=== PATIENT | female | born 1955 | race Caucasian/White ===

== ENCOUNTER 2023-02-12 07:54 | Outpatient (CLI) | payer MEDICARE, OTHER, SELFPAY ==
--- NOTE | ~2023-02-12 | NM_ITS ---
EXAMINATION: NM parathyroid imaging w spect DATE: 02/12/2023 13:39 INDICATION: Primary hyperparathyroidism TECHNIQUE: 21 mCi Tc99m tetrofosmin (Myoview) was administered by intravenous route. Anterior images of the neck were obtained at 10 minutes and 2 hours. COMPARISON: None. FINDINGS/IMPRESSION: There is no focus of persistent activity in the area of the thyroid or mediastinum to suggest parathy roid adenoma. Reviewed, dictated and finalized at location A.
[2023-02-12 08:43] LABS: Alanine Aminotransferase 31 U/L (6-35); Albumin Level 3.8 g/dL (3.5-5.1); Alkaline Phosphatase 115 U/L (38-126); Anion Gap 6 mmol/L (8-16); Aspartate Amino Transferase 40 U/L (14-36); Bilirubin,Total 0.6 mg/dL (0.2-1.3); Blood Urea Nitrogen 16 mg/dL (7-17); Calcium 8.3 mg/dL (8.4-10.2); Carbon Dioxide 30 mmol/L (22-30); Chloride 103 mmol/L (98-107); Estimated Glomerular Filt Rate > 60; Glucose 99 mg/dL (65-110); Sodium 139 mmol/L (137-145)
[2023-02-12 08:46] LABS: Parathyroid Intact 131.4 pg/mL (7.5-53.5)
[2023-02-12 08:53] LABS: MALB Creatinine Ratio 46.8 mg/g (0-30); Microalbumin Urine Random 62.3 mg/L (0-16.7)
== END 2023-02-12 07:55 | disposition home or self-care (01) ==
PROVIDERS: PCP Internal Medicine; Visit Provider Internal Medicine
DX: E21.0 Primary hyperparathyroidism (principal); E66.9 Obesity, unspecified; M81.0 Age-related osteoporosis without current pathological fracture
CPT/HCPCS: 36415; 78071; 80053; 82043; 83970; A9500

== ENCOUNTER 2023-03-13 07:37 | Inpatient (IN) | payer MEDICARE, OTHER, SELFPAY ==
[2023-03-13] VITALS (20 sets, daily range): BP systolic 108–158; BP diastolic 57–92; PULSE 64–85; RESP 16–24; TEMP 36.1–37.4; O2SAT 92–100
--- NOTE | ~2023-03-13 | XR_ITS ---
EXAMINATION: XR retrograde pyelo w/stent LT DATE: 03/13/2023 14:48 INDICATION: Left internal ureteral stent placement TECHNIQUE: Fluoroscopic images from a left internal ureteral stent placement are submitted for review . 22 seconds of fluoroscopy time. 7 fluoroscopic images FINDINGS: There is a left double-J internal ureteral stent projecting in expected position, with proximal Agate loop at the level of the renal pelvis and distal loop in the pelvis within the bladder lumen. IMPRESSION: 1. Left internal ureteral stent placement. Please refer to real-time procedural findings for detail s. Reviewed, dictated and finalized at location A. IMPRESSION: 1. Left internal ureteral stent placement. Please refer to real-time procedur al findings for details.
--- NOTE | ~2023-03-13 | CT_ITS ---
Non-contrast CT scan of the Abdomen and Pelvis Clinical indication: Left flank pain Technique: 2.5 mm axial scans were obtained through the abdomen and pelvis without intravenous or or al contrast. Dose reduction technique was used on this scan by utilizing automated exposure control a nd iterative reconstruction technique. The dose-length product (DLP) was 1141.60 mGy-cm. Findings: Images through the lung bases reveal no abnormalities. There is a 1.3 x 0.9 cm stone at the left renal pelvis, with Hounsfield units in the range of 1350. T here is left perinephric stranding with possible minimal fullness of the left renal collecting system . There is probable minimal fullness of the right renal collecting system is well, but no ureteral di latation or ureteral stone on the right side. Punctate nonobstructing right renal stone present. The liver, spleen, pancreas, gallbladder, and adrenals appear normal. There are atherosclerotic calci fications of the aorta. There is no evidence of bowel obstruction. Very small fat-containing umbilical hernia present. There is an additional lower ventral fat-containing hernia (axial image 157). Images through the pelvis were performed. There is no evidence of ascites or lymphadenopathy. Urinary bladder unremarkable. Patient is post hysterectomy. No pelvic mass seen. Impression: 1.3 x 0.9 cm left renal pelvis stone with minimal left hydronephrosis and left ureteral stranding. No ncontrast CT is insensitive for pyelonephritis. Correlate clinically for signs/symptoms of superimpos ed infection. Punctate nonobstructing right renal stone with probable minimal fullness of the right renal collectin g system. Small fat-containing ventral and umbilical hernias, as above. Reviewed, dictated and finalized at [facility]. Impression: 1.3 x 0.9 cm left renal pelvis stone with minimal left hydronephrosis and left ureteral stranding. Noncontrast CT is insensitive for pyelonephritis. Correlate clinically for signs/symptoms of superimposed infection. Punctate nonobstructing right renal stone with probable minimal fullness of the right renal collecting system. Small fat-containing ventral and umbilical hernias, as above.
--- NOTE | 2023-03-13 07:52 | ED.ABDPAIN ---
HPI - Abdominal Pain General Chief Complaint: Abdominal Pain Stated Complaint: LEFT flank pain Time Seen by Provider: 03/13/23 07:40 History of Present Illness HPI narrative: 67-year-old female with history of kidney stones presenting the emergency department for evaluation of worsening left flank pain. Patient states this morning when she woke up she was having left lower flank pain and that is now radiating down to her left lower quadrant. Patient states this does feel similar to previous kidney stones. Patient does have follow-up with Dr. Aranda and she does know that she has multiple stones in her kidney. Patient was requesting medication for pain control and for nausea control. Patient does have multiple medication allergies but patient has no known adverse reaction to fentanyl. Related Data Home Medications Medication Instructions Recorded Confirmed apixaban 5 mg tablet 5 mg PO BID 11/29/22 03/13/23 atorvastatin 40 mg tablet 40 mg PO DAILY 11/29/22 03/13/23 cetirizine 10 mg tablet (Zyrtec) 10 mg PO DAILY PRN Allergy Symptoms 11/29/22 03/13/23 diltiazem HCl 360 mg 360 mg PO DAILY 11/29/22 03/13/23 capsule,extended release 24 hr escitalopram oxalate 20 mg tablet 20 mg PO DAILY 11/29/22 03/13/23 flecainide 100 mg tablet 100 mg PO Q12H 11/29/22 03/13/23 losartan 50 mg-hydrochlorothiazide 1 tablet PO DAILY 11/29/22 03/13/23 12.5 mg tablet magnesium oxide 400 mg PO DAILY 11/29/22 03/13/23 multivitamin-ferrous 1 tablet PO DAILY 11/29/22 03/13/23 fumarate-folic acid 18 mg-400 mcg tablet (Centrum) calcium carb-vit D3-minerals 600 1 tablet PO DAILY 01/28/23 03/13/23 mg calcium-400 unit tablet denosumab 60 mg/mL subcutaneous 60 mg subcut [id number] 01/28/23 03/13/23 syringe (Prolia) Allergies Allergy/AdvReac Type Severity Reaction Status Date / Time Barbiturates Allergy Intermediate RASH Verified 01/30/23 09:08 hydrocodone Allergy Intermediate HEADACHE Verified 01/30/23 09:08 atropine Allergy Unknown Unknown Verified 01/30/23 09:08 codeine Allergy Unknown Unknown Verified 01/30/23 09:08 hyoscyamine Allergy Unknown Unknown Verified 01/30/23 09:08 meperidine Allergy Unknown Unknown Verified 01/30/23 09:08 morphine Allergy Unknown Unknown Verified 01/30/23 09:08 phenobarbital Allergy Unknown Unknown Verified 01/30/23 09:08 prednisone Allergy Unknown Unknown Verified 01/30/23 09:08 CODEINE (Generic Allergy) Allergy Intermediate HEADACHE Uncoded 11/29/22 08:35 ANTICHOLINERGICS,OTHER Allergy Mild UNKNOWN Uncoded 11/29/22 08:35 BELLADONNA ALK/PHENOBARBITAL Allergy Unknown RASH Uncoded 11/29/22 08:35 (Generic Allergy) NKFA Allergy Unknown Unknown Uncoded 11/29/22 08:35 Review of Systems Review of Systems: All systems reviewed & are unremarkable except as noted in HPI and below PMFSH Past Medical History Medical History Afib Anxiety Asthma BMI greater than 40 GERD (gastroesophageal reflux disease) History of cardiac pacemaker HTN (hypertension) Left knee DJD Osteoporosis Pacemaker Right knee DJD Surgical History Surgical History History of bilateral breast reduction surgery History of hernia repair History of hysterectomy for indication other than cancer Family History Family History Mother Family history of premature coronary heart disease, Onset Age: 54 Hypertension Family history of elevated blood lipids Family history of diabetes mellitus in first degree relative Patient's mother is Father Hypertension Family history of elevated blood lipids Family history of diabetes mellitus in first degree relative Family history of coronary artery disease, Onset Age: 51 Patient's father is Other Diabetes mellitus Family history of arthritis Family history of kidney stones Family history of me
[2023-03-13 08:10] LABS: Basophils Absolute Auto 0.1 K/mm3 (0.0-0.1); Basophils Percent Auto 0.3 % (0.2-1.2); Eosinophils Absolute Auto 0.1 K/mm3 (0-0.3); Eosinophils Percent Auto 0.3 % (0-4.4); Hematocrit 43.7 % (37.0-47.0); Hemoglobin 13.1 g/dL (12.0-15.0); Immature Granulocyte Absolute 0.06 K/mm3 (0.00-0.031); Immature Granulocyte Percent A 0.4 % (0-0.5); Lymphocytes Absolute Auto 1.28 K/mm3 (0.9-3.2); Lymphocytes Percent Auto 8.2 % (18.3-44.2); Mean Corpuscular Hemoglobin 26.4 pg (26-34); Mean Corpuscular Volume 88.1 fl (80-100); Mean Platelet Volume 8.6 fl (7.4-10.4); Monocytes Percent Auto 6.3 % (2.6-8.5); Neutrophils Absolute Auto 13.3 K/mm3 (1.3-6.7); Neutrophils Percent Auto 84.5 % (45.5-73.1); Platelet Count Result 311 k/mm3 (150-375); Red Blood Count 4.96 M/mm3 (4.2-5.4); Red Cell Distribution Width 15.8 % (11.5-14.5); White Blood Count 15.7 K/mm3 (4.5-10.0)
[2023-03-13 08:21] LABS: Prothrombin Time 13.3 Seconds (11.1-14.7)
[2023-03-13 08:22] LABS: Partial Thromboplastin Time 27.7 SECONDS (22.3-36.8)
[2023-03-13 08:24] LABS: Alanine Aminotransferase 35 U/L (6-35); Albumin Level 4.1 g/dL (3.5-5.1); Alkaline Phosphatase 141 U/L (38-126); Anion Gap 6 mmol/L (8-16); Aspartate Amino Transferase 50 U/L (14-36); Bilirubin,Total 0.5 mg/dL (0.2-1.3); Blood Urea Nitrogen 17 mg/dL (7-17); Calcium 9.2 mg/dL (8.4-10.2); Carbon Dioxide 28 mmol/L (22-30); Chloride 105 mmol/L (98-107); Estimated CRCL calculation 90 ml/min; Estimated Glomerular Filt Rate > 60; Glucose 124 mg/dL (65-110); Potassium 4.2 mmol/L (3.4-5.0); Sodium 139 mmol/L (137-145)
[2023-03-13 08:36] LABS: Appearance Urine Cloudy (Clear); Bacteria Urine Rare /hpf; Bilirubin Urine Negative (Negative); Blood Urine Negative (Negative); Color Urine Yellow (Yellow); Glucose Urine UA Negative (Negative); Ketones Urine Negative (Negative); Leukocyte Esterase Ur 2+ LEU/UL (Negative); Need Manual Microscopic Reviewed; Nitrate Urine Negative (Negative); Non Pathogenic Casts 0-2; Protein Urine 1+ mg/dL (Negative); Specific Grav Ur 1.022 (1.001-1.035); Squamous Epithelial Cell Urine Occasional /hpf (Few); WBC Urine >100 /hpf
[2023-03-13 08:46] LABS: Add Urine Microscopic? YES
[2023-03-13] MEDS: ONDANSETRON INJ 4 MG/2 ML VIAL IV PUSH ×2 (08:48→11:24)
[2023-03-13] MEDS: fentaNYL CITRATE INJ (*CRX) 100 MCG/2 ML VIAL 50 MCG IV PUSH ×3 (08:48→17:18)
--- NOTE | 2023-03-13 10:24 | WPDURCON ---
Assessment and Plan Assessment and plan (1) Acute UTI: Code(s): N39.0 - Urinary tract infection, site not specified Status: Acute (2) Calculus of left kidney: Code(s): N20.0 - Calculus of kidney Status: Acute Assessment and Plan: Large obstructing left renal calculus with obstructive pyelonephritis. Will plan cystoscopy with ureteral stent placement today. Once infection has been treated she will need more definitive treatment, like with a left percutaneous nephrolithotomy. Urology Consult Note HPI Date Seen: 03/13/23 Primary Care Provider: Gibran Epperson, Consult Narrative Narrative: Dorie Mahoney is a 67 year old female has a known large left renal stone is scheduled for percutaneous nephrolithotomy in the future. She has been putting off for caring for her . She call me this morning with acute left flank pain, nausea vomiting. She denies fevers or chills seen in the ED her large left renal pelvic stone is now partially obstructing and she appears to have infected urine. Review of Systems Cardiovascular: Cardiovascular: Denies chest pain, Denies lightheadedness, Denies palpitations and Denies dyspnea Respiratory: Respiratory: Denies dyspnea Gastrointestinal: Gastrointestinal: Denies diarrhea, Denies nausea and Denies vomiting Genitourinary: Genitourinary: Denies hematuria and Denies dysuria Endocrine: Endocrine: Denies palpitations PMFSH Past Medical History Medical History (Updated 03/13/23 @ 10:01 by Sotero Mazariegos MD) Afib Anxiety Asthma BMI greater than 40 GERD (gastroesophageal reflux disease) History of cardiac pacemaker HTN (hypertension) Left knee DJD Osteoporosis Pacemaker Right knee DJD Surgical History Surgical History History of bilateral breast reduction surgery History of hernia repair History of hysterectomy for indication other than cancer Family History Family History Mother Family history of premature coronary heart disease, Onset Age: 54 Hypertension Family history of elevated blood lipids Family history of diabetes mellitus in first degree relative Patient's mother is Father Hypertension Family history of elevated blood lipids Family history of diabetes mellitus in first degree relative Family history of coronary artery disease, Onset Age: 51 Patient's father is Other Diabetes mellitus Family history of arthritis Family history of kidney stones Family history of mental disorder Social History Social History Smoking status: Never smoker Alcohol intake: never Substance use: never Living arrangements: alone Occupation/Education: retired Gender identity (if verbalized by the patient): Female Meds Home Medications and Allergies Home Medications Medication Instructions Recorded Confirmed Type apixaban 5 mg tablet 5 mg PO BID 11/29/22 01/30/23 History atorvastatin 40 mg tablet 40 mg PO DAILY 11/29/22 01/30/23 History cetirizine 10 mg tablet (Zyrtec) 10 mg PO DAILY PRN 11/29/22 01/30/23 History diltiazem HCl 360 mg 360 mg PO DAILY 11/29/22 01/30/23 History capsule,extended release 24 hr escitalopram oxalate 20 mg tablet 20 mg PO DAILY 11/29/22 01/30/23 History flecainide 100 mg tablet 100 mg PO Q12H 11/29/22 01/30/23 History losartan 50 mg-hydrochlorothiazide 1 tablet PO DAILY 11/29/22 01/30/23 History 12.5 mg tablet magnesium oxide 400 mg PO DAILY 11/29/22 01/30/23 History multivitamin-ferrous 1 tablet PO DAILY 11/29/22 01/30/23 History fumarate-folic acid 18 mg-400 mcg tablet (Centrum) calcium carb-vit D3-minerals 600 1 tablet PO DAILY 01/28/23 01/30/23 History mg calcium-400 unit tablet denosumab 60 mg/mL subcutaneous 60 mg subcut [id number] 01/28/23 01/30/23 History syring
--- NOTE | 2023-03-13 10:27 | WPDHPUPDATE1 ---
History and Physical Update Update Date/Time: 03/13/23 10:27 History and Physical has been reviewed, including an updated exam of the patient. There are NO changes in the patient's condition. Risks, benefits, and alternatives have been discussed and questions answered. Patient agrees to proceed with procedure.
--- NOTE | 2023-03-13 12:48 | PC.NURSE ---
to OR per stretcher
[2023-03-13] MEDS: LACTATED RINGERS 1,000 ML 30 ML IV CONT (13:04)
--- NOTE | 2023-03-13 13:27 | WPDANESEPPF ---
Anes - Initial Pre Proc Eval Procedure: Operation Date: 03/13/23 15:15 Proposed Procedures p Cystoscopy, Left Stent Placement - Jason Almazan MD Date/Time: 03/13/23 13:27 Surgeon: Hazel Hernandez DO Pre Op Diagnosis: UTI, kidney stone Patient Data Age: 67 Gender: F Height: 1.73 m Weight: 122 kg Last Vital Signs Temp 36.8 C 03/13/23 10:35 Pulse 65 03/13/23 10:01 Resp 18 03/13/23 10:01 BP 148/86 H 03/13/23 10:01 Pulse Ox 98 03/13/23 10:01 O2 Del Method Room Air 03/13/23 07:38 Allergies Allergy/AdvReac Type Severity Reaction Status Date / Time Barbiturates Allergy Intermediate RASH Verified 01/30/23 09:08 hydrocodone Allergy Intermediate HEADACHE Verified 01/30/23 09:08 atropine Allergy Unknown Unknown Verified 01/30/23 09:08 codeine Allergy Unknown Unknown Verified 01/30/23 09:08 hyoscyamine Allergy Unknown Unknown Verified 01/30/23 09:08 meperidine Allergy Unknown Unknown Verified 01/30/23 09:08 morphine Allergy Unknown Unknown Verified 01/30/23 09:08 phenobarbital Allergy Unknown Unknown Verified 01/30/23 09:08 prednisone Allergy Unknown Unknown Verified 01/30/23 09:08 CODEINE (Generic Allergy) Allergy Intermediate HEADACHE Uncoded 11/29/22 08:35 ANTICHOLINERGICS,OTHER Allergy Mild UNKNOWN Uncoded 11/29/22 08:35 BELLADONNA ALK/PHENOBARBITAL Allergy Unknown RASH Uncoded 11/29/22 08:35 (Generic Allergy) NKFA Allergy Unknown Unknown Uncoded 11/29/22 08:35 Home Medications Medication Instructions Recorded Confirmed Type apixaban 5 mg tablet 5 mg PO BID 11/29/22 03/13/23 History atorvastatin 40 mg tablet 40 mg PO DAILY 11/29/22 03/13/23 History cetirizine 10 mg tablet (Zyrtec) 10 mg PO DAILY PRN Allergy Symptoms 11/29/22 03/13/23 History diltiazem HCl 360 mg 360 mg PO DAILY 11/29/22 03/13/23 History capsule,extended release 24 hr escitalopram oxalate 20 mg tablet 20 mg PO DAILY 11/29/22 03/13/23 History flecainide 100 mg tablet 100 mg PO Q12H 11/29/22 03/13/23 History losartan 50 mg-hydrochlorothiazide 1 tablet PO DAILY 11/29/22 03/13/23 History 12.5 mg tablet magnesium oxide 400 mg PO DAILY 11/29/22 03/13/23 History multivitamin-ferrous 1 tablet PO DAILY 11/29/22 03/13/23 History fumarate-folic acid 18 mg-400 mcg tablet (Centrum) calcium carb-vit D3-minerals 600 1 tablet PO DAILY 01/28/23 03/13/23 History mg calcium-400 unit tablet denosumab 60 mg/mL subcutaneous 60 mg subcut [id number] 01/28/23 03/13/23 History syringe (Prolia) exenatide microspheres 2 mg/0.85 2 mg (0.85 mL) subcut WEEKLY #12 mL 01/28/23 03/13/23 Rx mL subcutaneous auto-injector (Byoli Punch!se) mecobalamin (vitamin B12) 10,000 1,000 mcg IM .2 weeks #1 ea 01/28/23 03/13/23 Rx mcg solution for injection [id number] 8 cap PO DAILY 3 months #720 caps 01/30/23 03/13/23 Rx 36,000-114,000-180,000 unit capsule,delay rel (Creon) omeprazole 40 mg capsule,delayed 40 mg PO DAILY 3 months #90 caps 01/30/23 03/13/23 Rx release Laboratory Tests 03/13/23 07:59 WBC 15.7 H K/mm3 (4.5-10.0) RBC 4.96 M/mm3 (4.2-5.4) Hgb 13.1 g/dL (12.0-15.0) Hct 43.7 % (37.0-47.0) MCV 88.1 fl (80-100) MCH 26.4 pg (26-34) MCHC 30.0 L g/dl (32-36) RDW 15.8 H % (11.5-14.5) Plt Count 311 k/mm3 (150-375) MPV 8.6 fl (7.4-10.4) Immature Gran % (Auto) 0.4 % (0-0.5) Neut % (Auto) 84.5 H % (45.5-73.1) Lymph % (Auto) 8.2 L % (18.3-44.2) [place] % (Auto) 6.3 % (2.6-8.5) Eos % (Auto) 0.3 % (0-4.4) Baso % (Auto) 0.3 % (0.2-1.2) Lymph # (Auto) 1.28 K/mm3 (0.9-3.2) [place] # (Auto) 1.0 H K/mm3 (0.1-0.6) Eos # (Auto) 0.1 K/mm3 (0-0.3) Baso # (Auto) 0.1 K/mm3 (0.0-0.1) Abs Immat Gran (auto) 0.06 H K/mm3 (0.00-0.031) Absolute Neuts (auto) 13.3 H K/mm3 (1.3-6.7) Absolute Nucleated RBC 0.0 K/mm3 (0.0-0.012) Nucleated RBC % 0.0 % (0.0-0.2) PT 13.3 Seconds
[2023-03-13] MEDS: LIDOCAINE HCL 2% GEL UROJET 10 ML PKG MUCOUS MEM (14:37)
--- NOTE | 2023-03-13 14:51 | P.OP_ITS ---
Procedure Note - Detailed Date of Procedure 03/13/23 Pre-op Diagnosis UTI, Left kidney stone Post-op Diagnosis Same Procedure Performed Cystoscopy, left retrograde pyelography and left ureteral stent placement Surgeon Jason Almazan MD Anesthesia MAC Description of Procedure The patient was brought to the operative suite where she was prepped and draped in a routine sterile fashion while in the dorsal lithotomy position. A 19 F rigid cystoscope was placed in her bladder and the bladder was circumferentially inspected. The bladder neck and urethra were endoscopically normal. The bladder mucosa was without hyperemia. There was no intravesical foreign body or neoplasm. There was a single orthotopic ureteral orifice bilaterally. A bulb- tipped catheter was used to obtain left retrograde pyelogram to outline the renal pelvis and insure appropriate positioning of the stent. There was no obvious filling defects or obstruction in the ureter. I advanced .035 glidewire into the left renal pelvis under fluoroscopy. A 4.8F variable length ureteral stent was positioned with the proximal coil in the renal pelvis and the distal coil in the bladder. Scopes and wires were removed after emptying the patient's bladder. Drains Yes Packing No Pathology None sent Complications No immediate complications Condition Stable Disposition PACU
--- NOTE | 2023-03-13 18:27 | PM.IMHP ---
H&P: HPI History of Present Illness Date/Time: 03/13/23 18:27 Chief Complaint: Flank Pain Narrative: 67-year-old female presents here with left flank pain with past medical history of kidney stones, AFib, asthma, GERD, HTN, osteoporosis, pacemaker, DONNELL with CPAP. Patient presented here today with 24 hours of left flank pain accompanied by dysuria. No hematuria, decreased output, odor. Patient does report increased frequency and chills that developed today. No fever or body aches. 2 previous episodes of kidney stones, most recent was 15 years ago and episode prior was [address] findings in the emergency department were positive for a 1.3 x 0.9 cm left renal pelvis stone with minimal left hydronephrosis and left ureteral stent stranding and a punctate nonobstructing right renal stone. UA and physical exam suggestive for UTI with pyelonephritis. Urology was consulted and retrograde pyelogram was performed this afternoon. Patient reports decreased discomfort, however flank and left abdomen remains tender. Small amount of hematuria. But is overall feeling improved. Review of Systems Review of Systems: All systems reviewed & are unremarkable except as noted in HPI and below PMFSH Past Medical History Medical History Afib Anxiety Asthma BMI greater than 40 GERD (gastroesophageal reflux disease) History of cardiac pacemaker HTN (hypertension) Left knee DJD Osteoporosis Pacemaker Right knee DJD Surgical History Surgical History History of bilateral breast reduction surgery History of hernia repair History of hysterectomy for indication other than cancer Family History Family History Mother Family history of premature coronary heart disease, Onset Age: 54 Hypertension Family history of elevated blood lipids Family history of diabetes mellitus in first degree relative Patient's mother is Father Hypertension Family history of elevated blood lipids Family history of diabetes mellitus in first degree relative Family history of coronary artery disease, Onset Age: 51 Patient's father is Other Diabetes mellitus Family history of arthritis Family history of kidney stones Family history of mental disorder Social History Social History (Updated 03/13/23 @ 23:45 by Mabel Angelo APRN) Social History: Currently lives with her and daughter. 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 Surrogate decision maker: Arianna White, daughter. Full Code. Smoking status: Never smoker Alcohol intake: never Substance use: never Lack of Transportation: No Lack of Food: Never True Current Housing: I Have Housing Concerned About Future Housing: No Difficulty Paying Gas/Electric Bills: No Difficulty Paying for Meds: No Currently Unemployed: No Education: High School Diploma/GED Difficulty w/ Childcare or Family Care: No Living arrangements: alone Occupation/Education: retired Gender identity (if verbalized by the patient): Female Spiritual care concerns: No Meds Home Medications and Allergies Home Medications Medication Instructions Recorded Confirmed Type apixaban 5 mg tablet 5 mg PO BID 11/29/22 03/13/23 History atorvastatin 40 mg tablet 40 mg PO DAILY 11/29/22 03/13/23 History cetirizine 10 mg tablet (Zyrtec) 10 mg PO DAILY PRN Allergy Symptoms 11/29/22 03/13/23 History diltiazem HCl 360 mg 360 mg PO DAILY 11/29/22 03/13/23 History capsule,extended release 24 hr escitalopram oxalate 20 mg tablet 20 mg PO DAILY 11/29/22 03/13/23 History flecainide 100 mg tablet 100 mg PO Q12H 11/29/22 03/13/23 History losartan 50 mg-hydrochlorothiazide 1 tablet PO DAILY 11/29/22 03/13/23 History 12.5 mg tablet magnesium oxide 400 mg PO
[2023-03-13 20:15] LABS: Lactic Acid Reflex 1.2 mmol/L (0.7-2.0)
[2023-03-13] MEDS: KETOROLAC (*BKC) 60 MG/2 ML VIAL IM (21:15)
[2023-03-13] MEDS: LACTATED RINGERS 1,000 ML 100 ML IV CONT (21:16)
[2023-03-14] VITALS (9 sets, daily range): BP systolic 102–123; BP diastolic 44–73; PULSE 65–81; RESP 16–18; TEMP 35.9–37; O2SAT 91–98
[2023-03-14 06:33] LABS: Hematocrit 38.1 % (37.0-47.0); Hemoglobin 11.4 g/dL (12.0-15.0); Mean Corpuscular HGB Conc 29.9 g/dl (32-36); Mean Corpuscular Hemoglobin 26.5 pg (26-34); Mean Corpuscular Volume 88.4 fl (80-100); Mean Platelet Volume 8.7 fl (7.4-10.4); Platelet Count Result 256 k/mm3 (150-375); Red Blood Count 4.31 M/mm3 (4.2-5.4); Red Cell Distribution Width 15.6 % (11.5-14.5); White Blood Count 15.3 K/mm3 (4.5-10.0)
[2023-03-14 07:02] LABS: Anion Gap 7 mmol/L (8-16); Blood Urea Nitrogen 15 mg/dL (7-17); Calcium 8.2 mg/dL (8.4-10.2); Carbon Dioxide 28 mmol/L (22-30); Chloride 100 mmol/L (98-107); Estimated CRCL calculation 79 ml/min; Estimated Glomerular Filt Rate > 60; Glucose 131 mg/dL (65-110); Potassium 3.5 mmol/L (3.4-5.0); Sodium 135 mmol/L (137-145)
[2023-03-14] MEDS: LIPASE/AMYLASE/PROTEASE 12,000 UNITS CAP 6 CAP PO ×3 (09:02→16:55)
[2023-03-14] MEDS: ATORVASTATIN 40 MG TABLET PO (09:04)
[2023-03-14] MEDS: ESCITALOPRAM OXALATE 10 MG TABLET 20 MG PO (09:04)
[2023-03-14] MEDS: LOSARTAN POTASSIUM 50 MG TABLET PO (09:04)
[2023-03-14] MEDS: MULTIVITAMINS /C LUTEIN (CENTRUM SILVER) TABLET *BKC 1 TAB PO (09:04)
[2023-03-14] MEDS: PANTOPRAZOLE 40 MG TABLET PO ×2 (09:05→16:56)
[2023-03-14] MEDS: hydroCHLOROthiazide 12.5 MG CAPSULE PO (09:05)
[2023-03-14] MEDS: FLECAINIDE ACETATE 100 MG TABLET PO ×2 (09:05→20:28)
[2023-03-14] MEDS: ONDANSETRON INJ 4 MG/2 ML VIAL IV PUSH ×2 (09:13→20:19)
[2023-03-14] MEDS: fentaNYL CITRATE INJ (*CRX) 100 MCG/2 ML VIAL 50 MCG IV PUSH ×3 (09:27→20:26)
[2023-03-14] MEDS: cefTRIAXone 2 GM/NS 100 ML 2 GM/100 ML BAG IVPB (10:09)
--- NOTE | 2023-03-14 11:04 | WPDUROPN2 ---
Progress Note: A&P Assessment and Plan (1) Acute UTI: Code(s): N39.0 - Urinary tract infection, site not specified Status: Acute (2) Calculus of left kidney: Code(s): N20.0 - Calculus of kidney Status: Acute Assessment and Plan: Culture-directed abx. [id number] F/U 10-14 days to arrange for definitive intervention left renal stone Subjective Subjective Date/Time Seen: 03/14/23 11:04 Interval history: Feeling much better/pain resolved after stent placement Review of Systems Cardiovascular: Cardiovascular: Denies chest pain, Denies lightheadedness, Denies palpitations and Denies dyspnea Respiratory: Respiratory: Denies dyspnea Gastrointestinal: Gastrointestinal: Denies diarrhea, Denies nausea and Denies vomiting Genitourinary: Genitourinary: Denies hematuria and Denies dysuria Endocrine: Endocrine: Denies palpitations Exam Const: General: no acute distress Resp: Effort & Inspection: normal respiratory effort GI: Inspection: non-distended GI Palp: No abdominal tenderness and No Guarding due to palpation present (GI) Auscultation: normal bowel sounds Objective Data Vital Signs Vital Signs: Vital Signs - 24 hr 03/13/23 12:55 03/13/23 14:46 03/13/23 15:00 Temperature 98.2 F 97.6 F Pulse Rate 70 85 82 Respiratory Rate 18 16 24 H Blood Pressure 152/76 H 152/88 H 135/78 Pulse Oximetry 95 100 94 Oxygen Delivery Room Air Simple Face Mask Nasal Cannula Oxygen Flow Rate 8 2 03/13/23 15:15 03/13/23 15:30 03/13/23 15:39 Temperature Pulse Rate 76 73 76 Respiratory Rate 20 20 20 Blood Pressure 158/71 H 146/70 H 140/77 Pulse Oximetry 96 95 96 Oxygen Delivery Room Air Nasal Cannula Nasal Cannula Oxygen Flow Rate 2 2 03/13/23 15:55 03/13/23 16:10 03/13/23 16:40 Temperature 98.6 F 98.8 F 99.3 F Pulse Rate 78 70 71 Respiratory Rate 20 20 20 Blood Pressure 126/87 140/69 150/75 H Pulse Oximetry 94 95 98 Oxygen Delivery Oxygen Flow Rate 03/13/23 17:35 03/13/23 20:00 03/13/23 20:00 Temperature 99.2 F 98.4 F Pulse Rate 75 79 Respiratory Rate 20 16 Blood Pressure 116/57 L 131/61 Pulse Oximetry 96 98 98 Oxygen Delivery CPAP Oxygen Flow Rate 2 03/14/23 00:00 03/14/23 04:00 03/14/23 09:05 Temperature 96.7 F L 97.7 F Pulse Rate 79 79 76 Respiratory Rate 16 16 Blood Pressure 102/48 L 115/56 L Pulse Oximetry 96 98 Oxygen Delivery Oxygen Flow Rate 03/14/23 08:00 Temperature 98.6 F Pulse Rate 81 Respiratory Rate 16 Blood Pressure 123/60 Pulse Oximetry 94 Oxygen Delivery Oxygen Flow Rate Intake/Output Intake/Output: Intake & Output 03/11/23 03/12/23 03/13/23 03/14/23 23:59 23:59 23:59 23:59 Intake Total 1178.6 444 Balance 1178.6 444 Meds/Results Medications: Active Medications Generic Name Dose Route Start Last Admin Trade Name Freq PRN Reason Stop Dose Admin Acetaminophen 500 mg 03/13/23 18:46 Acetaminophen 500 Mg Tablet PO Q4H PRN Mild Pain (1-3) or Fever Lipase/Protease/Amylase 6 cap 03/14/23 08:00 03/14/23 09:02 Lipase/Amylase/Protease 12,000 Units Cap PO 2 cap TIDWM VIVIANA Administration Lipase/Protease/Amylase 3 cap 03/13/23 20:00 03/14/23 10:10 Lipase/Amylase/Protease 12,000 Units Cap PO Not Given 1000,2000 [facility] Atorvastatin Calcium 40 mg 03/14/23 09:00 03/14/23 09:04 Atorvastatin 40 Mg Tablet PO 40 mg DAILY VIVIANA Administration Calcium Carbonate 500 mg 03/14/23 09:00 03/14/23 09:05 Calcium/Vitamin D 500 Mg Tablet PO 500 mg QAM [facility] Administration Cyanocobalamin 1,000 mcg 03/24/23 09:00 Cyanocobalamin Inj 1,000 Mcg/Ml Vial IM Q14D [facility] Diltiazem HCl 360 mg 03/14/23 18:00 Diltiazem Hcl Cd 180 Mg Cap.24hr PO DAILY@1800 [facility] Escitalopram Oxalate 20 mg 03/14/23 09:00 03/14/23 09:04 Escitalopram Oxalate 10 Mg Tablet PO 20 mg DAILY VIVIANA Administration Fentanyl Citrate 50 mcg 03/13/23 10:01 03/14/23 09
--- NOTE | 2023-03-14 11:54 | PM.IMPN ---
Progress Note: A&P Assessment and Plan (1) Acute UTI: Code(s): N39.0 - Urinary tract infection, site not specified Status: Acute Assessment and Plan: Rocephin initiated 03/13, being treated for renal stone with pyelonephritis Appreciate urology consultation, Toradol and fentanyl for pain Follow-up urine culture (2) Calculus of left kidney: Code(s): N20.0 - Calculus of kidney Status: Acute Assessment and Plan: Appreciate urology consultation, cystoscopy with stent placement performed 03/13 Patient will need left percutaneous nephrolithotomy on an outpatient basis once this infection has resolved Plan Chronic Conditions - hold home apixaban due to recent procedure, continue once 24-48 hours post-procedure. -hold home Prolia injection - continue home atorvastatin, calcium supplement, vitamin-D supplement, Zyrtec, diltiazem, escitalopram, bydureon, flecainide, Creon Diet: regular GI Prophylaxis: not currently indicated DVT Prophylaxis: SCDs, hold pharmacological due to recent procedure Lines: pIV Code Status: Full Code Subjective Date/time seen: 03/14/23 11:54 Interval history: 67-year-old female with history of kidney stones, AFib, GERD among other comorbidities is presenting with flank pain and currently being treated for an obstructive kidney stone with associated pyelonephritis. No overnight events noted. No chest pain or shortness of breath. No nausea, vomiting or diarrhea. No fevers or chills. Patient states she feels much better than when she came in. Still with little flank pain, improved. Review of Systems Review of Systems: 12 point review of systems was assessed and was negative except as noted in the HPI Exam Narrative: General: No acute distress, alert and oriented per baseline HEENT: Atraumatic, normocephalic, mucous membranes moist CV: Regular rate and rhythm, S1, S2 Lungs: Clear to auscultation bilaterally, no rales or crackles noted, no wheezes, good air entry Abdomen: Soft, nontender, nondistended, positive CVA tenderness noted Extremities: Normal to inspection Skin: No rashes noted, no lesions or wounds seen Psych: Euthymic, normal affect Objective Data Vital Signs Vital Signs: Vital Signs - 24 hr 03/13/23 12:55 03/13/23 14:46 03/13/23 15:00 Temperature 98.2 F 97.6 F Pulse Rate 70 85 82 Respiratory Rate 18 16 24 H Blood Pressure 152/76 H 152/88 H 135/78 Pulse Oximetry 95 100 94 Oxygen Delivery Room Air Simple Face Mask Nasal Cannula Oxygen Flow Rate 8 2 03/13/23 15:15 03/13/23 15:30 03/13/23 15:39 Temperature Pulse Rate 76 73 76 Respiratory Rate 20 20 20 Blood Pressure 158/71 H 146/70 H 140/77 Pulse Oximetry 96 95 96 Oxygen Delivery Room Air Nasal Cannula Nasal Cannula Oxygen Flow Rate 2 2 03/13/23 15:55 03/13/23 16:10 03/13/23 16:40 Temperature 98.6 F 98.8 F 99.3 F Pulse Rate 78 70 71 Respiratory Rate 20 20 20 Blood Pressure 126/87 140/69 150/75 H Pulse Oximetry 94 95 98 Oxygen Delivery Oxygen Flow Rate 03/13/23 17:35 03/13/23 20:00 03/13/23 20:00 Temperature 99.2 F 98.4 F Pulse Rate 75 79 Respiratory Rate 20 16 Blood Pressure 116/57 L 131/61 Pulse Oximetry 96 98 98 Oxygen Delivery CPAP Oxygen Flow Rate 2 03/14/23 00:00 03/14/23 04:00 03/14/23 09:05 Temperature 96.7 F L 97.7 F Pulse Rate 79 79 76 Respiratory Rate 16 16 Blood Pressure 102/48 L 115/56 L Pulse Oximetry 96 98 Oxygen Delivery Oxygen Flow Rate 03/14/23 08:00 03/14/23 09:00 Temperature 98.6 F Pulse Rate 81 Respiratory Rate 16 Blood Pressure 123/60 Pulse Oximetry 94 Oxygen Delivery Room Air Oxygen Flow Rate Intake/Output Intake/Output: Intake & Output 03/11/23 03/12/23 03/13/23 03/14/23 23:59 23:59 23:59 23:59 Intake Total 1178.6 444 Balance 1178.6 444 Meds/Results Medications: Active Medications Generic Name Dose Route Start Last Admin Trade Name
[2023-03-14] MEDS: ACETAMINOPHEN 500 MG TABLET PO (15:06)
[2023-03-14] MEDS: dilTIAZem HCL CD 180 MG CAP.24HR 360 MG PO (16:56)
[2023-03-14] MEDS: MAGNESIUM OXIDE 400 MG TABLET PO (16:56)
[2023-03-14] MEDS: ALBUTEROL SULFATE NEB 2.5 MG/3 ML INH INHALATION (18:10)
[2023-03-14] MEDS: LIPASE/AMYLASE/PROTEASE 12,000 UNITS CAP 3 CAP PO (20:28)
[2023-03-15] MEDS: ONDANSETRON INJ 4 MG/2 ML VIAL IV PUSH (02:04)
[2023-03-15 04:38] VITALS: BP 95/56; PULSE 72; RESP 20; TEMP 37.1; O2SAT 96
[2023-03-15 08:00] VITALS: BP 111/57; PULSE 70; RESP 16; TEMP 36.6; O2SAT 90
[2023-03-15] MEDS: LIPASE/AMYLASE/PROTEASE 12,000 UNITS CAP 6 CAP PO ×3 (08:33→17:03)
[2023-03-15 09:46] VITALS: PULSE 73
[2023-03-15] MEDS: cefTRIAXone 2 GM/NS 100 ML 2 GM/100 ML BAG IVPB (09:46)
[2023-03-15] MEDS: FLECAINIDE ACETATE 100 MG TABLET PO ×2 (09:46→20:29)
[2023-03-15] MEDS: hydroCHLOROthiazide 12.5 MG CAPSULE PO (09:46)
--- NOTE | 2023-03-15 09:46 | PM.IMPN ---
Progress Note: A&P Assessment and Plan (1) Acute UTI: Code(s): N39.0 - Urinary tract infection, site not specified Status: Acute Assessment and Plan: Rocephin initiated 03/13, being treated for renal stone with pyelonephritis Appreciate urology consultation, Toradol and fentanyl for pain Follow-up urine culture, d/c when sens back (2) Calculus of left kidney: Code(s): N20.0 - Calculus of kidney Status: Acute Assessment and Plan: Appreciate urology consultation, cystoscopy with stent placement performed 03/13 Patient will need left percutaneous nephrolithotomy on an outpatient basis once this infection has resolved Plan Chronic Conditions - hold home apixaban due to recent procedure, continue once 24-48 hours post-procedure. -hold home Prolia injection - continue home atorvastatin, calcium supplement, vitamin-D supplement, Zyrtec, diltiazem, escitalopram, bydureon, flecainide, Creon Diet: regular GI Prophylaxis: not currently indicated DVT Prophylaxis: SCDs, hold pharmacological due to recent procedure Lines: pIV Code Status: Full Code Subjective Date/time seen: 03/15/23 09:46 Interval history: 67-year-old female with history of kidney stones, AFib, GERD among other comorbidities is presenting with flank pain and currently being treated for an obstructive kidney stone with associated pyelonephritis. No overnight events noted. No chest pain or shortness of breath. No nausea, vomiting or diarrhea. No fevers or chills. Patient states she feels much better than when she came in. Eager to go home. Review of Systems Review of Systems: 12 point review of systems was assessed and was negative except as noted in the HPI Exam Narrative: General: No acute distress, alert and oriented per baseline HEENT: Atraumatic, normocephalic, mucous membranes moist CV: Regular rate and rhythm, S1, S2 Lungs: Clear to auscultation bilaterally, no rales or crackles noted, no wheezes, good air entry Abdomen: Soft, nontender, nondistended, no CVA tenderness Extremities: Normal to inspection Skin: No rashes noted, no lesions or wounds seen Psych: Euthymic, normal affect Objective Data Vital Signs Vital Signs: Vital Signs - 24 hr 03/14/23 15:50 03/14/23 18:11 03/14/23 18:15 Temperature 97.8 F Pulse Rate 65 65 Respiratory Rate 18 18 Blood Pressure 115/73 Pulse Oximetry 91 95 Oxygen Delivery Room Air 03/14/23 21:54 03/14/23 20:55 03/14/23 21:52 Temperature 97.1 F L Pulse Rate 66 Respiratory Rate 16 Blood Pressure 115/44 L Pulse Oximetry 92 93 Oxygen Delivery Room Air Room Air 03/15/23 04:38 Temperature 98.7 F Pulse Rate 72 Respiratory Rate 20 Blood Pressure 95/56 L Pulse Oximetry 96 Oxygen Delivery Intake/Output Intake/Output: Intake & Output 03/12/23 03/13/23 03/14/23 03/15/23 23:59 23:59 23:59 23:59 Intake Total 1178.6 1766 50 Balance 1178.6 1766 50 Meds/Results Medications: Active Medications Generic Name Dose Route Start Last Admin Trade Name Freq PRN Reason Stop Dose Admin Acetaminophen 500 mg 03/13/23 18:46 03/14/23 15:06 Acetaminophen 500 Mg Tablet PO 500 mg Q4H PRN Administration Mild Pain (1-3) or Fever Albuterol 2.5 mg 03/14/23 18:01 03/14/23 18:10 Albuterol Sulfate Neb 2.5 Mg/3 Ml Inh INHALATION 2.5 mg Q6HRT PRN Administration Shortness Of Breath Lipase/Protease/Amylase 6 cap 03/14/23 08:00 03/15/23 08:33 Lipase/Amylase/Protease 12,000 Units Cap PO 2 cap TIDWM VIVIANA Administration Lipase/Protease/Amylase 3 cap 03/13/23 20:00 03/14/23 20:28 Lipase/Amylase/Protease 12,000 Units Cap PO 3 cap 1000,2000 VIVIANA Administration Atorvastatin Calcium 40 mg 03/14/23 09:00 03/14/23 09:04 Atorvastatin 40 Mg Tablet PO 40 mg DAILY VIVIANA Administration Calcium Carbonate 500 mg 03/14/23 09:00 03/14/23 09:05 Calcium/Vitamin D 500 Mg Tablet PO
[2023-03-15] MEDS: ACETAMINOPHEN 500 MG TABLET PO ×3 (09:47→20:29)
[2023-03-15] MEDS: ATORVASTATIN 40 MG TABLET PO (09:47)
[2023-03-15] MEDS: MULTIVITAMINS /C LUTEIN (CENTRUM SILVER) TABLET *BKC 1 TAB PO (09:47)
[2023-03-15] MEDS: LOSARTAN POTASSIUM 50 MG TABLET PO (09:47)
[2023-03-15] MEDS: PANTOPRAZOLE 40 MG TABLET PO ×2 (09:47→17:04)
[2023-03-15 10:29] LABS: Basophils Percent Auto 0.4 % (0.2-1.2); Eosinophils Absolute Auto 0.2 K/mm3 (0-0.3); Eosinophils Percent Auto 1.5 % (0-4.4); Hematocrit 39.3 % (37.0-47.0); Hemoglobin 11.7 g/dL (12.0-15.0); Immature Granulocyte Absolute 0.05 K/mm3 (0.00-0.031); Immature Granulocyte Percent A 0.5 % (0-0.5); Lymphocytes Absolute Auto 1.06 K/mm3 (0.9-3.2); Lymphocytes Percent Auto 10.7 % (18.3-44.2); Mean Corpuscular HGB Conc 29.8 g/dl (32-36); Mean Corpuscular Hemoglobin 26.2 pg (26-34); Mean Corpuscular Volume 88.1 fl (80-100); Mean Platelet Volume 8.8 fl (7.4-10.4); Monocytes Percent Auto 9.7 % (2.6-8.5); Neutrophils Absolute Auto 7.7 K/mm3 (1.3-6.7); Neutrophils Percent Auto 77.2 % (45.5-73.1); Platelet Count Result 282 k/mm3 (150-375); Red Blood Count 4.46 M/mm3 (4.2-5.4); Red Cell Distribution Width 15.7 % (11.5-14.5); White Blood Count 9.9 K/mm3 (4.5-10.0)
[2023-03-15 10:41] LABS: Alanine Aminotransferase 26 U/L (6-35); Albumin Level 3.6 g/dL (3.5-5.1); Alkaline Phosphatase 108 U/L (38-126); Anion Gap 4 mmol/L (8-16); Aspartate Amino Transferase 33 U/L (14-36); Bilirubin,Total 0.4 mg/dL (0.2-1.3); Blood Urea Nitrogen 14 mg/dL (7-17); Calcium 9.2 mg/dL (8.4-10.2); Carbon Dioxide 31 mmol/L (22-30); Chloride 100 mmol/L (98-107); Estimated CRCL calculation 65 ml/min; Estimated Glomerular Filt Rate 55; Glucose 138 mg/dL (65-110); Potassium 3.7 mmol/L (3.4-5.0); Sodium 135 mmol/L (137-145)
[2023-03-15] MEDS: oxyBUTYnin CHLORIDE 5 MG TABLET PO ×2 (15:01→20:30)
[2023-03-15 16:00] VITALS: BP 110/64; PULSE 68; RESP 18; TEMP 36.6; O2SAT 95
[2023-03-15] MEDS: MAGNESIUM OXIDE 400 MG TABLET PO (17:04)
[2023-03-15] MEDS: dilTIAZem HCL CD 180 MG CAP.24HR 360 MG PO (17:04)
[2023-03-15 20:29] VITALS: PULSE 68
[2023-03-15] MEDS: ESCITALOPRAM OXALATE 10 MG TABLET 20 MG PO (20:29)
[2023-03-15 22:00] VITALS: BP 115/57; PULSE 71; RESP 20; TEMP 36.2; O2SAT 96
[2023-03-16 05:25] VITALS: BP 124/68; PULSE 68; RESP 18; TEMP 35.5; O2SAT 97
[2023-03-16 06:32] LABS: Basophils Absolute Auto 0.1 K/mm3 (0.0-0.1); Basophils Percent Auto 0.6 % (0.2-1.2); Eosinophils Absolute Auto 0.4 K/mm3 (0-0.3); Eosinophils Percent Auto 4.3 % (0-4.4); Hematocrit 37.7 % (37.0-47.0); Hemoglobin 11.1 g/dL (12.0-15.0); Immature Granulocyte Absolute 0.03 K/mm3 (0.00-0.031); Immature Granulocyte Percent A 0.4 % (0-0.5); Lymphocytes Absolute Auto 1.36 K/mm3 (0.9-3.2); Lymphocytes Percent Auto 16.6 % (18.3-44.2); Mean Corpuscular HGB Conc 29.4 g/dl (32-36); Mean Corpuscular Hemoglobin 26.4 pg (26-34); Mean Corpuscular Volume 89.8 fl (80-100); Mean Platelet Volume 9.1 fl (7.4-10.4); Monocytes Absolute Auto 0.8 K/mm3 (0.1-0.6); Neutrophils Absolute Auto 5.6 K/mm3 (1.3-6.7); Neutrophils Percent Auto 68.1 % (45.5-73.1); Platelet Count Result 296 k/mm3 (150-375); Red Cell Distribution Width 15.8 % (11.5-14.5); White Blood Count 8.2 K/mm3 (4.5-10.0)
[2023-03-16 06:43] LABS: Alanine Aminotransferase 24 U/L (6-35); Albumin Level 3.3 g/dL (3.5-5.1); Alkaline Phosphatase 102 U/L (38-126); Anion Gap 2 mmol/L (8-16); Aspartate Amino Transferase 29 U/L (14-36); Bilirubin,Total 0.4 mg/dL (0.2-1.3); Blood Urea Nitrogen 17 mg/dL (7-17); Calcium 8.6 mg/dL (8.4-10.2); Carbon Dioxide 34 mmol/L (22-30); Chloride 99 mmol/L (98-107); Estimated CRCL calculation 71 ml/min; Estimated Glomerular Filt Rate > 60; Glucose 101 mg/dL (65-110); Potassium 3.8 mmol/L (3.4-5.0); Sodium 135 mmol/L (137-145)
[2023-03-16 07:01] LABS: Anisocytosis 1+ (NORMAL); Hypochromasia 1+ (NORMAL); Platelet Estimate Adequate (Adequate); Schistocytes None Seen (NORMAL)
[2023-03-16] MEDS: LIPASE/AMYLASE/PROTEASE 12,000 UNITS CAP 6 CAP PO (08:27)
[2023-03-16 08:28] VITALS: PULSE 78
[2023-03-16] MEDS: LOSARTAN POTASSIUM 50 MG TABLET PO (08:28)
[2023-03-16] MEDS: ATORVASTATIN 40 MG TABLET PO (08:28)
[2023-03-16] MEDS: ACETAMINOPHEN 500 MG TABLET PO (08:28)
[2023-03-16] MEDS: FLECAINIDE ACETATE 100 MG TABLET PO (08:28)
[2023-03-16] MEDS: PANTOPRAZOLE 40 MG TABLET PO (08:28)
[2023-03-16] MEDS: MULTIVITAMINS /C LUTEIN (CENTRUM SILVER) TABLET *BKC 1 TAB PO (08:29)
[2023-03-16] MEDS: hydroCHLOROthiazide 12.5 MG CAPSULE PO (08:29)
[2023-03-16] MEDS: oxyBUTYnin CHLORIDE 5 MG TABLET PO (08:32)
--- NOTE | 2023-03-18 14:47 | PM.DS ---
DS: Admitting Diagnosis Discharge Date 03/16/23 Admitting Diagnosis flank pain DS: Discharge Diagnosis Discharge Diagnosis (1) Acute UTI: Code(s): N39.0 - Urinary tract infection, site not specified Status: Acute Assessment and Plan: Rocephin initiated 03/13, being treated for renal stone with pyelonephritis Appreciate urology consultation, Toradol and fentanyl for pain Follow-up urine culture, d/c when sens back (2) Calculus of left kidney: Code(s): N20.0 - Calculus of kidney Status: Acute Assessment and Plan: Appreciate urology consultation, cystoscopy with stent placement performed 03/13 Patient will need left percutaneous nephrolithotomy on an outpatient basis once this infection has resolved Plan Chronic Conditions - hold home apixaban due to recent procedure, continue once 24-48 hours post-procedure. -hold home Prolia injection - continue home atorvastatin, calcium supplement, vitamin-D supplement, Zyrtec, diltiazem, escitalopram, bydureon, flecainide, Creon Diet: regular GI Prophylaxis: not currently indicated DVT Prophylaxis: SCDs, hold pharmacological due to recent procedure Lines: pIV Code Status: Full Code DS: Summary Hospital Course Hospital Course: 67-year-old female with history of kidney stones, AFib, GERD among other comorbidities is presenting with flank pain and currently being treated for an obstructive kidney stone with associated pyelonephritis. Rocephin initiated 03/13, being treated for renal stone with pyelonephritis Appreciate urology consultation, Toradol and fentanyl for pain Follow-up urine culture, d/c when sens back Appreciate urology consultation, cystoscopy with stent placement performed 03/13 Patient will need left percutaneous nephrolithotomy on an outpatient basis once this infection has resolved Urine culture came back sensitive to everything except Macrobid. Please see above and med rec for details. Patient was discharged in stable condition with close outpatient follow-up by PCP in Urology. Time Spent with Patient Time attestation: Total time spent providing and/or coordinating discharge services: Exam Narrative: General: No acute distress, alert and oriented per baseline HEENT: Atraumatic, normocephalic, mucous membranes moist CV: Regular rate and rhythm, S1, S2 Lungs: Clear to auscultation bilaterally, no rales or crackles noted, no wheezes, good air entry Abdomen: Soft, nontender, nondistended, no CVA tenderness Extremities: Normal to inspection Skin: No rashes noted, no lesions or wounds seen Psych: Euthymic, normal affect DS: Data Data Completed and Pending Labs on day of discharge: Labs from last 24 hours 03/16/23 03/13/23 05:54 07:59 WBC 8.2 RBC 4.20 Hgb 11.1 L Hct 37.7 MCV 89.8 MCH 26.4 MCHC 29.4 L RDW 15.8 H Plt Count 296 MPV 9.1 Immature Gran % (Auto) 0.4 Neut % (Auto) 68.1 Lymph % (Auto) 16.6 L Haakon % (Auto) 10.0 H Eos % (Auto) 4.3 Baso % (Auto) 0.6 Lymph # (Auto) 1.36 Haakon # (Auto) 0.8 H Eos # (Auto) 0.4 H Baso # (Auto) 0.1 Abs Immat Gran (auto) 0.03 Absolute Neuts (auto) 5.6 Absolute Nucleated RBC 0.0 Nucleated RBC % 0.0 Platelet Estimate Adequate Hypochromasia 1+ Anisocytosis 1+ Schistocytes None seen Urine Color Yellow Urine Appearance Cloudy H Urine pH 8.0 Ur Specific Jewell 1.022 Urine Protein 1+ H Urine Glucose (UA) Negative Urine Ketones Negative Ur Blood (Man) Negative Urine Nitrate Negative Urine Bilirubin Negative Urine Urobilinogen 1.0 Add Ur Microanalysis Reviewed Leukocyte Esterase Rfl 2+ H Urine RBC 6-10 H Urine WBC >100 H Ur Squamous Epith Cells Occasional Urine Bacteria Rare Urine Casts 0-2 Discharge Plan Discharge Consulting providers: Jason Almazan; Terry Esquivel; Mabel Angelo; Jesse Julio Discharging Clinician: Hazel Hernandez
== END 2023-03-16 16:25 | disposition home or self-care (01) | DRG 660 ==
LOC: ANHED 10:23 → ANH3MEDSUR 10:25
PROVIDERS: Student in an Organized Health Care Education/Training Program; Urology; Admitting Provider Student in an Organized Health Care Education/Training Program; Emergency Provider Emergency Medicine; PCP Internal Medicine; Visit Provider Student in an Organized Health Care Education/Training Program
PROC: 0T778DZ Dilation of Left Ureter with Intraluminal Device, Via Natural or Artificial Opening Endoscopic (ICD-10-PCS; CPT 52352; principal; 2023-03-13 15:15)
DX: N20.0 Calculus of kidney (principal); N10 Acute pyelonephritis; Z68.41 Body mass index [BMI] 40.0-44.9, adult; K21.9 Gastro-esophageal reflux disease without esophagitis; I48.91 Unspecified atrial fibrillation; I10 Essential (primary) hypertension; M81.0 Age-related osteoporosis without current pathological fracture; M17.0 Bilateral primary osteoarthritis of knee; F41.9 Anxiety disorder, unspecified; J45.909 Unspecified asthma, uncomplicated; E66.01 Morbid (severe) obesity due to excess calories; Z95.0 Presence of cardiac pacemaker; Z90.710 Acquired absence of both cervix and uterus
CPT/HCPCS: 36415; 74176; 74420; 80048; 80053; 81001; 83605; 85025; 85027; 85610; 85730; 87077; 87086; 87186; 94640; 96365; 96375; 99285; A9270; C1758; C1769; C2617; G0378; J0696; J1100; J1885; J2405; J2704; J3010; J7070; J7120; Q9966

== ENCOUNTER 2023-03-21 13:14 | Outpatient (CLI) | payer MEDICARE, OTHER, SELFPAY ==
--- NOTE | ~2023-03-21 | XR_ITS ---
XR abdomen/kub 1V 03/21/2023 13:31 Indication: Staghorn renal stone Procedure: KUB Comparison: No prior studies for comparison. Findings: There is a left internal ureteral stent present. There are stones in the left renal collect ing system. Bowel pattern is nonobstructive. Moderate colonic fecal loading. Impression: 1: Left nephrolithiasis, largest stone measuring approximately 1.5 cm. Left internal ureteral stent i n expected position. Reviewed, dictated and finalized at location [facility]. Impression: 1: Left nephrolithiasis, largest stone measuring approximately 1.5 cm. Left int ernal ureteral stent in expected position.
== END 2023-03-21 13:15 | disposition home or self-care (01) ==
PROVIDERS: PCP Internal Medicine; Visit Provider Urology
DX: N20.0 Calculus of kidney (principal)
CPT/HCPCS: 74018

== ENCOUNTER 2023-03-25 02:25 | Inpatient (IN) | payer MEDICARE, OTHER, SELFPAY ==
[2023-03-25] VITALS (12 sets, daily range): BP systolic 115–143; BP diastolic 59–90; PULSE 65–94; RESP 14–20; TEMP 35.7–36.7; O2SAT 91–100; BMI 41.0
--- NOTE | ~2023-03-25 | XR_ITS ---
EXAMINATION: XR stent kub - surgery DATE: 03/26/2023 17:05 CDT INDICATION: LEFT LASER, STENT PLACEMENT . TECHNIQUE: 7 fluoroscopic images of the left abdomen were obtained during left laser, stent placement performed by the surgeon. I was not present in the operating room. Fluoroscopy exposure time was 32. 9 seconds. Air Kerma 23.43 mGy. DAP [id number] mGym2. COMPARISON: CT abdomen pelvis 03/25/2023 FINDINGS: Wire access to the right collecting system followed by catheterization. Hyperdensity overlies the rig ht renal pelvis, likely stone which is then removed. Post stent deployment, the distal coil projects over the bladder. The proximal coil appears unwound. IMPRESSION: Fluoroscopic documentation of left laser, stent placement. Please refer to the operative note for com plete procedural details . Reviewed, dictated and finalized at location K. IMPRESSION: Fluoroscopic documentation of left laser, stent placement. Please refer to the operative note for complete procedural details .
--- NOTE | ~2023-03-25 | CT_ITS ---
EXAMINATION: CT abdomen pelvis wo con DATE: 03/25/2023 05:06 INDICATION: Flank pain. Kidney stone. TECHNIQUE: Computed tomography (CT) of the abdomen and pelvis was performed without intravenous contr ast. Automated exposure control and iterative reconstruction technique were employed. The dose-length product was 1816.57 mGy-cm. COMPARISON: CT abdomen and pelvis 03/13/2023 FINDINGS: The visualized portions of the lung bases demonstrate mild atelectasis. There is chronic ma rked elevation of right hemidiaphragm. No pleural effusion. The heart size is normal. There are coron cheri artery calcifications. No pericardial effusion. There are pacer wires in right ischium and right ventricle. The liver is normal. The gallbladder is distended. Calcifications in the spleen are consis tent with old granulomatous disease. There are changes of gastric bypass procedure. The pancreas and right adrenal gland are normal. There is a 2.1 cm mass in left adrenal gland. There is a 1 mm stone i n right kidney. There are peripelvic cysts in right kidney. There is a 10 mm stone in left kidney wit hout obstructing the lower pole collecting system with moderate lower pole hydronephrosis. There is a n 8 mm nonobstructing stone in left kidney lower pole. There is a left internal ureteral stent in lef t kidney upper pole. There is asymmetric edema around left kidney. There is diverticulosis of the col on without evidence of diverticulitis. The appendix is not visualized. There is calcified atheroscler osis of the aorta and many of the other arteries. There is a left-sided infraumbilical ventral hernia containing fat. There are no pathologically enlarged lymph nodes. There is no free intraperitoneal f luid. There is mild thoracic and lumbar spondylosis. IMPRESSION: 1. 10 mm stone in left kidney obstructing the lower pole collecting system with moderate lower pole h ydronephrosis. Note that the left-sided internal ureteral stent is in the upper pole. 2. Bilateral nonobstructing kidney stones. 3. 2.1 mm mass in the left adrenal gland. In the absence of known malignancy, this finding is likely an adenoma. Reviewed, dictated and finalized at location E. IMPRESSION: 1. 10 mm stone in left kidney obstructing the lower pole collecting system with moderate lower pole hydronephrosis. Note that the left-sided internal ureteral stent is in the upper pole. 2. Bilateral nonobstructing kidney stones. 3. 2.1 mm mass in the left adrenal gland. In the absence of known malignancy, t his finding is likely an adenoma.
[2023-03-25] MEDS: fentaNYL CITRATE INJ (*CRX) 100 MCG/2 ML VIAL IV PUSH (04:50)
[2023-03-25] MEDS: ONDANSETRON INJ 4 MG/2 ML VIAL IV PUSH ×3 (05:26→22:07)
[2023-03-25 05:33] LABS: Basophils Absolute Auto 0.1 K/mm3 (0.0-0.1); Basophils Percent Auto 0.3 % (0.2-1.2); Eosinophils Absolute Auto 0.1 K/mm3 (0-0.3); Eosinophils Percent Auto 0.3 % (0-4.4); Hematocrit 40.9 % (37.0-47.0); Hemoglobin 12.2 g/dL (12.0-15.0); Immature Granulocyte Absolute 0.08 K/mm3 (0.00-0.031); Immature Granulocyte Percent A 0.4 % (0-0.5); Lymphocytes Percent Auto 3.4 % (18.3-44.2); Mean Corpuscular HGB Conc 29.8 g/dl (32-36); Mean Corpuscular Hemoglobin 26.5 pg (26-34); Mean Corpuscular Volume 88.7 fl (80-100); Mean Platelet Volume 8.4 fl (7.4-10.4); Monocytes Absolute Auto 1.1 K/mm3 (0.1-0.6); Monocytes Percent Auto 5.1 % (2.6-8.5); Neutrophils Absolute Auto 18.7 K/mm3 (1.3-6.7); Neutrophils Percent Auto 90.5 % (45.5-73.1); Platelet Count Result 318 k/mm3 (150-375); Red Blood Count 4.61 M/mm3 (4.2-5.4); Red Cell Distribution Width 15.7 % (11.5-14.5); White Blood Count 20.6 K/mm3 (4.5-10.0)
[2023-03-25 05:43] LABS: Alanine Aminotransferase 30 U/L (6-35); Albumin Level 3.7 g/dL (3.5-5.1); Alkaline Phosphatase 119 U/L (38-126); Anion Gap 8 mmol/L (8-16); Aspartate Amino Transferase 33 U/L (14-36); Bilirubin,Total 0.6 mg/dL (0.2-1.3); Blood Urea Nitrogen 14 mg/dL (7-17); Calcium 8.5 mg/dL (8.4-10.2); Carbon Dioxide 30 mmol/L (22-30); Chloride 105 mmol/L (98-107); Estimated CRCL calculation 104 ml/min; Estimated Glomerular Filt Rate > 60; Glucose 135 mg/dL (65-110); Potassium 3.7 mmol/L (3.4-5.0); Sodium 143 mmol/L (137-145)
[2023-03-25 05:44] LABS: Appearance Urine Turbid (Clear); Bacteria Urine None Seen /hpf; Bilirubin Urine Negative (Negative); Blood Urine 3+ (Negative); Color Urine Dark Yellow (Yellow); Glucose Urine UA Negative (Negative); Ketones Urine Negative (Negative); Leukocyte Esterase Ur 3+ LEU/UL (Negative); Nitrate Urine Negative (Negative); Non Pathogenic Casts 0-2; Protein Urine 2+ mg/dL (Negative); RBC Urine >100 /hpf (0-2); Squamous Epithelial Cell Urine None seen /hpf (Few); WBC Urine >100 /hpf
[2023-03-25 05:53] LABS: Add Urine Microscopic? YES
--- NOTE | 2023-03-25 05:55 | ED.GENADULT ---
HPI - General Adult General Chief complaint: Back Pain/Injury Stated complaint: kidney stone, back pain, n/v Time Seen by Provider: 03/25/23 03:58 History of Present Illness HPI narrative: this is a 67-year-old female presenting ED with a chief complaint of flank pain, nausea and vomiting. Patient had a stent placed for a large kidney stone by Dr. Almazan on 03/13. she reports she was was have lithotripsy this Friday. However she states she was discharged without any pain medication. The pain has become unbearable and now she is having persistent nausea and vomiting. She denies fever and chills , chest pain, difficulty breathing abdominal pain. She notes that there is blood in her urine. Related Data Home Medications Medication Instructions Recorded Confirmed apixaban 5 mg tablet 5 mg PO BID 11/29/22 03/13/23 atorvastatin 40 mg tablet 40 mg PO DAILY 11/29/22 03/13/23 cetirizine 10 mg tablet (Zyrtec) 10 mg PO DAILY PRN Allergy Symptoms 11/29/22 03/13/23 diltiazem HCl 360 mg 360 mg PO DAILY 11/29/22 03/13/23 capsule,extended release 24 hr escitalopram oxalate 20 mg tablet 20 mg PO DAILY 11/29/22 03/13/23 flecainide 100 mg tablet 100 mg PO Q12H 11/29/22 03/13/23 losartan 50 mg-hydrochlorothiazide 1 tablet PO DAILY 11/29/22 03/13/23 12.5 mg tablet magnesium oxide 400 mg PO DAILY 11/29/22 03/13/23 multivitamin-ferrous 1 tablet PO DAILY 11/29/22 03/13/23 fumarate-folic acid 18 mg-400 mcg tablet (Centrum) calcium carb-vit D3-minerals 600 1 tablet PO DAILY 01/28/23 03/13/23 mg calcium-400 unit tablet denosumab 60 mg/mL subcutaneous 60 mg subcut [id number] 01/28/23 03/13/23 syringe (Prolia) Allergies Allergy/AdvReac Type Severity Reaction Status Date / Time Barbiturates Allergy Intermediate RASH Verified 03/25/23 03:11 hydrocodone Allergy Intermediate HEADACHE Verified 03/25/23 03:11 atropine Allergy Unknown Unknown Verified 03/25/23 03:11 codeine Allergy Unknown Unknown Verified 03/25/23 03:11 hyoscyamine Allergy Unknown Unknown Verified 03/25/23 03:11 meperidine Allergy Unknown Unknown Verified 03/25/23 03:11 morphine Allergy Unknown Unknown Verified 03/25/23 03:11 phenobarbital Allergy Unknown Unknown Verified 03/25/23 03:11 prednisone Allergy Unknown Unknown Verified 03/25/23 03:11 CODEINE (Generic Allergy) Allergy Intermediate HEADACHE Uncoded 03/25/23 03:11 ANTICHOLINERGICS,OTHER Allergy Mild UNKNOWN Uncoded 11/29/22 08:35 BELLADONNA ALK/PHENOBARBITAL Allergy Unknown RASH Uncoded 11/29/22 08:35 (Generic Allergy) NKFA Allergy Unknown Unknown Uncoded 11/29/22 08:35 PMFSH Past Medical History Medical History Afib Anxiety Asthma BMI greater than 40 GERD (gastroesophageal reflux disease) History of cardiac pacemaker HTN (hypertension) Left knee DJD Osteoporosis Pacemaker Right knee DJD Surgical History Surgical History History of bilateral breast reduction surgery History of hernia repair History of hysterectomy for indication other than cancer Family History Family History Mother Family history of premature coronary heart disease, Onset Age: 54 Hypertension Family history of elevated blood lipids Family history of diabetes mellitus in first degree relative Patient's mother is Father Hypertension Family history of elevated blood lipids Family history of diabetes mellitus in first degree relative Family history of coronary artery disease, Onset Age: 51 Patient's father is Other Diabetes mellitus Family history of arthritis Family history of kidney stones Family history of mental disorder Social History Social History Social History: Currently lives with her and daughter. 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
[2023-03-25] MEDS: HYDROmorphone HCL INJ (*CRX) 1 MG/ML SYR IV PUSH (06:11)
[2023-03-25] MEDS: SODIUM CHLORIDE 0.9% IV 1,000 ML 999 ML IV CONT (06:12)
[2023-03-25 06:25] LABS: Glucose Point of Care 147 mg/dl (65-105)
--- NOTE | 2023-03-25 07:56 | PC.NURSE ---
Assumed care of pt. Pt repositioned for comfort. IV intact with NS infusing
[2023-03-25] MEDS: fentaNYL CITRATE INJ (*CRX) 100 MCG/2 ML VIAL 50 MCG IV PUSH ×4 (09:39→18:52)
[2023-03-25] MEDS: LACTATED RINGERS 1,000 ML 125 ML IV CONT ×2 (09:40→21:59)
--- NOTE | 2023-03-25 11:31 | PC.NURSE ---
Pt voicing concerns that she still does not have a room. Pt informed waiting on discharges to be able to transfer pt to floor. 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
--- NOTE | 2023-03-25 15:45 | WPDURCON ---
Assessment and Plan Assessment and plan (1) Acute UTI: Code(s): N39.0 - Urinary tract infection, site not specified Status: Acute Assessment and Plan: Continue IV antibiotics, tailor to culture results. (2) Kidney stone: Code(s): N20.0 - Calculus of kidney Status: Acute Assessment and Plan: Plan to go to OR tomorrow with Dr. Almazan for Cystoscopy, left ureteroscopy with stone extraction, left stent exchange, laser lithotripsy, left retrograde pyelogram. Give Torodol for pain. Obtain consent, keep NPO after midnight. Ok to eat tonight, treat nausea. (3) Ureteral stent present: Code(s): Z96.0 - Presence of urogenital implants Status: Acute Urology Consult Note HPI Date Seen: 03/25/23 Time Seen: 15:45 Requesting Physician: Soha Patiño DO Primary Care Provider: Gibran Epperson, Consult Narrative Reason for consult: Left flank pain, left renal Stone Narrative: Dorie Mahoney is a 67 year old female who presented to the ER today after being discharged home on 03/18/23 s/p Cystoscopy, left ureteral stent placement, left retrograde pyelogram on 03/13/[address] Almazan. She c/o nausea, vomiting, persistent left flank pain and was discharged home without pain medication despite her pending lithotripsy this coming Friday, Mar.28. She also had a UTI while hospitalized last week with E-Coli growing on her culture from 03/13/23. Her CT upon admission today shows a 10mm stone in the left kidney lower pole that is obstructing with lower pole hydronephrosis, her left stent is in the upper pole of the kidney. WBC is up to 20.6 today and creatinine is 0.60, she is afebrile. She is having persistent pain and vomiting despite getting PRN Fentanyl and Morphine. She is visibly uncomfortable. Review of Systems Cardiovascular: Cardiovascular: Denies chest pain Respiratory: Respiratory: Reports no additional respiratory complaints Gastrointestinal: Gastrointestinal: Reports abdominal pain, Reports nausea and Reports vomiting Genitourinary: Genitourinary: Reports nocturia, Reports dysuria, Denies pelvic pain, Reports flank pain and Reports urinary urgency PMFSH Past Medical History Medical History Afib Anxiety Asthma BMI greater than 40 GERD (gastroesophageal reflux disease) History of cardiac pacemaker HTN (hypertension) Left knee DJD Osteoporosis Pacemaker Right knee DJD Surgical History Surgical History History of bilateral breast reduction surgery History of hernia repair History of hysterectomy for indication other than cancer Family History Family History Mother Family history of premature coronary heart disease, Onset Age: 54 Hypertension Family history of elevated blood lipids Family history of diabetes mellitus in first degree relative Patient's mother is Father Hypertension Family history of elevated blood lipids Family history of diabetes mellitus in first degree relative Family history of coronary artery disease, Onset Age: 51 Patient's father is Other Diabetes mellitus Family history of arthritis Family history of kidney stones Family history of mental disorder Social History Social History Social History: Currently lives with her and daughter. 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 Surrogate decision maker: Arianna White, daughter. Full Code. Smoking status: Never smoker Alcohol intake: never Substance use: never Lack of Transportation: No Lack of Food: Never True Current Housing: I Have Housing Concerned About Future Housing: No Difficulty Paying Gas/Electric Bills: No Difficulty Paying for Meds: No Currentl
--- NOTE | 2023-03-25 15:54 | ADMGEN ---
This patient, Dorie Mahoney, was admitted to [facility] Surg Room 307-01 at 1208. Patient/family oriented to hospital policies and general routines including ID bracelet, bed and alarms, visiting hours, pain management, procedures, bathroom and other care routines, personal items, smoking policy, room service/diet, and visiting hours. Information on how to activate the Rapid Response Team has been discussed. Patient/Family are encouraged to report perceived risks to care and to ask questions if they do not understand what they are told or what they should do.
[2023-03-25] MEDS: KETOROLAC 30 MG/ML VIAL (*BKC) IV PUSH ×2 (16:29→21:57)
[2023-03-25 16:58] LABS: Glucose Point of Care 103 mg/dl (65-105)
--- NOTE | 2023-03-25 20:56 | PM.IMHP ---
H&P: HPI History of Present Illness Date/Time: 03/25/23 20:56 Chief Complaint: abd pain Narrative: 67 y/o F presenting to ED with CC of flank pain, nausea and vomiting. Stent placed by Dr. Almazan on 03/13 for large kidney stone. Was supposed to have lithotripsy on Friday. Discharged without any pain meds. Pain was unbearable, and now having n/v. Denied fever/chills, cp, sob, abd pain. Reports hematuria. UTI last week. ecoli on cx from 03/13. CT on admission showed 10 mm stone in L kidney lower pole obstructing with lower pole hydronephrosis. L stent, and edema around kidney. WBC to 20.6, cr 0.60. Ongoing pain and vomiting. [facility] Past Medical History Medical History Afib Anxiety Asthma BMI greater than 40 GERD (gastroesophageal reflux disease) History of cardiac pacemaker HTN (hypertension) Left knee DJD Osteoporosis Pacemaker Right knee DJD Surgical History Surgical History History of bilateral breast reduction surgery History of hernia repair History of hysterectomy for indication other than cancer Family History Family History Mother Family history of premature coronary heart disease, Onset Age: 54 Hypertension Family history of elevated blood lipids Family history of diabetes mellitus in first degree relative Patient's mother is Father Hypertension Family history of elevated blood lipids Family history of diabetes mellitus in first degree relative Family history of coronary artery disease, Onset Age: 51 Patient's father is Other Diabetes mellitus Family history of arthritis Family history of kidney stones Family history of mental disorder Social History Social History Social History: Currently lives with her and daughter. 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 Surrogate decision maker: Arianna White, daughter. Full Code. Smoking status: Never smoker Alcohol intake: never Substance use: never Lack of Transportation: No Lack of Food: Never True Current Housing: I Have Housing Concerned About Future Housing: No Difficulty Paying Gas/Electric Bills: No Difficulty Paying for Meds: No Currently Unemployed: No Education: High School Diploma/GED Difficulty w/ Childcare or Family Care: No Living arrangements: alone Occupation/Education: retired Gender identity (if verbalized by the patient): Female Spiritual care concerns: No Meds Home Medications and Allergies Home Medications Medication Instructions Recorded Confirmed Type apixaban 5 mg tablet 5 mg PO BID 11/29/22 03/25/23 History atorvastatin 40 mg tablet 40 mg PO DAILY 11/29/22 03/25/23 History cetirizine 10 mg tablet (Zyrtec) 10 mg PO DAILY PRN Allergy Symptoms 11/29/22 03/25/23 History diltiazem HCl 360 mg 360 mg PO DAILY 11/29/22 03/25/23 History capsule,extended release 24 hr escitalopram oxalate 20 mg tablet 20 mg PO DAILY 11/29/22 03/25/23 History flecainide 100 mg tablet 100 mg PO Q12H 11/29/22 03/25/23 History losartan 50 mg-hydrochlorothiazide 1 tablet PO DAILY 11/29/22 03/25/23 History 12.5 mg tablet magnesium oxide 400 mg PO BID 11/29/22 03/25/23 History multivitamin-ferrous 1 tablet PO DAILY 11/29/22 03/25/23 History fumarate-folic acid 18 mg-400 mcg tablet (Centrum) calcium carb-vit D3-minerals 600 1 tablet PO DAILY 01/28/23 03/25/23 History mg calcium-400 unit tablet denosumab 60 mg/mL subcutaneous 60 mg subcut [id number] 01/28/23 03/25/23 History syringe (Prolia) mecobalamin (vitamin B12) 10,000 1,000 mcg IM .2 weeks #1 ea 01/28/23 03/25/23 Rx mcg solution for injection [id number] 8 cap PO DAILY 3 months #720 caps 01/30/23 03/25/23 Rx 36,000-114,000-180
[2023-03-25] MEDS: MEROPENEM 1 GM/NS 100 ML 1 GM/100 ML BAG IVPB (21:58)
[2023-03-26] VITALS (23 sets, daily range): BP systolic 84–153; BP diastolic 38–89; PULSE 70–96; RESP 14–26; TEMP 36.5–37.5; O2SAT 88–100
[2023-03-26] MEDS: KETOROLAC 30 MG/ML VIAL (*BKC) IV PUSH ×4 (03:49→22:21)
[2023-03-26] MEDS: MEROPENEM 1 GM/NS 100 ML 1 GM/100 ML BAG IVPB ×3 (06:20→22:20)
[2023-03-26 07:24] LABS: Estimated CRCL calculation 80 ml/min; Estimated Glomerular Filt Rate > 60
[2023-03-26 08:16] LABS: Basophils Absolute Auto 0.1 K/mm3 (0.0-0.1); Basophils Percent Auto 0.3 % (0.2-1.2); Eosinophils Absolute Auto 0.2 K/mm3 (0-0.3); Hematocrit 36.8 % (37.0-47.0); Hemoglobin 10.6 g/dL (12.0-15.0); Immature Granulocyte Absolute 0.08 K/mm3 (0.00-0.031); Immature Granulocyte Percent A 0.5 % (0-0.5); Lymphocytes Absolute Auto 1.23 K/mm3 (0.9-3.2); Lymphocytes Percent Auto 7.8 % (18.3-44.2); Mean Corpuscular HGB Conc 28.8 g/dl (32-36); Mean Corpuscular Hemoglobin 26.4 pg (26-34); Mean Corpuscular Volume 91.5 fl (80-100); Monocytes Absolute Auto 1.1 K/mm3 (0.1-0.6); Monocytes Percent Auto 7.3 % (2.6-8.5); Neutrophils Percent Auto 83.1 % (45.5-73.1); Platelet Count Result 271 k/mm3 (150-375); Red Blood Count 4.02 M/mm3 (4.2-5.4); Red Cell Distribution Width 15.8 % (11.5-14.5); White Blood Count 15.7 K/mm3 (4.5-10.0)
[2023-03-26 08:24] LABS: Hypochromasia 1+ (NORMAL); Platelet Estimate Adequate (Adequate)
[2023-03-26 08:25] LABS: Anisocytosis 1+ (NORMAL); Schistocytes None Seen (NORMAL)
[2023-03-26] MEDS: ONDANSETRON INJ 4 MG/2 ML VIAL IV PUSH ×2 (08:35→16:20)
[2023-03-26] MEDS: fentaNYL CITRATE INJ (*CRX) 100 MCG/2 ML VIAL 50 MCG IV PUSH ×2 (08:35→20:37)
--- NOTE | 2023-03-26 15:53 | WPDANESEPPF ---
Anes - Initial Pre Proc Eval Procedure: Operation Date: 03/26/23 16:00 Proposed Procedures p Cystoscopy,Left Ureteroscopy,Left Retrograde Pyelogram,Left Stone Extraction,Possible Holmium Laser,Possible Stent Placement - Jason Almazan MD Date/Time: 03/26/23 15:53 Surgeon: Soha Patiño DO Pre Op Diagnosis: Infected Stone/Stent Patient Data Age: 67 Gender: F Height: 1.73 m Weight: 122.47 kg Last Vital Signs Temp 36.9 C 03/26/23 15:30 Pulse 72 03/26/23 15:30 Resp 14 03/26/23 15:30 BP 138/67 03/26/23 15:30 Pulse Ox 96 03/26/23 15:30 O2 Del Method Room Air 03/26/23 15:30 O2 Flow Rate 2 03/25/23 08:07 Allergies Allergy/AdvReac Type Severity Reaction Status Date / Time Barbiturates Allergy Intermediate RASH Verified 03/25/23 03:11 hydrocodone Allergy Intermediate HEADACHE Verified 03/25/23 03:11 atropine Allergy Unknown Unknown Verified 03/25/23 03:11 codeine Allergy Unknown Unknown Verified 03/25/23 03:11 hyoscyamine Allergy Unknown Unknown Verified 03/25/23 03:11 meperidine Allergy Unknown Unknown Verified 03/25/23 03:11 morphine Allergy Unknown Unknown Verified 03/25/23 03:11 phenobarbital Allergy Unknown Unknown Verified 03/25/23 03:11 prednisone Allergy Unknown Unknown Verified 03/25/23 03:11 CODEINE (Generic Allergy) Allergy Intermediate HEADACHE Uncoded 03/25/23 03:11 ANTICHOLINERGICS,OTHER Allergy Mild UNKNOWN Uncoded 11/29/22 08:35 BELLADONNA ALK/PHENOBARBITAL Allergy Unknown RASH Uncoded 11/29/22 08:35 (Generic Allergy) NKFA Allergy Unknown Unknown Uncoded 11/29/22 08:35 Home Medications Medication Instructions Recorded Confirmed Type apixaban 5 mg tablet 5 mg PO BID 11/29/22 03/25/23 History atorvastatin 40 mg tablet 40 mg PO DAILY 11/29/22 03/25/23 History cetirizine 10 mg tablet (Zyrtec) 10 mg PO DAILY PRN Allergy Symptoms 11/29/22 03/25/23 History diltiazem HCl 360 mg 360 mg PO DAILY 11/29/22 03/25/23 History capsule,extended release 24 hr escitalopram oxalate 20 mg tablet 20 mg PO DAILY 11/29/22 03/25/23 History flecainide 100 mg tablet 100 mg PO Q12H 11/29/22 03/25/23 History losartan 50 mg-hydrochlorothiazide 1 tablet PO DAILY 11/29/22 03/25/23 History 12.5 mg tablet magnesium oxide 400 mg PO BID 11/29/22 03/25/23 History multivitamin-ferrous 1 tablet PO DAILY 11/29/22 03/25/23 History fumarate-folic acid 18 mg-400 mcg tablet (Centrum) calcium carb-vit D3-minerals 600 1 tablet PO DAILY 01/28/23 03/25/23 History mg calcium-400 unit tablet denosumab 60 mg/mL subcutaneous 60 mg subcut [id number] 01/28/23 03/25/23 History syringe (Prolia) mecobalamin (vitamin B12) 10,000 1,000 mcg IM .2 weeks #1 ea 01/28/23 03/25/23 Rx mcg solution for injection [id number]-srhjdynb-ifxipck 8 cap PO DAILY 3 months #720 caps 01/30/23 03/25/23 Rx 36,000-114,000-180,000 unit capsule,delay rel (Creon) omeprazole 40 mg capsule,delayed 40 mg PO DAILY 3 months #90 caps 01/30/23 03/25/23 Rx release oxybutynin chloride 5 mg tablet 5 mg PO TID Bladder Spasm 1 month 03/16/23 03/25/23 Rx #90 tabs exenatide microspheres 2 mg/0.85 2 mg (0.85 mL) subcut WEEKLY #11 mL 03/20/23 03/25/23 Rx mL subcutaneous auto-injector (Derek Aquino) Laboratory Tests 03/25/23 03/26/23 03/26/23 16:51 06:37 06:38 WBC 15.7 H K/mm3 (4.5-10.0) RBC 4.02 L M/mm3 (4.2-5.4) Hgb 10.6 L g/dL (12.0-15.0) Hct 36.8 L % (37.0-47.0) MCV 91.5 fl (80-100) MCH 26.4 pg (26-34) MCHC 28.8 L g/dl (32-36) RDW 15.8 H % (11.5-14.5) Plt Count 271 k/mm3 (150-375) MPV 9.0 fl (7.4-10.4) Immature Gran % (Auto) 0.5 % (0-0.5) Neut % (Auto) 83.1 H % (45.5-73.1) Lymph % (Auto) 7.8 L % (18.3-44.2) [place] % (Auto) 7.3 % (2.6-8.5) Eos % (Auto) 1.0 % (0-4.4) Baso % (Auto) 0.3 % (0.2-1.2) Lymph # (Auto) 1.
[2023-03-26] MEDS: LACTATED RINGERS 1,000 ML 30 ML IV CONT (16:00)
--- NOTE | 2023-03-26 16:38 | WPDHPUPDATE1 ---
History and Physical Update Update Date/Time: 03/26/23 16:38 History and Physical has been reviewed, including an updated exam of the patient. There are NO changes in the patient's condition. Risks, benefits, and alternatives have been discussed and questions answered. Patient agrees to proceed with procedure.
[2023-03-26] MEDS: LIDOCAINE HCL 2% GEL UROJET 10 ML PKG MUCOUS MEM (17:07)
--- NOTE | 2023-03-26 17:50 | W.PM.PROC2 ---
Procedure Note - Detailed Date of Procedure 03/26/23 Pre-op Diagnosis Left ureteral stones Post-op Diagnosis Same Procedure Performed Cystoscopy, left ureteroscopy with stone extraction, laser lithotripsy with stent removal and replacement Surgeon Jason Almazan MD Anesthesia General Description of Procedure Patient is brought to the operative suite where she is prepped and draped in routine sterile fashion while in dorsal lithotomy position after the uneventful induction of a general LMA anesthetic. Cystoscopy was undertaken with 19 F rigid cystoscope. The tip of the indwelling stent is grasped and brought to the external urethral meatus. 0.035 in glidewire was advanced in the left renal pelvis. The ureter was dilated with an 8 F 10 F dilator and a 11 13 F ureteral access sheath was placed. The safety wires placed (0.035 in glidewire) and ureteroscopy undertaken with a 7.5 F flexible ureteral scope. The large renal pelvic stone is identified and dusted using a 200 micron holmium laser fiber. All pieces appeared to be smaller than 2 mm. Several small pieces are extracted and sent for stone analysis. She has a smaller stone in the left lower pole calyx which is very very difficult to get to. I attempted to grasp it with a basket moved to a different calyx without success. As best I could I fractured that stone with the same holmium laser fiber. This point the procedure was terminated. A 4.8 F variable length stent was replaced with the proximal coil in the renal pelvis and distal coil in the bladder. Scopes and wires were removed and she was taken to PACU in good condition. She tolerated the procedure well. Urine Output 200 Drains Yes Packing No Pathology Yes Complications No immediate complications Condition Stable Disposition PACU
[2023-03-26] MEDS: fentaNYL CITRATE INJ (*CRX) 100 MCG/2 ML VIAL 25 MCG IV PUSH (18:45)
[2023-03-26] MEDS: ALBUTEROL SULFATE NEB 2.5 MG/3 ML INH INHALATION ×2 (18:53→20:23)
[2023-03-26] MEDS: ACETAMINOPHEN 500 MG TABLET 1000 MG PO (18:55)
--- NOTE | 2023-03-26 19:15 | SUR.PHASEI ---
Notified Dr. Almazan regarding patient's temp of 101.7. Patient already received Tylenol in PACU. No new orders received at this time.
--- NOTE | 2023-03-26 19:48 | PM.IMPN ---
Progress Note: A&P Assessment and Plan (1) Acute UTI: Code(s): N39.0 - Urinary tract infection, site not specified Status: Acute (2) Kidney stone: Code(s): N20.0 - Calculus of kidney Status: Acute (3) GERD (gastroesophageal reflux disease): Code(s): K21.9 - Gastro-esophageal reflux disease without esophagitis Status: Acute (4) History of cardiac pacemaker: Code(s): Z95.0 - Presence of cardiac pacemaker Status: Acute Plan 1. Acute complicated uti switch to meropenem 1g q8 and iv vanco until cx results and procedure is done not septic. 03/26: de-escalate tomorrow based on pt's symptoms and labs. f/u cbc, bmp, mg tomorrow. Discussed with pharmacist. Switched to NS at 100 ml/hr for hydration in the post op setting. f/u tomorrow. 2. Kidney stone OR tomorrow with Dr. Almazan for cystoscopy, L ureteroscopy with stone extraction, L stent exchange, L lithotripsy, L retrograde pyelogram pain control with fentanyl NPO after midnight PM not needed to be interrogated prior to this procedure 03/26: See operative note. Procedure performed was Cystoscopy, left ureteroscopy with stone extraction, laser lithotripsy with stent removal and replacement by Dr. Almazan 3. Acute asthma exacerbation Start nebullizers qid, albuterol May need steroids Chronic Conditions - hold home apixaban due to recent procedure, continue once 24-48 hours post-procedure. ?-hold home Prolia injection - continue home atorvastatin, calcium supplement, vitamin-D supplement, Zyrtec, diltiazem, escitalopram, bydureon,? flecainide, Creon 03/26: Discuss continuing home meds with SENIOR COMPENSATION ANALYST/urologist tomorrow. Diet: CLD- ADAT, now post op GI Prophylaxis: not currently indicated DVT Prophylaxis: SCDs, hold pharmacological due to recent procedure Lines: pIV Code Status: Full Code Time Spent With Patient Time: 30 min Subjective Date/time seen: 03/26/23 19:48 Interval history: pt feeling cold post op. had an asthma attack post op. wants to eat post op. Review of Systems Review of Systems: no other sx. Exam Narrative: APPEARANCE: No apparent distress. Head: atraumatic. EYES:? EOMI, NOSE: Atraumatic NECK: Trachea midline RESPIRATORY: No increased rate of breathing CARDIOVASCULAR: RRR, ABDOMINAL: Non-distended,? soft, nontender.? ? Left-sided CVA tenderness. MUSCULOSKELETAl: No obvious deformities NEURO: Alert. Moving 4/4 extremities SKIN:: Warm, dry. Normal color PSYCHIATRIC: Normal affect Objective Data Vital Signs Vital Signs: Vital Signs - 24 hr 03/25/23 20:00 03/25/23 22:00 03/25/23 20:00 Temperature 97.1 F L Pulse Rate 87 75 68 Respiratory Rate 18 18 Blood Pressure 127/62 Pulse Oximetry 91 97 Oxygen Delivery Room Air Oxygen Flow Rate 03/26/23 00:00 03/26/23 04:00 03/26/23 06:00 Temperature 97.9 F Pulse Rate 77 70 81 Respiratory Rate 20 Blood Pressure 104/54 L Pulse Oximetry 96 Oxygen Delivery Oxygen Flow Rate 03/26/23 08:00 03/26/23 14:00 03/26/23 15:30 Temperature 97.7 F 98.5 F Pulse Rate 74 72 Respiratory Rate 18 14 Blood Pressure 122/62 138/67 Pulse Oximetry 94 96 Oxygen Delivery Room Air Room Air Oxygen Flow Rate 03/26/23 08:00 03/26/23 12:00 03/26/23 17:53 Temperature 98.2 F Pulse Rate 78 78 83 Respiratory Rate 22 H Blood Pressure 134/61 Pulse Oximetry 100 Oxygen Delivery Simple Face Mask Oxygen Flow Rate 8 03/26/23 18:08 03/26/23 18:23 03/26/23 18:38 Temperature Pulse Rate 80 77 90 Respiratory Rate 24 H 16 26 H Blood Pressure 133/64 134/62 153/89 H Pulse Oximetry 100 94 88 L Oxygen Delivery Room Air Room Air Room Air Oxygen Flow Rate 03/26/23 18:39 03/26/23 18:53 03/26/23 19:08 Temperature Pulse Rate 84 90 Respiratory Rate 26 H 26 H Blood Pressure 148/86 H 138/69 Pulse Oximetry 92 96 93 Oxygen Delivery Nasal Cannula Nasal Cannula Nasal Cannula Oxygen Flow Rate 2 2 2 03/26/23
[2023-03-26] MEDS: SODIUM CHLORIDE 0.9% IV 1,000 ML 100 ML IV CONT (20:01)
[2023-03-27] VITALS (14 sets, daily range): BP systolic 101–146; BP diastolic 53–87; PULSE 73–103; RESP 14–20; TEMP 36.7–37.8; O2SAT 91–96
[2023-03-27] MEDS: ALBUTEROL SULFATE NEB 2.5 MG/3 ML INH INHALATION ×4 (01:59→21:22)
[2023-03-27] MEDS: fentaNYL CITRATE INJ (*CRX) 100 MCG/2 ML VIAL 50 MCG IV PUSH (03:37)
[2023-03-27] MEDS: KETOROLAC 30 MG/ML VIAL (*BKC) IV PUSH ×2 (04:55→15:30)
[2023-03-27] MEDS: MEROPENEM 1 GM/NS 100 ML 1 GM/100 ML BAG IVPB (06:50)
[2023-03-27] MEDS: ACETAMINOPHEN 500 MG TABLET 1000 MG PO ×2 (09:17→23:12)
[2023-03-27 10:17] LABS: Basophils Percent Auto 0.3 % (0.2-1.2); Eosinophils Percent Auto 0.1 % (0-4.4); Hematocrit 34.4 % (37.0-47.0); Hemoglobin 10.3 g/dL (12.0-15.0); Immature Granulocyte Absolute 0.11 K/mm3 (0.00-0.031); Immature Granulocyte Percent A 0.8 % (0-0.5); Lymphocytes Absolute Auto 0.33 K/mm3 (0.9-3.2); Lymphocytes Percent Auto 2.3 % (18.3-44.2); Mean Corpuscular HGB Conc 29.9 g/dl (32-36); Mean Corpuscular Hemoglobin 26.6 pg (26-34); Mean Corpuscular Volume 88.9 fl (80-100); Mean Platelet Volume 8.4 fl (7.4-10.4); Monocytes Absolute Auto 0.4 K/mm3 (0.1-0.6); Neutrophils Absolute Auto 13.5 K/mm3 (1.3-6.7); Neutrophils Percent Auto 93.5 % (45.5-73.1); Platelet Count Result 240 k/mm3 (150-375); Red Blood Count 3.87 M/mm3 (4.2-5.4); Red Cell Distribution Width 15.9 % (11.5-14.5); White Blood Count 14.4 K/mm3 (4.5-10.0)
[2023-03-27 10:39] LABS: Anion Gap 5 mmol/L (8-16); Blood Urea Nitrogen 14 mg/dL (7-17); Calcium 8.2 mg/dL (8.4-10.2); Carbon Dioxide 27 mmol/L (22-30); Chloride 103 mmol/L (98-107); Estimated CRCL calculation 80 ml/min; Estimated Glomerular Filt Rate > 60; Glucose 150 mg/dL (65-110); Magnesium 1.9 mg/dL (1.6-2.3); Potassium 3.3 mmol/L (3.4-5.0); Sodium 135 mmol/L (137-145)
[2023-03-27 10:49] LABS: Vancomycin Trough 15.2 ug/mL (10.0-20.0)
[2023-03-27 12:50] LABS: Anisocytosis 1+ (NORMAL); Hypochromasia 2+ (NORMAL); Ovalocytes 1+ (NORMAL); Platelet Estimate Adequate (Adequate); Schistocytes None Seen (NORMAL); Tear Drop Cells 1+ (NORMAL)
[2023-03-27] MEDS: cefTRIAXone 2 GM/NS 100 ML 2 GM/100 ML BAG IVPB (13:22)
[2023-03-27] MEDS: ONDANSETRON INJ 4 MG/2 ML VIAL IV PUSH ×2 (13:25→23:10)
--- NOTE | 2023-03-27 14:05 | WPDUROPN2 ---
Progress Note: A&P Assessment and Plan (1) Acute UTI: Code(s): N39.0 - Urinary tract infection, site not specified Status: Acute Assessment and Plan: Urine culture positive, sensitivity pending, tailor antibiotics to culture results. (2) Ureteral stent present: Code(s): Z96.0 - Presence of urogenital implants Status: Acute Assessment and Plan: Will plan to remove in 1-2 weeks in the office. (3) Kidney stone: Code(s): N20.0 - Calculus of kidney Status: Acute Assessment and Plan: Removed via ureteroscopy with laser. Subjective Subjective Date/Time Seen: 03/27/23 14:05 Post Op day: 1 Principal diagnosis: Left Renal Stone Interval history: S/P Cystoscopy, left ureteroscopy with stone extraction, laser lithotripsy with stent removal and replacement. Pt. doing much better, tolerating pain, diet and sitting up in her chair today. She is c/o constipation, but otherwise well. Review of Systems Cardiovascular: Cardiovascular: Denies chest pain Respiratory: Respiratory: Reports no additional respiratory complaints Gastrointestinal: Gastrointestinal: Denies abdominal pain, Denies nausea and Denies vomiting Genitourinary: Genitourinary: Denies hematuria, Denies nocturia, Denies dysuria, Denies pelvic pain, Denies flank pain, Denies urinary incontinence, Denies urinary hesitancy and Denies urinary urgency Exam Const: General: cooperative and comfortable Resp: Effort & Inspection: normal respiratory effort Cardio: Rate: regular rate GI: GI Palp: Yes Soft to palpation and No Tenderness to palpation present (GI) : General: Yes no CVA tenderness Extrem: Right lower extremity: no edema Left lower extremity: no edema Objective Data Vital Signs Vital Signs: Vital Signs - 24 hr 03/26/23 15:30 03/26/23 17:53 03/26/23 18:08 Temperature 98.5 F 98.2 F Pulse Rate 72 83 80 Respiratory Rate 14 22 H 24 H Blood Pressure 138/67 134/61 133/64 Pulse Oximetry 96 100 100 Oxygen Delivery Room Air Simple Face Mask Room Air Oxygen Flow Rate 8 03/26/23 18:23 03/26/23 18:38 03/26/23 18:39 Temperature Pulse Rate 77 90 Respiratory Rate 16 26 H Blood Pressure 134/62 153/89 H Pulse Oximetry 94 88 L 92 Oxygen Delivery Room Air Room Air Nasal Cannula Oxygen Flow Rate 2 03/26/23 18:53 03/26/23 19:08 03/26/23 18:54 Temperature Pulse Rate 84 90 95 Respiratory Rate 26 H 26 H 22 H Blood Pressure 148/86 H 138/69 Pulse Oximetry 96 93 Oxygen Delivery Nasal Cannula Nasal Cannula Oxygen Flow Rate 2 2 03/26/23 20:27 03/26/23 20:32 03/26/23 19:50 Temperature 98.6 F Pulse Rate 96 95 90 Respiratory Rate 20 20 20 Blood Pressure 127/56 L Pulse Oximetry 96 Oxygen Delivery Oxygen Flow Rate 03/26/23 20:05 03/26/23 20:35 03/26/23 21:35 Temperature 98.4 F 98.4 F 99.5 F Pulse Rate 94 96 93 Respiratory Rate 22 H 18 16 Blood Pressure 127/54 L 105/76 84/38 L Pulse Oximetry 92 95 90 Oxygen Delivery Oxygen Flow Rate 03/26/23 21:53 03/27/23 00:00 03/26/23 20:00 Temperature Pulse Rate 89 Respiratory Rate Blood Pressure 100/60 Pulse Oximetry 98 Oxygen Delivery Room Air Oxygen Flow Rate 03/27/23 00:00 03/27/23 01:59 03/27/23 04:00 Temperature 98.6 F Pulse Rate 85 91 103 H Respiratory Rate 14 20 Blood Pressure 101/56 L Pulse Oximetry 94 Oxygen Delivery Oxygen Flow Rate 03/27/23 04:00 03/27/23 08:00 03/27/23 08:04 Temperature 100.0 F H Pulse Rate 97 87 Respiratory Rate 20 20 Blood Pressure 123/53 L Pulse Oximetry 91 91 Oxygen Delivery Room Air Oxygen Flow Rate 03/27/23 08:10 03/27/23 08:00 03/27/23 08:00 Temperature 98.5 F Pulse Rate 82 80 84 Respiratory Rate 20 16 Blood Pressure 118/63 Pulse Oximetry 93 Oxygen Delivery Oxygen Flow Rate 03/27/23 08:00 03/27/23 12:00 03/27/23 13:40 Temperature Pulse Rate 73 76 Respiratory Rate 18
[2023-03-27] MEDS: SODIUM CHLORIDE 0.9% IV 1,000 ML 100 ML IV CONT (15:30)
[2023-03-27] MEDS: CALCIUM GLUC 1,000 MG/NS 50 ML 1,000 MG/50 ML BAG 100 MG IVPB (16:23)
[2023-03-27] MEDS: POTASSIUM CHLORIDE 20 MEQ ER TABLET 40 MEQ PO (16:24)
--- NOTE | 2023-03-27 16:37 | PM.IMPN ---
Progress Note: A&P Assessment and Plan (1) Acute UTI: Code(s): N39.0 - Urinary tract infection, site not specified Status: Acute (2) Kidney stone: Code(s): N20.0 - Calculus of kidney Status: Acute (3) Ureteral stent present: Code(s): Z96.0 - Presence of urogenital implants Status: Acute (4) Acute UTI: Code(s): N39.0 - Urinary tract infection, site not specified Status: Acute (5) Calculus of left kidney: Code(s): N20.0 - Calculus of kidney Status: Acute (6) GERD (gastroesophageal reflux disease): Code(s): K21.9 - Gastro-esophageal reflux disease without esophagitis Status: Acute (7) Hyperlipidemia: Code(s): E78.5 - Hyperlipidemia, unspecified Status: Acute (8) Obesity: Code(s): E66.9 - Obesity, unspecified Status: Acute (9) Post-menopausal osteoporosis: Code(s): M81.0 - Age-related osteoporosis without current pathological fracture Status: Acute (10) Primary hyperparathyroidism: Code(s): E21.0 - Primary hyperparathyroidism Status: Acute (11) Pacemaker: Code(s): Z95.0 - Presence of cardiac pacemaker Status: Acute (12) History of cardiac pacemaker: Code(s): Z95.0 - Presence of cardiac pacemaker Status: Acute (13) Osteoporosis: Code(s): M81.0 - Age-related osteoporosis without current pathological fracture Status: Acute (14) Asthma: Code(s): J45.909 - Unspecified asthma, uncomplicated Status: Acute (15) Anxiety: Code(s): F41.9 - Anxiety disorder, unspecified Status: Acute Plan 1. Acute complicated uti switch to meropenem 1g q8 and iv vanco until cx results and procedure is done not septic. 03/26: de-escalate tomorrow based on pt's symptoms and labs. f/u cbc, bmp, mg tomorrow. Discussed with pharmacist. Switched to NS at 100 ml/hr for hydration in the post op setting. f/u tomorrow. 03/27: Urine cx growing e coli. sensitivities still pending. switched to ceftriaxone 2g with pharmacy. wbc still elevated to 14.4 (down from 15.7). follow wbc and keep here until it drops. 2. Kidney stone OR tomorrow with Dr. Almazan for cystoscopy, L ureteroscopy with stone extraction, L stent exchange, L lithotripsy, L retrograde pyelogram pain control with fentanyl NPO after midnight PM not needed to be interrogated prior to this procedure 03/26: See operative note. Procedure performed was Cystoscopy, left ureteroscopy with stone extraction, laser lithotripsy with stent removal and replacement by Dr. Almazan 03/27: having significant hematuria post op. transfusing 1 u of blood. Still on abx. stop toradol. will eventually restart eliquis. 3. Acute asthma exacerbation Start nebullizers qid, albuterol May need steroids 03/27: doing well on albuterol q6h. May need albuterol on dc. 4. Acute blood loss- symptomatic anemia 03/27: pt feeling cold and having significant hematuria. Transfuse 1 u of blood for symptomatic anemia. 5. Afib ct flecaindie. hold eliquis until bleeding in urine stops. 6. HTN ct diltiazem, losartan, hctz, lipitor 7. Osteoporosis ?-hold home Prolia injection - continue home calcium supplement, vitamin-D supplement 8. Anxiety ct escitalopram 9. Pancreatic insuficiency ct creon. complaining of gas without creon use before meals. 10. GERD on qd omeprazole 11. urinary incontinence ct oxybutynin Chronic Conditions Zyrtec, b12 injections, 03/26: Discuss continuing home meds with [employer] ENGINEER/urologist tomorrow. Diet: CLD- ADAT, now post op GI Prophylaxis: not currently indicated DVT Prophylaxis: SCDs, hold pharmacological due to recent procedure Lines: pIV, stopping ivf Code Status: Full Code Time Spent With Patient Time: 45min Subjective Date/time seen: 03/27/23 16:37 Interval history: pt reports significant hematuria and charlette blood in urine. she also reports feeling cold. also reports feeling gassy from not having cr
[2023-03-27] MEDS: LIPASE/AMYLASE/PROTEASE 12,000 UNITS CAP 2 CAP PO (16:46)
[2023-03-27] MEDS: FLECAINIDE ACETATE 100 MG TABLET PO (20:02)
[2023-03-27] MEDS: DOCUSATE SODIUM 100 MG CAPSULE PO (20:04)
[2023-03-28] MEDS: ALBUTEROL SULFATE NEB 2.5 MG/3 ML INH INHALATION ×2 (01:54→07:09)
[2023-03-28 05:00] VITALS: BP 138/85; PULSE 73; RESP 20; TEMP 36.6; O2SAT 94
[2023-03-28 07:00] LABS: Basophils Percent Auto 0.5 % (0.2-1.2); Eosinophils Absolute Auto 0.2 K/mm3 (0-0.3); Eosinophils Percent Auto 2.3 % (0-4.4); Hematocrit 32.1 % (37.0-47.0); Hemoglobin 9.6 g/dL (12.0-15.0); Immature Granulocyte Absolute 0.04 K/mm3 (0.00-0.031); Immature Granulocyte Percent A 0.5 % (0-0.5); Lymphocytes Percent Auto 9.8 % (18.3-44.2); Mean Corpuscular HGB Conc 29.9 g/dl (32-36); Mean Corpuscular Hemoglobin 26.5 pg (26-34); Mean Corpuscular Volume 88.7 fl (80-100); Mean Platelet Volume 8.9 fl (7.4-10.4); Monocytes Absolute Auto 0.7 K/mm3 (0.1-0.6); Monocytes Percent Auto 8.5 % (2.6-8.5); Neutrophils Absolute Auto 6.4 K/mm3 (1.3-6.7); Neutrophils Percent Auto 78.4 % (45.5-73.1); Platelet Count Result 240 k/mm3 (150-375); Red Blood Count 3.62 M/mm3 (4.2-5.4); Red Cell Distribution Width 15.6 % (11.5-14.5); White Blood Count 8.2 K/mm3 (4.5-10.0)
[2023-03-28 07:10] VITALS: PULSE 72; RESP 18; O2SAT 91
[2023-03-28 07:15] LABS: Anion Gap 3 mmol/L (8-16); Blood Urea Nitrogen 14 mg/dL (7-17); Calcium 8.4 mg/dL (8.4-10.2); Carbon Dioxide 28 mmol/L (22-30); Chloride 106 mmol/L (98-107); Estimated CRCL calculation 90 ml/min; Estimated Glomerular Filt Rate > 60; Glucose 95 mg/dL (65-110); Magnesium 2.2 mg/dL (1.6-2.3); Potassium 3.8 mmol/L (3.4-5.0); Sodium 137 mmol/L (137-145)
--- NOTE | 2023-03-28 07:17 | WPDUROPN2 ---
Progress Note: A&P Assessment and Plan (1) Acute UTI: Code(s): N39.0 - Urinary tract infection, site not specified Status: Acute Assessment and Plan: (2) Ureteral stent present: Code(s): Z96.0 - Presence of urogenital implants Status: Acute (3) Kidney stone: Code(s): N20.0 - Calculus of kidney Status: Acute Assessment and Plan: patient is tolerating her indwelling stent very well home on appropriate oral antibiotics for 2 weeks with follow-up around that time for stent removal Subjective Subjective Date/Time Seen: 03/28/23 07:17 Interval history: Comfortable, anxious for discharge Review of Systems Cardiovascular: Cardiovascular: Denies chest pain, Denies lightheadedness, Denies palpitations and Denies dyspnea Respiratory: Respiratory: Denies dyspnea Gastrointestinal: Gastrointestinal: Denies diarrhea, Denies nausea and Denies vomiting Genitourinary: Genitourinary: Denies hematuria and Denies dysuria Endocrine: Endocrine: Denies palpitations Exam Const: General: no acute distress Resp: Effort & Inspection: normal respiratory effort GI: Inspection: non-distended GI Palp: No abdominal tenderness and No Guarding due to palpation present (GI) Auscultation: normal bowel sounds Objective Data Vital Signs Vital Signs: Vital Signs - 24 hr 03/27/23 08:00 03/27/23 08:04 03/27/23 08:10 Temperature Pulse Rate 87 82 Respiratory Rate 20 20 Blood Pressure Pulse Oximetry 91 Oxygen Delivery Room Air 03/27/23 08:00 03/27/23 08:00 03/27/23 08:00 Temperature 98.5 F Pulse Rate 80 84 Respiratory Rate 16 Blood Pressure 118/63 Pulse Oximetry 93 94 Oxygen Delivery Room Air 03/27/23 12:00 03/27/23 13:40 03/27/23 13:51 Temperature Pulse Rate 73 76 Respiratory Rate 18 18 Blood Pressure Pulse Oximetry Oxygen Delivery 03/27/23 12:00 03/27/23 16:00 03/27/23 20:02 Temperature 98.4 F Pulse Rate 80 80 78 Respiratory Rate 16 Blood Pressure 113/68 Pulse Oximetry 95 Oxygen Delivery 03/27/23 20:00 03/27/23 21:23 03/27/23 21:25 Temperature Pulse Rate 74 Respiratory Rate 18 Blood Pressure Pulse Oximetry 96 Oxygen Delivery Room Air Autopap 03/27/23 21:32 03/27/23 21:23 03/28/23 01:54 Temperature 98.0 F Pulse Rate 77 78 Respiratory Rate 18 18 Blood Pressure 146/87 H Pulse Oximetry 93 Oxygen Delivery Autopap 03/28/23 05:00 Temperature 97.9 F Pulse Rate 73 Respiratory Rate 20 Blood Pressure 138/85 Pulse Oximetry 94 Oxygen Delivery Intake/Output Intake/Output: Intake & Output 03/25/23 03/26/23 03/27/23 03/28/23 23:59 23:59 23:59 23:59 Intake Total 2594 1375 2722 300 Output Total 150 400 Balance 2444 975 2722 300 Meds/Results Medications: Active Medications Generic Name Dose Route Start Last Admin Trade Name Freq PRN Reason Stop Dose Admin Acetaminophen 1,000 mg 03/27/23 09:14 03/27/23 23:12 Acetaminophen 500 Mg Tablet PO 1,000 mg Q6H PRN Administration Mild Pain (1-3) or Fever Albuterol 2.5 mg 03/26/23 20:00 03/28/23 07:09 Albuterol Sulfate Neb 2.5 Mg/3 Ml Inh INHALATION 2.5 mg Q6HRT VIVIANA Administration Lipase/Protease/Amylase 2 cap 03/27/23 17:00 03/27/23 16:46 Lipase/Amylase/Protease 12,000 Units Cap PO 2 cap TIDWM VIVIANA Administration Atorvastatin Calcium 40 mg 03/28/23 09:00 Atorvastatin 40 Mg Tablet PO DAILY [facility] Calcium Carbonate 500 mg 03/28/23 08:00 Calcium/Vitamin D 500 Mg Tablet PO DAILY@0800 [facility] Diltiazem HCl 360 mg 03/28/23 09:00 Diltiazem Hcl Cd 180 Mg Cap.24hr PO QAM VIVIANA Docusate Sodium 100 mg 03/27/23 21:00 03/27/23 20:04 Docusate Sodium 100 Mg Capsule PO 100 mg Q12HR VIVIANA Administration Escitalopram Oxalate 20 mg 03/28/23 09:00 Escitalopram Oxalate 10 Mg Tablet PO DAILY [facility] Fentanyl Citrate 50 mcg 03/25/23 06:28 11
[2023-03-28 07:20] VITALS: PULSE 74; RESP 18
[2023-03-28 07:32] LABS: Anisocytosis 1+ (NORMAL); Hypochromasia 1+ (NORMAL); Platelet Estimate Adequate (Adequate); Schistocytes None Seen (NORMAL)
[2023-03-28] MEDS: LIPASE/AMYLASE/PROTEASE 12,000 UNITS CAP 2 CAP PO ×2 (09:13→11:39)
[2023-03-28 09:14] VITALS: PULSE 100
[2023-03-28] MEDS: FOLIC ACID 0.4 MG TABLET PO (09:14)
[2023-03-28] MEDS: FLECAINIDE ACETATE 100 MG TABLET PO (09:14)
[2023-03-28] MEDS: ATORVASTATIN 40 MG TABLET PO (09:14)
[2023-03-28] MEDS: LOSARTAN POTASSIUM 50 MG TABLET PO (09:14)
[2023-03-28] MEDS: MAGNESIUM OXIDE 400 MG TABLET PO (09:14)
[2023-03-28] MEDS: hydroCHLOROthiazide 12.5 MG CAPSULE PO (09:15)
[2023-03-28] MEDS: PANTOPRAZOLE 40 MG TABLET PO (09:15)
[2023-03-28] MEDS: ESCITALOPRAM OXALATE 10 MG TABLET 20 MG PO (09:15)
[2023-03-28] MEDS: dilTIAZem HCL CD 180 MG CAP.24HR 360 MG PO (09:15)
[2023-03-28] MEDS: cefTRIAXone 2 GM/NS 100 ML 2 GM/100 ML BAG IVPB (09:16)
[2023-03-28] MEDS: DOCUSATE SODIUM 100 MG CAPSULE PO (09:16)
[2023-03-28] MEDS: ACETAMINOPHEN 500 MG TABLET 1000 MG PO (09:23)
--- NOTE | 2023-03-28 10:32 | PM.DS ---
DS: Admitting Diagnosis Discharge Date 03/28/2023 Admitting Diagnosis Flank pain DS: Discharge Diagnosis Discharge Diagnosis (1) Acute UTI: Code(s): N39.0 - Urinary tract infection, site not specified Status: Acute (2) Kidney stone: Code(s): N20.0 - Calculus of kidney Status: Acute (3) Ureteral stent present: Code(s): Z96.0 - Presence of urogenital implants Status: Acute (4) Calculus of left kidney: Code(s): N20.0 - Calculus of kidney Status: Acute (5) GERD (gastroesophageal reflux disease): Code(s): K21.9 - Gastro-esophageal reflux disease without esophagitis Status: Acute (6) Hyperlipidemia: Code(s): E78.5 - Hyperlipidemia, unspecified Status: Acute (7) Obesity: Code(s): E66.9 - Obesity, unspecified Status: Acute (8) Post-menopausal osteoporosis: Code(s): M81.0 - Age-related osteoporosis without current pathological fracture Status: Acute (9) Primary hyperparathyroidism: Code(s): E21.0 - Primary hyperparathyroidism Status: Acute (10) Pacemaker: Code(s): Z95.0 - Presence of cardiac pacemaker Status: Acute (11) History of cardiac pacemaker: Code(s): Z95.0 - Presence of cardiac pacemaker Status: Acute (12) Osteoporosis: Code(s): M81.0 - Age-related osteoporosis without current pathological fracture Status: Acute (13) Asthma: Code(s): J45.909 - Unspecified asthma, uncomplicated Status: Acute (14) Anxiety: Code(s): F41.9 - Anxiety disorder, unspecified Status: Acute DS: Summary Hospital Course Hospital Course: # acute complicated uti initially treated with meropenem and vancomycin. Urine culture grew E coli pansensitive. WBC count improved to resolution. Switched to Bactrim at discharge for 10 more days Underwent left ureteroscopy with ext stone extraction left stent exchange and left stone lithotripsy on 03/26/2023. # Kidney stone Underwent cystoscopy, L ureteroscopy with stone extraction, L stent exchange, L lithotripsy, L retrograde pyelogram # asthma Albuterol inhaler p.r.n. # acute blood loss- symptomatic anemia Transfused 1 unit for symptomatic anemia during the hospital stay # afib ct flecaindie. hold eliquis until bleeding in urine stops. Resume at discharge # hTN ct diltiazem, losartan, hctz, lipitor # osteoporosis ?-hold home Prolia injection - continue home calcium supplement, vitamin-D supplement #. Anxiety ct escitalopram # pancreatic insuficiency ct creon. complaining of gas without creon use before meals. # gERD on qd omeprazole #. urinary incontinence ct oxybutynin Time Spent with Patient Time attestation: Total time spent providing and/or coordinating discharge services: 35 minutes Exam Narrative: APPEARANCE: No apparent distress. Head: atraumatic. EYES:? EOMI, NOSE: Atraumatic NECK: Trachea midline RESPIRATORY: No increased rate of breathing CARDIOVASCULAR: RRR, ABDOMINAL: Non-distended,? soft, nontender.? MUSCULOSKELETAl: No obvious deformities NEURO: Alert. Moving 4/4 extremities SKIN:: Warm, dry. Normal color PSYCHIATRIC: Normal affect DS: Data Data Completed and Pending Pending studies at discharge: Pending at discharge 03/26/23 17:43 Surgical [PTH] Routine Labs on day of discharge: Labs from last 24 hours 03/28/23 03/27/23 03/27/23 06:29 18:40 10:10 WBC 8.2 14.4 H RBC 3.62 L 3.87 L Hgb 9.6 L 10.3 L Hct 32.1 L 34.4 L MCV 88.7 88.9 MCH 26.5 26.6 MCHC 29.9 L 29.9 L RDW 15.6 H 15.9 H Plt Count 240 240 MPV 8.9 8.4 Immature Gran % (Auto) 0.5 0.8 H Neut % (Auto) 78.4 H 93.5 H Lymph % (Auto) 9.8 L 2.3 L [place] % (Auto) 8.5 3.0 Eos % (Auto) 2.3 0.1 Baso % (Auto) 0.5 0.3 Lymph # (Auto) 0.80 L 0.33 L [place] # (Auto) 0.7 H 0.4 Eos # (Auto) 0.2 0.0 Baso # (Auto) 0.0 0.0 Abs Immat Gran (
== END 2023-03-28 12:25 | disposition home or self-care (01) | DRG 660 ==
LOC: ANHED 06:07 → ANH3MEDSUR 07:06
PROVIDERS: Internal Medicine; Urology; Admitting Provider Internal Medicine; Emergency Provider Emergency Medicine; PCP Internal Medicine; Visit Provider Internal Medicine
PROC: 0T778DZ Dilation of Left Ureter with Intraluminal Device, Via Natural or Artificial Opening Endoscopic (ICD-10-PCS; CPT 52352; principal; 2023-03-26 16:00)
DX: N13.6 Pyonephrosis (principal); D62 Acute posthemorrhagic anemia; I48.20 Chronic atrial fibrillation, unspecified; J45.901 Unspecified asthma with (acute) exacerbation; B96.20 Unspecified Escherichia coli [E. coli] as the cause of diseases classified elsewhere; I10 Essential (primary) hypertension; E21.0 Primary hyperparathyroidism; E66.9 Obesity, unspecified; E78.5 Hyperlipidemia, unspecified; K86.89 Other specified diseases of pancreas; K21.9 Gastro-esophageal reflux disease without esophagitis; M81.0 Age-related osteoporosis without current pathological fracture; M17.0 Bilateral primary osteoarthritis of knee; F41.9 Anxiety disorder, unspecified; Z79.01 Long term (current) use of anticoagulants; Z95.0 Presence of cardiac pacemaker
CPT/HCPCS: 36415; 74176; 80048; 80053; 80202; 81001; 82365; 82565; 82948; 83735; 85025; 86850; 86900; 86901; 86923; 87077; 87086; 87088; 87186; 88300; 94640; 96365; 96375; 99285; A9270; C1769; C1894; C2617; J0612; J0696; J1100; J1170; J1885; J2185; J2405; J2704; J3010; J3370; J7030; J7120

== ENCOUNTER 2023-04-19 07:46 | Outpatient (CLI) | payer MEDICARE, OTHER, SELFPAY ==
[2023-04-19 08:37] LABS: Albumin Level 3.6 g/dL (3.5-5.1); Magnesium 2.2 mg/dL (1.6-2.3); Phosphorus 3.3 mg/dL (2.5-4.5)
[2023-04-19 08:51] LABS: Parathyroid Intact 83.3 pg/mL (7.5-53.5)
[2023-04-19 09:28] LABS: Creatinine Urine 133.8 mg/dL
[2023-04-19 09:34] LABS: MALB Creatinine Ratio 16.3 mg/g (0-30); Microalbumin Urine Random 21.8 mg/L (0-16.7)
[2023-04-19 10:49] LABS: Total Volume 24 Hour Urine 1300 ml
[2023-04-19 10:57] LABS: Creatinine 24 Hour Urine 1.1 gm/24 (0.8-1.8); Creatinine Urine 88.8 mg/dL
[2023-04-22 11:24] LABS: Total Volume 1300 mL; Urine Calcium 11.4 mg/dL
== END 2023-04-19 07:47 | disposition home or self-care (01) ==
PROVIDERS: PCP Internal Medicine; Referring Provider Urology; Visit Provider Internal Medicine
DX: N20.0 Calculus of kidney (principal); E21.0 Primary hyperparathyroidism; I10 Essential (primary) hypertension
CPT/HCPCS: 36415; 81050; 82040; 82043; 82310; 82340; 82570; 83735; 83970; 84100

== ENCOUNTER 2023-05-22 13:02 | Outpatient (CLI) | payer MEDICARE, OTHER, SELFPAY ==
[2023-05-22 14:17] LABS: Alanine Aminotransferase 26 U/L (6-35); Albumin Level 3.7 g/dL (3.5-5.1); Alkaline Phosphatase 128 U/L (38-126); Anion Gap 6 mmol/L (8-16); Aspartate Amino Transferase 36 U/L (14-36); Bilirubin,Total 0.4 mg/dL (0.2-1.3); Blood Urea Nitrogen 14 mg/dL (7-17); Calcium 9.2 mg/dL (8.4-10.2); Carbon Dioxide 30 mmol/L (22-30); Chloride 103 mmol/L (98-107); Estimated Glomerular Filt Rate > 60; Glucose 104 mg/dL (65-110); Potassium 4.3 mmol/L (3.4-5.0); Sodium 139 mmol/L (137-145)
== END 2023-05-22 13:03 | disposition home or self-care (01) ==
LOC: ANHLAB 13:05
PROVIDERS: Visit Provider Internal Medicine
DX: M81.0 Age-related osteoporosis without current pathological fracture (principal)
CPT/HCPCS: 36415; 80053

== ENCOUNTER 2023-06-11 06:55 | Outpatient (CLI) | payer MEDICARE, OTHER, SELFPAY ==
--- NOTE | ~2023-06-11 | XR_ITS ---
Supine and upright views of the abdomen Clinical history: Status post lithotripsy COMPARISON: 03/21/2023 Findings: Bowel gas pattern is nonspecific. No evidence for obstruction or free air. Probable small r esidual left lower pole renal stones present. No definite right renal stone. Osseous structures are i ntact. Impression: Suspected small residual left lower pole renal stones. Reviewed, dictated and finalized at location . [employer] Impression: Suspected small residual left lower pole renal stones.
== END 2023-06-11 06:56 | disposition home or self-care (01) ==
PROVIDERS: PCP Internal Medicine; Visit Provider Urology
DX: N20.0 Calculus of kidney (principal)
CPT/HCPCS: 74018

== ENCOUNTER 2023-07-14 07:53 | Outpatient (CLI) | payer MEDICARE, OTHER, SELFPAY ==
[2023-07-14 08:27] LABS: Alanine Aminotransferase 30 U/L (6-35); Albumin Level 3.7 g/dL (3.5-5.1); Alkaline Phosphatase 125 U/L (38-126); Anion Gap 2 mmol/L (8-16); Aspartate Amino Transferase 39 U/L (14-36); Bilirubin,Total 0.4 mg/dL (0.2-1.3); Blood Urea Nitrogen 13 mg/dL (7-17); Calcium 8.3 mg/dL (8.4-10.2); Carbon Dioxide 32 mmol/L (22-30); Chloride 104 mmol/L (98-107); Estimated Glomerular Filt Rate > 60; Glucose 100 mg/dL (65-110); Potassium 3.6 mmol/L (3.4-5.0); Sodium 138 mmol/L (137-145)
[2023-07-14 08:32] LABS: Parathyroid Intact 255.8 pg/mL (7.5-53.5)
[2023-07-14 09:38] LABS: Vitamin D 25 Hydroxy 32.6 ng/mL
== END 2023-07-14 07:54 | disposition home or self-care (01) ==
LOC: ANHLAB 07:57
PROVIDERS: PCP Internal Medicine; Visit Provider Internal Medicine
DX: N20.0 Calculus of kidney (principal); E21.0 Primary hyperparathyroidism
CPT/HCPCS: 36415; 80053; 82306; 83970

== ENCOUNTER 2023-09-11 08:29 | Outpatient (CLI) | payer MEDICARE, OTHER, SELFPAY ==
[2023-09-11 09:20] LABS: Potassium 3.9 mmol/L (3.4-5.0)
[2023-09-11 09:56] LABS: Cortisol Random 1.41 ug/dL
[2023-09-12 09:28] LABS: Ionized Calcium 4.9 mg/dL (4.7-5.5)
[2023-09-17 20:48] LABS: Metanephrine, Free <25 pg/mL (<=57); Normetanephrine, Free 72 pg/mL (<=148); Total, Free (MN + NMN) 72 pg/mL (<=205)
[2023-09-20 17:04] LABS: PRA 1.49 ng/mL/h (0.25-5.82)
== END 2023-09-11 08:30 | disposition home or self-care (01) ==
PROVIDERS: PCP Internal Medicine; Visit Provider Internal Medicine
DX: E27.8 Other specified disorders of adrenal gland (principal); M81.0 Age-related osteoporosis without current pathological fracture; N20.0 Calculus of kidney
CPT/HCPCS: 36415; 82088; 82306; 82330; 82384; 82533; 83835; 84132; 84244

== ENCOUNTER 2023-10-03 09:11 | Outpatient (CLI) | payer MEDICARE, OTHER, SELFPAY ==
--- NOTE | ~2023-10-03 | XR_ITS ---
EXAMINATION: XR abdomen/kub 1V DATE: 10/03/2023 09:27 INDICATION: Staghorn kidney stones TECHNIQUE: A supine view of the abdomen on 2 radiographs was obtained. COMPARISON: CT abdomen and pelvis 03/25/2023, abdomen radiographs 06/11/2023 FINDINGS: There are no dilated loops of bowel. There are surgical clips in left abdomen. Left kidney is obscured by bowel. There is a 6 mm stone in left kidney lower pole. There is a phlebolith in right pelvis. IMPRESSION: 1. 6 mm left kidney stone. Reviewed, dictated and finalized at location A. IMPRESSION: 1. 6 mm left kidney stone.
== END 2023-10-03 09:12 | disposition home or self-care (01) ==
LOC: ANHIMG 09:13
PROVIDERS: PCP Internal Medicine; Visit Provider Urology
DX: N20.0 Calculus of kidney (principal)
CPT/HCPCS: 36415; 74018; 82040; 82310; 82330

== ENCOUNTER 2023-10-03 10:15 | Outpatient (CLI) | payer MEDICARE, OTHER, SELFPAY ==
[2023-10-03 10:45] LABS: Albumin Level 4.1 g/dL (3.5-5.1); Calcium 9.4 mg/dL (8.4-10.2)
== END 2023-10-03 10:16 | disposition home or self-care (01) ==
LOC: ANHLAB 10:19
PROVIDERS: PCP Internal Medicine; Visit Provider Internal Medicine
DX: E16.2 Hypoglycemia, unspecified (principal); E21.0 Primary hyperparathyroidism
CPT/HCPCS: 36415; 82040; 82310; 82330

== ENCOUNTER 2023-10-16 11:02 | Outpatient (CLI) | payer MEDICARE, OTHER, SELFPAY ==
[2023-10-17 11:53] LABS: Ionized Calcium 4.9 mg/dL (4.7-5.5)
== END 2023-10-16 11:03 | disposition home or self-care (01) ==
LOC: ANHLAB 11:04
PROVIDERS: PCP Internal Medicine; Visit Provider Internal Medicine
DX: E16.2 Hypoglycemia, unspecified (principal); E21.0 Primary hyperparathyroidism
CPT/HCPCS: 36415; 82330

== ENCOUNTER 2023-11-20 14:10 | Outpatient (CLI) | payer MEDICARE, OTHER, SELFPAY ==
--- NOTE | ~2023-11-20 | CT_ITS ---
EXAMINATION:CT diagnostic chest wo con DATE: 11/20/2023 14:34 INDICATION: Acute bronchospasm. TECHNIQUE: Computed tomography (CT) of the chest was performed without intravenous contrast. Automate d exposure control and iterative reconstruction technique were employed. The dose-length product (DLP ) was 656.37 mGy-cm. COMPARISON: CT abdomen and pelvis 12/23/2022 FINDINGS: There is marked elevation of right hemidiaphragm. There is mild atelectasis bilaterally. No pleural effusion. The heart size is normal. There are coronary artery calcifications. No pericardial effusion. There is a left chest wall pacer with leads in the right atrium and right ventricle. There is ectasia of ascending aorta measuring 4.1 cm. There are changes of gastric bypass procedure. There is a 19 mm cyst in right kidney. There is mild chronic anterior wedging of multiple thoracic vertebr al bodies. There is mild thoracic spondylosis. IMPRESSION: 1. Chronic marked elevation of right hemidiaphragm. Reviewed, dictated and finalized at location A.
--- NOTE | 2023-11-21 16:06 | WPDSIXMINUTE ---
Six Minute Walk Procedure Procedure Performed Pulmonary Stress Test (6 min walk) Six Minute Walk Six Minute Walk: This is a 6 minute walk test. The test was performed and interpreted in accordance with the 2014 ERS/ATS task force guidelines. Findings: The patient's resting room air oxygen saturation measured by pulse oximetry was 94% and heart rate was 78 bpm. Patient ambulated for 305 meters and oxygen saturation remained 91 to 95%. Heart rate at the end of the study was 111 bpm. The patient did not qualify for supplemental oxygen at rest or with ambulation. There are no prior studies for comparison.
--- NOTE | 2023-11-21 16:07 | P.PCNPFT_ITS ---
PFT Procedure Performed PFT Procedure Performed Spirometry with Pre/Post Bronchodilator Plethysmography (Lung Vol) Diffusing Cap (DLCO) Flow Vol Loop PFT Interpretation This is a pulmonary function test with pre and post-bronchodilator spirometry, plethysmography and diffusing capacity. The test was performed and results interpreted in accordance with the 2019 and 2005 ATS/ERS Task Force guidelines respectively using the Global Lung Function Initiative-2012 reference equations. Patient demonstrated good effort and cooperation. Reproducibility criteria were met. The quality of the pre bronchodilator spirometry maneuver was Grade A and post bronchodilator spirometry maneuver was Grade A. Findings: Spirometry: The contour the expiratory flow tracing resembles a witch's hat . The contour the inspiratory flow tracing is normal. The pre bronchodilator FVC is 1.63 L, 53% predicted. The pre bronchodilator FEV1 is 1.33 L, 56% predicted. The pre bronchodilator FEV1: FVC ratio is 81%. The post bronchodilator FVC is 1.74 L, representing a 7% increase. The post bronchodilator FEV1 is 1.49 L, r epresenting 160 mL increase which corresponds to a 12% increase. The post bronchodilator FEV1: FVC ratio is 86%. Plethysmography : The total lung capacity is 3.21 L, 60% predicted. The functional residual capacity is 1.72 L, 56% predicted. The residual volume is 1.23 L, 53% predicted. Diffusing capacity: The diffusing capacity unadjusted for hemoglobin and carboxyhemoglobin is 20.8, 98% predicted. The diffusing capacity adjusted for alveolar volume is 6.25, 149% predicted. Impression: There is a moderately severe restrictive ventilatory abnormality. The spirometry is normal without evidence of an obstructive abnormality. There is no significant improvement after inhaling a single dose of albuterol as the post bronchodilator FEV1 absolute increase is less than 200 mL. The diffusing capacity unadjusted for hemoglobin and carboxyhemoglobin is normal and when adjusted for alveolar volume is increased. There are no prior studies for comparison
== END 2023-11-20 14:11 | disposition home or self-care (01) ==
PROVIDERS: PCP Internal Medicine; Visit Provider Physician Assistant
DX: J98.4 Other disorders of lung (principal); J98.6 Disorders of diaphragm; J45.909 Unspecified asthma, uncomplicated; R06.09 Other forms of dyspnea
CPT/HCPCS: 71250; 94060; 94618; 94726; 94729

== ENCOUNTER 2023-11-28 11:34 | Outpatient (CLI) | payer MEDICARE, OTHER, SELFPAY ==
[2023-11-28 12:25] LABS: Albumin Level 3.9 g/dL (3.5-5.1); Calcium 8.8 mg/dL (8.4-10.2)
[2023-11-28 12:35] LABS: Parathyroid Intact 109.6 pg/mL (7.5-53.5)
[2023-12-01 13:18] LABS: Ionized Calcium 4.9 mg/dL (4.7-5.5)
== END 2023-11-28 11:35 | disposition home or self-care (01) ==
LOC: ANHLAB 11:39
PROVIDERS: PCP Internal Medicine; Visit Provider Internal Medicine
DX: E21.0 Primary hyperparathyroidism (principal); M81.0 Age-related osteoporosis without current pathological fracture
CPT/HCPCS: 36415; 82040; 82310; 82330; 83970

== ENCOUNTER 2023-12-29 09:13 | Observation (INO) | payer MEDICARE, OTHER, SELFPAY ==
--- NOTE | ~2023-12-29 | CT_ITS ---
CT abdomen pelvis wo con Ordering provider: Sotero Mazariegos MD History: 68 years Female with . left flank pain . Comparison: March 25, 2023 Technique: CT abdomen and pelvis without IV and without oral contrast. Automated exposure control and iterative reconstruction technique were employed. The dose-length product was 1087.51 mGy-cm. Findings: VISUALIZED LOWER CHEST: Dependent atelectatic changes. UPPER ABDOMINAL ORGANS: Liver: Hepatomegaly. Gallbladder: Normal. Spleen: Normal. Stomach/duodenum: Postoperative changes in the stomach. Pancreas: Normal. Adrenals: 1 cm adenoma seen in the left adrenal unchanged. Kidneys: Stone in the left mid ureter measuring 6 mm by the left hydroureter and hydronephrotic rajput es. Hypodensity is seen in the right renal pelvis area most likely parapelvic cysts. No definite ston es seen in the right kidney with no ureteric stones. Tiny Stone seen in the left kidney lower pole. PELVIC ORGANS: The bladder is underfilled. BOWEL AND MESENTERY: Colon: No evidence of diverticulitis. The appendix is not demonstrated.. Small Bowel: Normal. No obstruction. Peritoneum/mesentery: No free air or free fluid. No mesenteric lymphadenopathy. RETROPERITONEUM: Mild atheromatous disease of the abdominal aorta. No retroperitoneal lymphadenopat hy. MUSCULOSKELETAL: Superficial soft tissues: Left anterior wall fat-containing hernia is noted with the defect measuring 3.1 cm.. Small umbilical fat containing hernia is also seen. Otherwise, The superficial soft tissues are normal. Bones: Age appropriate degenerative changes of the spine. IMPRESSION: 1. Left mid ureteric stone with left hydronephrotic changes. Tiny left kidney stone. 2. Hepatomegaly. 3. No evidence of appendicitis, diverticulitis or intestinal obstruction 4. Unchanged left adrenal adenoma. 5. Highly suggestive right parapelvic renal cysts. 6. Umbilical and left anterior abdominal wall fat-containing hernias. Reviewed, dictated and finalized at location A.
--- NOTE | ~2023-12-29 | XR_ITS ---
EXAMINATION: XR stent kub - surgery DATE: 12/30/2023 13:30 CDT INDICATION: LEFT STENT . TECHNIQUE: 4 fluoroscopic images of the abdomen and pelvis were obtained during left ureteral stent p lacement, performed by Jason Almazan MD. I was not present during the procedure. Fluoroscopy exposu re time was 24.4 seconds. DAP [id number] mGym2. COMPARISON: 03/26/2023 FINDINGS/IMPRESSION: Fluoroscopic documentation of left ureteral stent placement. Please refer to the operative note for c omplete procedural details . Reviewed, dictated and finalized at location K.
[2023-12-29 09:16] VITALS: BP 156/78; PULSE 72; RESP 15; TEMP 36.4; O2SAT 94
[2023-12-29 09:58] LABS: Basophils Percent Auto 0.3 % (0.2-1.2); Eosinophils Absolute Auto 0.1 K/mm3 (0-0.3); Eosinophils Percent Auto 0.9 % (0-4.4); Hematocrit 45.7 % (37.0-47.0); Hemoglobin 14.5 g/dL (12.0-15.0); Immature Granulocyte Absolute 0.06 K/mm3 (0.00-0.031); Immature Granulocyte Percent A 0.5 % (0-0.5); Lymphocytes Absolute Auto 1.31 K/mm3 (0.9-3.2); Lymphocytes Percent Auto 10.9 % (18.3-44.2); Mean Corpuscular HGB Conc 31.7 g/dl (32-36); Mean Corpuscular Hemoglobin 29.7 pg (26-34); Mean Corpuscular Volume 93.6 fl (80-100); Mean Platelet Volume 8.9 fl (7.4-10.4); Monocytes Absolute Auto 1.1 K/mm3 (0.1-0.6); Monocytes Percent Auto 8.9 % (2.6-8.5); Neutrophils Absolute Auto 9.4 K/mm3 (1.3-6.7); Neutrophils Percent Auto 78.5 % (45.5-73.1); Platelet Count Result 253 k/mm3 (150-375); Red Blood Count 4.88 M/mm3 (4.2-5.4); Red Cell Distribution Width 14.5 % (11.5-14.5)
[2023-12-29 10:04] LABS: Add Urine Microscopic? YES; Appearance Urine Cloudy (Clear); Bacteria Urine 4+ /hpf; Bilirubin Urine Negative (Negative); Blood Urine 2+ (Negative); Color Urine Yellow (Yellow); Glucose Urine UA Negative (Negative); Ketones Urine Negative (Negative); Leukocyte Esterase Ur 3+ LEU/UL (Negative); Nitrate Urine Positive (Negative); Non Pathogenic Casts 0-2; Protein Urine 1+ mg/dL (Negative); RBC Urine 21-50 /hpf (0-2); Specific Grav Ur 1.016 (1.001-1.035); Squamous Epithelial Cell Urine Occasional /hpf (Few); Urobilinogen Urine 0.2 mg/dL (<2.0); WBC Urine >100 /hpf (0-3); pH Urine 7.5 (5.0-9.0)
[2023-12-29] MEDS: ONDANSETRON INJ 4 MG/2 ML VIAL IV PUSH ×3 (10:08→20:13)
[2023-12-29] MEDS: HYDROmorphone HCL INJ (*CRX) 1 MG/ML SYR 0.5 MG IV PUSH (10:08)
--- NOTE | 2023-12-29 10:08 | ED.FEMALEGU ---
HPI - Female Genitourinary General Chief complaint: Urogenital-Female Stated complaint: KIDNEY STONE Time Seen by Provider: 12/29/23 09:27 History of Present Illness HPI Narrative: 68-year-old female presenting to the emergency department for evaluation left flank pain. Patient does have a significant history of kidney stones and does follow-up with Urology, Dr Almazan. Patient states her last stone was a March. Patient had acute onset of left flank pain. Patient denies any symptoms of a urinary tract infection, denies dysuria, urinary frequency. Related Data Home Medications Medication Instructions Recorded Confirmed apixaban 5 mg tablet 5 mg PO BID 11/29/22 12/29/23 atorvastatin 40 mg tablet 40 mg PO DAILY 11/29/22 12/29/23 cetirizine 10 mg tablet (Zyrtec) 10 mg PO DAILY PRN Allergy Symptoms 11/29/22 12/29/23 diltiazem HCl 360 mg 360 mg PO DAILY 11/29/22 12/29/23 capsule,extended release 24 hr escitalopram oxalate 20 mg tablet 20 mg PO DAILY 11/29/22 12/29/23 flecainide 100 mg tablet 100 mg PO Q12H 11/29/22 12/29/23 losartan 50 mg-hydrochlorothiazide 1 tablet PO DAILY 11/29/22 12/29/23 12.5 mg tablet magnesium oxide 400 mg PO BID 11/29/22 12/29/23 multivitamin-ferrous 1 tablet PO DAILY 11/29/22 12/29/23 fumarate-folic acid 18 mg-400 mcg tablet (Centrum) calcium carb-vit D3-minerals 600 3 tablet PO DAILY 01/28/23 12/29/23 mg calcium-400 unit tablet Allergies Allergy/AdvReac Type Severity Reaction Status Date / Time Barbiturates Allergy Intermediate RASH Verified 12/26/23 10:59 hydrocodone Allergy Intermediate HEADACHE Verified 12/26/23 10:59 atropine Allergy Unknown Unknown Verified 12/26/23 10:59 codeine Allergy Unknown Headache Verified 12/26/23 10:59 hyoscyamine Allergy Unknown Unknown Verified 12/26/23 10:59 meperidine Allergy Unknown Unknown Verified 12/26/23 10:59 morphine Allergy Unknown Unknown Verified 12/26/23 10:59 phenobarbital Allergy Unknown Unknown Verified 12/26/23 10:59 prednisone Allergy Unknown Unknown Verified 12/26/23 10:59 ANTICHOLINERGICS,OTHER Allergy Mild UNKNOWN Uncoded 12/26/23 10:59 BELLADONNA ALK/PHENOBARBITAL Allergy Unknown RASH Uncoded 12/26/23 10:59 (Generic Allergy) NKFA Allergy Unknown Unknown Uncoded 12/26/23 10:59 Review of Systems Review of Systems: All systems reviewed & are unremarkable except as noted in HPI and below PMFSH Past Medical History Medical History Afib Anxiety Asthma BMI greater than 40 GERD (gastroesophageal reflux disease) History of cardiac pacemaker HTN (hypertension) Left knee DJD Osteoporosis Pacemaker Right knee DJD Surgical History Surgical History H/O lithotripsy History of bilateral breast reduction surgery History of gastric bypass History of hernia repair History of hysterectomy for indication other than cancer Family History Family History Mother Family history of premature coronary heart disease, Onset Age: 54 Hypertension Family history of elevated blood lipids Family history of diabetes mellitus in first degree relative Patient's mother is Father Hypertension Family history of elevated blood lipids Family history of diabetes mellitus in first degree relative Family history of coronary artery disease, Onset Age: 51 Patient's father is Other Diabetes mellitus Family history of arthritis Family history of kidney stones Family history of mental disorder Social History Social History Social History: Currently lives with her and daughter. 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 Surrogate decision maker: Arianna White, daughter. Full Code. Caffeine- soda Smoking status: Never smoker Tasha
[2023-12-29 10:17] LABS: Alanine Aminotransferase 44 U/L (6-35); Alkaline Phosphatase 122 U/L (38-126); Anion Gap 6 mmol/L (4-12); Aspartate Amino Transferase 48 U/L (14-36); Bilirubin,Total 0.4 mg/dL (0.2-1.3); Blood Urea Nitrogen 20 mg/dL (7-17); Calcium 8.3 mg/dL (8.4-10.2); Carbon Dioxide 31 mmol/L (22-30); Chloride 101 mmol/L (98-107); Estimated CRCL calculation 104 ml/min; Estimated Glomerular Filt Rate > 60; Glucose 103 mg/dL (65-110); Sodium 138 mmol/L (137-145)
[2023-12-29 10:55] VITALS: BP 112/63; PULSE 64; RESP 23; TEMP 36.4; O2SAT 94
--- NOTE | 2023-12-29 12:24 | ADMGEN ---
This patient, Dorie Mahoney, was admitted to Medical Room 348-01. Patient/family oriented to hospital policies and general routines including ID bracelet, bed and alarms, visiting hours, pain management, procedures, bathroom and other care routines, personal items, smoking policy, room service/diet, and visiting hours. Information on how to activate the Rapid Response Team has been discussed. Patient/Family are encouraged to report perceived risks to care and to ask questions if they do not understand what they are told or what they should do.
--- NOTE | 2023-12-29 12:33 | WPDURCON ---
Assessment and Plan Assessment and plan (1) Left ureteral stone: Code(s): N20.1 - Calculus of ureter Status: Acute Assessment and Plan: Patient's apparent lack of toxicity, yet possible urinary tract infection, try to forego intervention today and plan, instead, IV antibiotics followed by left ureteroscopy with stone extractionpossible laser lithotripsy and stent placement tomorrow. Patient becomes febrile are otherwise stable prior to that we will simply place a left ureteral stent. Urology Consult Note HPI Date Seen: 12/29/23 Requesting Physician: Alicja Mojica APRN Primary Care Provider: Gibran Epperson, Consult Narrative Narrative: Dorie Mahoney is a 68 year old female Well known to me with a history of urolithiasis and hyperparathyroidism. Attempted parathyroidectomy in the past was unsuccessful. She presents with left flank pain and nausea vomiting. She has had no fever chills her gross hematuria. ER evaluation reveals a 6 mm obstructing left mid ureteral stone and smaller left renal stone. Her urine appears infected but she is afebrile and has only a minimal leukocytosis. Review of Systems Review of Systems: All systems reviewed & are unremarkable except as noted in HPI and below PMFSH Past Medical History Medical History Afib Anxiety Asthma BMI greater than 40 GERD (gastroesophageal reflux disease) History of cardiac pacemaker HTN (hypertension) Left knee DJD Osteoporosis Pacemaker Right knee DJD Surgical History Surgical History H/O lithotripsy History of bilateral breast reduction surgery History of gastric bypass History of hernia repair History of hysterectomy for indication other than cancer Family History Family History Mother Family history of premature coronary heart disease, Onset Age: 54 Hypertension Family history of elevated blood lipids Family history of diabetes mellitus in first degree relative Patient's mother is Father Hypertension Family history of elevated blood lipids Family history of diabetes mellitus in first degree relative Family history of coronary artery disease, Onset Age: 51 Patient's father is Other Diabetes mellitus Family history of arthritis Family history of kidney stones Family history of mental disorder Social History Social History Social History: Currently lives with her and daughter. 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 Surrogate decision maker: Arianna White, daughter. Full Code. Caffeine- soda Smoking status: Never smoker Alcohol intake: never Substance use: never Substance use type: does not use Lack of Transportation: No Lack of Food: Never True Current Housing: I Have Housing Concerned About Future Housing: No Difficulty Paying Gas/Electric Bills: No Difficulty Paying for Meds: No Currently Unemployed: No Education: High School Diploma/GED Difficulty w/ Childcare or Family Care: No Living arrangements: alone Occupation/Education: retired Gender identity (if verbalized by the patient): Female Spiritual care concerns: No Meds Home Medications and Allergies Home Medications Medication Instructions Recorded Confirmed Type apixaban 5 mg tablet 5 mg PO BID 11/29/22 12/29/23 History atorvastatin 40 mg tablet 40 mg PO DAILY 11/29/22 12/29/23 History cetirizine 10 mg tablet (Zyrtec) 10 mg PO DAILY PRN Allergy Symptoms 11/29/22 12/29/23 History diltiazem HCl 360 mg 360 mg PO DAILY 11/29/22 12/29/23 History capsule,extended release 24 hr escitalopram oxalate 20 mg tablet 20 mg PO DAILY 11/29/22 12/29/23 History flecainide 100 mg tablet 100 mg PO Q12H 11/29/22 12/29/23 History losa
[2023-12-29 12:34] VITALS: BMI 42.3
[2023-12-29] MEDS: HYDROmorphone HCL INJ (*CRX) 1 MG/ML SYR IV PUSH ×3 (12:41→20:13)
--- NOTE | 2023-12-29 12:44 | PM.IMHP ---
H&P: HPI History of Present Illness Date/Time: 12/29/23 12:44 Chief Complaint: Flank pain Narrative: 68-year-old female presenting to the emergency department for evaluation left flank pain. Patient does have a significant history of kidney stones and does follow-up with Urology, Dr Almazan. Patient states her last stone was a March. Patient had acute onset of left flank pain. Review of Systems Review of Systems: - CONSTITUTIONAL: Denies weight loss, fever and chills. - HEENT: Denies changes in vision and hearing - RESPIRATORY: Denies SOB and cough. - CV: Denies palpitations and CP. - GI: Denies abdominal pain, nausea, vomiting and diarrhea. - : Denies dysuria and urinary frequency. - MSK: Denies myalgia and joint pain. - SKIN: Denies rash and pruritus. - NEUROLOGICAL: Denies headache and syncope. - PSYCHIATRIC: Denies recent changes in mood. Denies anxiety and depression. [facility] Past Medical History Medical History Afib Anxiety Asthma BMI greater than 40 GERD (gastroesophageal reflux disease) History of cardiac pacemaker HTN (hypertension) Left knee DJD Osteoporosis Pacemaker Right knee DJD Surgical History Surgical History H/O lithotripsy History of bilateral breast reduction surgery History of gastric bypass History of hernia repair History of hysterectomy for indication other than cancer Family History Family History Mother Family history of premature coronary heart disease, Onset Age: 54 Hypertension Family history of elevated blood lipids Family history of diabetes mellitus in first degree relative Patient's mother is Father Hypertension Family history of elevated blood lipids Family history of diabetes mellitus in first degree relative Family history of coronary artery disease, Onset Age: 51 Patient's father is Other Diabetes mellitus Family history of arthritis Family history of kidney stones Family history of mental disorder Social History Social History Social History: Currently lives with her and daughter. 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 Surrogate decision maker: Arianna Christopher, daughter. Full Code. Caffeine- soda Smoking status: Never smoker Alcohol intake: never Substance use: never Substance use type: does not use Do You Feel Safe in your Home?: Yes Lack of Transportation: No Lack of Food: Never True Current Housing: I Have Housing Concerned About Future Housing: No Difficulty Paying Gas/Electric Bills: No Difficulty Paying for Meds: No Currently Unemployed: No Education: High School Diploma/GED Difficulty w/ Childcare or Family Care: No Living arrangements: alone Occupation/Education: retired Gender identity (if verbalized by the patient): Female Spiritual care concerns: No Meds Home Medications and Allergies Home Medications Medication Instructions Recorded Confirmed Type apixaban 5 mg tablet 5 mg PO BID 11/29/22 12/29/23 History atorvastatin 40 mg tablet 40 mg PO DAILY 11/29/22 12/29/23 History cetirizine 10 mg tablet (Zyrtec) 10 mg PO DAILY PRN Allergy Symptoms 11/29/22 12/29/23 History diltiazem HCl 360 mg 360 mg PO DAILY 11/29/22 12/29/23 History capsule,extended release 24 hr escitalopram oxalate 20 mg tablet 20 mg PO DAILY 11/29/22 12/29/23 History flecainide 100 mg tablet 100 mg PO Q12H 11/29/22 12/29/23 History losartan 50 mg-hydrochlorothiazide 1 tablet PO DAILY 11/29/22 12/29/23 History 12.5 mg tablet magnesium oxide 400 mg PO BID 11/29/22 12/29/23 History multivitamin-ferrous 1 tablet PO DAILY 11/29/22 12/29/23 History fumarate-folic acid 18 mg-400 mcg tablet (Centrum) calcium carb-vit D
[2023-12-29] MEDS: SODIUM CHLORIDE 0.9% IV 1,000 ML 50 ML IV CONT (13:11)
--- NOTE | 2023-12-29 13:57 | PM.IMHP ---
H&P: HPI History of Present Illness Date/Time: 12/29/23 13:57 Chief Complaint: Left back pain Narrative: Patient is a 68-year-old female who presented to the emergency department with complaints left-sided flank pain associated with nausea vomiting. Patient states symptoms began earlier this morning however she denies any fevers, chills or hematuria denies any chest pain or shortness of breath. Patient did report a past medical history of AFib, anxiety, asthma, GERD, HTN, hypoglycemia secondary to gastric bypass procedure, and kidney stones. Patient states she has had a previous history of kidney stones with lithotripsy feels as though the symptoms are the same. Findings in the emergency department showed WBC of 12 and UA with positive nitrates, leukocytes and bacteria. Ct ABD showed a a left mid ureteric stone with hydronephrotic changes. Patient was admitted to the medical unit with consult to Urology plan is IV antibiotic therapy with left ureters copy and stone extraction and stent placement tomorrow 12/29/2023. Review of Systems Review of Systems: All systems reviewed & are unremarkable except as noted in HPI and below PMFSH Past Medical History Medical History Afib Anxiety Asthma BMI greater than 40 GERD (gastroesophageal reflux disease) History of cardiac pacemaker HTN (hypertension) Left knee DJD Osteoporosis Pacemaker Right knee DJD Surgical History Surgical History H/O lithotripsy History of bilateral breast reduction surgery History of gastric bypass History of hernia repair History of hysterectomy for indication other than cancer Family History Family History Mother Family history of premature coronary heart disease, Onset Age: 54 Hypertension Family history of elevated blood lipids Family history of diabetes mellitus in first degree relative Patient's mother is Father Hypertension Family history of elevated blood lipids Family history of diabetes mellitus in first degree relative Family history of coronary artery disease, Onset Age: 51 Patient's father is Other Diabetes mellitus Family history of arthritis Family history of kidney stones Family history of mental disorder Social History Social History Social History: Currently lives with her and daughter. 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 Surrogate decision maker: Arianna White, daughter. Full Code. Caffeine- soda Smoking status: Never smoker Alcohol intake: never Substance use: never Substance use type: does not use Do You Feel Safe in your Home?: Yes Lack of Transportation: No Lack of Food: Never True Current Housing: I Have Housing Concerned About Future Housing: No Difficulty Paying Gas/Electric Bills: No Difficulty Paying for Meds: No Currently Unemployed: No Education: High School Diploma/GED Difficulty w/ Childcare or Family Care: No Living arrangements: alone Occupation/Education: retired Gender identity (if verbalized by the patient): Female Spiritual care concerns: No Meds Home Medications and Allergies Home Medications Medication Instructions Recorded Confirmed Type apixaban 5 mg tablet 5 mg PO BID 11/29/22 12/29/23 History atorvastatin 40 mg tablet 40 mg PO DAILY 11/29/22 12/29/23 History cetirizine 10 mg tablet (Zyrtec) 10 mg PO DAILY PRN Allergy Symptoms 11/29/22 12/29/23 History diltiazem HCl 360 mg 360 mg PO DAILY 11/29/22 12/29/23 History capsule,extended release 24 hr escitalopram oxalate 20 mg tablet 20 mg PO DAILY 11/29/22 12/29/23 History flecainide 100 mg tablet 100 mg PO Q12H 11/29/22 12/29/23 History losartan 50 mg-hydrochlorothiazide
[2023-12-29 14:00] VITALS: BP 120/65; PULSE 68; RESP 16; TEMP 36.8; O2SAT 92
[2023-12-29] MEDS: MAGNESIUM OXIDE 400 MG TABLET PO (17:20)
[2023-12-29 19:49] VITALS: BP 125/65; PULSE 71; RESP 18; TEMP 37; O2SAT 91
[2023-12-29 20:09] VITALS: PULSE 75
[2023-12-29] MEDS: FLECAINIDE ACETATE 100 MG TABLET PO (20:09)
[2023-12-29] MEDS: ACETAMINOPHEN 325 MG TABLET 650 MG PO (22:08)
[2023-12-30] VITALS (9 sets, daily range): BP systolic 117–149; BP diastolic 53–92; PULSE 62–77; RESP 16–22; TEMP 36.1–36.8; O2SAT 90–100
[2023-12-30 05:52] LABS: Basophils Percent Auto 0.3 % (0.2-1.2); Eosinophils Absolute Auto 0.1 K/mm3 (0-0.3); Eosinophils Percent Auto 0.5 % (0-4.4); Hematocrit 42.9 % (37.0-47.0); Hemoglobin 13.3 g/dL (12.0-15.0); Immature Granulocyte Absolute 0.05 K/mm3 (0.00-0.031); Immature Granulocyte Percent A 0.5 % (0-0.5); Lymphocytes Absolute Auto 1.25 K/mm3 (0.9-3.2); Lymphocytes Percent Auto 12.6 % (18.3-44.2); Mean Corpuscular Hemoglobin 29.6 pg (26-34); Mean Corpuscular Volume 95.5 fl (80-100); Mean Platelet Volume 8.8 fl (7.4-10.4); Monocytes Percent Auto 10.3 % (2.6-8.5); Neutrophils Absolute Auto 7.5 K/mm3 (1.3-6.7); Neutrophils Percent Auto 75.8 % (45.5-73.1); Platelet Count Result 201 k/mm3 (150-375); Red Blood Count 4.49 M/mm3 (4.2-5.4); Red Cell Distribution Width 14.5 % (11.5-14.5); White Blood Count 9.9 K/mm3 (4.5-10.0)
[2023-12-30 08:04] LABS: Alanine Aminotransferase 35 U/L (6-35); Albumin Level 3.1 g/dL (3.5-5.1); Alkaline Phosphatase 104 U/L (38-126); Anion Gap 7 mmol/L (4-12); Aspartate Amino Transferase 32 U/L (14-36); Bilirubin,Total 0.5 mg/dL (0.2-1.3); Blood Urea Nitrogen 21 mg/dL (7-17); Calcium 8.3 mg/dL (8.4-10.2); Carbon Dioxide 28 mmol/L (22-30); Chloride 103 mmol/L (98-107); Estimated CRCL calculation 104 ml/min; Estimated Glomerular Filt Rate > 60; Glucose 104 mg/dL (65-110); Potassium 4.2 mmol/L (3.4-5.0); Sodium 138 mmol/L (137-145)
[2023-12-30] MEDS: FLECAINIDE ACETATE 100 MG TABLET PO (09:52)
[2023-12-30] MEDS: dilTIAZem HCL CD 180 MG CAP.24HR 360 MG PO (09:53)
[2023-12-30] MEDS: ESCITALOPRAM OXALATE 10 MG TABLET 20 MG PO (09:53)
[2023-12-30] MEDS: ONDANSETRON INJ 4 MG/2 ML VIAL IV PUSH (10:50)
--- NOTE | 2023-12-30 13:12 | WPDANESEPPF ---
Anes - Initial Pre Proc Eval Procedure: Operation Date: 12/30/23 13:30 Proposed Procedures p Cystoscopy, Left Ureteroscopy, Possible Left Retrograde Pyelogram, Possible Left Stone Extraction, Possible Left Stent Placement, Possible Holmium Laser Procedure - Jason Almazan MD Date/Time: 12/30/23 13:12 Surgeon: Alicja Mojica APRN Pre Op Diagnosis: Abnormal UA/Kidney Stone Patient Data Age: 68 Gender: F Height: 1.73 m Weight: 126.4 kg Last Vital Signs Temp 36.6 C 12/30/23 12:46 Pulse 67 12/30/23 12:46 Resp 16 12/30/23 12:46 BP 144/72 H 12/30/23 12:46 Pulse Ox 93 12/30/23 12:46 O2 Del Method Room Air 12/30/23 12:46 Allergies Allergy/AdvReac Type Severity Reaction Status Date / Time Barbiturates Allergy Intermediate RASH Verified 12/26/23 10:59 hydrocodone Allergy Intermediate HEADACHE Verified 12/26/23 10:59 atropine Allergy Unknown Unknown Verified 12/26/23 10:59 codeine Allergy Unknown Headache Verified 12/26/23 10:59 hyoscyamine Allergy Unknown Unknown Verified 12/26/23 10:59 meperidine Allergy Unknown Unknown Verified 12/26/23 10:59 morphine Allergy Unknown Unknown Verified 12/26/23 10:59 phenobarbital Allergy Unknown Unknown Verified 12/26/23 10:59 prednisone Allergy Unknown Unknown Verified 12/26/23 10:59 ANTICHOLINERGICS,OTHER Allergy Mild UNKNOWN Uncoded 12/26/23 10:59 BELLADONNA ALK/PHENOBARBITAL Allergy Unknown RASH Uncoded 12/26/23 10:59 (Generic Allergy) NKFA Allergy Unknown Unknown Uncoded 12/26/23 10:59 Home Medications Medication Instructions Recorded Confirmed Type apixaban 5 mg tablet 5 mg PO BID 11/29/22 12/29/23 History atorvastatin 40 mg tablet 40 mg PO DAILY 11/29/22 12/29/23 History cetirizine 10 mg tablet (Zyrtec) 10 mg PO DAILY PRN Allergy Symptoms 11/29/22 12/29/23 History diltiazem HCl 360 mg 360 mg PO DAILY 11/29/22 12/29/23 History capsule,extended release 24 hr escitalopram oxalate 20 mg tablet 20 mg PO DAILY 11/29/22 12/29/23 History flecainide 100 mg tablet 100 mg PO Q12H 11/29/22 12/29/23 History losartan 50 mg-hydrochlorothiazide 1 tablet PO DAILY 11/29/22 12/29/23 History 12.5 mg tablet magnesium oxide 400 mg PO BID 11/29/22 12/29/23 History multivitamin-ferrous 1 tablet PO DAILY 11/29/22 12/29/23 History fumarate-folic acid 18 mg-400 mcg tablet (Centrum) calcium carb-vit D3-minerals 600 3 tablet PO DAILY 01/28/23 12/29/23 History mg calcium-400 unit tablet mecobalamin (vitamin B12) 10,000 1,000 mcg IM .2 weeks #1 ea 01/28/23 12/29/23 Rx mcg solution for injection [id number] 8 cap PO DAILY 3 months #720 caps 01/30/23 12/29/23 Rx 36,000-114,000-180,000 unit capsule,delay rel (Creon) denosumab 60 mg/mL subcutaneous 60 mg subcut [id number] #1 mL 11/03/23 12/29/23 Rx syringe (Prolia) budesonide-formoterol HFA 160 2 puff inhalation Q12H #10.2 grams 11/12/23 12/29/23 Rx mcg-4.5 mcg/actuation aerosol inhaler (Symbicort) blood-glucose sensor (FreeStyle #6 ea 12/17/23 12/29/23 Rx Jennifer 3 Sensor device) glucagon 1 mg/0.2 mL subcutaneous 1 mg (0.2 mL) subcut ONCE #0.4 mL 12/17/23 12/29/23 Rx auto-injector (Gvoke HypoPen 2-Pack) Laboratory Tests 12/30/23 05:36 WBC 9.9 K/mm3 (4.5-10.0) RBC 4.49 M/mm3 (4.2-5.4) Hgb 13.3 g/dL (12.0-15.0) Hct 42.9 % (37.0-47.0) MCV 95.5 fl (80-100) MCH 29.6 pg (26-34) MCHC 31.0 L g/dl (32-36) RDW 14.5 % (11.5-14.5) Plt Count 201 k/mm3 (150-375) MPV 8.8 fl (7.4-10.4) Immature Gran % (Auto) 0.5 % (0-0.5) Neut % (Auto) 75.8 H % (45.5-73.1) Lymph % (Auto) 12.6 L % (18.3-44.2) [place] % (Auto) 10.3 H % (2.6-8.5) Eos % (Auto) 0.5 % (0-4.4) Baso % (Auto) 0.3 % (0.2-1.2) Lymph # (Auto) 1.25 K/mm3 (0.9-3.2) [place] # (Auto) 1.0 H K/mm3 (0.1-0.6) Eos # (Auto) 0.1 K/mm3 (0-0.3) Baso # (Auto) 0.0 K/mm3 (0.0-0.1) Abs Immat Gran (auto) 0.05 H K/
--- NOTE | 2023-12-30 13:20 | WPDHPUPDATE1 ---
History and Physical Update Update Date/Time: 12/30/23 13:20 History and Physical has been reviewed, including an updated exam of the patient. There are NO changes in the patient's condition. Risks, benefits, and alternatives have been discussed and questions answered. Patient agrees to proceed with procedure.
[2023-12-30] MEDS: LACTATED RINGERS 1,000 ML 30 ML IV CONT (13:30)
[2023-12-30] MEDS: LIDOCAINE HCL 2% GEL UROJET 10 ML PKG MUCOUS MEM (14:08)
--- NOTE | 2023-12-30 14:29 | W.PM.PROC2 ---
Procedure Note - Detailed Date of Procedure 12/30/23 Pre-op Diagnosis Left mid ureteral stone Post-op Diagnosis Same Procedure Performed Cystoscopy, left ureteroscopy with stone extraction, left ureteral stent placement Surgeon Jason Almazan MD Anesthesia General Description of Procedure The patient was brought to the operative suite where she is prepped and draped in a routine sterile fashion while in the dorsal lithotomy position after the uneventful induction of a general LMA anesthetic. A 19F rigid cystoscope was placed in the bladder. The patient had no evidence of urethral stricture or bladder neck contracture. The bladder mucosa was endoscopically normal without hyperemia or neoplasm. There was a single, orthotopic ureteral orifice bilaterally. A 0.035 glidewire was advanced into the left renal pelvis under fluoroscopy. The distal ureter was dilated with an 8F/10F ureteral dilator. a could not reach the stone short tapered semi-rigid ureteral scope so I had placed a safety wire and 11 F/13 F access sheath. With flexible ureteroscopy I fractured the stone into smaller pieces using a 200micron Gurinder laser fiber. I was able to then extract the stone pieces using a 1.9F Escape, disposable stone basket. Due to the extent of this manipulation I did place a 4.8F double-J ureteral stent. The proximal coil of the stent was confirmed to be in the renal pelvis and the distal coil in the bladder. The patient's bladder was emptied and he was taken to the recovery room having tolerated this procedure well. Urine Output 250 Drains Yes Packing No Pathology Yes
--- NOTE | 2023-12-30 15:09 | PM.DS ---
DS: Admitting Diagnosis Discharge Date 12/30/2023 Admitting Diagnosis Ureter lithiasis DS: Discharge Diagnosis Discharge Diagnosis (1) Left ureteral stone: Code(s): N20.1 - Calculus of ureter Status: Acute (2) UTI (urinary tract infection): Code(s): N39.0 - Urinary tract infection, site not specified Status: Acute (3) Afib: Code(s): I48.91 - Unspecified atrial fibrillation Status: Acute Plan Left calculus of the ureter Urology consulted Surgery 12/30/2023 (stone extraction, stent and possible lithotripsy) Pain control Antiemetics Gentle IV hydration Antipyretic Eliquis on hold for procedure UTI Nitrate leukocyte and bacteria positive Rocephin Cultures pending CT with no pyelonephritis Leukocytosis monitor downtrend Hypoglycemia secondary to previous gastric bypass surgery Hypoglycemia protocol HX DONNELL: CPAP at night HX AFIB: hold Eliquis for procedure HX GERD: Pantoprazole HX HTN: Resumed losartan hydrochlorothiazide Disposition: Patient discharged home DS: Summary Hospital Course Reason for hospitalization: Ureterolithiasis Hospital Course: Patient is a 68-year-old female who presented to the emergency department with complaints left-sided flank pain associated with nausea vomiting. Patient states symptoms began earlier this morning however she denies any fevers, chills or hematuria denies any chest pain or shortness of breath. Patient did report a past medical history of AFib, anxiety, asthma, GERD, HTN, hypoglycemia secondary to gastric bypass procedure, and kidney stones. Patient states she has had a previous history of kidney stones with lithotripsy feels as though the symptoms are the same. Findings in the emergency department showed WBC of 12 and UA with positive nitrates, leukocytes and bacteria. Ct ABD showed a a left mid ureteric stone with hydronephrotic changes. Patient was admitted to the medical unit with consult to Urology plan is IV antibiotic therapy with left ureters copy and stone extraction and stent placement tomorrow 12/29/2023. Patient had successful left ureteroscopy with stone extraction tolerated procedure well a left ureteral stent was placed. Patient was discharged home with follow-up in Dr. baca office for stent removal. Patient educated on mild discomfort and when to seek medical treatment provided empiric antibiotics of cefdinir for UTI. Ecoli resulted for UA cultures. Status at Discharge Functional status at discharge: independent ambulation Overall status at discharge: patient is back to baseline Time Spent with Patient Time attestation: Total time spent providing and/or coordinating discharge services: Time spent: Greater than 30 minutes Exam Narrative: Physical Exam: GENERAL: Alert and oriented x 3. No acute distress. EYES: EOMI. No scleral icterus. PERRLA. HEENT: Moist mucous membranes. LUNGS: Clear to auscultation bilaterally. No accessory muscle use. CARDIOVASCULAR: Regular rate and rhythm. No murmur. No JVD. S1-S2 ABDOMEN: Soft, non tenderness and non-distended. No palpable masses. : CVA Tenderness EXTREMITIES: No edema. Non-tender SKIN: No rashes or lesions. Skin warm, dry. NEUROLOGIC: No focal neurological deficits. CN II-XII grossly intact PSYCHIATRIC: Appropriate mood and affect. Good judgement and insight. No visual or auditory hallucinations. No suicidal or homicidal ideation. DS: Data Data Completed and Pending Pending studies at discharge: Pending at discharge 12/30/23 14:06 Surgical [PTH] Routine Labs on day of discharge: Labs from last 24 hours 12/30/23 05:36 WBC 9.9 RBC 4.49 Hgb 13.3 Hct 42.9 MCV 95.5 MCH 29.6 MCHC 31.0 L RDW 14.5 Plt Count 201 MPV 8.8 Immature Gran % (Auto) 0.5 Neut % (Auto) 75.8 H Lymph % (Auto) 12.6 L [place] % (Auto) 10.3 H Eos % (Auto) 0.5 Baso % (Auto) 0.3 Lymph # (Auto) 1.25
[2023-12-30] MEDS: ACETAMINOPHEN 325 MG TABLET 650 MG PO (16:54)
== END 2023-12-30 17:30 | disposition home or self-care (01) ==
LOC: ANHED 09:52 → ANH3MED 11:59
PROVIDERS: Urology; Admitting Provider General Practice; Emergency Provider Emergency Medicine; PCP Internal Medicine; Visit Provider Nurse Practitioner Family
PROC: (CPT 52352; principal; 2023-12-30 13:30)
DX: N13.2 Hydronephrosis with renal and ureteral calculous obstruction (principal); N39.0 Urinary tract infection, site not specified; E16.2 Hypoglycemia, unspecified; I48.91 Unspecified atrial fibrillation; I10 Essential (primary) hypertension; M81.0 Age-related osteoporosis without current pathological fracture; J45.909 Unspecified asthma, uncomplicated; Z95.0 Presence of cardiac pacemaker; F41.9 Anxiety disorder, unspecified; Z98.84 Bariatric surgery status; Z79.01 Long term (current) use of anticoagulants; Z79.51 Long term (current) use of inhaled steroids; E66.01 Morbid (severe) obesity due to excess calories; Z68.41 Body mass index [BMI] 40.0-44.9, adult
CPT/HCPCS: 52332; 52352; 36415; 74176; 80053; 81001; 82365; 85025; 87077; 87086; 87088; 87186; 88300; 96365; 96375; 96376; 99285; A9270; C1769; C1894; C2617; G0378; J0696; J1100; J1170; J1200; J2405; J2704; J3010; J7030; J7120

== ENCOUNTER 2024-02-07 08:49 | Outpatient (CLI) | payer MEDICARE, OTHER, SELFPAY ==
[2024-02-07 09:33] LABS: Anion Gap 6 mmol/L (4-12); Blood Urea Nitrogen 17 mg/dL (7-17); Calcium 8.4 mg/dL (8.4-10.2); Carbon Dioxide 32 mmol/L (22-30); Chloride 103 mmol/L (98-107); Estimated Glomerular Filt Rate > 60; Glucose 111 mg/dL (65-110); Potassium 3.8 mmol/L (3.4-5.0); Sodium 141 mmol/L (137-145)
[2024-02-07 09:46] LABS: Parathyroid Intact 93.3 pg/mL (14.5-75.2)
== END 2024-02-07 08:50 | disposition home or self-care (01) ==
LOC: ANHLAB 08:53
PROVIDERS: PCP Internal Medicine; Visit Provider Urology
DX: N20.0 Calculus of kidney (principal)
CPT/HCPCS: 36415; 80048; 83970

== ENCOUNTER 2024-04-12 12:32 | Outpatient (CLI) | payer MEDICARE, OTHER, SELFPAY ==
--- NOTE | ~2024-04-12 | XR_ITS ---
XR abdomen/kub 1V Ordering provider: Jason Almazan History: . 2 [facility] KIDNEY STONES removed past 6mo, f/u exam . Comparison: None. FINDINGS: BOWEL: Nonobstructive bowel gas pattern. ORGANOMEGALY: None. SIGNIFICANT PATHOLOGIC CALCIFICATIONS: Faint calcification seen projected over the left last rib. OTHER: No free air is seen under the diaphragm. Degenerative changes of the spine. IMPRESSION: NO ACUTE ABDOMINAL FINDINGS. Possible stone in the left kidney. Reviewed, dictated and finalized at location A. MANAGER
== END 2024-04-12 12:33 | disposition home or self-care (01) ==
LOC: ANHIMG 12:34
PROVIDERS: PCP Internal Medicine; Visit Provider Urology
DX: N20.0 Calculus of kidney (principal)
CPT/HCPCS: 74018

== ENCOUNTER 2024-06-29 13:25 | Outpatient (CLI) | payer MEDICARE, OTHER, SELFPAY ==
--- NOTE | ~2024-06-29 | CT_ITS ---
CT head without contrast Indication: Dizziness Technique: Serial scans were obtained through the brain without the administration of contrast. Dose reduction technique was used on this scan by utilizing automated exposure control and iterative recon struction technique. The dose-length product (DLP) was 1286.33 mGy-cm. Findings: There is no evidence of intracranial hemorrhage, mass lesion, or acute infarct. The ventri cles and subarachnoid spaces are unremarkable. Low attenuation regions are seen within the periventr icular white matter bilaterally, likely representing changes from chronic microvascular ischemic dise ase. There is no evidence of edema, mass effect or midline shift. The visualized paranasal sinuses and mastoid air cells are clear. Impression: No intracranial hemorrhage, mass, or acute infarct. Mild chronic white matter changes, as above. Reviewed, dictated and finalized at location M. N BUYER Impression: No intracranial hemorrhage, mass, or acute infarct. Mild chronic white matter changes, as above.
--- OUTSIDE RECORDS SUMMARY | 2024-06-29 13:37 | XMS_ITS | Patient Health Summary ---
Author Organization [facility] Address [address] [place] [address] Care Team Providers Care Mule Operator Name Role Phone Gibran Epperson MD Primary Care Provider [phone] Note from [facility],non-owned Affiliates and Associated Physician Practices is amultiple site organization consisting of ambulatory clinics and hospital sitesin [place], [place], [place] and [place]. This disclosure is being madepursuant to the Care Everywhere program and may not contain all information available regarding this patient. Last updated 18.[facility] [address] Allergies * Alendronic Acid(Vomiting) * Meperidine(Dizziness) * (Rash) -Medium Criticality * Belladonna Alk-Phenobarbital(Rash) -Medium Criticality * Morphine(Headache,Unknown) -High Criticality * Codeine(Dizziness) * Zn-Azozco-Eusuzfso-Scopolamine(Unknown) * Prednisone(Rash) -Medium Criticality * Spironolactone(Urticaria,Vomiting) -High Criticality Medications * Be aware that medications may not be up to date on this document. Alwaysverify current medications with the patient. * albuterol HFA (Proventil; Ventolin; Proair) 108 (90 Base) MCG/ACT inhaler (Started 10/30/2022) Inhale 2 puffs every 4 hours by inhalation route as needed. * alendronate (Fosamax) 70 MG tablet alendronate 70 mg tablet * atorvastatin (Lipitor) 40 MG tablet Take 1 (one) tablet by mouth once daily * B Complex Vitamins (Vitamin B-Complex 100) INJ B Complex 100 580-5-554-2-2 mg/mL solution * Cyanocobalamin (B-12 Compliance Injection) 1000 MCG/ML(Started 12/24/2022) vitamin [id number] B1 1,000 mcg-100 mg/mL injection solution Take by injection route. * denosumab (Prolia) 60 MG/ML SC injection(Started 03/29/2022) inject 60 mg every 6 months * dilTIAZem coated beads 24hr (Cardizem CD) 360 MG capsule * escitalopram (Lexapro) 20 MG tablet(Started 10/30/2022) Take 1 tablet every day by oral route. * flecainide (Tambocor) 100 MG tablet Take 1 (one) tablet by mouth 2 times daily * losartan - hydroCHLOROthiazide (Hyzaar) 50-12.5 MG tablet TAKE 1 TABLET BY MOUTH ONCE EVERY MORNING * magnesium oxide (Mag-Ox) 400 MG tablet magnesium oxide 400 mg (241.3 mg magnesium) tablet TAKE ONE T PO BID * meclizine (Antivert) 25 MG tablet(Started 02/20/2023) Take 1 (one) tablet by mouth every 8 hours as needed * omeprazole (PriLOSEC) 40 MG capsule TAKE 1 CAPSULE BY MOUTH EVERY DAY prn * pancrelipase (Creon) 21131-442157 units capsule take up to 8 capsules daily with meals * acetaminophen (Tylenol) 325 MG tablet(Started 09/17/2023) Take 2 (two) tablets by mouth every 6 hours as needed Maximum allowable Acetaminophen amount = 4 Grams (4000 mg) / 24 hours. * Eliquis 5 MG tablet(Started 09/19/2023) Take 1 (one) tablet by mouth 2 times daily * oxyCODONE, immediate release, (Roxicodone) 5 MG tablet(Started 09/17/2023) TAKE ONE TABLET BY MOUTH EVERY 6 HOURS NEEDED * docusate sodium (Colace) 100 MG capsule(Started 09/17/2023) TAKE ONE CAPSULE BY MOUTH ONCE DAILY NEEDED FOR CONSTIPATION (WHEN TAKING OXYCODONE) Active Problems Problem Noted Date Diagnosed Date Hyperparathyroidism 09/16/2023 Immunizations * INFLUENZA VACCINE, TRIV. (AFLURIA, FLUZONE TRIVALENT; 6MO+) (IIV3)(Given 02/03/2020) * Biomonitor primary monovalent 12+ yr 0.3mL Purple cap(Given 08/14/2020, 07/06/2020) * INFLUENZA D5J3-59, HISTORIC VACCINE(Given 01/30/2020) * INFLUENZA VACCINE(Given 02/17/2018, 03/25/2017) * INFLUENZA VACCINE, HIGH-DOSE, QUADR. (FLUZONE HIGH-DOSE QUADRIVALENT; 65Y+), 0.7 ML (HD-IIV4)(Given 02/26/2019) * Pneumococcal Pcv13 Conj(Given 03/25/2015) * ZOSTER HISTORIC VACCINE(Given 08/02/2018, 02/17/2018) * ZOSTER VACCINE, LIVE(Given 02/07/2015) * Zoster Hzv Vacc Recombinant Inj Im(Given 08/02/2018) Social History Tobacco Use Types Packs/Day Years Used Date Smoking Tobacco: Never Smokeless Tobacco: Never Tobacco Cessation:Counseling Given: Not Answered Alcohol Use Standard Drinks/Week Comments Never 0 (1 standard drink = 0.6 oz pur e alcohol) AUDIT-C Answer Date Recorded Q1: How often do you have a drink containing alcohol? Never 09/16/2023 Q2: How many drinks containi ng alcohol do you have on a typical day when you are drinking? Patient does not drink Q3: How often do you have si x or more drinks on one occasion? Never 09/16/2023 Sex and Gender Information Value Date Recorded Sex Assigned at Not on file Gender Identity Not on file Sexual Orientation Not on file Last Filed Vital Signs Vital Sign Reading Time Taken Comments Blood Pressure 112/75 09/24/2023 11:00 AM CDT Pulse 81 09/24/2023 11:00 AM CDT Temperature 36.9 ??C (98.4 ??F) 09/17/2023 7:34 AM CD T Respiratory Rate 18 09/17/2023 7:34 AM CDT Oxygen Saturation 96% 09/17/2023 7:34 AM CDT Inhaled Oxygen Concentration - - Weight 123.8 kg (273 lb) 09/24/2023 11:00 AM CDT Height 172.7 cm (5' 8 ) 09/24/2023 11:00 AM CDT Body Mass Index 41.51 09/24/2023 11:00 AM CDT Procedures * CALCIUM IONIZED WHOLE BLOOD(Performed 09/24/2023) Performed for Hyperparathyroidism (HCC) * PTH INTACT W/O CALCIUM(Performed 09/24/2023) Performed for Hyperparathyroidism (HCC) * TSH REFLEX FREE T4(Performed 09/24/2023) Performed for Hyperparathyroidism (HCC) * BASIC METABOLIC PANEL (CALCIUM TOTAL)(Performed 09/17/2023) Performed for Hyperparathyroidism (HCC) * PTH INTACT W/O CALCIUM(Performed 09/17/2023) Performed for Hyperparathyroidism (HCC) * BASIC METABOLIC PANEL (CALCIUM TOTAL)(Performed 09/16/2023) Performed for Hyperparathyroidism (HCC) * PTH POST-OP OR ONLY(Performed 09/16/2023) Performed for Hyperparathyroidism (HCC) * GLUCOSE - POINT OF CARE(Performed 09/16/2023) * PTH INTRA-OP OR ONLY(Performed 09/16/2023) Performed for Hyperparathyroidism (HCC) * PTH INTRA-OP OR ONLY(Performed 09/16/2023) Performed for Hyperparathyroidism (HCC) * PATHOLOGY TISSUE(Performed 09/16/2023) Performed for Hyperparathyroidism (HCC) * RI EXPLORE PARATHYROID GLANDS(Performed 09/16/2023) Performed for Hyperparathyroidism (HCC) * ENDOTRACHEAL TUBE NOTE(Performed 09/16/2023) * PTH PRE-OP (BASELINE) OR ONLY(Performed 09/16/2023) Performed for Pre-op evaluation * GLUCOSE - POINT OF CARE(Performed 09/16/2023) * TYPE + SCREEN PANEL(Performed 09/16/2023) Performed for Pre-op evaluation * TYPE + SCREEN PANEL(Performed 09/03/2023) Performed for Pre-op evaluation * COMPREHENSIVE METABOLIC PANEL(Performed 09/03/2023) Performed for Pre-op evaluation * CBC W/O DIFFERENTIAL(Performed 09/03/2023) Performed for Pre-op evaluation * CT NECK SOFT TISSUE WWO CONT(Performed 09/03/2023) Performed for Hyperparathyroidism (HCC) * CREATININE - POCT INTERFACED(Performed 09/03/2023) Results * (ABNORMAL) CALCIUM IONIZED WHOLE BLOOD (09/24/2023 10:29 AM CDT) Calcium Ionized 1.15 mmol/L 09/24/2023 11:05 AM [facility] pH 7.37 7.35 - 7.45 pH 09/24/2023 11:05 AM [facility] Ionized Calcium pH Adjusted 1.14(L) 1.19 - 1.34 mmol/L 09/24/2023 11:05 AM CDT [facility] Blood WHOLE BLOOD SPECIMEN / Unknown Lab Venipuncture / Unknown 09/24/2023 10:29 AM CDT 09/24/2023 11:00 AM CDT Bhavesh Gastelum MD LAB - CHEMISTRY PREMA LI Performing Organization Address City/[facility]/ZIP Co de Phone Number [address] [address], [place] [phone] * (ABNORMAL) PTH INTACT W/O CALCIUM (09/24/2023 10:29 AM CDT) Only the most recent of2 resultswithin the time period is included. PTH Intact 92.4(H) 8.0 - 77.0 pg/mL 09/24/2023 11:39 AM CDT [facility] Blood BLOOD SPECIMEN / Unknown Lab Venipuncture / Unknown 09/24/2023 10:29 AM CDT 09/24/2023 11:04 AM CDT Bhavesh Gastelum MD LAB - CHEMISTRY PERMA LI Performing Organization Address [facility]/ZIP Co de Phone Number [address] [address], [place] [phone] * TSH REFLEX FREE T4 (09/24/2023 10:29 AM CDT) TSH 0.743 0.350 - 4.940 uIU/mL 09/24/2023 11:53 AM CDT [facility] Blood BLOOD SPECIMEN / Unknown Lab Venipuncture / Unknown 09/24/2023 10:29 AM CDT 09/24/2023 11:03 AM CDT Bhavesh Gastelum MD LAB - CHEMISTRY PREMA LI Performing Organization Address City/[facility]/ZIP Co de Phone Number [address] [address], [place] [phone] * (ABNORMAL) BASIC METABOLIC PANEL (CALCIUM TOTAL) (09/17/2023 1:16 AM CDT) Only the most recent of2 resultswithin the time period is included. BUN 17 7 - 26 mg/dL 09/17/2023 2:44 AM [facility] Creatinine 0.72 0.56 - 0.96 mg/dL 09/17/2023 2:44 AM [facility] Sodium 142 136 - 145 mmol/L 09/17/2023 2:44 AM [facility] Potassium 3.9 3.5 - 4.5 mmol/L 09/17/2023 2:44 AM [facility] Chloride 109(H) 98 - 107 mmol/L 09/17/2023 2:44 AM [facility] CO2 26 22 - 29 mmol/L 09/17/2023 2:44 AM [facility] Glucose 82 70 - 115 mg/dL 09/17/2023 2:44 AM [facility] Calcium 8.1(L) 8.4 - 10.2 mg/dL 09/17/2023 2:44 AM [facility] Anion Gap 7 6 - 16 09/17/2023 2:44 AM [facility] BUN/Creatinine Ratio 24(H) 7 - 23 09/17/2023 2:44 AM [facility] Osmolality Calculated 295 275 - 295 mOsm/kg 09/17/2023 2:44 AM [facility] eGFR by CKD-EPI 90 >=90 mL/min/1.7 3 m2 09/17/2023 2:44 AM [facility] Blood BLOOD SPECIMEN / Unknown Lab Venipuncture / Unknown 09/17/2023 1:16 AM CDT 09/17/2023 1:46 AM CDT Bhavesh Gastelum MD LAB - CHEMISTRY PREMA LI [facility] Organization Address City/State/ZIP Co de Phone Number [facility] [address] [place] [address], [facility] [phone] * (ABNORMAL) PTH POST-OP OR ONLY (09/16/2023 3:54 PM CDT) PTH Post-Operative 104.4(H) See Comment pg/mL 09/16/2023 4:53 PM CDT [facility] Comment:A decrease in cirula ting PTH of 50% or more, ten minutes post-resection, signals successful removal of the abnormally secreting parathyroid tissue. Blood BLOOD SPECIMEN / Unknown Venipuncture / Unknown 09/16/2023 3:54 PM CDT 09/16/2023 4:13 PM CDT Bhavesh Gastelum MD LAB - CHEMISTRY ORDE [place]ERMO [address] [address], [facility] [phone] * GLUCOSE - POINT OF CARE (09/16/2023 3:32 PM CDT) Only the most recent of2 resultswithin the time period is included. Glucose WB/POC 105 70 - 115 mg/dL 09/17/2023 3:40 PM CDT [facility] Specimen Type Cap Fingerstick 2023 3:40 PM CDT [facility] Blood BLOOD SPECIMEN / Unknown 09/16/2023 3:32 PM CDT 09/17/2023 3:40 PM CDT Bhavesh Gastelum MD LAB - POINT OF CARE ORDERABLES Performing Organization Address City/[facility]/ZIP Co de Phone Number [address] [address], [place] [phone] * (ABNORMAL) PTH INTRA-OP OR ONLY (09/16/2023 1:44 PM CDT) Only the most recent of2 resultswithin the time period is included. PTH Intra-Operative 222.4(H) See Comment pg/mL 09/16/2023 2:22 PM CDT [facility] Comment:A decrease in cirula ting PTH of 50% or more, ten minutes post-resection, signals successful removal of the abnormally secreting parathyroid tissue. Blood BLOOD SPECIMEN / Unknown Venipuncture / Unknown 09/16/2023 1:44 PM CDT 09/16/2023 1:56 PM CDT Bhavesh Gastelum MD LAB - CHEMISTRY PREMA LI Performing Organization Address [facility]/State/ZIP Co de Phone Number [facility] [address] [place] [address], [facility] [phone] * PATHOLOGY TISSUE (09/16/2023 1:12 PM CDT) Case Report Surgical Pathology Report ? Case: [id number] ? Authorizing Provider: ??Bhavesh Gastelum MD ?Collected: ? 09/16/2023 01:12 PM ? Ordering Location: ? [facility] ?Received: ?09/16/2023 03:03 PM ? Pathologist: ? Darlene Singer MD ? Specimens: ?? A) - Parathyroid, Left superior parathyroid ? B) - Parathyroid, Right Superior Parathyroid ? 1:51 PM [facility] Final Diagnosis Parathyroid, left superior, excision (A): - Unremarkable parathyroid gland Parathyroid, right superior, excision (B): - Unremarkable parathyroid gland 1:51 PM [facility] Microscopic Description and Comment Microscopic examination substantiates the final diagnosis. The frozen section diagnoses are confirmed. 1:51 PM [facility] Clinical History 67-year-old woman with history of primary hyperparathyroidism. Operative procedure/findings: Bilateral superior parathyroidectomy 1:51 PM [facility] Intraoperative Consultation A: Left superior parathyroid 10 x 4 x 3 mm yellow-fermin solid. Does not register on frozen room scale. All frozen as FSA1. Intraoperative diagnosis: FSA1 Left superior parathyroid , biopsy: - Parathyroid present by Blanca Oakes MD B: Right superior parathyroid 1.4 x 0.6 x 0.3 cm fermin tissue in half, fat in half. Freeze fermin portion as FSB1. Weight 0.2 g on frozen room scale. Intraoperative diagnosis: FSB1 Right superior parathyroid , excision: - Parathyroid present by Blanca Oakes MD 1:51 PM [facility] Gross Description The requisition and specimen(s) are identified with the patient's name Dorie Dorman and received in formalin from intraoperative consultation, specimen A , is previously sampled consistent with intraoperative note. The frozen section remnant of FSA1 is respectively submitted in cassette A1. Received in formalin from intraoperative consultation, specimen B , is previously sectioned and sampled consistent with the intraoperative note. The frozen section remnant of FSB1 is respectively submitted in cassette B1 and the remaining is submitted in cassette B2./STACEY 1:51 PM [facility] Pathologist Location at [facility] 1:51 PM [facility] Disclaimer The performance characteristics of all immunohistochemical and indirect immunofluorescence stains (if any) cited in this report were determined by the Histopathology Laboratory of [facility]. Some of these tests were developed by our own laboratory and have not been cleared or approved by the US Food and Drug Administration. The FDA does not require this test to go through premarket FDA review. These tests are used for clinical purposes. They should not be regarded as investigational or for research. This laboratory is certified under the Clinical Laboratory Improvement Amendments (CLIA) as qualified to perform high complexity clinical laboratory testing. This case has been personally reviewed and interpreted by the attending (teaching) pathologist. 1:51 PM CDT [facility] Embedded Images 1:51 PM CDT [facility] Biopsy, Excision (Parathyroid) 09/16/2023 1:12 PM CDT 09/16/2023 3:03 PM CDT Comment:Pre-op diagnosis: Hyperparathyroidism Biopsy, Excision (Parathyroid) 09/16/2023 2:24 PM CDT 09/16/2023 3:25 PM CDT Comment:Pre-op diagnosis: Hyperparathyroidism Bhavesh Gastelum MD LAB - PATHOLOGY/CYTO LOGY ORDERABLES Performing Organization Address City/State/[facility] Phone Number [facility] [address] [phone] * ETT LINE PERFORMABLE (09/16/2023 12:27 PM CDT) Narrative Bernardo Brewster Anes Asst - 09/16/2023 12:27 PM CDT Bernardo Brewster Anes Asst ? 09/16/2023 12:28 PM Endotracheal Tube Placement: ? Patient Location: OR. Intubation Event Date/Time: ??09/16/2023 12:07 PM Procedure: intubation (02822). Procedure Section: ?? Sedation: under general anesthesia. Indications for Airway Management: ??anesthesia Induction: standard IV Patient Position: ??supine Mask Ventilation: easy with oral airway. Blade Type: Video Blade Size: 3 Laryngoscopy View: grade 1 (full cords) Intubation Adjuncts: stylet Tube: nerve integrity monitoring tube Placement: oral Tube type: cuff - inflated Tube Size (MM): 7 Depth of Insertion (CM): 22 Measured From: teeth Cuff Inflated With: air Number of Attempts: 1. Placement Verified By: bilateral breath sounds, chest auscultation, CO2 monitor and CO2 detector Tube secured with: ??adhesive tape. Dentition unchanged? ??Yes Difficult Airway? ??No. Procedure Start Time: 09/16/2023 12:07 PM. Staff Section ? Anesthesia Provider: Bernardo Brewster Anes Asst, Performed the procedure ? Provider #1: Kevin Graves MD. Additional Comments: Atraumatic intubation, dentition as in pre-op. . Kevin Rachel MD GENERAL ANESTHESI A ORDERABLES * (ABNORMAL) PTH PRE-OP (BASELINE) OR ONLY (09/16/2023 11:11 AM CDT) PTH Pre-Op (Baseline) 114.5(H) 15.0 - 65.0 pg/mL 09/16/2023 12:01 PM CDT [facility] Comment:A decrease in circul ating PTH of 50% or more, ten minutes post- resection, signals successful removal of the abnormally secreting parathyroid tissue. Blood BLOOD SPECIMEN / Unknown Venipuncture / Unknown 09/16/2023 11:11 AM CDT 09/16/2023 11:19 AM CDT Bhavesh Gastelum MD LAB - CHEMISTRY PREMA LI [facility] [address] [address], [facility] [phone] * TYPE + SCREEN PANEL (09/16/2023 10:06 AM CDT) Only the most recent of2 resultswithin the time period is included. Antibody Screen NEG 11:06 AM CDT [facility] ABO Rh A POS 09/16/2023 11:06 AM CDT [facility] Blood Bank BLOOD SPECIMEN / Unknown Venipuncture / Unknown 09/16/2023 10:06 AM CDT 09/16/2023 10:17 AM CDT Timothy Gonzalez RESPIRATORY CLINICIAN-[employer] LAB - BLOOD B ANK ORDERABLES [facility] [address] [place] [address], [facility] [phone] * (ABNORMAL) CBC W/O DIFFERENTIAL (09/03/2023 2:28 PM CDT) [facility] WBC 7.9 4.0 - 10.7 x10E9/L 09/03/2023 2:39 PM CDT [facility] RBC Count 4.62 3.90 - 5.20 x10E12/L 09/03/2023 2:39 PM CDT [facility] Hemoglobin 12.9 11.9 - 15.8 g/dL 09/03/2023 2:39 PM T [facility] Hematocrit 40.9 34.8 - 46.1 % 09/03/2023 2:39 PM T [facility] MCV 88.5 80.0 - 98.0 fL 09/03/2023 2:39 PM CDT [facility] MCH 27.9 26.7 - 33.6 pg 09/03/2023 2:39 PM T [facility] MCHC 31.5(L) 31.7 - 36.3 g/dL 09/03/2023 2:39 PM T [facility] RDW-CV 15.1(H) 11.3 - 14.8 % 09/03/2023 2:39 PM T [facility] Platelet Count 263 150 - 420 x10E9/L 09/03/2023 2:39 PM T [facility] MPV 8.8 7.8 - 11.4 fL 09/03/2023 2:39 PM T [facility] Blood BLOOD SPECIMEN / Unknown Lab Venipuncture / Unknown 09/03/2023 2:28 PM CDT 09/03/2023 2:34 PM CDT Timothy Gonzalez APRN-[employer] LAB - HEMATOL OGY ORDERABLES [facility] [address] [place] [address], [facility] [phone] * (ABNORMAL) COMPREHENSIVE METABOLIC PANEL (09/03/2023 2:28 PM CDT) [facility] BUN 15 7 - 26 mg/dL 09/03/2023 3:10 PM [facility] Creatinine 0.74 0.56 - 0.96 mg/dL 09/03/2023 3:10 PM [facility] Sodium 141 136 - 145 mmol/L 09/03/2023 3:10 PM [facility] Potassium 4.2 3.5 - 4.5 mmol/L 09/03/2023 3:10 PM [facility] Chloride 102 98 - 107 mmol/L 09/03/2023 3:10 PM [facility] CO2 30(H) 22 - 29 mmol/L 09/03/2023 3:10 PM [facility] Glucose 85 70 - 115 mg/dL 09/03/2023 3:10 PM [facility] Calcium 9.2 8.4 - 10.2 mg/dL 09/03/2023 3:10 PM [facility] Protein Total 6.5 6.0 - 8.3 g/dL 09/03/2023 3:10 PM [facility] Albumin 3.1(L) 3.4 - 5.0 g/dL 09/03/2023 3:10 PM [facility] Bilirubin Total 0.2 0.2 - 1.2 mg/dL 09/03/2023 3:10 PM [facility] Alkaline Phosphatase 104 40 - 150 U/L 09/03/2023 3:10 PM [facility] ALT 33 5 - 55 U/L 09/03/2023 3:10 PM [facility] AST 29 5 - 34 U/L 09/03/2023 3:10 PM [facility] Anion Gap 9 6 - 16 09/03/2023 3:10 PM [facility] BUN/Creatinine Ratio 20 7 - 23 09/03/2023 3:10 PM [facility] Osmolality Calculated 292 275 - 295 mOsm/kg 09/03/2023 3:10 PM [facility] Albumin/Globulin Ratio 0.9(L) 1.1 - 2.3 09/03/2023 3:10 PM [facility] eGFR by CKD-EPI 88(L) >=90 mL/min/1.7 3 m2 09/03/2023 3:10 PM CDT [facility] Blood BLOOD SPECIMEN / Unknown Lab Venipuncture / Unknown 09/03/2023 2:28 PM CDT 09/03/2023 2:34 PM CDT Timothy Gonzalez RESPIRATORY CLINICIAN-[employer] LAB - SALES REPRESENTATIVE PUBLICATIONS RY ORDERABLES [facility] [address] [place] [address], [facility] [phone] * CT NECK SOFT TISSUE WWO CONT (09/03/2023 2:15 PM CDT) Anatomical Region Laterality Modality Head Computed Tomogra phy 09/03/2023 2:29 PM CDT Impressions 09/04/2023 1:32 PM CDT IMPRESSION: No CT evidence of large parathyroid adenoma or other soft tissue abnormality within the neck. The report is dictated by Sarah Avendano Dr, MD (educational institution president) I, Yrn Sewell MD have personally reviewed and interpreted this examination/study. > Interpreting Provider: Yrn Sewell MD on 09/04/2023 1:32 PM Narrative 09/04/2023 1:32 PM CDT PROCEDURE: ??CT NECK SOFT TISSUE WWO CONT, DATE/TIME OF EXAM: ??09/03/2023 2:16 PM, LOCATION ??[facility] INDICATION: E21.3: Hyperparathyroidism (HCC) ADDITIONAL CLINICAL INFORMATION: Ordering Provider Reason For Exam: ??parathyroidectomy preop; 4D cia agent Note: Additional: EXAMINATION: ??Computed tomography (CT) of the neck without and with contrast. TECHNIQUE: CT of the neck was performed with and without intravenous contrast according to a parathyroid protocol. COMPARISON: Nuclear medicine parathyroid imaging dated 02/12/2023. FINDINGS: Multiple small subcentimeter lymph nodes are noted in both sides of the neck with no evidence of cervical lymphadenopathy. The muscles of the neck appear normal. The cervical internal carotid arteries and internal jugular veins appear normal. Fascial planes are preserved and the deep spaces of the neck appear normal. The nasopharynx, oropharynx, hypopharynx and larynx appear normal. The visualized airway is patent. The visualized portions of the posterior fossa and brain appear normal. Calcification of the proximal right common carotid artery without significant stenosis. Calcification of the bilateral intracranial carotid siphons. The cervical spine appears normal. Bilateral cataract replacements in otherwise unremarkable orbits. The paranasal sinuses appear unremarkable. The thyroid gland is normal. Dependent atelectasis in the bilateral lungs. Veronica fissural nodule is partially visualized in the right lung. Procedure Note Yrn Sewell MD - 09/04/2023 PROCEDURE: CT NECK SOFT TISSUE WWO CONT, DATE/TIME OF EXAM: 09/03/2023 2:16 PM, LOCATION [facility] INDICATION: E21.3: Hyperparathyroidism (HCC) ADDITIONAL CLINICAL INFORMATION: Ordering Provider Reason For Exam: parathyroidectomy preop; 4D cia agent Note: Additional: EXAMINATION: Computed tomography (CT) of the neck without and with contrast. TECHNIQUE: CT of the neck was performed with and without intravenous contrast according to a parathyroid protocol. COMPARISON: Nuclear medicine parathyroid imaging dated 02/12/2023. FINDINGS: Multiple small subcentimeter lymph nodes are noted in both sides of the neck with no evidence of cervical lymphadenopathy. The muscles of theneck appear normal. The cervical internal carotid arteries and internaljugular veins appear normal. Fascial planes are preserved and the deep spaces of the neck appear normal. The nasopharynx, oropharynx, hypopharynx andlarynx appear normal. The visualized airway is patent. The visualized portions of the posterior fossa and brain appear normal. Calcification of the proximal right common carotid artery without significant stenosis. Calcification of the bilateral intracranialcarotid siphons. The cervical spine appears normal. Bilateral cataractreplacements in otherwise unremarkable orbits. The paranasal sinuses appear unremarkable. The thyroid gland is normal. Dependent atelectasis in the bilateral lungs. Veronica fissural nodule is partially visualized in the right lung. IMPRESSION: No CT evidence of large parathyroid adenoma or other soft tissue abnormality within the neck. The report is dictated by Sarah Avendano Dr, MD (educational institution president) I, Yrn Sewell MD have personally reviewed and interpreted this examination/study. > Interpreting Provider: Yrn Sewell MD on 09/04/2023 1:32 PM Bhavesh Gastelum MD CT ORDERABLES * (ABNORMAL) CREATININE - POCT INTERFACED (09/03/2023 1:54 PM CDT) Creatinine POCT 0.85 0.30 - 1.30 mg/dL 09/03/2023 2:00 PM CDT [facility] eGFR 74(L) >=90 mL/min/1.7 3 m2 09/03/2023 2:00 PM CDT [facility] Blood BLOOD SPECIMEN / Unknown 09/03/2023 1:54 PM CDT 09/03/2023 2:00 PM CDT Bhavesh Gastelum MD LAB - POINT OF CARE ORDERABLES Performing Organization Address City/State/[facility] Co de Phone Number [facility] [address] [place] [address], [facility] [phone] Care Teams Mule Operator Relationship Specialty Start Date End Date Gibran Epperson MD [id number] [address] PCP - General Internal Medicine 08/20/23
--- OUTSIDE RECORDS SUMMARY | 2024-06-29 13:37 | XMS_ITS | Clinical Summary ---
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 Name Role Phone Gibran Epperson MD Primary Care Provider Calvin Whitney MD Unavailable [phone] Allergies Active Allergy Reactions Criticality Noted Date Comments Codeine Dizziness Low 02/26/2019 Meperidine Dizziness Low 02/26/2019 Morphine Unknown 03/09/2019 Ioogjeygf-Lqhype-Ravvfzvq-Scop Unknown 03/09 Prednisone Rash Medium 02/26/2019 Medications calcium carbonate/vitam in D3 (CALTRATE 600 PLUS D ORAL) Caltrate 600 plus D 2 a day Active diltiazem (TIAZAC) 360 mg 24 hr capsule daily Active cyanocobalamin, vitamin B-12, 1,000 mcg/mL kit vitamin [id number] B1 1,000 mcg-100 mg/mL injection solution Take by injection route. Active magnesium oxide (MAG-OX) 400 mg (241.3 mg elemental magnesium) tablet magnesium oxide 400 mg (241.3 mg magnesium) tablet TAKE ONE T PO BID Active losartan-hydroC HLOROthiazide (HYZAAR) 50-12.5 mg per tablet Take 1 tablet by mouth daily Active 25/iron fum/folic/dha (-1 ORAL) Take by mouth Active apixaban (ELIQUIS) 5 mg tablet Take 5 mg by mouth 2 (two) times a day Active flecainide (TAMBOCOR) 50 mg tablet Take 100 mg by mouth 2 (two) times a day Active escitalopram (LEXAPRO) 20 mg tablet Take 20 mg by mouth daily Active albuterol HFA (VENTOLIN HFA) 90 mcg/actuation inhaler Inhale 2 puffs every 6 (six) hours as needed for wheezing 1 Inhaler 3 9 Active fluticasone propionate (Flonase Allergy Relief) 50 mcg/actuation nasal spray Administer 1 spray into each nostril 2 (two) times a day 3 Inhaler 3 0 Active Active Problems Problem Noted Date Diagnosed Date Chronic cough 07/26/2019 Periodic limb movement 05/03/2019 Chronic depression 04/27/2019 Shortness of breath 03/09/2019 Restrictive lung disease 03/09/2019 Obstructive sleep apnea 03/09/2019 Non-smoker 03/09/2019 Permanent atrial fibrillation (CMS/HCC) 03/09/20 19 Dizziness 03/09/2019 Morbid obesity with BMI of 40.0-44.9, adult 02/23 Immunizations Name Administration Dates Next Due Influenza, Trivalent, High D ose, Split, Preservative Free, Intramuscular 02/26/2019 Influenza, Unspecified 02/17/2018,03/25/2017 Pneumococcal Conjugate PCV 13 03/25/2015 ZOSTER LIVE 02/07/2015 ZOSTER Recombinant 08/02/2018 Zoster, unspecified 08/02/2018,02/17/2018 Surgical History Surgery Date Site/Laterality Comments CARDIAC PACEMAKER PLACEMENT Medical History Medical History Date Comments Sleep apnea PONV (postoperative nausea and vomiting) Family History Relation Name Status Comments Father Mother Social History Tobacco Use Types Packs/Day Years Used Date Smoking Tobacco: Never Smokeless Tobacco: Never Personal Safety Answer Date Recorded Getting School Help Needed Not on file 08/08 Comments No Sex and Gender Information Value Date Recorded Sex Assigned at Not on file Legal Sex 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 Gender Identity Not on file Sexual Orientation Not on file Obstetrics History Last Filed Vital Signs Vital Sign Reading Time Taken Comments Blood Pressure 128/74 02/07/2020 9:55 AM CDT Pulse 72 02/07/2020 9:55 AM CDT Temperature 36.6 ??C (97.9 ??F) 05/03/2019 10:[address] Respiratory Rate 20 07/26/2019 9:18 AM SENIOR CONTROLLER Oxygen Saturation 92% 02/07/2020 9:55 AM CDT Inhaled Oxygen Concentration - - Weight 129.3 kg (285 lb) 07/26/2019 9:18 AM SENIOR CONTROLLER Height 172.7 cm (5' 8 ) 07/26/2019 9:18 AM SENIOR CONTROLLER Body Mass Index 43.33 07/26/2019 9:18 AM SENIOR CONTROLLER Plan of Treatment Health Maintenance Due Date Last Done Comments Breast Cancer Screening-Mammogram 1955 Colon Cancer Screening-Colonoscopy 1955 Depression Screening 1955 Fall Risk Assessment 1955 Hepatitis C Screening 1955 Osteoporosis Screening-Bone Density Scan 1955 DTaP/Tdap/Td Vaccine (1 - Tdap) 1964 Hepatitis B Screening 10/02/1971 Pneumococcal vaccine 65+ (2 of 2 - PPSV23 or PCV20) 05/20/2015 03/25/2015 Zoster Vaccine (3 of 3) 09/27/2018 08/03/19 19, 08/02/2018, 02/17/2018, Additional history exists Well Visit 65+ 2018 Influenza Vaccine (#1) 2024 0, 01/30/2020, 02/26/2019, Additional history [place] [address] [facility]IC[facility] [employer] Care Teams Piped Buttonhole 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
--- OUTSIDE RECORDS SUMMARY | 2024-06-29 13:37 | XMS_ITS | Data Portability ---
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 Plan of Treatment Reminders Order Date Submit Date Provider Last Modified By Organization Details Last Modified Time Details Appointments Any 2024 01:45P Yaritza Epperson MD Not available Not available Not available Medicare Wellness 2024 11:30A Yaritza Epperson MD Not available Not available Not available Lab CBC w/ auto diff 2022 023 [email or web address] [facility] (Lab), [address] [place], [address], 04/09/2023 17:44:58 lipid panel, serum [address] (Lab), [address] [place], [address], 01/27/2024 09:17:57 amylase, serum or plasma [address] (Lab), [address] [place], [address], 01/27/2024 09:17:57 lipase, serum or plasma [address] (Lab), [address] [place], [address], 01/27/2024 09:17:57 CMP, serum or plasma 2023 024 [email or web address] [facility] (Lab), [address] [place], [address], 01/27/2024 09:17:57 vitamin B12, serum [email or web address] (Lab), [address] [place], [address], 01/27/2024 09:17:[address] referral - Please call patient to schedule. 2024 025 [facility] [address] Tarik Joseph, [place], [address], 06/14/2024 17:25:23 Procedures None recorded. Surgeries None recorded. Imaging MAMMO, screening , digital, bilateral 2023 [email or web address] [place] [address] ([facility]), [address] [place], [address], 09/17/2023 08:42:46 bone density 2023 024 [email or web address] [facility] ([facility]), [address] [place], [address], 09/19/2023 09:20:18 MAMMO, screening , digital, bilateral 2023 024 [email or web address] [facility] ([facility]), [address] [place], [address], 01/19/2024 10:35:00 XR, ribs, unilatera l 2023 024 [facility] ([facility]), [address] [place], [address], 02/03/2024 16:02:44 XR, thoracic spine 2023 024 [email or web address] [facility] ([facility]), [address], [place], [address], 02/17/2024 07:57:10 CT, head + brain, w/o contrast - Please call patient to schedule. 2024 025 [facility] (Imaging), [address] [address], [place], [address], 06/16/2024 10:00:50 Medication Orders albuterol sulfate HFA 90 mcg/actua tion aerosol inhaler 2023 024 [facility] [address], [place], [address], 12/18/2023 18:08:04 escitalop shala 20 mg tablet 2023 024 [facility] [address], [place], [address], 12/18/2023 18:08:03 meclizine 25 mg tablet 2024 025 [facility] [address], [place], [address], 06/09/2024 20:20:33 albuterol sulfate HFA 90 mcg/actua tion aerosol inhaler 2024 025 [facility] [address], [place], [address], 06/09/2024 20:20:33 Patient TargetsNo targets recorded. Patient Instructions Encounter Date Encounter Id Patient Instructions Last Modified By Organization Details Last Modified Time 12/18/2023 [id number] dementia rating scale-2* Not available 12/18/2023 17:34:02 depression screening* Not available 12/18/2023 17:34:02 alcohol misuse* Not available 12/18/2023 17:34:02 multi-dimensiona l health assessment questionnaire* Not available 12/18/2023 17:34:02 advance directiv es: care instructions Not available 12/18/2023 17:34:02 advance care planning: care instructions Not available 12/18/2023 17:34:02 [place] Advance Directives Not available 12/18/2023 17:34:02 Personalized Hea lt Plan and Screening Recommendations Advance Directives - Do you have one? No You have indicated that you are capable of preparing your advance care directive Advance Directives - Do we have your advance directive on file in your health record? No, please bring in a copy at your earliest convenience Primary Prevention/Interven tion (prevents or decreases the chance of common diseases from occurring) Smoking Risk: Non Smoker Alcohol Misuse Screening: Negative Weight: Appropriate Overwei ght continue your current weight loss efforts try to lose 5% of your body weight try to lose 10% of your body weight try to lose 15% of your body weight Physical activity: Need more exercise/physical activity minimum of 10-20 minutes of activity that causes mild breathlessness/day Nutrition: Good Average Refer to attached handout Heart-Healthy Diet: After Your Visit Fall Risk (screened today): Low Refer to attached handout Preventing Falls: After your Visit Vaccines Pneumococcal: Ordered Recommended today Recommended today, but you have declined No further needed Influenza: Your next one in the fall of this year Chronic Disease Risks Stroke: Low Risk Intermediate Risk I have no recommendations Act anjelica diagnosis, Continue current treatment plan Heart Attack: Low risk Intermediate Risk I have no recommendations Act anjelica diagnosis, Continue current treatment plan Clogging of the Arteries: Low risk Intermediate Risk I have no recommendations Act anjelica diagnosis, Continue current treatment plan Diabetes: Low Risk Active diagnosis, Continue current treatment plan Secondary Prevention/Interven tion (detects treatable diseases before they may cause symptoms, disability, or ) Breast Cancer Screening with mammogram: No screening necessary Cervical/Uterine/Ov susanna Cancer Screening: No screening necessary Osteoporosis Screening: No screening necessary Date Screening Last Performed: Colon Cancer Screening: Colonoscopy Date Screening Last Performed:2015 Eye Disease Screening: No Eye exam necessary Dementia Risk: Low Depression Screening: Negative [email or web address] Not available 12/18/2023 15:41:48 06/09/2024 [id number] Personalized [facility] Plan and Screening Recommendations Advance Directives - Do you have one? No You have indicated that you are capable of preparing your advance care directive Advance Directives - Do we have your advance directive on file in your health record? No, please bring in a copy at your earliest convenience Primary Prevention/Interven tion (prevents or decreases the chance of common diseases from occurring) Smoking Risk: Non Smoker Alcohol Misuse Screening: Negative Weight: Appropriate Overwei ght continue your current weight loss efforts try to lose 5% of your body weight try to lose 10% of your body weight try to lose 15% of your body weight Physical activity: Need more exercise/physical activity minimum of 10-20 minutes of activity that causes mild breathlessness/day Nutrition: Good Average Refer to attached handout Heart-Healthy Diet: After Your Visit Fall Risk (screened today): Low Refer to attached handout Preventing Falls: After your Visit Vaccines Pneumococcal: Ordered Recommended today Recommended today, but you have declined No further needed Influenza: Your next one in the fall of this year Chronic Disease Risks Stroke: Low Risk Intermediate Risk I have no recommendations Act anjelica diagnosis, Continue current treatment plan Heart Attack: Low risk Intermediate Risk I have no recommendations Act anjelica diagnosis, Continue current treatment plan Clogging of the Arteries: Low risk Intermediate Risk I have no recommendations Act anjelica diagnosis, Continue current treatment plan Diabetes: Low Risk Active diagnosis, Continue current treatment plan Secondary Prevention/Interven tion (detects treatable diseases before they may cause symptoms, disability, or ) Breast Cancer Screening with mammogram: No screening necessary Cervical/Uterine/Ov susanna Cancer Screening: No screening necessary Osteoporosis Screening: No screening necessary Date Screening Last Performed: Colon Cancer Screening: Colonoscopy Date Screening Last Performed:2015 Eye Disease Screening: No Eye exam necessary Dementia Risk: Low Depression Screening: Negative [email or web address] Not available 06/09/2024 14:14:15 Reason for Referral Neurologist Referral for Jamel tigo Please call patient to schedule. Referring Physician: Gibran Epperson, Internal Medicine, Encounter Date: 06/09/2024 Results Created Date Observation Date Name Description Value Unit Range Abnormal Flag Note LastModifiedBy Organization Detail LastModifiedTime 04/09/20 23 04/09/2023 CBC/C OMPLE TE BLD COUNT W/DIF F white blood cells 13.3 x10'3 /uL 4.2-10 .8 high Not Available [facility] (Lab) [address] [place], [address], 04/09/2023 19:42:07 04/09/20 23 04/09/2023 CBC/C OMPLE TE BLD COUNT W/DIF F red blood cells 4.34 x10'6 /uL 3.80-5 .20 Not Available [facility] (Lab) [address] [place], [address], 04/09/2023 19:42:07 04/09/20 23 04/09/2023 CBC/C OMPLE TE BLD COUNT W/DIF F hemoglobin 11.7 g/dL 12.0-1 5.6 low Not Available [facility] (Lab) [address] [place], [address], 04/09/2023 19:42:07 04/09/20 23 04/09/2023 CBC/C OMPLE TE BLD COUNT W/DIF F hematocrit 38.0 % 35.7-4 5.7 Not Available [facility] (Lab) [address] [place], [address], 04/09/2023 19:42:07 04/09/20 23 04/09/2023 CBC/C OMPLE TE BLD COUNT W/DIF F mean red cell volume 87.6 fL 82.0-9 9.0 Not Available [facility] (Lab) [address] [place], [address], 04/09/2023 19:42:07 04/09/20 23 04/09/2023 CBC/C OMPLE TE BLD COUNT W/DIF F mean red cell hemoglobin 27.0 pg 27.0-3 3.0 Not Available [facility] (Lab) [address] [place], [address], 04/09/2023 19:42:07 04/09/20 23 04/09/2023 CBC/C OMPLE TE BLD COUNT W/DIF F mean RBC HGB concentratio n 30.8 g/dL 31.0-3 6.0 low Not Available [facility] (Lab) [address] [place], [address], 04/09/2023 19:42:07 04/09/20 23 04/09/2023 CBC/C OMPLE TE BLD COUNT W/DIF F red cell distribution width 15.8 % 11.8-1 5.5 high Not Available [facility] (Lab) [address] [place], [address], 04/09/2023 19:42:07 04/09/20 23 04/09/2023 CBC/C OMPLE TE BLD COUNT W/DIF F platelets 460 x10'3 /uL 150-40 0 high Not Available [facility] (Lab) [address] [place], [address], 04/09/2023 19:42:07 04/09/20 23 04/09/2023 CBC/C OMPLE TE BLD COUNT W/DIF F mean platelet volume 9.0 fL 9.0-12 .4 Not Available [facility] (Lab) [address] [place], [address], 04/09/2023 19:42:07 04/09/20 23 04/09/2023 CBC/C OMPLE TE BLD COUNT W/DIF F neutrophils 73.7 % 39.0-7 2.0 high Not Available [facility] (Lab) [address] [place], [address], 04/09/2023 19:42:07 04/09/20 23 04/09/2023 CBC/C OMPLE TE BLD COUNT W/DIF F lymphocytes 12.3 % 16.0-4 7.0 low Not Available [facility] (Lab) [address] [place], [address], 04/09/2023 19:42:07 04/09/20 23 04/09/2023 CBC/C OMPLE TE BLD COUNT W/DIF F monocytes 8.6 % 5.0-12 .0 Not Available [facility] (Lab) [address] [place], [address], 04/09/2023 19:42:07 04/09/20 23 04/09/2023 CBC/C OMPLE TE BLD COUNT W/DIF F eosinophils 4.2 % 1.0-7. 0 Not Available [facility] (Lab) [address] [place], [address], 04/09/2023 19:42:07 04/09/20 23 04/09/2023 CBC/C OMPLE TE BLD COUNT W/DIF F basophils 0.7 % 0.0-2. 0 Not Available [facility] (Lab) [address] [place], [address], 04/09/2023 19:42:07 04/09/20 23 04/09/2023 CBC/C OMPLE TE BLD COUNT W/DIF F immature granulocytes 0.5 % 0.00-0 .50 Not Available [facility] (Lab) [address] [place], [address], 04/09/2023 19:42:07 04/09/20 23 04/09/2023 CBC/C OMPLE TE BLD COUNT W/DIF F neutrophils, absolute count 9.81 x10'3 /uL 1.5-8. 0 high Not Available [facility] (Lab) [address] [place], [address], 04/09/2023 19:42:07 04/09/20 23 04/09/2023 CBC/C OMPLE TE BLD COUNT W/DIF F lymphocytes, absolute count 1.64 x10'3 /uL 1.07-3 .43 Not Available [facility] (Lab) [address] [place], [address], 04/09/2023 19:42:07 04/09/20 23 04/09/2023 CBC/C OMPLE TE BLD COUNT W/DIF F monocytes, absolute count 1.14 x10'3 /uL 0.29-0 .99 high Not Available [facility] (Lab) [address] [place], [address], 04/09/2023 19:42:07 04/09/20 23 04/09/2023 CBC/C OMPLE TE BLD COUNT W/DIF F eosinophils, absolute count 0.56 x10'3 /uL 0.02-0 .53 high Not Available [facility] (Lab) [address] [place], [address], 04/09/2023 19:42:07 04/09/20 23 04/09/2023 CBC/C OMPLE TE BLD COUNT W/DIF F basophils, absolute count 0.09 x10'3 /uL 0.01-0 .08 high Not Available [facility] (Lab) [address] [place], [address], 04/09/2023 19:42:07 04/09/20 23 04/09/2023 CBC/C OMPLE TE BLD COUNT W/DIF F immature granulocytes ,absolute 0.07 x10'3 /uL 0.00-0 .05 high Not Available [facility] (Lab) [address] [place], [address], 04/09/2023 19:42:07 04/09/20 23 04/09/2023 CBC/C OMPLE TE BLD COUNT W/DIF F nucleated red blood cells 0.0 % -0 Not Available [facility] (Lab) [address] [place], [address], 04/09/2023 19:42:07 04/09/20 23 04/09/2023 CBC/C OMPLE TE BLD COUNT W/DIF F NRBC# 0.00 x10'3 /uL Not Available [facility] (Lab) [address] [place], [address], 04/09/2023 19:42:07 02/03/20 24 02/03/2024 COMPR EHENS ANJELICA METAB OLIC PANEL sodium 140 mmol/ L 137-14 5 Not Available [facility] (Lab) [address] [place], [address], 02/03/2024 21:04:51 02/03/20 24 02/03/2024 COMPR EHENS ANJELICA METAB OLIC PANEL potassium 4.1 mmol/ L 3.5-5. 1 Not Available [facility] (Lab) [address] [place], [address], 02/03/2024 21:04:51 02/03/20 24 02/03/2024 COMPR EHENS ANJELICA METAB OLIC PANEL chloride 104 mmol/ L 98-107 Not Available [facility] (Lab) [address] [place], [address], 02/03/2024 21:04:51 02/03/20 24 02/03/2024 COMPR EHENS ANJELICA METAB OLIC PANEL carbon dioxide 31 mmol/ L 22-30 high Not Available [facility] (Lab) [address] [place], [address], 02/03/2024 21:04:51 02/03/20 24 02/03/2024 COMPR EHENS ANJELICA METAB OLIC PANEL anion gap 9.1 mmol/ L 14-22 low Not Available [facility] (Lab) [address] [place], [address], 02/03/2024 21:04:51 02/03/20 24 02/03/2024 COMPR EHENS ANJELICA METAB OLIC PANEL glucose 103 mg/dL 70-99 high Not Available [facility] (Lab) [address] [place], [address], 02/03/2024 21:04:51 02/03/20 24 02/03/2024 COMPR EHENS ANJELICA METAB OLIC PANEL BUN 17 mg/dL 8-19 Not Available [facility] (Lab) [address] [place], [address], 02/03/2024 21:04:51 02/03/20 24 02/03/2024 COMPR EHENS ANJELICA METAB OLIC PANEL creatinine 0.70 mg/dL 0.66-1 .25 Not Available [facility] (Lab) [address] [place], [address], 02/03/2024 21:04:51 02/03/20 24 02/03/2024 COMPR EHENS ANJELICA METAB OLIC PANEL GFR >60 Refer ence Range : Vincent ge GFR Healt hy Adult : >60 mL/mi n/1.7 3 m2 Chron ic Kidne y Disea se: 15-60 mL/mi n/1.7 3 m2 Kidne y Failu re: <15/m L/min /1.73 m2 www.n iddk. nih.g ov The MDRD study equat ion has not been valid ated in child shyla <18 years of age; pregn ant women ; the elder ly >85 years of age; or in some racia l or ethni c subgr oups, such as ar nics. Outsi de the valid ated magalys eters , estim ated GFR is less accur ate, requi ring clini jalne judgm ent on a case- by-ca se basis . Clini jalen inter preta tion for other races and ages must be made by the clini kody. The MDRD study equat ion has not been valid ated for the evalu ation of serum creat inine relat ed to nutri jesusita l statu s or medic ation usage . For perso ns <18 years of age, a pedia tric GFR calcu lator is avail able on the [facility] websi te: https ://eva w.basilia cariasy.o rg/pr ofess ional s/kdo qi/gf r_cal culat or Not Available [facility] (Lab) [address] [place], [address], 02/03/2024 21:04:51 02/03/20 24 02/03/2024 COMPR EHENS ANJELICA METAB OLIC PANEL alkaline phosphatase 133 U/L 38-126 high Not Available [facility] (Lab) [address] [place], [address], 02/03/2024 21:04:51 02/03/20 24 02/03/2024 COMPR EHENS ANJELICA METAB OLIC PANEL alanine aminotransfe rase 37 U/L 0-35 high Not Available [facility] (Lab) [address] [place], [address], 02/03/2024 21:04:51 02/03/20 24 02/03/2024 COMPR EHENS ANJELICA METAB OLIC PANEL aspartate aminotransfe rase 43 U/L 15-37 high Not Available [facility] (Lab) [address] [place], [address], 02/03/2024 21:04:51 02/03/20 24 02/03/2024 COMPR EHENS ANJELICA METAB OLIC PANEL bilirubin, total 0.40 mg/dL 0.20-1 .30 Not Available [facility] (Lab) [address] [place], [address], 02/03/2024 21:04:51 02/03/20 24 02/03/2024 COMPR EHENS ANJELICA METAB OLIC PANEL calcium 8.6 mg/dL 8.4-10 .2 Not Available [facility] (Lab) [address] [place], [address], 02/03/2024 21:04:51 02/03/20 24 02/03/2024 COMPR EHENS ANJELICA METAB OLIC PANEL total protein 6.0 g/dL 6.3-8. 2 low Not Available [facility] (Lab) [address] [place], [address], 02/03/2024 21:04:51 02/03/20 24 02/03/2024 COMPR EHENS ANJELICA METAB OLIC PANEL albumin 3.5 g/dL 3.0-4. 4 Not Available [facility] (Lab) [address] [place], [address], 02/03/2024 21:04:51 02/03/20 24 02/03/2024 COMPR EHENS ANJELICA METAB OLIC PANEL globulin 2.5 g/dL 2.6-4. 2 low Not Available [facility] (Lab) [address] [place], [address], 02/03/2024 21:04:51 02/03/20 24 02/03/2024 COMPR EHENS ANJELICA METAB OLIC PANEL A/G ratio 1.4 ratio 1.0-2. 0 Not Available [facility] (Lab) [address] [place], [address], 02/03/2024 21:04:51 02/03/20 24 02/03/2024 LIPID PANEL cholesterol 146 mg/dL 140-19 9 NIH NEO NSUS RECOM MENDA TION FOR JOSE M STERO L: ADULT CHILD LOW RISK: <200 <170 BORDE RLINE : <200- 239 ----- HIGH RISK: >240 >200 Not Available [facility] (Lab) [address] [place], [address], 02/03/2024 21:04:56 02/03/2002/03/2024 LIPID PANEL triglyceride s 114 mg/dL 0-150 NIH NEO NSUS REPOR T RECOM MENDA TION FOR TRIGL YCERI JUAN M: ADULT CHILD LOW RISK: <150 ----- BODER LINE: 150-1 99 ----- HIGH RISK: >200 ----- Not Available [facility] (Lab) [address] [place], [address], 02/03/2024 21:04:56 02/03/2002/03/2024 LIPID PANEL HDL cholesterol 68 mg/dL 40- Not Available [facility] (Lab) [address] [place], [address], 02/03/2024 21:04:56 02/03/20 24 02/03/2024 LIPID PANEL LDL cholesterol, calculated 55 mg/dL 0-130 NIH NEO NSUS REPOR T RECOM MENDA TIONS FOR LDL: ADULT CHILD LOW RISK <130 <110 (OPTI MAL LDL) <100 ----- BORDE RLINE : 130-1 59 ----- HIGH RISK: >160 >130 A TRIGL YCERI DE RESUL T >400 INVAL IDATE S THE CALCU LATIO N FOR LDL FRACT IONAT ION - THE LDL RESUL T WILL NOT BE REPOR KASIA. Not Available [facility] (Lab) [address] [place], [address], 02/03/2024 21:04:56 02/03/20 24 02/03/2024 AMYLA SE SERUM amylase 46 U/L 30-110 Not Available [facility] (Lab) [address] [place], [address], 02/03/2024 21:05:56 02/03/20 24 02/03/2024 LIPAS E SERUM lipase 81 U/L 23-300 Not Available [facility] (Lab) [address] [place], [address], 02/03/2024 21:06:47 02/03/2002/03/2024 VITAM IN B12 (DENN[place] MARIAH ) vb12 >1000 pg/mL 239-93 1 high Not Available [facility] (Lab) [address] [place], [address], 02/03/2024 22:52:45 03/26/20 23 03/25/2023 CT, abdom en + pelvi s, w/o contr ast No observ ation record ed. [facility] ([facility]) [address] [place], [address], 08/20/2023 14:58:55 03/27/20 23 03/26/2023 XR, ray um No observ ation record ed. [email or web address] [facility] [address], [place], [address], 03/27/2023 09:41:21 09/08/19 24 09/08/2023 DEXA, axial skele ton [facility] [address], [place] [address] Patien t Name: MICHELLE DORMAN Access ion #: [id number] Sex: F : 1955 6 Dictat ed By: Adryan Keys Attend ing Physic héctor: TAD EPPERSON Orderi Physic héctor: TAD EPPERSON ER Exam Date: 2023 12:53 PM Exam Name: XR DEXA-H IPS PELVIS SPINE Admitt ing Diagno sis(es ): INDICA TION: Postme nopaus al DEXA SCAN: BONE DENSIT Y REPORT : AP SPINE (L1-L4 ) : T Score: -1.8 LEFT HIP TOTAL : T Score: -1.1 RT HIP TOTAL : T Score: -0.3 TOTAL BILAT HIP AVG: T Score: -0.7 10 YEAR FRACTU RE RISK* Not report ed IMPRES VIJI: 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 Fractu re probab ility calcul ated for an untrea kasia patien t. Fractu re probab ility may be lower if the patien t has receiv ed treatm ent. T-scor e: compar jerod by franco beyerat ion (SD) to a young adult popula nicole lozoya for sex and ethnic ity (used for postme nopaus al women and men >50 years) and classi fied by WHO criter ia. -1.0: normal <-1.0 to >-2.5: osteop enia -2.5: osteop orosis -2.5 plus fragil ity fractu re: severe osteop orosis Page 1 [facility] [address] [place] [address] Patien t Name: MICHELLE DORMAN Access ion #: [id number] Sex: F : 1955 6 Dictat ed By: Adryan Keys Attend ing Physic héctor: ALINA CALLAWAY Physic héctor: TAD EPPERSON ER Exam Date: 2023 12:53 PM Exam Name: XR DEXA-H IPS PELVIS SPINE Admitt ing Diagno sis(es ): Z-scor e: compar ed by SD to an age, sex, and ethnic ity popula tion (used for premen opausa l women, men <50 years, and childr en instea d of T-scor e WHO criter ia 4) <-2.0: below expect ed range/ low bone densit y for age, and a cause should be sought Electr onical ly Signed by: Adryan Keys at 2023 16:38: 00 PM Page 2 [email or web address] [facility] ([facility]) [address] [place], [address], 09/18/2023 10:12:52 12/19/19 24 11/20/2023 PFT, compl ete No observ ation record ed. [facility] Not Available 2023 17:56:44 12/31/19 24 12/30/2023 intro ducti on of urete ral mele ter or stent throu gh renal pelvi s (proc ) No observ ation record ed. [facility] Not Available 2023 18:41:47 02/03/20 24 02/03/2024 XR, thora cic spine [facility] [address] [place] [phone] Patien t Name: MICHELLE DORMAN Access ion #: [id number] Sex: F : 1955 4 Dictat ed By: Yina Tarango Attend ing Physic héctor: TAD EPPERSON ER Orderi ng Physic héctor: TAD EPPERSON ER Exam Date: 2023 13:26 PM Exam Name: XR T SPINE 3V Admitt ing Diagno sis(es ): ACCESS ION #: [id number] INDICA TION: back pain/f all COMPAR JEROD: None TECHNI QUE: 4 views of the thorac ic spine were obtain ed. FINDIN GS/IMP RESSIO N: The thorac ic verteb ral alignm ent is normal . 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 Mild age indete rminat e, favore d to be chroni c, verteb ral compre ssion fractu res of the T11 and T12 verteb ral bodies with less than 10% loss of verteb ral body height . The imaged thorax and abdome n are grossl y unrema rkable . Electr onical ly Signed by: Yina Tarango at 2023 15:00: 31 PM Page 1 [email or web address] [facility] (Imaging) [address] [facility], [place], [address], 02/17/2024 07:57:10 02/03/20 24 02/03/2024 XR, ribs, unila teral [facility] [address], [place] [address] Patien t Name: MICHELLE DORMAN Access ion #: [id number] Sex: F : 1955 4 Dictat ed By: Yina Tarango Attend ing Physic héctor: TAD EPPERSON ER Orderi ng Physic héctor: TAD EPPERSON ER Exam Date: 2023 13:03 PM Exam Name: XR RIBS RT WO CHEST Admitt ing Diagno sis(es ): ACCESS ION #: [id number] EXAMIN ATION: XR RIBS RT WO CHEST INDICA TION: chest wall pain/f all COMPAR JEROD: None TECHNI QUE: 4 views of the right ribs histor y FINDIN GS/IMP RESSIO N: No displa domenic right rib fractu re. Electr onical ly Signed by: Yina Tarango at 2023 15:01: 28 PM Page 1 [email or web address] [facility] (Imaging) [address] [place], [address], 02/06/2024 12:37:53 03/10/20 24 03/10/2024 scree eulogio bedollaas t miryam, bilat [facility] [address] [place] [address] [phone] Shannan t Name: MICHELLE DORMAN Access ion #: [id number] Sex: F : 1955 2 Locati on: RAD Attend ing Physic héctor: TAD EPPERSON ER Orderi Physic héctor: TAD EPPERSON ER Exam Date: 2023 10:29 AM Exam Name: SCRN BREAST MIRYAM BILAT Admitt ing Diagno sis(es ): MAMMOG VIVIANE REPORT - FINAL EXAM: MG SCRN BREAST MIRYAM BILAT HISTOR Y: screen ing mammog shala 68-yea r-old female with no curren t breast compla ints. The patien t has a histor y of bilate ral breast reduct ion surger y Octobe r 2017; left breast benign excisi onal biopsy in 1978. COMPAR JEROD: 2022, 2021 TECHNI QUE: Bilate ral CC and MLO views of the breast s were perfor med. Digita l Mammog viviane images were obtain ed. CAD (compu ter assist ed detect ion) was utiliz ed. 3D Digita l breast tomosy nthesi s was perfor med and used in the interp retati on of images . FINDIN GS: The breast s are almost entire ly fatty. Page 1 of 2 [facility] Shannan herndon Name: MICHELLE DORMAN Access ion #: [id number] Sex: F : 1955 2 Exam Date: 2023 10:29 AM Exam Name: MG SCRN BREAST MIRYAM BILAT Admitt ing Diagno sis(es ): No new masses , develo ping asymme tries, suspic ious calcif icatio ns, or anselmo ectura l distor tion are seen. IMPRES VIJI: BIRADS 1: Assess ment comple te. Negati ve. Recomm end annual screen ing mammog viviane. Accord ing to the [employer], yearly mammog hamida are recomm ended starti ng at age 40 and contin uing as long as the woman is in good health . Clinic al Breast Exam should be part of the period ic health exam-a bout every 3 years for women in their 20s and 30s and every year for women 40 and over. Breast self-e xam is an option for women in their 20s. Any breast change noted on the breast self-e xam she would be report ed prompt ly to the [facility]. A negati ve mammog viviane report should not discou rage follow -up or biopsy of a clinic ally signif icant findin g and/or abnorm ality. Dense breast tissue may obscur e small neopla sms. This shannan herndon has been entere d into a mammog viviane remind er system with a target date for her next mammog shala. Create d and electr onical ly signed by: Ayo chiang MD Signed Date: 2023 10:57 AM (CT) Dictat ed by: Ayo chiang MD DD: 2023 10:57 AM (CT) DT: 2023 10:57 AM (CT) Page 2 of 2 [email or web address] [facility] (Imaging) [address] [place], [address], 03/10/2024 15:22:00 Result Notes None recorded. Problems Name Problem SNOMED Code Status Onset Date Resolution Date Notes Provider Name and Address Organization Details Recorded Time Obstructi ve sleep apnea syndrome 81921231 Active 2022 Not Available [facility] 3 10:52:24 Osteoporo sis 08329444 Active 2022 Not Available [facility] 3 10:52:24 Pancreati c insuffici ency 36965884 Active 2022 Not Available [facility] 3 10:52:24 Recurrent urinary tract infection 132304332 Active 2022 Not Available [facility] 3 10:52:24 Acute urinary tract infection 002034509 Active 2022 Not Available [facility] 3 10:52:24 Kidney stone 68752397 Active 2022 Jacquelyn Cadena MA null, [place] [facility] 3 11:14:31 Dizziness 492713118 Active 2022 Claudia Hall LPN null, [facility] [employer] [facility] 3 12:03:02 Blood in urine 38414390 Active 2022 Gibran Epperson MD [address], [address] [place] [address], [address] , [facility] 3 15:09:48 Anemia 301123956 Active 2022 Gibran Epperson MD [address], [address], [place], [address] , [facility] 3 15:09:54 Acute pharyngit is 039256007 Active 2022 Gibran Epperson MD [address], [address], [place], [address] , [facility] 3 15:11:25 Blood glucose outside reference range 420064523 Active 2022 Claudia Hall LPN null, [place] [facility] 3 15:02:28 Candidias is of mouth 41674319 Active 2022 Claudia Hall LPN null, [place] [facility] 3 14:15:17 Acute sinusitis 35708075 Active 2023 Claudia Hall LPN null, [place] [facility] 4 12:42:08 Hyperpara thyroidis m 58044040 Active 2023 Gibran Epperson MD [address], [address], [place], [address] , [place] [facility] 4 15:07:45 Corneal dystrophy 8711277 Active 2023 Claudia Hall LPN null, [place] [facility] 4 10:46:36 Adrenal adenoma 415721887 Active 2023 Gibran Epperson MD [address], [address], [place], [address] , [place] [facility] 4 14:44:04 Backache 966783281 Active 2023 Gibran Epperson MD [address], [address], [place], [address] , [place] [facility] 4 08:55:17 Chest wall pain 817651984 Active 2023 Gibran Epperson MD [address], [address], [place], [address] , [place] [facility] 4 08:55:41 Postmenop ausal osteoporo sis 969340171 Active 2021 Not Available [facility] 3 10:52:24 Cobalamin deficienc y 632215109 Active 2021 Not Available [facility] 3 10:52:24 Asthma 948265812 Active 2021 Not Available [employer] 3 10:52:24 Steatosis of liver 896978353 Active 2022 Not Available [facility] 3 10:52:24 Gastroeso phageal reflux disease 213520825 Active 2021 Not Available [facility] 3 10:52:24 Screening mammograp hy Completed 202111/30/2021 Not Available [facility] 3 04:34:53 Adult health examinati on Active 2021 Not Available [facility] 3 10:52:24 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 17983913183 9100 Active 2022 Not Available [facility] 3 10:52:24 Subconjun ctival hemorrhag e of left eye 85476976695 9107 Active 2022 Not Available [facility] 3 10:52:24 Vitamin D deficienc y 03353075 Active 2016 Not Available [facility] 3 10:52:24 Depressiv e disorder 79044194 Active 2021 Not Available [facility] 3 10:52:24 Pancreati c insuffici ency 64985090 Completed 202104/24/2022 ARCHANA Brandon, [employer] [facility] 3 10:16:04 Osteoarth ritis 978152685 Active Not Available [facility] 3 10:52:24 Loose stool 278908340 Completed 202104/24/2022 Not Available [facility] 3 04:34:54 Vertigo 189867214 Active 2022 Not Available [facility] 3 10:52:24 Vertigo 352968254 Completed 202111/30/2021 Not Available [facility] 3 04:34:54 Obesity 740458967 Active Not Available [facility] 3 10:52:24 Acute urinary tract infection 064759773 Completed 202105/22/2022 ARCHANA Brandon, [employer] [facility] 3 13:35:35 Exocrine pancreati c insuffici ency 88849571 Active 2021 Not Available [facility] 3 10:52:24 Anxiety 86075317 Active Not Available [facility] 3 10:52:24 Atrial fibrillat ion 29110294 Active Not Available [facility] 3 10:52:24 Hyperlipi demia 93055558 Active Not Available [facility] 3 10:52:24 Essential hypertens ion 30380483 Active Not Available [facility] 3 10:52:24 Vitamin B12 deficienc y (non anemic) 37840827 Active 2021 Not Available [facility] 3 10:52:24 Prediabet es 199390520 Active 2021 Not Available [facility] 3 10:52:24 Sleep apnea 27547446 Active Not Available [facility] 3 10:52:24 Overactiv e urinary bladder 025461339 Active 2022 Not Available [facility] 3 10:52:24 Notes:Medical History: Anxie ty/Depression Rhinitis with postnasal drip Obesity with DONNELL on CPAP c/o Provider Plus Hypertension EF 61% Hyperlipidemia Prediabetes with microalbuminuria CAD s/p AWMI Mild LAE Mild RVE Atrial fibrillation on Eliquis Right hemidiaphragm elevation ALLISON Hepatic steatosis Pancreatic insufficiency Diverticulosis Left nephrolithiasis Bilateral renal cysts PLMD Vit B12 deficiency Vit D deficiency Lumbar osteopenia OA Procedure History: Appendectomy 1967 T&A 1977 RONY for endometriosis 1979 Gastric bypass 2002 Right inguinal herniorrhaphy 2004 Left corneal dystrophy surgery 2012 Colonoscopy 2016 Bilateral breast reduction 2019 Pacemaker placement 2019 Bilateral cataract extraction with IOL 2020 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 Procedures Surgical History Date Name Laterality Status Provider Name and Address Organization Details Recorded Time 12/18/19 24 Medicare Wellness CPT Code, subsequent completed JUSTINE Crenshaw [facility] [employer] 12/18/2023 14:48:28 12/18/19 24 Advanced Care Planning completed Fouzia Roach RN [facility] [employer] [facility] 12/18/2023 15:35:14 10/31/19 23 Medicare Wellness CPT Code, subsequent completed Alicja Stoner RN [facility] [employer] [facility] 10/30/2022 10:28:37 10/31/19 23 Advanced Care Planning completed Alicja Stoner RN [facility] [employer] [facility] 10/30/2022 10:29:08 08/25/19 22 Date of Last Mammogram completed Alicja Stoner RN [facility] 10/30/2022 10:36:48 08/25/19 22 Most Recent Bone Density completed Alicja Stoner RN [facility] 10/30/2022 10:37:04 07/31/19 22 Cataract Surgery completed Not Available [facility] 05/2022 04:31:04 05/06/20 16 Date of Last Colonoscopy completed Not Available [facility] 07/24/2022 04:31:02 section completed Not Available [facility] 07/24/2022 04:31:04 Hernia repair w/mesh completed Not Available [facility] 07/24/2022 04:31:04 Pacemaker completed Not Available [facility] 0 07/24/2022 04:31:04 reduction mammoplasty completed Not Available [facility] 07/24/2022 04:31:04 Gastric Bypass completed Not Available [facility] 07/24/2022 04:31:04 Hysterectomy completed [facility] 07/24/2022 04:31:04 cardiac pacemaker procedure completed Not Available [facility] 07/24/2022 04:31:04 Imaging Results Imaging Date Name Status LastModified by Organization Details LastModified Time 03/25/2023 CT, abdomen + pelvis, w/o contrast [email or web address] ([facility]) [address] [place], [address], 08/20/2023 14:58:55 03/26/2023 XR, sternum completed [address], [address], 03/27/2023 09:41:21 09/08/2023 DEXA, axial skeleton completed [address] (Imaging) [address] [place], [address], 09/18/2023 10:12:52 11/20/2023 PFT, complete completed [facility] Information not available 12/19/2023 17:56:44 12/30/2023 introduction of ureteral catheter or stent through renal pelvis (proc) completed [facility] Information not available 12/31/2023 18:41:47 02/03/2024 XR, thoracic spine completed [email or web address] [facility] (Imaging) [address] [place], [address], 02/17/2024 07:57:10 02/03/2024 XR, ribs, unilateral completed [email or web address] [facility] (Imaging) [address] [place], [address], 02/06/2024 12:37:53 03/10/2024 screening breast miryam, bilat completed [email or web address] [facility] (Imaging) [address] [place], [address], 03/10/2024 15:22:00 Procedure Notes None recorded. Medical Equipment None Reported. Allergies Allergen ID Allergen Name Allergen Category Reaction Reaction Severity Criticality Documentation Date Start Date Code Code System Note Provider Name and Address Organization Details Recorded Time 6584 spironola ctone medicatio n vomiting Not available Not available 07/24/2022 9997 RxNorm Not Available [facility] 3 04:39:57 6585 prednison e medicatio n rash Not available Not available 07/24/2022 8640 RxNorm Not Available [facility] 3 04:39:57 6586 morphine medicatio n headache severe Not available 07/24/2022 7052 RxNorm Not Available [facility] 3 04:39:57 6587 medicatio n rash Not available Not available 07/24/2022 27095 1 RxNorm Not Available [facility] 3 04:39:57 6588 Demerol medicatio n vomiting Not available Not available 07/24/2022 88306 1 RxNorm Not Available [facility] 3 04:39:57 6589 codeine medicatio n headache severe Not available 07/24/2022 2670 RxNorm Not Available [facility] 3 04:39:57 6590 alendrona te sodium medicatio n vomiting Not available Not available 07/24/202256875 2 RxNorm Not Available [facility] 3 04:39:57 Medications Name Sig Start Date Stop Date Status Note LastModified by Organization Details LastModified Time amoxicill in 500 mg capsule Take 1 capsule every 8 hours by oral route as directed for 7 days. active Not Available Not Available No t Available atorvasta tin 40 mg tablet TAKE 1 TABLET BY MOUTH EVERY DAY active Not Available Not Available No t Available clotrimaz ole 10 mg marsha TAKE 1 TABLET 5 TIMES A DAY BY ORAL ROUTE FOR 10 DAYS. 06/09 completed Not Available Not Available Not Available prednison e 10 mg tablet active Not Available Not Available Not Available doxycycli ne hyclate 100 mg capsule TAKE 1 CAPSULE BY MOUTH TWICE A DAY FOR 7 DAYS 08/19 completed Not Available Not Available Not Available clindamyc in HCl 300 mg capsule TAKE 1 CAPSULE BY MOUTH THREE TIMES DAILY FOR 10 DAYS active Not Available Not Available No t Available azithromy reji 250 mg tablet TAKE 2 TABLETS BY MOUTH TODAY, THEN TAKE 1 TABLET DAILY FOR 4 DAYS DIRECTED active Not Available Not Available No t Available diltiazem CD 180 mg capsule,e xtended release 24 hr Take 1 capsule every day by oral route. 09/20 completed Not Available Not Available Not Available ofloxacin 0.3 % eye drops INSTILL 1 DROP INTO AFFECTED EYE FOUR TIMES A DAY AFTER SURGERY 04/17 completed Not Available Not Available Not Available amiodaron e 200 mg tablet TK 1 T PO D 09/20 completed Not Available Not Available Not Available cephalexi n 250 mg capsule Take 1 capsule by mouth daily 02/18 completed Not Available Not Available Not Available hydrocodo ne 5 mg-acetam inophen 325 mg tablet 1 (ONE) OR 2 (TWO) TABLET BY MOUTH EVERY SIX HOURS, NEEDED 06/09 completed Not Available Not Available Not Available vitamin P50-pceeq in B1 1,000 mcg-100 mg/mL injection solution Take by injectio n route. 11/02 completed Not Available Not Available Not Available alendrona te 70 mg tablet Take 1 tablet every week by oral route. 12/05 completed Not Available Not Available Not Available diltiazem ER 360 mg capsule,2 4 hr,extend ed release Take 1 capsule every day by oral route. 12/19 completed Cardiolo gist Not Available Not Available Not Available diltiazem CD 360 mg capsule,e xtended release 24 hr TAKE 1 CAPSULE BY MOUTH EVERY DAY active Not Available Not Available No t Available ciproflox acin 250 mg tablet TAKE 1 TABLET BY MOUTH EVERY 12 HOURS FOR 5 DAYS 01/02 completed Not Available Not Available Not Available sulfameth oxazole 800 mg-trimet hoprim 160 mg tablet TAKE 1 TABLET BY MOUTH EVERY 12 HOURS 06/09 completed Not Available Not Available Not Available omeprazol e 40 mg capsule,d elayed release Take 1 capsule every day by oral route. 2023 active BRENDAN 02/03/24 NOV 04/07/24 ok to rf Not Available Not Available Not Available tramadol 50 mg tablet TAKE 1 TABLET BY MOUTH EVERY 8 HOURS NEEDED FOR PAIN active Not Available Not Available No t Available ergocalci ferol (vitamin D2) 50,000 unit tablet Take 1 tablet every week by oral route. 05/30 completed Not Available Not Available Not Available ketorolac 0.5 % eye drops 04/17 completed Not Available Not Available Not Available prednisol one acetate 1 % eye drops,joel pension INSTILL 1 DROP INTO AFFECTED EYE THREE TIMES A DAY AFTER SURGERY 04/17 completed Not Available Not Available Not Available magnesium oxide 400 mg (241.3 mg magnesium ) tablet TAKE ONE T PO BID active Not Available Not Available No t Available dexametha sone 1 mg tablet TAKE 1 TABLET BY MOUTH AROUND 11PM NIGHT BEFORE MORNING TEST 06/09 completed Not Available Not Available Not Available meclizine 25 mg tablet TAKE 1 TABLET BY MOUTH EVERY 8 HOURS NEEDED 2024 active Not Available Not Available Not Avai lable potassium citrate ER 10 mEq (1,080 mg) tablet,ex tended release TAKE 1 TABLET BY MOUTH TWICE A DAY active Not Available Not Available No t Available cyanocoba mariah (vit B-12) 1,000 mcg/mL injection solution INJECT 1000 MCG (1ML) SUBCUTAN EOUSLY EVERY TWO WEEKS IN THE MORNING active Not Available Not Available No t Available flecainid e 100 mg tablet TAKE 1 TABLET BY MOUTH TWICE A DAY active Not Available Not Available No t Available Levaquin 500 mg tablet Take 1 tablet every 24 hours by oral route. 08/19 completed Not Available Not Available Not Available ergocalci ferol (vitamin D2) 1,250 mcg (50,000 unit) capsule TK ONE C PO ONCE A WEEK ON active Not Available Not Available No t Available albuterol sulfate HFA 90 mcg/actua tion aerosol inhaler Inhale 2 puffs every 4 hours by inhalati on route as needed. 2024 active Not Available Not Available Not Avai lable losartan 50 mg-hydroc hlorothia zide 12.5 mg tablet TAKE 1 TABLET BY MOUTH ONCE EVERY MORNING active Dr. Edith uribe Not Available Not Available Not Available oxybutyni n chloride 5 mg tablet TAKE 1 TABLET BY MOUTH 3 TIMES A DAY FOR BLADDER SPASM active Uses it PRN Not Available Not Available Not Available hydroxyzi ne HCl 10 mg tablet TAKE 1 TABLET BY MOUTH THREE TIMES A DAY NEEDED FOR ITCH FOR 15 DAYS active Not Available Not Available No t Available cefdinir 300 mg capsule TAKE 1 CAPSULE BY MOUTH EVERY 12 HOURS 06/09 completed Not Available Not Available Not Available doxycycli ne hyclate 100 mg tablet TAKE 1 TABLET BY MOUTH TWICE A DAY FOR 10 DAYS. 06/09 completed Not Available Not Available Not Available spironola ctone 50 mg tablet TAKE 1 TABLET BY MOUTH EVERY DAY active Not Available Not Available No t Available amoxicill in 875 mg-potass ium clavulana te 125 mg tablet TAKE 1 TABLET BY MOUTH EVERY 12 HOURS FOR 5 DAYS 04/09 completed Not Available Not Available Not Available Benadryl 25 mg capsule Take 1 capsule every 4 hours by oral route. 07/04 completed Not Available Not Available Not Available neomycin 3.5 mg/g-poly myxin B 10,000 unit/g-de xameth 0.1 % eye oint APPLY TO LEFT EYE LID TWICE DAILY. 12/17 completed Not Available Not Available Not Available Pneumovax -23 25 mcg/0.5 mL injection syringe TO BE ADMINIST ERED BY PHARMACI ST FOR IMMUNIZA TION. PT PREV REC'D PREVNAR 13 ON 03/25/15 AT [facility] active Not Available Not Available No t Available escitalop shala 20 mg tablet Take 1 tablet every day by oral route. 2023 active BRENDAN 02/03/24 NOV 06/09/24 ok to rf Not Available Not Available Not Available Lexapro 10 mg tablet Take 1 tablet every day by oral route for 90 days. 03/12 completed Not Available Not Available Not Available nitrofura ntoin monohydra te/macroc rystals 100 mg capsule TAKE 1 CAPSULE BY MOUTH TWICE A DAY 06/09 completed Not Available Not Available Not Available losartan 100 mg-hydroc hlorothia zide 12.5 mg tablet Take 1 tablet every day by oral route for 90 days. 09/19 completed Not Available Not Available Not Available flecainid e 100 mg BID 04/[address]Kalva malagon Not Available Not Available Not Available diflupred elsa 0.05 % eye drops PLACE 1 DROP INTO AFFECTED EYE(S) 3 TIMES A DAY AFTER SURGERY 04/17 completed Not Available Not Available Not Available Prolia 60 mg/mL subcutane ous syringe Inject 1 mL (60 mg) subcutan eously every 6 months active Not Available Not Available No t Available Suprep Bowel Prep Kit 17.5 gram-3.13 gram-1.6 gram oral solution USE DIRECTED 09/20 completed Not Available Not Available Not Available Caltrate 600 plus D 2 a day 2016 active Not Available Not Available Not Avai lable Eliquis 5 mg tablet TAKE 1 TABLET BY MOUTH TWICE A DAY active Not Available Not Available No t Available Creon 36,000 unit-114, 000 unit-180, 000 unit capsule,d elayed release take up to 8 capsules daily with meals active every once in a while Not Available Not Available Not Available Expecta 28 mg iron-800 mcg-200 mg oral pack Take by oral route. 09/19 completed Not Available Not Available Not Available cyanocoba mariah (vit B-12) 1,000 mcg/mL injection kit Inject 1 mL every 2 weeks by subcutan eous route. 12/19 completed Not Available Not Available Not Available Fluarix Quad [id number] (PF) 60 mcg (15 mcg x 4)/0.5 mL IM syringe TO BE ADMINIST ERED BY [employer] FOR IMMUNIZA TION active Not Available Not Available No t Available Flucelvax Quad (PF) 60 mcg (15 mcg x 4)/0.5 mL IM syringe TO BE ADMINIST ERED BY PHARMACI ST FOR IMMUNIZA TION 05/16 completed Not Available Not Available Not Available Shingrix (PF) 50 mcg/0.5 mL intramusc ular suspensio n, kit TO BE ADMINIST ERED BY [employer] FOR IMMUNIZA TION 12/02 completed Not Available Not Available Not Available Bydureon BCise 2 mg/0.85 mL subcutane ous auto-inje ctor Inject 2 mg every week by subcutan eous route at dinner for 84 days. 2022 active Not Available Not Available Not Avai lable Fluzone Quad (P F) 60 mcg(15 mcgx4)/0. 5 mL intramusc ular syringe TO BE ADMINIST ERED BY [employer] FOR IMMUNIZA TION 03/12 completed Not Available Not Available Not Available Fluzone High-Dose Quad (PF) 240 mcg/0.7 mL IM syringe PHARMACY ADMINIST ERED 05/30 completed Not Available Not Available Not Available [employer] Jennifer 3 Sensor device CHANGE EVERY 14 DAYS active Not Available Not Available No t Available Vitals Date Recorded Body height Body mass index (BMI) Body weight Body temperature Heart rate Respiratory rate Oxygen saturation Oxygen saturation in Arterial blood by Pulse oximetry Systolic blood pressure Diastolic blood pressure Provider Name and Address Organization Details Last Updated DateTime 4 172.72 cm 41.1 kg/m2 988773. 94 g 97.4 [degF] 72 /min 16 /min 96 % 96 % 112 mm[Hg] 74 mm[Hg] Guerita Sinha [place] [facility] 4 14:43:32 Date Recorded Body height Body mass index (BMI) Body weight Body temperature Heart rate Oxygen saturation Oxygen saturation in Arterial blood by Pulse oximetry Systolic blood pressure Diastolic blood pressure Provider Name and Address Organization Details Last Updated DateTime 4 172.72 cm 43.2 kg/m2 561791. 23 g 97.8 [degF] 78 /min 98 % 98 % 118 mm[Hg] 74 mm[Hg] Acacia Blum [facility] [employer] [facility] 4 14:14:08 Date Recorded Pain severity - 0-10 verbal numeric rating [Score] - Reported Provider Name and Address Organization Details Last Updated DateTime 12/18/2023 1 Fouzia Roach RN [facility] I [employer] [facility] 12/18/2023 15:32:36 Date Recorded Body height Body mass index (BMI) Body weight Body temperature Heart rate Oxygen saturation Oxygen saturation in Arterial blood by Pulse oximetry Systolic blood pressure Diastolic blood pressure Provider Name and Address Organization Details Last Updated DateTime 4 172.72 cm 42.3 kg/m2 910556. 68 g 97 [degF] 64 /min 96 % 96 % 130 mm[Hg] 76 mm[Hg] Arianna lombardo IVANIAAruna [facility] [employer] [facility] 4 08:35:32 Date Recorded Body height Body mass index (BMI) Body weight Body temperature Heart rate Oxygen saturation Oxygen saturation in Arterial blood by Pulse oximetry Systolic blood pressure Diastolic blood pressure Provider Name and Address Organization Details Last Updated DateTime 5 172.72 cm 44.4 kg/m2 792353. 97 g 97.6 [degF] 67 /min 95 % 95 % 130 mm[Hg] 66 mm[Hg] Arianna lombardo KIMBERLY [facility] [employer] [facility] 5 14:18:14 Social History Question Answer Notes LastModified by Organization Details LastModified Time Tobacco Smoking Status Never Smoker KIMBERLY Woods [facility] [employer] [facility] 03/12/2023 11:05:44 Do You Have An Advance Directive? No Papers Given 12/18/2023 [email or web address] Information not available 12/18/2023 What Is Your Level Of Alcohol Consumption? None [id number] Information not available 07/24/2022 Are You Blind Or Do You Have Difficulty Seeing? No Cataracts Removed Information not available 03/12/2023 Is Blood Transfusion Acceptable In An Emergency? Yes [email or web address] Information not available 12/18/2023 What Is Your Level Of Caffeine Consumption? Occasional [id number] Information not available 07/24/2022 How Much Tobacco Do You Chew? None [id number] [id number] Information not available 07/24/2022 In The 14 Days Before Symptom Onset, Have You Had Close Contact With A Laboratory-conf irmed COVID-19 While That Case Was Ill? No Information not available 03/12/2023 In The 14 Days Before Symptom Onset, Have You Had Close Contact With A Person Who Is Under Investigation For COVID-19 While That Person Was Ill? No Information not available 03/12/2023 Are You Currently Employed? No [email or web address] Information not available 12/18/2023 Are You Deaf Or Do You Have Serious Difficulty Hearing? No Information not available 03/12/2023 What Type Of Diet Are You Following? REGULAR [id number] [id number] Information not available 07/24/2022 Which Illicit Or Recreational Drugs Have You Used? None Information not available 03/12/2023 Do You Or Have You Ever Used E-cigarettes Or Vape? Never Used Electronic Cigarettes Information not available 03/12/2023 What Is The Highest Grade Or Level Of School You Have Completed Or The Highest Degree You Have Received? [id number] [email or web address] Information not available 12/18/2023 Do You Have An Electrostatic Air Filter? Yes Information not available 03/12/2023 What Is Your Occupation? Retired Information not available 03/12/2023 How Many Days Of Moderate To Strenuous Exercise, Like A Brisk Walk, Did You Do In The Last 7 Days? 0 [email or web address] Information not available 12/18/2023 Have There Been Any Changes To Your Family Or Social Situation? No [email or web address] Information not available 12/18/2023 What Is The Fluoride Status Of Your Home? Fluoridated Information not available 03/12/2023 Are There Any Guns Present In Your Home? No [email or web address] Information not available 12/18/2023 Do You Have A Humidifier? Yes Information not available 03/12/2023 Do You Use Insect Repellent Routinely? No [email or web address] Information not available 12/18/2023 Where [facility] You Live? [facility] Information not available 03/12/2023 Presence Of Domestic Violence No [email or web address] Information not available 10/30/2022 Guns Present In The Home? Yes [email or web address] Information not available 12/18/2023 Are You Able To Care For Yourself? Yes [email or web address] Information not available 10/30/2022 Are You Blind Or Do Yo Have Difficulty Seeing? No [email or web address] Information not available 10/30/2022 Are You Deaf Or Do You Have Serious Difficulty Hearing? No Information not available 10/30/2022 General Stress Level? Moderate Caregiver To Disabled [email or web address] Information not available 10/30/2022 Live Alone Of With Others? With Others Information not available 10/30/2022 Do You Have A Medical Power Of Innovation Manager? No [email or web address] Information not available 12/18/2023 Do You Have Moisture Problems In Your Home? No Information not available 03/12/2023 What Was The Date Of Your Most Recent Tobacco Screening? 12/18/2023 [email or web address] Information not available 12/18/2023 How Many Children Do You Have? 1 [email or web address] Information not available 12/18/2023 Do You Have Any Pets? Yes Information not available 03/12/2023 What Is Your Relationship Status? MIGRATION.030 [id number] Information not available 07/24/2022 Do You Use Your Seat Belt Or Car Seat Routinely? Yes Information not available 03/12/2023 Are You Sexually Active? No [email or web address] Information not available 12/18/2023 Do You Have Smoke And Carbon Monoxide Detectors In Your Home? Yes Information not available 03/12/2023 Are You Passively Exposed To Smoke? No Information not available 03/12/2023 Do You Or Have You Ever Used Smokeless Tobacco? Never Used Smokeless Tobacco MIGRATION.0301 [id number] Information not available 07/24/2022 Are There Any Smokers In Your House? No [email or web address] Information not available 12/18/2023 What Types Of Sporting Activities Do You Participate In? None [email or web address] Information not available 12/18/2023 Do You Feel Stressed (tense, Restless, Nervous, Or Anxious, Or Unable To Sleep At Night)? [id number] Information not available 03/12/2023 Do You Use Any Illicit Or Recreational Drugs? No [email or web address] Information not available 12/18/2023 Do You Use Sunscreen Routinely? No [email or web address] Information not available 12/18/2023 Has Tobacco Cessation Counseling Been Provided? No [email or web address] Information not available 12/18/2023 Have You Recently Traveled Abroad? No Information not available 03/12/2023 Do You Have Any Dietary Restrictions? No [email or web address] Information not available 12/18/2023 Do You Or Have You Ever Used Any Other Forms Of Tobacco Or Nicotine? No [email or web address] Information not available 12/18/2023 Sex: Female Functional Status Question Answer Note LastModified by Organizat ion Details LastModified Time Do you have difficulty walking or climbing stairs? No Information not available 03/12/2023 Do you have transportation difficulties? No Information not available 03/12/2023 Are you able to walk? [email or web address] Information not available 03/12/2023 Do you have difficulty doing errands alone? No Information not available 03/12/2023 Are you able to care for yourself? Yes Information n ot available 03/12/2023 Do you have difficulty dressing or bathing? No Information not available 03/12/2023 What is your exercise level? None [id number] Information not available 07/24/2022 Mental Status Question Answer Note LastModified by Organization D etails LastModified Time Do you have difficulty concentrating, remembering or making decisions? No Information no t available 03/12/2023 Family History Relationship Description Onset Age of this Age Resolved Age Notes LastModified by Organization Details LastModified Time Father Diabetes mellitus [id number] [id number] Not available 07/24/2022 04:31:08 Father Hypertensive disorder MIGRATION.013 [id number] Not available 07/24/2022 04:31:08 Father Myocardial infarction MIGRATION.861 [id number] Not available 07/24/2022 04:31:08 Mother Diabetes mellitus MIGRATION.736 [id number] Not available 07/24/2022 04:31:08 Mother Hypertensive disorder MIGRATION.747 [id number] Not available 07/24/2022 04:31:08 Mother Myocardial infarction MIGRATION.355 [id number] Not available 07/24/2022 04:31:08 Brother Diabetes mellitus MIGRATION.694 [id number] Not available 07/24/2022 04:31:08 Brother Hypertensive disorder MIGRATION.459 [id number] Not available 07/24/2022 04:31:08 Brother Kidney disease MIGRATION.727 [id number] Not available 07/24/2022 04:31:08 Sister Diabetes mellitus MIGRATION.617 [id number] Not available 07/24/2022 04:31:08 Sister Hypertensive disorder MIGRATION.491 [id number] Not available 07/24/2022 04:31:08 Medical History Condition Response EYE PROBLEMS Y OBESITY Y GI PROBLEMS Y KIDNEY STONES Y HEART MURMUR Y DIZZINESS Y ASTHMA Y HEART DISEASE/HEART PROBLEMS Y SKIN PROBLEMS Y CATARACTS Y LUNG DISEASE/DISORDER Y HYPERTENSION Y Gynecological History Statement/Question Response Date of Last Mammogram 08/24/2021 Date of Last Colonoscopy 05/06/2016 Date of Last Mammogram 08/24/2021 Most Recent Bone Density 08/24/2021 Obstetrics History GPAL:G 0 P 0 0 0 0 Immunizations Vaccine Type Date Status Note Provider Nam e and Address Organization Details Recorded Time SARS-COV-2 (COVID-19) vaccine, UNSPECIFIED 1 completed Not Available [facility] 12/18/2022 10:52:25 SARS-COV-2 (COVID-19) vaccine, UNSPECIFIED 1 completed Not Available [facility] 12/18/2022 10:52:25 Influenza, split virus, trivalent, preservative 0 completed Not Available [facility] 12/18/2022 10:52:25 zoster, unspecified formulation 9 completed Not Available [facility] 12/18/2022 10:52:25 zoster, unspecified formulation 8 completed Not Available [facility] 12/18/2022 10:52:25 influenza, unspecified formulation 7 completed Not Available [facility] 12/18/2022 10:52:25 Influenza, high-dose, quadrivalent, PF 0 completed Not Available [facility] 12/18/2022 10:52:25 influenza, unspecified formulation 8 completed Not Available [facility] 12/18/2022 10:52:25 Past Encounters Encounter ID Performer Location Encounter Start Date Encounter Closed Date Diagnosis/Indication Diagnosis SNOMED-CT Code Diagnosis ICD10 Code Diagnosis Note [id number] [facility] [place] [address] [place] [address] 09/29/2020 00:00:00 09/29/2020 16:10:07 [id number] [facility] Internal Med [facility] [address] [facility] [place] [address] 11/08/2020 00:00:00 11/09/2020 09:24:34 [id number] _ATHENA_M IGRATION_ DEFAULT_1 _1 , 03/29/2021 00:00:00 03/29/2021 12:07:02 [id number] [facility] Internal Med [place] [address] [place] [address] 07/04/2021 00:00:00 07/04/2021 17:02:16 [id number] _ATHENA_M IGRATION_ DEFAULT_1 _1 , 10/18/2021 00:00:00 10/18/2021 10:04:28 [id number] [facility] Internal Med [address] [address] 12/05/2021 00:00:00 12/05/2021 16:24:56 [id number] [facility] [place] [address] [place] [address] 03/28/2022 00:00:00 03/28/2022 13:34:13 [id number] [facility] [place] [address] [place] [address] 04/22/2022 00:00:00 04/22/2022 13:49:14 [id number] [facility] Pulmonolo [facility] [place] [address] [place] [address] 05/07/2022 00:00:00 05/07/2022 11:28:08 [id number] [facility] Internal Med [facility] [address] [facility] [place] [address] 06/05/2022 00:00:00 06/05/2022 16:04:01 [id number] Gibran Epperson MD [facility] Internal [address] [facility] [place] [address] 08/12/2022 14:42:00 08/12/2022 15:04:05 Acute bronchitis 61341039 J20.9 alb inhaler qid, otc discussed [id number] Fredo Garcia MD [facility] Pulmonolo gy [place] [address] [facility] [address] [place] [address] 10/02/2022 10:56:59 10/03/2022 08:32:31 Obstructive sleep apnea syndrome 23126711 G47.33 [id number] Kaur Quinones MD [facility] Endo [place] [address] [place] [address] 10/22/2022 09:15:53 10/22/2022 09:38:25 Postmenopausal osteoporosis 828756818 M81.0 Patient tolerated injection without site reaction or pain. She will come back in 6 months for repeat injection. Has a follow up in [id number] Gibran Epperson MD [facility] Internal [facility] [address] [facility] [place] [address] 10/30/2022 10:03:11 10/30/2022 10:53:14 Essential hypertension 41956259 I10 under control Hyperlipidemia 87891409 E78.5 under control Osteoarthritis 620536256 M19.90 otc Depressive disorder 3548 9007 F32.9 under control with meds Atrial fibrillation 4943 6004 I48.91 in sinus Obesity 244191373 E66.9 advised to lose Sleep apnea 29054851 G47 .30 cpap compliant Vitamin D deficiency 347 84254 E55.9 otc Cobalamin deficiency 190 055302 E53.8 shots help Prediabetes 184948397 R7 3.03 seeing endo, watching diet Adult heal th examination 185706470 Z00.00 Colonoscop y- 04/2016Mam mo-08/2021 Dexa- 8280W84 -9838M21-5 021FLU-202 2COVID-04/15,03/07/16, and booster x3 Gastroesop hageal reflux disease 947122609 K21.9 better Steatosis of liver 1007 K76.0 lose weight and watch fat intake Vertigo 649428142 R42 meds help Osteoporosis 66011071 M8 1.0 on prolia Pancreatic insufficiency 38431313 K86.89 on meds Screening mammography 24 726178 Z12.31 Screening for disorder 058174510 Z13.9 Asthma 570807503 J45.90 9 [id number] Luigi Wong NP [facility] Urology [address], [place] [address] 12/09/2022 09:03:56 12/09/2022 10:11:17 Recurrent urinary tract infection 241757302 N39.0 She is on her last day of Macrobid. Will repeat urine culture. Plan to send in low-dose daily cephalexin to start after completing her antibiotic s. Will obtain CT abdomen pelvis without contrast and KUB to assess stone size and burden as these may be contributi ng to her recurrent urinary tract infections as a source. We discussed treatment options of ESWL and ureterosco py. I will call patient with results and schedule appropriat e follow-up. History of calculus of kidney 786495535 Z87.[address]/KUB. [id number] Anup Oliva MD [facility] Urology [address], [address] [address] 01/02/2023 11:07:58 01/02/2023 11:58:49 Kidney stone 84802896 N20.0 Discussed perc vs eswl with stent. She is aware she will probably need procedure to remove fragments after a eswl and will probably will need at least 2 shocks. Procedure risks and alternativ es discussed. [id number] Gibran Epperson MD [facility] Internal [address] [facility] [place] [address] 03/12/2023 11:05:36 03/12/2023 11:53:01 Essential hypertension 29037156 I10 under control Hyperlipidemia 80268956 E78.5 under control Osteoarthritis 613091545 M19.90 otc Depressive disorder 3548 9007 F32.9 under control with meds Atrial fibrillation 4943 6004 I48.91 in sinus Obesity 232866673 E66.9 advised to lose and watch diet Sleep apnea 07380903 G47 .30 cpap compliant Vitamin D deficiency 347 37046 E55.9 otc Cobalamin deficiency 190 396211 E53.8 shots help , gets every 2 weeks Prediabetes 298968337 R7 3.03 seeing endo, watching diet Adult heal th examination 494463014 Z00.00 Colonoscop y- 04/2016Mam mo-10/2022 Dexa- 4793T48 -8985P55-5 021FLU-RSV- 03/07/23CO VID-, 1, and booster x3, 03/07/23 Gastroesop hageal reflux disease 733761595 K21.9 better Steatosis of liver 83241 1007 K76.0 better Vertigo 551411700 R42 meds help , meclizine Osteoporosis 38507652 M8 1.0 on prolia shots Pancreatic insufficiency 92469401 K86.89 on meds Asthma 152577045 J45.90 9 under control [id number] Gibran Epperson MD [facility] Internal Med [place] [address] [facility] [place] [address] 04/09/2023 14:47:28 04/09/2023 15:19:12 Kidney stone 71434614 N20.0 s/p stent Blood in urine 91129867 R31.9 due to kidney stones Anemia 294048961 D64.9 due to hematuria Acute pharyngitis 054513 003 J02.9 viral, otc [id number] Gibran Epperson MD [facility] Internal Med [facility] [address] [place] [address] 08/20/2023 14:15:07 08/20/2023 15:08:48 Essential hypertension 61384277 I10 under control Hyperlipidemia 91459524 E78.5 under control Osteoarthritis 653463280 M19.90 otc Depressive disorder 3548 9007 F32.9 under control with meds Atrial fibrillation 4943 6004 I48.91 in sinus Obesity 678827683 E66.9 advised to lose and watch diet Sleep apnea 53447711 G47 .30 cpap compliant Vitamin D deficiency 347 40675 E55.9 otc Cobalamin deficiency 190 622337 E53.8 shots help , gets every 2 weeks Prediabetes 070725017 R7 3.03 seeing endo, watching diet Gastroesop hageal reflux disease 692223110 K21.9 better Steatosis of liver 1007 K76.0 better Vertigo 370038392 R42 meds help , meclizine Osteoporosis 15616558 M8 1.0 on prolia shots Pancreatic insufficiency 58548377 K86.89 on meds Asthma 655495008 J45.90 9 under control Adult heal th examination 182383695 Z00.00 Colonoscop y- 04/2016Mam mo-10/2022 Dexa- 6552Q94 -6322K80-8 021FLU-RSV- 03/07/23CO VID-, 1, and booster x3, 03/07/23 Hyperparathyroidism 6699 9008 E21.3 Screening mammography 24 157550 Z12.31 Postmenopausal state 764 42657 Z78.0 [id number] Gibran Epperson MD [facility] Internal [facility] [address] [place] [address] 12/18/2023 14:02:42 12/18/2023 15:11:44 Essential hypertension 63793209 I10 under control Hyperlipidemia 05742203 E78.5 under control Osteoarthritis 203266644 M19.90 otc Depressive disorder 3548 9007 F32.9 under control with meds Atrial fibrillation 4943 6004 I48.91 in sinus Obesity 454438093 E66.9 advised to lose and watch diet Sleep apnea 28136789 G47 .30 cpap compliant Vitamin D deficiency 347 72221 E55.9 otc Cobalamin deficiency 190 679775 E53.8 shots help , gets every 2 weeks Prediabetes 716725176 R7 3.03 seeing endo, watching diet Gastroesop hageal reflux disease 273607789 K21.9 better Steatosis of liver 1007 K76.0 better Vertigo 435872566 R42 meds help , meclizine Osteoporosis 21157121 M8 1.0 on prolia shots Pancreatic insufficiency 14304190 K86.89 on meds Asthma 673087481 J45.90 9 under control Adult heal th examination 390383336 Z00.00 Colonoscop y- 04/2016, not dueMammo-0 3Dexa - 2864H61 -8551W30-7 021FLU-RSV- 03/07/23CO VID-, 1, and booster x3, 03/07/23 Hyperparathyroidism 6699 9008 E21.3 seeing endo Screening mammography 24 962986 Z12.31 Adrenal adenoma 11274846 8 D35.00 benign Screening for disorder 417210536 Z13.9 [id number] Gibran Epperson MD [facility] Internal [address] [facility] [place] [address] 02/03/2024 08:25:23 02/03/2024 09:17:01 Backache 775563760 M54.9 otc Chest wall pain 23195800 6 R07.89 otc [id number] Gibran Epperson MD [facility] Internal Med [address] [facility] [place] [address] 06/09/2024 14:02:08 06/09/2024 15:06:12 Essential hypertension 20549856 I10 under control Hyperlipidemia 49636131 E78.5 under control Osteoarthritis 793952022 M19.90 otc Depressive disorder 3548 9007 F32.9 under control with meds Atrial fibrillation 4943 6004 I48.91 in sinus Obesity 903750803 E66.9 advised to lose and watch diet Sleep apnea 96846378 G47 .30 cpap compliant Vitamin D deficiency 347 01495 E55.9 otc Cobalamin deficiency 190 885498 E53.8 shots help , gets every 2 weeks Prediabetes 269343309 R7 3.03 seeing endo, watching diet Gastroesop hageal reflux disease 867102576 K21.9 better Steatosis of liver 39474 1007 K76.0 better Vertigo 344972059 R42 getting worse, falling Osteoporosis 88438888 M8 1.0 on prolia shots Pancreatic insufficiency 43219662 K86.89 on meds Asthma 066285191 J45.90 9 under control Adult heal th examination 114292606 Z00.00 Colonoscop y- 04/2016, not dueMammo-1 exa- 4992A94 -1836W34-9 021FLU-202 4RSV- 03/07/23CO VID-, 1, and booster x3, 03/07/23, 2023 Hyperparathyroidism 6699 9008 E21.3 seeing endo Adrenal adenoma 69639064 8 D35.00 benign Health Concerns Section Related Observation LastModified by Organization Detai ls LastModified Time None Recorded Concern Status LastModified by Organization Details LastModified Time None Recorded Advance Directives Directive N: papers given 12/18/2023 Payers Encounter Date Sequence Insurance Name Policy Number Policy Boggs Covered Member ID Boggs Member ID Guarantor Name 04/09/2023 1 [place] Michelle L Lakia [id number] Michelle L Lakia 04/09/2023 2 () Michelle L Lakia [id number] Michelle L Lakia 08/20/2023 1 [place] L Lakia [id number] Michelle L Lakia 08/20/2023 2 () Michelle L Lakia [id number] Michelle L Lakia 12/18/2023 1 [place] L Lakia [id number] Michelle L Lakia 12/18/2023 2 () Michelle L Lakia [id number] Michelle L Lakia 02/03/2024 1 [place] Michelle L Lakia [id number] Michelle L Lakia 02/03/2024 2 () Michelle L Lakia [id number] Michelle L Lakia 06/09/2024 1 [place] Michelle L Lakia [id number] Michelle L Lakia 06/09/2024 2 () Michelle L Lakia [id number] Michelle Francois Lakia Notes Date Note Type Note Provider Name and Address Organization Details Recorded Time 04/09/2023 text/html Pt is here for E R F/U, due to kidney stones. Pt complains of fatigue since surgery.she had kidney stone with obstruction, had stent, was removed and now has another stent, she is still bleeding in the urine, had very low Hb, was 9.6she was supposed to get blood transfusion but did not get.she is feeling tired she has sore throat, no fever, no cough Gibran Epperson MD [address] [facility], [place], [address], [facility] [employer] 04/09/2023 15:11:53 08/20/2023 text/html Here today for h er routine follow up. Pt feels as if she has oral Thrush from recent abxA FIB- s/o cardioversion, DR Kelly, no palpitationsMeds- Apixaban 5 mg BIDS/p ablation 04/06/19.Sick sinus syndrome-s/p pace maker 12/12, Dizziness has improved ,Last echo- 01/02/2023Meds- Flecainide 100 mg BID, Diltiazem 360 mg dailyHTN- under controlMEDS- Losartan /HCTZ .5Prediabetes - was getting hypoglycemia and did improve while taking Bydureon, but stopped due to not covered by insuranceHyperlipi demia- on meds, watching diet, labs good in 10/15Meds- Atorvastatin 40 mg dailyAnxiety and depression- under control, on meds, mood is stable, sleeping betterMeds- Escitalopram 20 mg dailyAsthma- occ takes inhaler when season changes,Meds- Albuterol inhaler as neededObesity- had bariatric surgery in the past, 2012 ,Vit D def-on otcB12 def- seen endo, on shots, feeling better, labs were done by dr renee.Osteoarthrit is- exercises regularly, not on medsSleep apnea - on cpap, compliantDizziness / vertigo- symptoms better when takes meclizineHad breast reduction surgery 03/21/2018Pancreat ic insufficiency- on creon h/o fatty liver-Osteoporosis - could not tolerate alendronate due to vomiting, was seeing dr Quinones for prolia shots , now Dr Heidi Campbell m- seeing dr at [facility], [employer] [facility] Gibran Epperson MD [address] [facility], [address], [place], [address], [facility] [employer] 08/20/2023 15:09:03 12/18/2023 text/html Here today for 4 mo F/U, compliant Jamarcus FIB- s/o cardioversion, DR Kelly, no palpitationsMeds- Apixaban 5 mg BIDS/p ablation 04/06/19.Sick sinus syndrome-s/p pace maker 12/12, Dizziness has improved ,Last echo- 01/02/2023Meds- Flecainide 100 mg BID, Diltiazem 360 mg dailyHTN- under controlMEDS- Losartan /HCTZ /12.5Prediabetes - has taken bydureon and not any more 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, has Jennifer, being managed by endo, on AcarboseHyperlipid emia- on meds, watching diet,Meds- Atorvastatin 40 mg dailyAnxiety and depression- under control, on meds, mood is stable, sleeping betterMeds- Escitalopram 20 mg dailyAsthma- recent PFT, started on Breztri bid, also Albuterol inhaler as neededObesity- had bariatric surgery in the past, 2012 ,Vit D def-on otcB12 def- seen endo, on shots, feeling better,Osteoarthri tis- exercises regularly, not on medsSleep apnea - on cpap, compliantDizziness / vertigo- symptoms better when takes meclizineHad breast reduction surgery 03/21/2018Pancreat ic insufficiency- on creon h/o fatty liver- improvedOsteoporos is- could not tolerate alendronate due to vomiting, was seeing dr Quinones for prolia shots , now Dr Heidi Campbell m- seeing at [facility], s/p surgery Gibran Epperson MD [address], [address], [place], [address], [facility] [employer] 12/18/2023 17:34:07 02/03/2024 text/html Pt is here today for a fall.She slipped on a rug and fell 5 days ago. Did not go to the ER even though the EMS had to come and get her up. She fell more on her right side bruising her arm and breast. She also hurt her back, states the middle of her upper back hurts. Shoulders are OK. Just concerned about her back.No LOC Gibran Epperson MD [address] [facility], [address], [place], [address], [facility] [employer] 02/03/2024 09:20:38 06/09/2024 text/html Here today for 4 mo F/U, compliant on C/o dizziness ALL THE TIME, Has been going on for about 1 month, dizzy when bends and look upwards. Has nose bleeds, small, freqiently, she does wear a CPAP States she has gained 12 lbs in the last 2 weeks. She has gained 14 lbs since her last OV. Husbands health is declining and she needs to stay as healthy as she can A FIB- s/o cardioversion, DR Kelly, no palpitationsMeds- Apixaban 5 mg BIDS/p ablation 04/06/19.Sick sinus syndrome-s/p pace maker 12/12, Dizziness has improved ,Last echo- 01/02/2023Meds- Flecainide 100 mg BID, Diltiazem 360 mg dailyHTN- under controlMEDS- Losartan /HCTZ 50/12.5Prediabetes - has taken bydureon and not any more 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, has Jennifer, being managed by endo, on AcarboseHyperlipid emia- on meds, watching diet,Meds- Atorvastatin 40 mg dailyAnxiety and depression- under control, on meds, mood is stable, sleeping betterMeds- Escitalopram 20 mg dailyAsthma- recent PFT,on Breztri bid, also Albuterol inhaler as neededObesity- had bariatric surgery in the past, 2012 ,Vit D def-on otcB12 def- seen endo, on shots, feeling better,Osteoarthri tis- exercises regularly, not on medsSleep apnea - on cpap, compliantDizziness / vertigo- symptoms better when takes meclizineHad breast reduction surgery 03/21/2018Pancreat ic insufficiency- on creon h/o fatty liver- improvedOsteoporos is- could not tolerate alendronate due to vomiting, was seeing dr Quinones for prolia shots , now Dr Heidi Servin- seeing lola, using Jennifer, [facility] [place] [facility] at [facility], s/p surgery Gibran Epperson MD [address] [facility] [facility] [address], [place], [address], [place] [facility] 06/09/2024 15:02:44 OBGyn Episode No OBEpisode recorded.
--- OUTSIDE RECORDS SUMMARY | 2024-06-29 13:37 | XMS_ITS | Referral Summary ---
Author Organization [facility] Address [address] [place] [address] Care Team Providers Care Advanced Practice Nurse Psychotherapist Name Role Phone Gibran Epperson MD Primary Care Provider [phone] Calvin Whitney MD Unavailable [phone] Allergies Active Allergy Reactions Criticality Noted Date Comments Codeine Dizziness Low 02/26/2019 Meperidine Dizziness Low 02/26/2019 Morphine Unknown 03/09/2019 Kluybhsjv-Zqzrcb-Nlprmpft-Scop Unknown 03/09 Prednisone Rash Medium 02/26/2019 Medications calcium carbonate/vitam in D3 (CALTRATE 600 PLUS D ORAL) Caltrate 600 plus D 2 a day Active diltiazem (TIAZAC) 360 mg 24 hr capsule daily Active cyanocobalamin, vitamin B-12, 1,000 mcg/mL kit vitamin A28-ddkswdk B1 1,000 mcg-100 mg/mL injection solution Take [...] 02/07/2015 ZOSTER Recombinant 08/02/2018 Zoster, unspecified 08/02/2018,02/17/2018 Social History Tobacco Use Types Packs/Day Years Used Date Smoking Tobacco: Never Smokeless Tobacco: Never Personal Safety Answer Date Recorded Getting School Help Needed Not on file 08/08 Comments No Sex and Gender Information Value Date Recorded Sex Assigned at Not on file Legal 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 Gender Identity Not on file Sexual Orientation Not on file Last Filed Vital Signs Vital Sign Reading Time Taken Comments Blood Pressure 128/74 02/07/2020 9:55 AM CDT Pulse 72 02/07/2020 9:55 AM CDT Temperature 36.6 ??C (97.9 ??F) 05/03/2019 10:[address] Respiratory Rate 20 07/26/2019 9:18 AM 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 [address] MEDICARE [facility] [address] Care Teams Advanced Practice Nurse Psychotherapist Relationship Specialty Start Date End Date Gibran Epperson MD PCP - General Internal Medicine 02/02/19 [place] [id number] [address] Consulting Physician Cardiology 04/07/19
--- OUTSIDE RECORDS SUMMARY | 2024-06-29 13:37 | XMS_ITS | Clinical Summary ---
Author Organization [facility] Address [address] [address] Phone Care Team Providers Care Rapid Extractor Operator Name Role Phone Unavailable Primary Care Provider Unavailabl e Medications denosumab (Prolia) 60 mg/mL Syringe Inject 1 syringe (60 mg) under the skin every 6 months 1 mL 1 04/04/2022 3:59 PM [place] MILL OPERATOR 2 Active denosumab (Prolia) 60 mg/mL Syringe Inject 1 mL (60 mg) subcutaneously every 6 months 1 mL 1 09/26/2022 3:56 PM CDT 3 Active Encounters Date Type Department Care Team Description 06/17/2024 External Device Data [facility] ABSTRACTION Provider, Abstract 06/16/2024 External Device Data [facility]STRACTION Provider, Abstract 06/15/2024 External Device Data [facility] Provider, Abstract 06/08/2024 External Device Data [facility]STRACTION Provider, Abstract from Last 3 Months Social History Tobacco Use Types Packs/Day Years Used Date Smoking Tobacco: Never Assessed Comments Unknown Sex and Gender Information Value Date Recorded Sex Assigned at Not on file Legal Sex Female 11:28 AM CDT Gender Identity Not on file Sexual Orientation Not on file Plan of Treatment Health Maintenance Due Date Last Done Comments DTAP/TDAP/TD VACCINES (1 - Tdap) 1972 BREAST CANCER SCREENING 1993 COLORECTAL SCREENING 1998 Colorectal Cancer Screening 1998 FIT-DNA Q 3 years 1998 FIT/FOBT Q 1 year 1998 Flex Sig/CT Colonography Q 5 years 1998 PNEUMOCOCCAL VACCINE 65+ YEARS (1 of 1 - PCV) 10/02/19 04 ZOSTER VACCINE (1 of 2) 10/02/2003 OSTEOPOROSIS SCREENING 2018 INFLUENZA VACCINE (#1) 2023 RSV VACCINE (60+ or ) (1 - 1-dose 75+ series) 2028 Insurance RX [employer] Member Subscriber Plan / Payer (Ef fective for All Dates) Name:Dorie Dorman Relation to Subscriber:Self Name:Dorie Dorman Payer ID:Not on file Group ID:Not on file Type:RX Commercial Address: [address]
--- OUTSIDE RECORDS SUMMARY | 2024-06-29 13:37 | XMS_ITS | Continuity of Care Document ---
Author Organization [facility] Address [address] [place] [address] Phone Care Team Providers Care Cook House Supervisor Name Role Phone Eliseo Barnes Unavailable Unavailable Procedures Procedure Date Office/outpatient Visit, Est Office/outpatient Visit, Est Office/outpatient Visit, Est Office/outpatient Visit, Est Eye Exam Established Pt Advance Directives Directive Yes / No Effective Date File Name No Information Encounters Encounter Description Practice Location Reason(s) For Visit Diagnoses Date Provider Providers Copied on Encounter Office/outpat ient Visit, [facility], [id number] [place] [address] [address], [place], [place], [id number], [place] tel:[phone] [facility] No Information 0-200 9 Krishnasamy Eliseo. [facility] [address], [facility], [place]. tel:[phone] Office/outpat ient Visit, [facility], [address] [place] [address] [address], [place], [place], [id number], [place] tel:[phone] [facility] No Information 9-200 9 Krishnasamy Eliseo. [address] [facility] [address], [place], [place], [facility], [place]. tel:[phone] Office/outpat ient Visit, [facility], [address] [place] [address] [address], [place], [place], [id number], [place] tel:[phone] [facility] No Information Sep-2 2-200 9 Krishnasamy Elsieo. [address], [facility], . tel:[phone] Office/outpat ient Visit, Est [facility], [address], [place], [place], [id number], [place] tel:[phone] [facility] No Information Sep-1 5-200 9 Krishnasamy Eliseo. [address], [facility], [place]. tel:[phone] [facility], [address], [place], [place], [id number], [place] tel:[phone] [facility] No Information Sep-0 8-200 9 Krishnasamy Eliseo. [facility] [address], [facility], [place]. tel:[phone] Family History Family Member Type Diagnosis Age At Onset No Information Payers Payer name Insurance type Covered alliance party ID Authoriza tion(s) No Information Social [...]
--- OUTSIDE RECORDS SUMMARY | 2024-06-29 13:37 | XMS_ITS | Continuity of Care Document ---
Author Name [facility] Organization [facility] Care Team Providers Care Dust Mill Operator Name Role Phone [facility] Unavailable Unavailable Problems Combined list of problems from Department of Defense and Veterans [facility] facilities. It does not include entries that were removed or entered in error. Problem Status Onset Date Problem Type Date of Resolution Comments Source Diagnosis: ICD-10-CM Z74.1 Need for assistance with personal care Active Diagnosis [facility] Diagnosis: ICD-10-CM Z63.6 Dependent relative needing care at home Active Diagnosis [facility] Immunizations Combined list of available immunizations from the Department of [facility] and [facility] facilities. Immunization Series Date Given Administered By Site Reaction Lot Number CVX Code Drug Applications Programmer Status Comments Source COVID-19 (Tapit), MRNA, LNP-S, PF, 30 MCG/0.3 ML DOSE, CECILIA-SUCROSE (AGES 12+ YEARS) 4 2021 217 complet ed PFR; [id number]; 2 [facility] N Encounters Combined list of: 1) Encounters from Department of Veterans [facility] facilities going back up to thelast 18 months. 2) Encounters from the Department of [facility] facilities going back up to 280 months. Location Location Details Encounter Type Encounter Number Reason For Visit Attending Provider ADM Date DC Date Status Disposition Source [facility] Outpatient Encounter [id number] 03/12 [facility] CASE MANAGEMENT [id number] Diagnos is: ICD-10- CM Z63.6 Depende nt relativ e needing care at home
SABA XAVIER 03/24 [facility] Outpatient Encounter [id number] 07/21 [facility] CASE MANAGEMENT [id number] Diagnos is: ICD-10- CM Z74.1 Need for assista nce with persona l care
PINA RUELAS 07/28 [facility] Outpatient Encounter [id number] 12/02 [facility] PROGRAM INTAKE ASSESSMENT [id number] Diagnos is: ICD-10- CM Z74.1 Need for assista nce with persona l care
PINA RUELAS 12/03 [facility] Outpatient Encounter [id number] 02/23 [facility] PROGRAM INTAKE ASSESSMENT [id number] Diagnos is: ICD-10- CM Z74.1 Need for assista nce with persona l care
PINA RUELAS 03/03 [facility]
--- OUTSIDE RECORDS SUMMARY | 2024-06-29 13:37 | XMS_ITS | Referral Summary ---
Author Organization [facility] Address [address] [facility] [place] [address] Care Team Providers Care Surfacer Name Role Phone Gibran Epperson MD Primary Care Provider [phone] Source Comments [facility],non-owned Affiliates and Associated Physician Practices is amultiple site organization consisting of ambulatory clinics and hospital sitesin [place], [place], [place] and [place]. This disclosure is being madepursuant to the Care Everywhere program and may not contain all information available regarding this patient. Last updated 18.[facility] Allergies Active Allergy Reactions Criticality Noted Date Comments Alendronic Acid Vomiting 09/24/2023 Meperidine Dizziness 02/26/2019 Rash Medium 09/24/2023 Belladonna Alk-Phenobarbital Rash Medium 019 Morphine Headache,Unknown High 03/24/2015 Codeine Dizziness 02/26/2019 Dd-Rhmiai-Xgducwbs-Scopolamine Unknown 03/09 Prednisone Rash Medium 02/26/2019 Spironolactone Urticaria,Vomiting High 09/08/2020 Medications * Be aware that medications may not be up to date on this document. Alwaysverify current medications with the patient. Medication Sig Dispensed Refills Start Date End Date Status albuterol HFA (Proventil; Ventolin; Proair) 108 (90 Base) MCG/ACT inhaler Inhale 2 puffs every 4 hours by inhalation route as needed. 3 Active alendronate (Fosamax) 70 MG tablet alendronate 70 mg tablet Active atorvastatin (Lipitor) 40 MG tablet Take 1 (one) tablet by mouth once daily Active B Complex Vitamins (Vitamin B-Complex 100) INJ B Complex 100 259-7-064-2-2 mg/mL solution Active Cyanocobalamin (B-12 Compliance Injection) 1000 MCG/ML vitamin F69-rqdxffj B1 1,000 mcg-100 mg/mL injection solution Take by injection route. 3 Active denosumab (Prolia) 60 MG/ML SC injection inject 60 mg every 6 months 2 Active dilTIAZem coated beads 24hr (Cardizem CD) 360 MG capsule Active escitalopram (Lexapro) 20 MG tablet Take 1 tablet every day by oral route. 3 Active flecainide (Tambocor) 100 MG tablet Take 1 (one) tablet by mouth 2 times daily Active losartan - hydroCHLOROthiazide (Hyzaar) 50-12.5 MG tablet TAKE 1 TABLET BY MOUTH ONCE EVERY MORNING Active magnesium oxide (Mag-Ox) 400 MG tablet magnesium oxide 400 mg (241.3 mg magnesium) tablet TAKE ONE T PO BID Active meclizine (Antivert) 25 MG tablet Take 1 (one) tablet by mouth every 8 hours as needed 3 Active omeprazole (PriLOSEC) 40 MG capsule TAKE 1 CAPSULE BY MOUTH EVERY DAY prn Active pancrelipase (Creon) 49339-519980 units capsule take up to 8 capsules daily with meals Active acetaminophen (Tylenol) 325 MG tablet Take 2 (two) tablets by mouth every 6 hours as needed Maximum allowable Acetaminophen amount = 4 Grams (4000 mg) / 24 hours. 4 Active Eliquis 5 MG tablet Take 1 (one) tablet by mouth 2 times daily 4 Active oxyCODONE, immediate release, (Roxicodone) 5 MG tabletIndications:Hyper parathyroidism, unspecified (HCC) TAKE ONE TABLET BY MOUTH EVERY 6 HOURS NEEDED 12 tablet 4 Active Additional Information Patient not taking.Reported on 09/24/2023 docusate sodium (Colace) 100 MG capsule TAKE ONE CAPSULE BY MOUTH ONCE DAILY NEEDED FOR CONSTIPATION (WHEN TAKING OXYCODONE) 30 capsule 4 09/17/19 25 Active Active Problems Problem Noted Date Diagnosed Date Hyperparathyroidism 09/16/2023 Immunizations Name Administration Dates Next Due INFLUENZA VACCINE, TRIV. (AF LURIA FLUZONE TRIVALENT; 6MO+) (IIV3) 02/03/2020 Covid Contestomatik primary monoval ent 12+ yr 0.3mL Purple cap 08/14/2020,07/06/2020 INFLUENZA S0G5-14, HISTORIC VACCINE 01/30/2020 INFLUENZA VACCINE 02/17/2018,03/25/2017 INFLUENZA VACCINE, HIGH-DOSE , QUADR. (FLUZONE HIGH-DOSE QUADRIVALENT; 65Y+), 0.7 ML (HD-IIV4) 02/26/2019 Pneumococcal Pcv13 Conj 03/25/2015 ZOSTER HISTORIC VACCINE 08/02/2018,02/17/2018 ZOSTER VACCINE, LIVE 02/07/2015 Zoster Hzv Vacc Recombinant Inj Im 08/02/2018 Social History Tobacco Use Types Packs/Day Years [...] Mass Index 41.51 09/24/2023 11:00 AM CDT Plan of Treatment Not on file Procedures Procedure Name Priority Date/Time Associated Diagnosis Comments BASIC METABOLIC PANEL (CALCIUM TOTAL) AM Draw 09/17/2023 1:16 AM CDT Hyperparathyroidism (HCC) from Last 3 Months or Most Recently Relevant to Health Maintenance Results * (ABNORMAL) BASIC METABOLIC PANEL (CALCIUM TOTAL) (09/17/2023 1:16 AM CDT) BUN 17 7 - 26 mg/dL 09/17/2023 2:44 AM [facility] Creatinine 0.72 0.56 - 0.96 mg/dL 09/17/2023 2:44 AM [facility] Sodium 142 136 - 145 mmol/L 09/17/2023 2:44 AM [facility] Potassium 3.9 3.5 - 4.5 mmol/L 09/17/2023 2:44 AM [facility] Chloride 109(H) 98 - 107 mmol/L 09/17/2023 2:44 AM [facility] CO2 26 22 - 29 mmol/L 09/17/2023 2:44 AM [facility] Glucose 82 70 - 115 mg/dL 09/17/2023 2:44 AM [facility] Calcium 8.1(L) 8.4 - 10.2 mg/dL 09/17/2023 2:44 AM [facility] Anion Gap 7 6 - 16 09/17/2023 2:44 AM [facility] BUN/Creatinine Ratio 24(H) 7 - 23 09/17/2023 2:44 AM [facility] Osmolality Calculated 295 275 - 295 mOsm/kg 09/17/2023 2:44 AM [facility] eGFR by CKD-EPI 90 >=90 mL/min/1.7 3 m2 09/17/2023 2:44 AM [facility] Blood BLOOD SPECIMEN / Unknown Lab Venipuncture / Unknown 09/17/2023 1:16 AM CDT 09/17/2023 1:46 AM CDT Bhavesh Gastelum MD LAB - CHEMISTRY PREMA LI [facility] Organization Address City/State/ZIP Co de Phone Number [facility] [address] [address], [facility] [phone] from Last 3 Months or Most Recently Relevant to Health Maintenance Advance Directives * Full Code (Latest Code Status on File) Date Activated Date Inactivated Comments 09/16/2023 4:52 PM 09/17/2023 1:58 PM Care Teams Surfacer Relationship Specialty Start Date End Date Gibran Epperson MD [address] [facility] [address] [place] [address] PCP - General Internal Medicine 08/20/23
--- OUTSIDE RECORDS SUMMARY | 2024-06-29 13:37 | XMS_ITS | CONTINUITY OF CARE DOCUMENT ---
Author Name michael rodriguez Address Unknown Organization [facility] Address [address] [place] [address] Phone [phone] Care Team Providers Care Transport Medic Name Role Phone Chelo BIRD, Calvin Unavailable Gibran Epperson MD Unavailable [phone] Gibran Epperson MD Unavailable PROBLEMS Condition Status Date Provider Notes Mitral regurgitation, mild active Calvin francois MD Kidney stone active Calvin Whitney MD Polyuria active Arnie Scanlon RN S/P Dual chamb PCM - Biotron ik ( MRI safe) active Susanna Stoner Bradycardia sinus active Calvin Whitney MD Dyslipidemia active Calvin Whitney MD Chest pain active Emiliano Smith PVC's active Grady Whelan Carotid bruit, bilateral active Mehran gomez SARS-associated coronavirus positive 01/2020 active Leonardo Del Valle Cellulitis at pacemaker incision site active Leonardo Del Valle Cardiology examination active Leonardo Del Valle Sick sinus syndrome active Grady Whelan Shortness of breath active Emiliano Smith Epistaxis active Ashok Cervantes Dizziness active Ashok Cervantes Abnormal pulmonary function tests active Calvin Whitney MD Obesity active Calvin Whitney MD Current use of NOAC active Calvin uribe MD Sleep apnea, obstructive - o n CPAP active Calvin Whitney MD Anxiety disorder generalized active Calvin Whitney MD Abnormal electrocardiogram completed 03/29 - Calvin Whitney MD Previous long-term use of amiodarone active Calvin Whitney MD Hypertension active Calvin Whitney MD Atrial fibrillation active Calvin uribe MD ENCOUNTERS Date Type Provider Location Encounter Diag nosis 9 - 9 In-person encounter Office Visit Calvin Whitney MD [facility] 1 - 1 In-person encounter Office Visit Calvin Whitney MD [facility] 7 - 7 In-person encounter Office Visit Calvin Whitney MD [facility] 1 - 1 In-person encounter Office Visit Calvin Whitney MD [facility] Carotid bruit, bilateral 1 - 5 In-person encounter Office Visit Calvin Whitney MD [facility] 2 - 2 In-person encounter Office Visit Calvin Whitney MD [facility] 6 - 6 In-person encounter Office Visit Calvin Whitney MD [facility] 2 - 2 In-person encounter Office Visit Calvin Whitney MD [facility] Cardiology examination 2 - 2 In-person encounter Office Visit Calvin Whitney MD [facility] SARS-associated coronavirus positive 01/2020 8 - 8 In-person encounter Office Visit Calvin Whitney MD [facility] Cellulitis at pacemaker incision site 4 - 8 In-person encounter Office Visit Calvin Whitney MD [facility] 7 - 0 In-person encounter Office Visit Calvin Whitney MD [facility] 4 - 5 In-person encounter Office Visit Calvin Whitney MD [facility] Sick sinus syndrome 4 - 4 In-person encounter Office Visit Calvin Whitney MD [facility] 2 - 2 In-person encounter Office Visit Calvin Whitney MD [facility] 4 - 7 In-person encounter Office Visit Calvin Whitney MD [facility] PVC's 6 - 6 In-person encounter Office Visit Calvin Whitney MD [facility] Shortness of breathChest pain 8 - 8 In-person encounter Office Visit Calvin Whitney MD [facility] 5 - 5 In-person encounter Office Visit Calvin Whitney MD [facility] DizzinessEpistaxis 8 - 9 In-person encounter Office Visit Calvin Whitney MD [facility] 3 - 8 In-person encounter Office Visit Calvin Whitney MD [facility] 5 - 5 In-person encounter Office Visit Calvin Whitney MD [facility] 0 - 6 In-person encounter Office Visit Calvin Whitney MD [facility] Previous long-term use of amiodaroneSleep apnea, obstructive - on CPAPCurrent use of NOACObesityAbnormal pulmonary function tests 9 - 9 In-person encounter Office Visit Calvin Whitney MD [facility] Current use of NOAC 8 - 1 In-person encounter Office Visit Calvin Whitney MD [facility] Atrial fibrillationPrevious long-term use of amiodaroneAbnormal electrocardiogramDyslipidemiaSleep apnea, obstructive - on CPAP 0 - 5 In-person encounter Office Visit Calvin Whitney MD [facility] Previous long-term use of amiodaroneBradycardia sinus 0 - 3 In-person encounter Office Visit Calvin Whitney MD [facility] Anxiety disorder generalized 0 - 0 In-person encounter Office Visit Calvin Whitney MD [facility] Atrial fibrillationHypertension VITAL SIGNS Date Observation Value Provider Body Mass Index (Ratio) 43.03 kg/m2 Guillermo as John blood pressure, diastolic 66 mm[Hg] [facility] blood pressure, systolic 118 mm[Hg] [facility] pulse rate 72 /min [facility] y blood pressure, cuff size large [facility] weight E&M 283 [lb_av] [facility] y oxygen saturation, oximetry 96 % [facility] respiratory rate E&M 16 /min [facility] height E&M 68 [in_i] [facility] y Body Mass Index (Ratio) 40.14 kg/m2 Guillermo as [place] blood pressure, diastolic 73 mm[Hg] Li nkLogic blood pressure, systolic 106 mm[Hg] Peggy kLog pulse rate 73 /min [facility] blood pressure, cuff size regular [facility] blood pressure, diastolic 73 mm[Hg] [facility] blood pressure, systolic 106 mm[Hg] [facility], oximetry 94 % Verónica Renteria respiratory rate E&M 16 /min Verónica Davila iller weight E&M 264 [lb_av] Verónica Renteria height E&M 68 [in_i] Verónica Renteria Body Mass Index (Ratio) 40.59 kg/m2 Gustavo Ahmedzai blood pressure, cuff size large Ke rri Gruenenfelder blood pressure, diastolic 76 mm[Hg] Ke rri Gruenenfelder blood pressure, systolic 124 mm[Hg] Ker ri Gruenenfelder oxygen saturation, oximetry 95 % Leslye Gruenenfelder respiratory rate E&M 12 /min Leslye G ruenenfelder pulse rate 95 /min Leslye Gruenenfe lder weight E&M 267 [lb_av] Leslye Gruenenfe lder height E&M 68 [in_i] Leslye Gruenenfe er Body Mass Index (Ratio) 41.66 kg/m2 Ramesh e Gruenenfelder blood pressure, diastolic 80 mm[Hg] Li nkLogic blood pressure, systolic 46 mm[Hg] Peggy kLogic blood pressure, cuff size regular Ke rri Gruenenfelder blood pressure, diastolic 80 mm[Hg] Ke rri Gruenenfelder blood pressure, systolic 46 mm[Hg] Ker ri Gruenenfelder oxygen saturation, oximetry 96 % Leslye Gruenenfelder respiratory rate E&M 12 /min Leslye G ruenenfelder pulse rate 72 /min Leslye Gruenenfe lder weight E&M 274 [lb_av] Leslye Gruenenfe lder height E&M 68 [in_i] Leslye Gruenenfe lder Body Mass Index (Ratio) 43.03 kg/m2 Gustavo Ahmedzai blood pressure, cuff size large Ke rri Gruenenfelder blood pressure, diastolic 80 mm[Hg] Christofer Wilsonuenenfelder blood pressure, systolic 110 mm[Hg] Alyson Barberelder oxygen saturation, oximetry 94 % Leslye Barberelder respiratory rate E&M 16 /min Leslye Paul ruenenfelder pulse rate 80 /min Leslye Barbere lder weight E&M 283 [lb_av] Leslye Grjmnenfe lder height E&M 68 [in_i] Leslye Mazariegosnenfe lder blood pressure, diastolic 80 mm[Hg] Rosalie nkLogic blood pressure, systolic 124 mm[Hg] Peggy kLogic Body Mass Index (Ratio) 45.06 kg/m2 Taew on blood pressure, diastolic 80 mm[Hg] Issa Mcdonald Joya blood pressure, systolic 124 mm[Hg] Katina Joya oxygen saturation, oximetry 94 % EsdrasRosalva Banuelosenson respiratory rate E&M 16 /min Arthur maryjo Joya pulse rate 86 /min Esdras Long anthony weight E&M 296.4 [lb_av] Esdras Vin on height E&M 68 [in_i] Esdras Long anneon pulse rate 70 /min Taewon Eligio blood pressure, diastolic 65 mm[Hg] Ta ewon Eligio blood pressure, systolic 130 mm[Hg] Tae won Eligio Body Mass Index (Ratio) 42.27 kg/m2 Taew on Eligio blood pressure, diastolic 76 mm[Hg] Cy jaiden Masters blood pressure, systolic 149 mm[Hg] Delmy martha Masters blood pressure, cuff size regular Cy jaiden Masters pulse rate 74 /min Nerissa rodriguez respiratory rate E&M 18 /min Nerissa Masters oxygen saturation, oximetry 96 % Nerissa Masters weight E&M 278 [lb_av] Nerissa rodriguez height E&M 68 [in_i] Nerissa rodriguez Body Mass Index (Ratio) 43.79 kg/m2 Taew on Eligio blood pressure, diastolic 80 mm[Hg] Cy jaiden Masters blood pressure, systolic 124 mm[Hg] Delmy martha Masters blood pressure, cuff size regular Cy jaiden Masters respiratory rate E&M 16 /min Nerissa Masters pulse rate 66 /min Nerissa rodriguez oxygen saturation, oximetry 95 % Nerissa Masters weight E&M 288 [lb_av] Nerissa rodriguez height E&M 68 [in_i] Nerissa rodriguez Body Mass Index (Ratio) 44.24 kg/m2 Taew on Eligio respiratory rate E&M 18 /min Bekaha Cardoso pulse rate 110 /min Tonsha Cardoso oxygen saturation, oximetry 96 % Tonsha Cardoso blood pressure, diastolic 42 mm[Hg] To nsha Cardoso blood pressure, systolic 103 mm[Hg] Ton [facility] weight E&M 291 [lb_av] Tonsha Cardoso height E&M 68 [in_i] Tonsha Cardoso Body Mass Index (Ratio) 43.79 kg/m2 Jord en Tip blood pressure, cuff size regular Kr isty Clarkston blood pressure, diastolic 80 mm[Hg] Kr isty [place] blood pressure, systolic 130 mm[Hg] Kri sty Maurilio respiratory rate E&M 18 /min Jessica [place] pulse rate 56 /min Jessica [place] oxygen saturation, oximetry 96 % Jessica Maurilio weight E&M 288 [lb_av] Jessica Thorpe height E&M 68 [in_i] Jessica Thorpe Body Mass Index (Ratio) 43.27 kg/m2 Jord maryjo [place]helan blood pressure, diastolic 80 mm[Hg] Issa Joya blood pressure, systolic 131 mm[Hg] Katina Joya oxygen saturation, oximetry 97 % Esdras Joya respiratory rate E&M 20 /min Arthur Joya pulse rate 67 /min Esdras cruz weight E&M 284.6 [lb_av] Esdras mathuron height E&M 68 [in_i] Esdras rodríguezon Body Mass Index (Ratio) 43.33 kg/m2 Jord maryjo Tip blood pressure, cuff size regular Cy lucicarol Masters blood pressure, diastolic 70 mm[Hg] Cy lucicarol Masters blood pressure, systolic 120 mm[Hg] Delmy martha Masters oxygen saturation, oximetry 95 % Nerissa Masters respiratory rate E&M 18 /min Nerissa Masters pulse rate 63 /min Nerissa Medina l weight E&M 285 [lb_av] Nerissa Campbel l height E&M 68 [in_i] Nerissa Campbel l Body Mass Index (Ratio) 42.72 kg/m2 Enoch Smith blood pressure, cuff size large Cr nakita Abreu blood pressure, diastolic 80 mm[Hg] Cr nakita Abreu blood pressure, systolic 110 mm[Hg] Cry jan Abreu oxygen saturation, oximetry 96 % Marie Abreu respiratory rate E&M 17 /min Marie Abreu pulse rate 65 /min Marie uribe weight E&M 281 [lb_av] Marie uribe height E&M 68 [in_i] Marie Aleman s Body Mass Index (Ratio) 41.05 kg/m2 Rogerio payton Helen blood pressure, cuff size regular Ke rri Gruenenfelder blood pressure, diastolic 70 mm[Hg] Ke rri Gruenenfelder blood pressure, systolic 110 mm[Hg] Ker ri Gruenenfelder oxygen saturation, oximetry 96 % Leslye Gruenenfelder respiratory rate E&M 18 /min Leslye G ruenenfelder pulse rate 66 /min Leslye Gruenenfe lder weight E&M 270 [lb_av] Leslye Gruenenfe lder height E&M 68 [in_i] Leslye Gruenenfe lder Body Mass Index (Ratio) 41.05 kg/m2 Rogerio payton Helen blood pressure, cuff size large Ke rri Gruenenfelder blood pressure, diastolic 80 mm[Hg] Ke rri Gruenenfelder blood pressure, systolic 110 mm[Hg] Ker ri Gruenenfelder oxygen saturation, oximetry 98 % Leslye Gruenenfelder respiratory rate E&M 20 /min Leslye G ruenenfelder pulse rate 66 /min Leslye Gruenenfe lder weight E&M 270 [lb_av] Leslye Gruenenfe lder height E&M 68 [in_i] Leslye Gruenenfe lder Body Mass Index (Ratio) 40.29 kg/m2 David Whitney MD blood pressure, diastolic 67 mm[Hg] Ke rri Gruenenfelder blood pressure, systolic 131 mm[Hg] Ker ri Gruenenfelder blood pressure, cuff size regular Ke rri Gruenenfelder oxygen saturation, oximetry 97 % Leslye Howlel respiratory rate E&M 20 /min Leslye cumminsfrannyrosibel pulse rate 67 /min Leslye Ferrell [facility] weight E&M 265 [lb_av] Leslye Ferrell [facility] height E&M 68 [in_i] Leslye Ferrell [facility] Body Mass Index (Ratio) 40.14 kg/m2 Victorino meандрей Alfredo blood pressure, diastolic 70 mm[Hg] [facility], systolic 130 mm[Hg] Rosa andujar Gonzales oxygen saturation, oximetry 94 % [facility] respiratory rate E&M 16 /min [facility] pulse rate 59 /min [facility] E&M 264 [lb_av] [facility] height E&M 68 [in_i] [facility] Body Mass Index (Ratio) 40.90 kg/m2 David Whitney MD blood pressure, cuff size regular Henna Bardales blood pressure, diastolic 80 mm[Hg] Henna Bardales blood pressure, systolic 110 mm[Hg] Leonor Bardales oxygen saturation, oximetry 98 % Ramya Bardales respiratory rate E&M 16 /min Ramya Bardales pulse rate 59 /min Ramya Bardales weight E&M 269 [lb_av] Ramya Bardales height E&M 68 [in_i] Ramya Bardales Body Mass Index (Ratio) 42.27 kg/m2 Tip Church weight E&M 278 [lb_av] Trevon patel blood pressure, resting Yes Tip Church blood pressure, diastolic 85 mm[Hg] Christofer Howell blood pressure, systolic 126 mm[Hg] Alyson ri Delilahnewinterer blood pressure, cuff size large Ke capricei Delilahnewinterer oxygen saturation, oximetry 95 % Leslye Delilahnechelsielder respiratory rate E&M 16 /min Leslye G ruenenfelder pulse rate 58 /min Leslye Ferrell er height E&M 68 [in_i] Leslye Elisabethe er Body Mass Index (Ratio) 41.50 kg/m2 Tip [facility] blood pressure, resting No David Whitney MD blood pressure, cuff size regular Ke rri Lynda blood pressure, diastolic 89 mm[Hg] Ke rri Lynda blood pressure, systolic 141 mm[Hg] Alyson Howell oxygen saturation, oximetry 96 % Leslye Carrascoer respiratory rate E&M 16 /min Leslye Humberto cumminseldrosibel pulse rate 64 /min Leslye Ferrell er weight E&M 273 [lb_av] Leslye Ferrell er height E&M 68 [in_i] Leslye Ferrell er Body Mass Index (Ratio) 41.14 kg/m2 Tip Church blood pressure, diastolic 70 mm[Hg] Issa Joya blood pressure, systolic 106 mm[Hg] Katina Joya oxygen saturation, oximetry 92 % Esdras Joya respiratory rate E&M 18 /min Arthur Joya pulse rate 102 /min Esdras cruz weight E&M 270.6 [lb_av] Esdras mora height E&M 68 [in_i] Esdras cruz blood pressure, diastolic 81 mm[Hg] Me carr Sin blood pressure, systolic 139 mm[Hg] Amber Sin pulse rate 58 /min Maria Antonia Sin oxygen saturation, oximetry 97 % Maria Antonia Sin respiratory rate E&M 16 /min Maria Antonia Sin Body Mass Index (Ratio) 41.05 kg/m2 Lakisha venegas Sin weight E&M 270 [lb_av] Maria Antonia Sin blood pressure, diastolic 83 mm[Hg] Ke rri Delilahjvmarkel blood pressure, systolic 137 mm[Hg] Alyson ri Lynda pulse rate 62 /min Leslye Ghassan er oxygen saturation, oximetry 96 % Leslye Lynda respiratory rate E&M 16 /min Leslye G beverly Body Mass Index (Ratio) 40.59 kg/m2 Snowden i Lynda weight E&M 267 [lb_av] Leslye Ghassan lder blood pressure, diastolic 94 mm[Hg] Issa Joya blood pressure, systolic 149 mm[Hg] Katina Joya pulse rate 61 /min Esdras cruz oxygen saturation, oximetry 97 % Esdras Joya respiratory rate E&M 18 /min Arthur Joya Body Mass Index (Ratio) 40.87 kg/m2 Amanda Joya weight E&M 268.8 [lb_av] Esdras mora height E&M 68 [in_i] Esdras cruz ALLERGIES Allergy Name Onset Date Reaction Criticality Status SPIRONOLACTONE hives hives High Criticality act sae PREDNISONE rash rash Low Criticality active DEMEROL Low Criticality active MORPHINE Low Criticality active CODEINE Low Criticality active DONITAL Low Criticality active RESULTS Date Observation Value Provider Reference Range Interpretation Location bacteria, urine microscopy Few LinkLogic None seen/Few hyaline casts, urine None seen LinkLogic None seen epithelial cells, urine 0-10 LinkLogic 0 - 10 RBC, Urine 0-2 /hpf LinkLogic 0 - 2 WBC urine on microscopy 11-30 /hpf LinkLogic 0 - 5 Abnormal urinalysis, microscopic examination See below: LinkLogic nitrate, urine Positive LinkLogic Negative Abnormal urobilinogen, urine, semiquantitative (dipstick) 0.2 LinkLogic 0.2-1.0 bilirubin, urine Negative LinkLogic Negative hemoglobin, urine, by dipstick Negative LinkLogic Negative ketones, urine, by test strip Negative LinkLogic Negative glucose, urine Negative LinkLogic Negative protein, urine, semiquantitative (dipstick) Trace LinkLogic Negative/Tr chinyere leukocyte esterase, urine, by dipstick 2+ LinkLogic Negative Abnormal appearance, urine Clear LinkLogic Clear urine color Yellow LinkLogic Yellow pH, urine, semiquantitative 7.5 LinkLogic 5.0-7.5 specific gravity, body fluid 1.023 LinkLogic 1.005-1.030 activated partial thromboplastin time (aPTT) 28 s LinkLogic 24-33 prothrombin time (patient) 10.5 s LinkLogic 9.1-12.0 international normalized ratio (INR) 1.0 LinkLogic 0.9-1.2 lipoprotein, beta, serum, point, quantitative, calculated 67 mg/dL LinkLogic 0-99 HDL cholesterol, serum 65 mg/dL LinkLogic >39 triglyceride, serum, random 102 mg/dL LinkLogic 0-149 cholesterol, serum 150 mg/dL LinkLogic 770-731 9665/05 /08 basophil count, absolute 0.0 x10E3/uL LinkLogic 0.0-0.2 Eosinophil Absolute Count 0.2 X10E3/UL LinkLogic 0.0-0.4 monocyte count, blood, automated 0.6 X10E3/UL LinkLogic 0.1-0.9 lymphocyte count, blood, automated 1.5 X10E3/UL LinkLogic 0.7-3.1 Absolute Neutrophils 5.8 X10E3/UL LinkLogic 1.4-7.0 basophils as percent of blood leukocytes 1 % LinkLogic Not Estab. eosinophils as percent of blood leukocytes 2 % LinkLogic Not Estab. monocytes as percent of blood leukocytes 7 % LinkLogic Not Estab. lymphocytes as percent of blood leukocytes 18 % LinkLogic Not Estab. neutrophils as percent of blood leukocytes 71 % LinkLogic Not Estab. platelet count 315 X10E3/UL LinkLogic 783-855 0504/05 /08 red blood cell distribution width 14.3 % LinkLogic 11.7-15.4 mean corpuscular hemoglobin concentration, RBC 31.7 G/DL LinkLogic 31.5-35.7 mean corpuscular hemoglobin, RBC 27.7 pg LinkLogic 26.6-33.0 mean corpuscular volume, RBC 87 fL LinkLogic 79-97 hematocrit, blood 41.9 % LinkLogic 34.0-46.6 hemoglobin, blood 13.3 g/dL LinkLogic 11.1-15.9 erythrocyte (RBC) count 4.80 X10E6/UL LinkLogic 3.77-5.28 leukocyte count, blood 8.2 X10E3/UL LinkLogic 3.4-10.8 alanine aminotransferase (SGPT), serum 17 1/L LinkLogic 0-32 aspartate aminotransferase (SGOT), serum 18 1/L LinkLogic 0-40 alkaline phosphatase, serum 167 1/L LinkLogic 39-117 High bilirubin, serum, total 0.3 mg/dL LinkLogic 0.0-1.2 albumin/globulin ratio, serum 1.4 LinkLogic 1.2-2.2 globulin, serum 2.8 LinkLogic 1.5-4.5 albumin, serum 3.8 g/dL LinkLogic 3.8-4.8 protein, total, serum 6.6 g/dL LinkLogic 6.0-8.5 calcium, serum 9.0 mg/dL LinkLogic 8.7-10.3 carbon dioxide, venous blood 28 mmol/L LinkLogic 20-29 chloride, serum 103 mmol/L LinkLogic 96-106 potassium, serum 4.3 mmol/L LinkLogic 3.5-5.2 sodium, serum 143 mmol/L LinkLogic 941-625 2837/05 /08 urea nitrogen/creatinine ratio, serum 22 LinkLogic 12-28 eGFR if 110 mL/min/{1.73_ m2} LinkLogic >59 eGFR if not 95 mL/min/{1.73_ m2} LinkLogic >59 creatinine, serum 0.60 mg/dL LinkLogic 0.57-1.00 urea nitrogen, blood 13 mg/dL LinkLogic 8-27 blood glucose, random 95 mg/dL LinkLogic 65-99 urine culture (with units of CFunits/mL) SEE NOTE LinkLogic Abnormal prothrombin time (patient) 10.3 s LinkLogic 9.0-11.5 Normal international normalized ratio (INR) 1.0 LinkLogic Normal basophils as percent of blood leukocytes 0.5 % LinkLogic Normal eosinophils as percent of blood leukocytes 1.6 % LinkLogic Normal monocyte count, blood 7.4 % LinkLogic Normal lymphocyte count, blood 16.5 % LinkLogic Normal neutrophils as percent of blood leukocytes 74 % LinkLogic Normal basophils, absolute, manual 38 cells/mcL LinkLogic 0-200 Normal eosinophils, absolute, manual 122 cells/mcL LinkLogic 15-500 Normal monocytes, absolute, manual 562 cells/mcL LinkLogic 200-950 Normal lymphocytes, absolute 1254 CELLS/UL LinkLogic 850-3900 Normal Absolute Neutrophil count 5624 cells/mcL LinkLogic 7453-5300 Normal mean platelet volume 9.0 fL LinkLogic 7.5-12.5 Normal platelet count 323 THOUSAND/UL LinkLogic 140-400 Normal red blood cell distribution width 13.5 % LinkLogic 11.0-15.0 Normal mean corpuscular hemoglobin concentration, RBC 32.2 G/DL LinkLogic 32.0-36.0 Normal mean corpuscular hemoglobin, RBC 28.4 pg LinkLogic 27.0-33.0 Normal mean corpuscular volume, RBC 88.2 fL LinkLogic 80.0-100.0 Normal hematocrit, blood 41.9 % LinkLogic 35.0-45.0 Normal hemoglobin electrophoresis, blood 13.5 LinkLogic 11.7-15.5 Normal erythrocyte (RBC) count 4.75 MILLION/UL LinkLogic 3.80-5.10 Normal leukocyte (white blood cells) count, blood 7.6 THOUSAND/UL LinkLogic 3.8-10.8 Normal hyaline casts, urine NONE SEEN LinkLogic NONE SEEN Normal bacteria, urine microscopy MODERATE LinkLogic NONE SEEN Abnormal epithelial cells, urine 0-5 LinkLogic < OR = 5 RBC urine by microscopy 10-20 LinkLogic < OR = 2 Abnormal WBC urine on microscopy > OR = 60 /HPF LinkLogic < OR = 5 Abnormal protein, urine, semiquantitative (dipstick) NEGATIVE LinkLogic NEGATIVE Normal blood in urine (hemoglobin) by dipstick NEGATIVE LinkLogic NEGATIVE Normal ketones, urine, by test strip NEGATIVE LinkLogic NEGATIVE Normal bilirubin, urine NEGATIVE LinkLogic NEGATIVE Normal glucose, urine, semiquantitative NEGATIVE LinkLogic NEGATIVE Normal pH, urine, semiquantitative 6.0 LinkLogic 5.0-8.0 Normal specific gravity, urine 1.021 Link[facility]ic 1.001-1.035 Normal appearance, urine CLOUDY LinkLogic CLEAR Abnormal urine color YELLOW LinkLogic YELLOW Normal PTT patient 30 s LinkLogic 22-34 Normal alanine aminotransferase (SGPT), serum 17 1/L Link[facility] 6-29 Normal aspartate aminotransferase (SGOT), serum 19 1/L LinkLogic 10-35 Normal alkaline phosphatase, serum 130 1/L LinkLogic 37-153 Normal bilirubin, serum, total 0.4 mg/dL LinkLogic 0.2-1.2 Normal albumin/globulin ratio, serum 1.4 (calc) LinkLogic 1.0-2.5 Normal globulins, serum, total 2.7 G/DL (CALC) LinkLogic 1.9-3.7 Normal albumin, serum 3.7 g/dL LinkLogic 3.6-5.1 Normal protein, total, serum 6.4 g/dL LinkLogic 6.1-8.1 Normal calcium, serum 9.3 mg/dL LinkLogic 8.6-10.4 Normal carbon dioxide, venous blood 31 mmol/L LinkLogic 20-32 Normal chloride, serum 102 mmol/L LinkLogic 98-110 Normal potassium, serum 4.0 mmol/L LinkLogic 3.5-5.3 Normal sodium, serum 141 mmol/L LinkLogic 135-146 Normal urea nitrogen/creatinine ratio, serum NOT APPLICABLE (calc) LinkLogic 6-22 Estimated Glomerular Filtration Rate (calc) 101 mL/min/{1.73_ m2} LinkLogic > OR = 60 Normal creatinine, serum 0.72 mg/dL LinkLogic 0.50-0.99 Normal urea nitrogen, blood 23 mg/dL LinkLogic 7-25 Normal blood glucose, random 95 mg/dL LinkLogic 65-139 Normal cholesterol, non-HDL, total 74 MG/DL (CALC) LinkLogic <130 Normal cholesterol/HDL ratio, serum, percent 2.2 (calc) LinkLogic <5.0 Normal LDL cholesterol, serum 58 MG/DL (CALC) LinkLogic Normal triglyceride, serum, fasting 80 mg/dL LinkLogic <150 Normal HDL cholesterol, serum 60 mg/dL LinkLogic > OR = 50 Normal cholesterol, serum 134 mg/dL LinkLogic <200 Normal urine culture (with units of CFunits/mL) SEE NOTE LinkLogic Abnormal [facility] [address] [facility] [place] [id number] Ash De Oliveira D.O., MPH prothrombin time (patient) 10.3 s LinkLogic 9.0-11.5 Normal [facility] [address] [facility] [id number] Ash De Oliveira D.O., MPH international normalized ratio (INR) 1.0 LinkLogic Normal [facility] [address] [facility] [place] [phone] Ash De Oliveiar D.O., MPH basophils as percent of blood leukocytes 0.5 % Link[facility] Normal [facility] [address] [place] [address] Ash De Oliveira D.O., MPH eosinophils as percent of blood leukocytes 1.6 % [facility] Normal [place] [facility] [address] [place] [phone] Ash De Oliveira D.O., MPH monocyte count, blood 7.4 % [facility] Normal [facility] [address] [facility] [place] [id number] Ash De Oliveira D.O., MPH lymphocyte count, blood 16.5 % LinkLogic Normal [place] [facility] [address] [facility] [address] Ash De Oliveira D.O., MPH neutrophils as percent of blood leukocytes 74 % LinkLogic Normal [place] [facility] [address] [facility] [address] Ash De Oliveira D.O., MPH basophils, absolute, manual 38 cells/mcL [facility]Logic 0-200 Normal [place] [facility] [address] [facility] [address] Ash De Oliveira D.O., MPH eosinophils, absolute, manual 122 cells/mcL [facility]Logic 15-500 Normal [place] [facility] [address] [facility] [address] Ash De Oliveira D.O., MPH monocytes, absolute, manual 562 cells/mcL LinkLogic 200-950 Normal [place] [facility] [address] [facility] [place] [id number] Ash De Oliveira D.O., MPH lymphocytes, absolute 1254 CELLS/UL LinkLogic 850-3900 Normal [place] [facility] [address] [facility] [place] [phone] Ash De Oliveira D.O., MPH Absolute Neutrophil count 5624 cells/mcL LinkLogic 2956-0614 Normal [place] [facility] [address] [facility] [place] [phone] Ash De Oliveira D.O., MPH mean platelet volume 9.0 fL LinkLogic 7.5-12.5 Normal [place] [facility] [address] [place] [address] Ash De Oliveira D.O., MPH platelet count 323 THOUSAND/UL LinkLogic 140-400 Normal [place] [facility] [address] [place] [address] Ash De Olievira D.O., MPH red blood cell distribution width 13.5 % LinkLogic 11.0-15.0 Normal [place] [facility] [address] [place] [address] Ash De Oliveira D.O., MPH mean corpuscular hemoglobin concentration, RBC 32.2 G/DL LinkLogic 32.0-36.0 Normal [place] [facility] [address] [place] [address] Ash De Oliveira D.O., MPH mean corpuscular hemoglobin, RBC 28.4 pg LinkLogic 27.0-33.0 Normal [place] [facility] [address] [place] [address] Ash De Oliveira D.O., MPH mean corpuscular volume, RBC 88.2 fL LinkLogic 80.0-100.0 Normal [place] [facility] [address] [place] [address] Ash De Oliveira D.O., MPH hematocrit, blood 41.9 % LinkLogic 35.0-45.[address] [facility] [address] [place] [address] Ash De Oliveira D.O., MPH hemoglobin electrophoresis, blood 13.5 LinkLogic 11.7-15.5 Normal [place] [facility] [address] [place] [address] Ash De Oliveira D.O., MPH erythrocyte (RBC) count 4.75 MILLION/UL LinkLogic 3.80-5.10 Normal [place] [facility] [address] [place] [address] Ash De Oliveira D.O., MPH leukocyte (white blood cells) count, blood 7.6 THOUSAND/UL LinkLogic 3.8-10.8 Normal [facility] [address] [place] [address] Ash De Oliveira D.O., MPH hyaline casts, urine NONE SEEN LinkLogic NONE SEEN Normal [facility] [address] Ash De Oliveira D.O., MPH bacteria, urine microscopy MODERATE LinkLogic NONE SEEN Abnormal [facility] [address] Ash De Oliveira D.O., MPH epithelial cells, urine 0-5 LinkLogic < OR = 5 [place] [facility] [place] [address] Ash De Oliveira D.O., MPH RBC urine by microscopy 10-20 LinkLogic < OR = 2 Abnormal [facility] [address] Ash De Oliveira D.O., MPH WBC urine on microscopy > OR = 60 /HPF LinkLogic < OR = 5 Abnormal [facility] [address] Ash De Oliveira D.O., MPH protein, urine, semiquantitative (dipstick) NEGATIVE LinkLogic NEGATIVE Normal [facility] [address] Ash De Oliveira D.O., MPH blood in urine (hemoglobin) by dipstick NEGATIVE LinkLogic NEGATIVE Normal [facility] [address] Ash De Oliveira D.O., MPH ketones, urine, by test strip NEGATIVE LinkLogic NEGATIVE Normal [place] [facility] [place] [address] Ash De Oliveira D.O., MPH bilirubin, urine NEGATIVE LinkLogic NEGATIVE Normal [place] [facility] [address] [place] [address] Ash De Oliveira D.O., MPH glucose, urine, semiquantitative NEGATIVE LinkLogic NEGATIVE Normal [place] [facility] [address] [place] [address] Ash De Oliveira D.O., MPH pH, urine, semiquantitative 6.0 LinkLogic 5.0-8.0 Normal [place] [facility] [address] [place] [address] Ash De Oliveira D.O., MPH specific gravity, urine 1.021 LinkLogic 1.001-1.035 Normal [place] [facility] [address] [place] [facility] Ash De Oliveira D.O., MPH appearance, urine CLOUDY LinkLogic CLEAR Abnormal [place] [facility] [address] [place] [address] Ash De Oliveira D.O., MPH urine color YELLOW LinkLogic YELLOW Normal [place] [facility] [address] [place] [address] Ash De Oliveira D.O., MPH PTT patient 30 s LinkLogic 22-34 Normal [place] [facility] [address] [place] [facility] Ash De Oliveira D.O., MPH alanine aminotransferase (SGPT), serum 17 1/L LinkLogic 6-29 Normal [place] [facility] [address] [place] [address] Ash De Oliveira D.O., MPH aspartate aminotransferase (SGOT), serum 19 1/L LinkLogic 10-35 Normal [place] [facility] [address] [place] [address] Ash De Oliveira D.O., MPH alkaline phosphatase, serum 130 1/L LinkLogic 37-153 Normal [place] [facility] [address] [place] [phone] Ash De Oliveira D.O., MPH bilirubin, serum, total 0.4 mg/dL LinkLogic 0.2-1.2 Normal [facility] [address] [place] [address] Ash De Oliveira D.O., MPH albumin/globulin ratio, serum 1.4 (calc) LinkLogic 1.0-2.5 Normal [facility] [address] [place] [address] Ash De Oliveira D.O., MPH globulins, serum, total 2.7 G/DL (CALC) LinkLogic 1.9-3.7 Normal [facility] [address] Ash De Oliveira D.O., MPH albumin, serum 3.7 g/dL LinkLogic 3.6-5.1 Normal [facility] [place] [phone] Ash De Oliveira D.O., MPH protein, total, serum 6.4 g/dL LinkLogic 6.1-8.1 Normal [facility] [place] [address] Ash De Oliveira D.O., MPH calcium, serum 9.3 mg/dL LinkLogic 8.6-10.4 Normal [facility] [place] [address] Ash De Oliveira D.O., MPH carbon dioxide, venous blood 31 mmol/L LinkLogic 20-32 Normal [facility] [address] Ash De Oliveira D.O., MPH chloride, serum 102 mmol/L LinkLogic 98-110 Normal [facility] [address] Ash De Oliveira D.O., MPH potassium, serum 4.0 mmol/L LinkLogic 3.5-5.3 Normal [place] [facility] [address] [place] [facility] Ash De Oliveira D.O., MPH sodium, serum 141 mmol/L LinkLogic 135-146 Normal [place] [facility] [address] [place] [phone] Ash De Oliveira D.O., MPH urea nitrogen/creatinine ratio, serum NOT APPLICABLE (calc) LinkLogic 6-22 [place] [facility] [address] [place] [address] Ash De Oliveira D.O., MPH Estimated Glomerular Filtration Rate (calc) 101 mL/min/{1.73_ m2} LinkLogic > OR = 60 Normal [place] [facility] [address] [place] [address] Ash De Oliveira D.O., MPH creatinine, serum 0.72 mg/dL LinkLogic 0.50-0.99 Normal [place] [facility] [address] [address] [facility] [address] Ash De Oliveira D.O., MPH urea nitrogen, blood 23 mg/dL LinkLogic 7-25 Normal [place] [facility] [address] [place] [phone] Ash De Oliveira D.O., MPH blood glucose, random 95 mg/dL LinkLogic 65-139 Normal [place] [facility] [address] [place] [phone] Ash De Oliveira D.O., MPH cholesterol, non-HDL, total 74 MG/DL (CALC) LinkLogic <130 Normal [place] [facility] [address] [place] [phone] Ash De Oliveira D.O., MPH cholesterol/HDL ratio, serum, percent 2.2 (calc) LinkLogic <5.0 Normal [place] [facility] [address] [place] [address] Ash De Oliveira D.O., MPH LDL cholesterol, serum 58 MG/DL (CALC) LinkLogic Normal [facility] [address] [place] [address] Ash De Oliveira D.O., MPH triglyceride, serum, fasting 80 mg/dL LinkLogic <150 Normal [facility] [address] [place] [address] Ash De Oliveira D.O., MPH HDL cholesterol, serum 60 mg/dL LinkLogic > OR = 50 Normal [facility] [address] [place] [address] Ash De Oliveira D.O., MPH cholesterol, serum 134 mg/dL LinkLogic <200 Normal [facility] [address] [place] [address] Ash De Oliveira D.O., MPH basophil count, absolute 0.0 x10E3/uL LinkLogic 0.0-0.2 Eosinophil Absolute Count 0.1 X10E3/UL LinkLogic 0.0-0.4 monocyte count, blood, automated 0.6 X10E3/UL LinkLogic 0.1-0.9 lymphocyte count, blood, automated 1.3 X10E3/UL LinkLogic 0.7-3.1 Absolute Neutrophils 5.9 X10E3/UL LinkLogic 1.4-7.0 basophils as percent of blood leukocytes 0 % LinkLogic Not Estab. eosinophils as percent of blood leukocytes 2 % LinkLogic Not Estab. monocytes as percent of blood leukocytes 7 % LinkLogic Not Estab. lymphocytes as percent of blood leukocytes 16 % LinkLogic Not Estab. neutrophils as percent of blood leukocytes 75 % LinkLogic Not Estab. platelet count 285 X10E3/UL LinkLogic 880-598 5814/10 /24 red blood cell distribution width 14.8 % LinkLogic 12.3-15.4 mean corpuscular hemoglobin concentration, RBC 31.5 G/DL LinkLogic 31.5-35.7 mean corpuscular hemoglobin, RBC 28.2 pg LinkLogic 26.6-33.0 mean corpuscular volume, RBC 90 fL LinkLogic 79-97 hematocrit, blood 40.0 % LinkLogic 34.0-46.6 hemoglobin, blood 12.6 g/dL LinkLogic 11.1-15.9 erythrocyte (RBC) count 4.47 X10E6/UL LinkLogic 3.77-5.28 leukocyte count, blood 8.0 X10E3/UL LinkLogic 3.4-10.8 activated partial thromboplastin time (aPTT) 29 s LinkLogic 24-33 prothrombin time (patient) 10.8 s LinkLog 9.1-12.0 international normalized ratio (INR) 1.0 LinkLogic 0.8-1.2 calcium, serum 9.2 mg/dL LinkLogic 8.7-10.3 carbon dioxide, venous blood 25 mmol/L [facility]29 chloride, serum 103 mmol/L LinkLogic 96-106 potassium, serum 4.2 mmol/L LinkLogic 3.5-5.2 sodium, serum 144 mmol/L LinkLogic 795-532 8128/10 /24 urea nitrogen/creatinine ratio, serum 28 LinkLogic 12-28 eGFR if 106 mL/min/{1.73_ m2} LinkLogic >59 eGFR if not 92 mL/min/{1.73_ m2} LinkLogic >59 creatinine, serum 0.69 mg/dL LinkLogic 0.57-1.00 urea nitrogen, blood 19 mg/dL LinkLogic 8-27 blood glucose, random 80 mg/dL LinkLogic 65-99 activated partial thromboplastin time (aPTT) [facility] prothrombin time (patient) 10.7 s LinkLogic 9.1-12.0 international normalized ratio (INR) 1.0 LinkLogic 0.8-1.2 free thyroxine index 2.1 LinkLogic 1.2-4.9 triiodothyronine resin uptake 29 % LinkLogic 24-39 thyroxine, serum, total 7.4 ug/dL LinkLogic 4.5-12.0 thyroid stimulating hormone, serum 1.150 u[IU]/mL LinkLogic 0.450-4.500 lipoprotein, beta, serum, point, quantitative, calculated 54 mg/dL LinkLogic 0-99 very low density lipoproteins 16 mg/dL LinkLogic 5-40 HDL cholesterol, serum 71 mg/dL LinkLogic >39 triglyceride, serum, random 79 mg/dL LinkLogic 0-149 cholesterol, serum 141 mg/dL LinkLogic 789-786 0003/02 /16 platelet count 298 X10E3/UL LinkLogic 417-502 9672/02 /16 red blood cell distribution width 15.4 % LinkLogic 12.3-15.4 mean corpuscular hemoglobin concentration, RBC 31.6 G/DL LinkLogic 31.5-35.7 mean corpuscular hemoglobin, RBC 27.0 pg LinkLogic 26.6-33.0 mean corpuscular volume, RBC 86 fL LinkLogic 79-97 hematocrit, blood 40.2 % LinkLogic 34.0-46.6 hemoglobin, blood 12.7 g/dL LinkLogic 11.1-15.9 erythrocyte (RBC) count 4.70 X10E6/UL LinkLogic 3.77-5.28 leukocyte count, blood 7.3 X10E3/UL LinkLogic 3.4-10.8 alanine aminotransferase (SGPT), serum 29 1/L LinkLogic 0-32 aspartate aminotransferase (SGOT), serum 27 1/L LinkLogic 0-40 alkaline phosphatase, serum 142 1/L LinkLogic 39-117 High bilirubin, serum, total 0.3 mg/dL LinkLogic 0.0-1.2 albumin/globulin ratio, serum 1.4 LinkLogic 1.2-2.2 globulin, serum 2.7 LinkLogic 1.5-4.5 albumin, serum 3.8 g/dL LinkLogic 3.6-4.8 protein, total, serum 6.5 g/dL LinkLogic 6.0-8.5 calcium, serum 9.2 mg/dL LinkLogic 8.7-10.3 carbon dioxide, venous blood 26 mmol/L LinkLogic 20-29 chloride, serum 105 mmol/L LinkLogic 96-106 potassium, serum 4.1 mmol/L LinkLogic 3.5-5.2 sodium, serum 145 mmol/L LinkLogic 134-144 High urea nitrogen/creatinine ratio, serum 21 LinkLogic 12-28 eGFR if 104 mL/min/{1.73_ m2} LinkLogic >59 eGFR if not 90 mL/min/{1.73_ m2} LinkLogic >59 creatinine, serum 0.71 mg/dL LinkLogic 0.57-1.00 urea nitrogen, blood 15 mg/dL LinkLogic 8-27 blood glucose, random 88 mg/dL LinkLogic 65-99 thyroid stimulating hormone, serum 1.530 ??IU/ML LinkLogic 0.270 - 4.200 anion gap, serum 10.6 LinkLogic - albumin/globulin ratio, serum 1.5 g/dL LinkLogic 1.1 - 2.5 globulin, serum 2.6 LinkLogic 2.3 - 3.8 urea nitrogen/creatinine ratio, serum 18.8 LinkLogic - Estimated Glomerular Filtration Rate (calc) 77.2 (?) LinkLogic 59.0 - chloride, serum 100.4 mmol/L LinkLogic 98.0 - 107.0 potassium, serum 4.2 mmol/L LinkLogic 3.5 - 5.1 sodium, serum 141.0 mmol/L LinkLogic 136.0 - 145.0 creatinine, serum 0.8 mg/dL LinkLogic 0.5 - 1.0 carbon dioxide, venous blood 30.0 mmol/L LinkLogic 23.0 - 31.0 albumin, serum 4.0 g/dL LinkLogic 3.5 - 5.2 calcium, serum 8.9 mg/dL LinkLogic 8.6 - 10.2 aspartate aminotransferase (SGOT), serum 20.0 1/L LinkLogic 0.0 - 32.0 alkaline phosphatase, serum 126.0 1/L LinkLogic 40.0 - 130.0 alanine aminotransferase (SGPT), serum 17.0 1/L LinkLogic 0.0 - 33.0 protein, total, serum 6.6 g/dL LinkLogic 6.6 - 8.7 bilirubin, serum, total 0.3 mg/dL LinkLogic 0.0 - 1.2 urea nitrogen, blood 15.0 mg/dL LinkLogic 8.0 - 23.0 blood glucose, random 95.0 mg/dL LinkLogic 74.0 - 99.0 magnesium, serum 2.2 mg/dL LinkLogic 1.6 - 2.4 urea nitrogen/creatinine ratio, serum 26.7 LinkLogic - Estimated Glomerular Filtration Rate (calc) 107.7 (?) LinkLogic 59.0 - chloride, serum 102.8 mmol/L LinkLogic 98.0 - 107.0 potassium, serum 4.4 mmol/L LinkLogic 3.5 - 5.1 sodium, serum 145.0 mmol/L LinkLogic 136.0 - 145.0 creatinine, serum 0.6 mg/dL LinkLogic 0.5 - 1.0 carbon dioxide, venous blood 28.0 mmol/L LinkLogic 23.0 - 31.0 calcium, serum 9.4 mg/dL LinkLogic 8.6 - 10.2 urea nitrogen, blood 16.0 mg/dL LinkLogic 8.0 - 23.0 blood glucose, random 94.0 mg/dL LinkLogic 74.0 - 99.0 prothrombin time (patient) 10.6 s LinkLogic 9.0 - 11.5 international normalized ratio (INR) 1.0 LinkLogic 0.9 - 1.1 HISTORY OF MEDICATION USE Medication Status Instructions Dates Provider Indications Com ments diltiazem HCl (Cardizem CD) 360 mg capsule,extended release 24hr active TAKE 1 CAPSULE BY MOUTH EVERY DAY Maria T Armani Cardizem CD 360 mg capsule,extended release 24hr active Take 1 capsule by mouth once a day Maria T Lomeli Eliquis 5 mg tablet active Take 1 tablet by mouth twice a day Leslye Howell flecainide 100 mg tablet active Take 1 tablet by mouth twice a day Leslye Howell Bydureon BCise 2 mg/0.85 mL auto-injector active Inject 2 mg subcutaneously once a week Alka Ochoa NP alendronate 70 mg tablet active TAKE 1 TABLET BY MOUTH A WEEK Alka Ochoa NP Creon 36,000-114,000- 180,000 unit capsule,delayed release(DR/EC) active Take 1 capsule by mouth three times a day Alka Ochoa NP Eliquis 5 mg tablet completed TAKE ONE TABLET BY MOUTH TWICE A DAY - Leslye Howell Cardizem CD 360 mg capsule,extended release 24hr completed TAKE ONE CAPSULE BY MOUTH EVERY DAY AT NIGHT - Rod Carter SPIRONOLACTONE 50 MG ORAL TABLET completed ONE TAB. DAILY - Esdras Joya ULTRAM 50 MG ORAL TABLET completed Take one tablet every 8 hours as needed for pain - Esdras Toan CLINDAMYCIN HCL 300 MG ORAL CAPSULE completed Take one capsule 3 times daily for 10 days - Esdras Toan CEPHALEXIN 250 MG ORAL CAPSULE completed one tablet PO tid for 10 days - Esdras Joya B Complex 100 035-8-481-2-2 mg/mL solution active 1 once a month Esdras Joya LASIX 40 MG ORAL TABLET completed Take 1 tablet on Friday, Friday, and Friday only - Grady Whelan flecainide 100 mg tablet completed 1 tablet twice a day - Kira Boland CALTRATE 600+D TABLET active 1 tablet once a day Kira Boland VITAMIN D3 60940 UNIT ORAL TABLET active 1 tablet once a week Kira Boland Daily Multivitamin 200-100-500 mcg capsule active Take 1 once a day Leslye Howell Cardizem CD 360 mg capsule,extended release 24hr completed 1 every night - Calvin Whitney MD AMIODARONE HCL 200 MG ORAL TABLET completed ONE TABLET DAILY - [facility] MELATONIN TABLET completed at bed time - Leslye Howell magnesium oxide 400 mg (241.3 mg magnesium) tablet active 1 tablet twice a day Calvin Whitney MD VIVELLE-DOT 0.05 MG/24HR TRANSDERMAL PATCH TWICE WEEKLY completed change one a week - Maria Antonia Sin Lexapro 20 mg tablet active Take 1 once a day Leslye Howell MAGNESIUM OXIDE 400 MG ORAL TABLET completed ONE TAB TWICE A DAY - Leslye Howell AMIODARONE HCL 200 MG ORAL TABLET completed ONE TAB. DAILY - Leslye Howell atorvastatin 40 mg tablet active Take 1 tablet by mouth once a day Leslye Howell DILTIAZEM HCL 60 MG ORAL TABLET entered-in- error One tablet three times daily - Calvin Whitney MD losartan-hydroch lorothiazide 50-12.5 mg tablet active Take 1/2 tablet by mouth every morning as directed Leslye Howell Eliquis 5 mg tablet completed Take 1 tablet twice a day - Guadalupe Birch SOCIAL HISTORY Date Observation Value Provider alcohol use no Ted Lopez smoking status Never smoker Ted Lopez alcohol use no Verónica Renteria smoking status Never smoker Verónica Renteria social history reviewed E&M revi ewed - no changes required Gustavo Marte social history reviewed E&M revi ewed - no changes required Mehran Howell smoking status Never smoker Lelsye Stewart bryan social history reviewed E&M revi ewed - no changes required Loreta Mullins NP smoking status Never smoker Esdraszahra Sprague social history reviewed E&M revi ewed - no changes required Leonardo Del Valle social history E&M S moking History: Aicha panchal has never smoked. Leonardo Del Valle social history reviewed E&M revi ewed - no changes required Leonardo [place] smoking status Never smoker Nerissa avery social history E&M S moking History: Aicha panchal has never smoked. Leonardo Del [place] social history reviewed E&M revi ewed - no changes required Leonardo [place] smoking status Never smoker Nerissa avery social history E&M S moking History: Aicha panchal has never smoked. Javiermarcella [place] social history reviewed E&M revi ewed - no changes required Leonardo [place] smoking status Never smoker Subha Cardoso social history reviewed E&M revi ewed - no changes required Grady Tip social history reviewed E&M revi ewed - no changes required Grady Tip smoking status Never smoker Jessica Thorpe social history reviewed E&M revi ewed - no changes required Grady Tip smoking status Never smoker Esdras Sprague social history reviewed E&M revi ewed - no changes required Grady Tip smoking status Never smoker Nerissa avery smoking status Never smoker Emiliano purvis social history E&M S moking History: Aicha panchal has never smoked. Emiliano Smith social history reviewed E&M revi ewed - no changes required Emiliano Smith social history reviewed E&M revi ewed - no changes required Ashok Cervantes social history E&M S moking History: Aicha panchal has never smoked. Ashok Cervantes alcohol use no Leslye Gruenenfe lder smoking status Never smoker Leslye Stevemaria esther bryan social history reviewed E&M revi ewed - no changes required Ashok Cervantes social history E&M S moking History: Aicha panchal has never smoked. Ashok Cervantes alcohol use no Leslye Gruenenfe lder smoking status Never smoker Leslye Stevejmnezahra bryan social history reviewed E&M revi ewed - no changes required Calvin Whitney MD alcohol use no Leslye Gruenenfe lder smoking status Never smoker Leslye Pat bryan social history reviewed E&M revi ewed - no changes required Lizzeth Alfredo social history E&M S moking History: P atient has never smoked. Lizzeth Alfredo number of grandchildren Calvin Whitney MD Shreya Montague alcohol use no Shreya Montague smoking status Never smoker Shreya davila social history E&M S moking History: Aicha panchal has never smoked. Calvin Whitney MD social history reviewed E&M revi ewed - no changes required Calvin Whitney MD alcohol use no Ramyacarol Bardales smoking status Never smoker Ramya Bardales social history reviewed E&M revi ewed - no changes required Trevon Church alcohol use no Leslye holt smoking status Never smoker Leslye adams social history reviewed E&M revi ewed - no changes required Calvin Whitney MD alcohol use no Leslye Ferrell ldrosibel smoking status Never smoker Leslye adams social history E&M Smoking Histo ry: Aicha panchal has never smoked. Calvin Whitney MD social history reviewed E&M revi ewed - no changes required Calvin Whitney MD alcohol use no Esdras Long anthony smoking status Never smoker Esdras Tarik diego social history reviewed E&M revi ewed - no changes required Calvin Whitney MD alcohol use no Maria Antonia Sin smoking status Never smoker Maria Antoniasusan sweeney social history reviewed E&M revi ewed - no changes required Calvin Whitney MD alcohol use no Leslye holt smoking status Never smoker Leslye adams alcohol use no Calvin rodriguez MD social history E&M Smoking Histo ry: Aicha panchal has never smoked. Calvin Whitney MD social history reviewed E&M lenore ewed - no changes required Calvin Whitney MD smoking status Never smoker Esdras Sprague FAMILY HISTORY Family Member Condition Full Sister Family History of Co ronary Artery Disease: Full Sister Family History of Hy pertension: Full Sister Family History of Di abetes: Full Brother Family History of Co ronary Artery Disease: Full Brother Family History of Hy pertension: Full Brother Family History of Di abetes: Father Family History of Co ronary Artery Disease: Father Family History of Hy pertension: Father Family History of Di abetes: Mother Family History of Co ronary Artery Disease: Mother Family History of Hy pertension: Mother Family History of Di abetes: INSURANCE PROVIDERS Payer name Policy type / Coverage type [employer] party ID [place] [employer] Medicare [id number] LORY HENLEY [id number] ADVANCE DIRECTIVES Name Date DISCUSSED - NO DECISION MADE TREATMENT PLAN Date Name Performer [id number],C,s ee HPI A dvised her to ask specifics about her kidney stones, and how to prevent further stones and hospitalizations S he is seeing Dr Gordon, Endocrine Gustavo Marte [id number],C,s he continues to 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 Normal carotid duplex examination. 2 . Vertebral flow is antegrade bilaterally. Mehran Howell [id number],S, s /p DC PPM Biotronik D evice interrogation 0% AT/AF burden 7 5.0% RA pacing 8 4.0 ohms today c ompared to baseline of 82.0 ohms B attery status 75%. Lead trends appear s table. HF trends normal. No new events. A ppropriate device function. Patient is o n OAC. Mehran Barberchi [facility] [id number],S, N o palpitations H as PPM H er updated medication list for this problem includes: Cardizem Cd 360 Mg Capsule,extended Release 24hr (Diltiazem hcl) ..... Take 1 capsule by mouth once a day Flecainide 100 Mg Tablet (Flecainide) ..... Take 1 tablet by mouth twice a day [facility] [id number],S, A dvised patient to lose 10 pounds. [facility] [id number],C, H er updated medication list for this problem includes: Atorvastatin 40 Mg Tablet (Atorvastatin) ..... Take 1 tablet by mouth once a day [facility] [id number],S, B P today: 46/80 P rior BP: 110/80 (11/23/2021) Labs Reviewed: C reat: 0.60 (09/30/2020) C hol: 150 (09/30/2020) HDL: 65 (09/30/2020) Her updated medication list for this problem includes: Cardizem Cd 360 Mg Capsule,extended Release 24hr (Diltiazem hcl) ..... Take 1 capsule by mouth once a day Losartan-hydrochlorothiazide 50-12.5 Mg Tablet (Losartan-hydrochlorothiazide) ..... Take 1/2 tablet by mouth every morning as directed [facility] [id number],S, E KG shows SR today. P PM shows 0.0% AT/AF burden. H er updated medication list for this problem includes: Flecainide 100 Mg Tablet (Flecainide) ..... Take 1 tablet by mouth twice a day [facility] [id number],S, T he patient is using CPAP on a regular basis. The patient has been benefiting from therapy and should continue use. Mehran Howell [id number],S, Alka Anuj peggy MCCONNELL [id number],S,o n Sheri for AC. H er updated medication list for this problem includes: Flecainide 100 Mg Tablet (Flecainide) ..... 1 tablet twice a day Alka Ochoa ENEDINA [id number],B,w ill check stress test in one year to rule out ischemic disease. D ecrease losartan/HCTZ to 1/2 tablet daily as orthostatic. Alka Ochoa ENEDINA [id number],S,T he patient is using CPAP on a regular basis. The patient has been benefiting from therapy and should continue use. Alka Don MCCONNELL [id number],W,A lmost 20# weight gain in the last 1 year discussed diet and exercise, importance of weight reduction Loreta Jonnathanjesse MCCONNELL [id number],B,n o events on device interrogation today EKG today SR Loreta Jonnathanjesse MCCONNELL [id number],S,0 % AT/AF burden eliquis E F 60% on echo 09/2020 Loreta Jonnathanjesse MCCONNELL [id number],S,s /p DC PPM Biotronik D evice interrogation 0%AT/AF burden 8 4% RA pacing 7 5.0 ohms, no reports or episodes Loreta Wheelerboyd MCCONNELL [id number],S, T he patient is using CPAP on a regular basis. The patient has been benefiting from therapy and should continue use. Loreta Mullins NP Telehealth: O rdanitra: Aicha ambrocio -20 (CPT-78608) Calivn Whitney MD Telehealth [facility] Telehealth: H er updated medication list for this problem includes: Atorvastatin 40 Mg Tablet (Atorvastatin) ..... Take 1 tablet by mouth once a day [facility] Telehealth: H er updated medication list for this problem includes: Flecainide 100 Mg Tablet (Flecainide) ..... Take 1 tablet by mouth twice a day [facility] Electrophysiology:Th e patient is taking OAC for CVA prophylaxis Her updated medication list for this problem includes: Flecainide 100 Mg Tablet (Flecainide) ..... Take 1 tablet by mouth twice a day Ted John Electrophysiology:CO NCLUSIONS: 1 . Mild plaque with less than 50% stenosis of the internal carotid arteries bilaterally. 2 . Vertebral flow is antegrade bilaterally. Electronically Signed By: Calvin Purcell 2 19:02:49 CDT [facility] Electrophysiology:Th is visit has been a part of the consistent, comprehensive, and ongoing management of the chronic medical condition(s) listed above for the patient. C heck echo B P today: 118/66 P rior BP: 106/73 (04/25/2023) Labs Reviewed: C reat: 0.60 (09/30/2020) C hol: 150 (09/30/2020) HDL: 65 (09/30/2020) LDL: 67 (09/30/2020) T (09/30/2020) Her updated medication list for this problem includes: Cardizem Cd 360 Mg Capsule,extended Release 24hr (Diltiazem hcl) ..... Take 1 capsule by mouth once a day Losartan-hydrochlorothiazide 50-12.5 Mg Tablet (Losartan-hydrochlorothiazide) ..... Take 1/2 tablet by mouth every morning as directed [facility] Electrophysiology:recurrent Guillermo as [place] Electrophysiology:Th e patient is taking OAC for CVA prophylaxis H er updated medication list for this problem includes: Flecainide 100 Mg Tablet (Flecainide) ..... Take 1 tablet by mouth twice a day [facility] Electrophysiology [facility] Electrophysiology [facility] Electrophysiology: H er updated medication list for this problem includes: Cardizem Cd 360 Mg Capsule,extended Release 24hr (Diltiazem hcl) ..... Take 1 capsule by mouth once a day Losartan-hydrochlorothiazide 50-12.5 Mg Tablet (Losartan-hydrochlorothiazide) ..... 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 Normal carotid duplex examination. 2 . Vertebral flow is antegrade bilaterally. Mehran Howell Electrophysiology: s /p DC PPM Biotronik D evice interrogation 0% AT/AF burden 7 5.0% RA pacing 8 4.0 ohms today c ompared to baseline of 82.0 ohms B attery status 75%. Lead trends appear s table. HF trends normal. No new events. A ppropriate device function. Patient is o n OAC. Mehran Howell Electrophysiology: N o palpitations H as PPM H er updated medication list for this problem includes: Cardizem Cd 360 Mg Capsule,extended Release 24hr (Diltiazem hcl) ..... Take 1 capsule by mouth once a day Flecainide 100 Mg Tablet (Flecainide) ..... Take 1 tablet by mouth twice a day Mehran Wilsonstephany Electrophysiology: A dvised patient to lose 10 pounds. Mehran Mazariegosmelvina Electrophysiology: H er updated medication list for this problem includes: Atorvastatin 40 Mg Tablet (Atorvastatin) ..... Take 1 tablet by mouth once a day Mehran Farrellmarkel Electrophysiology: B P today: 46/80 P rior BP: 110/80 (11/23/2021) Labs Reviewed: C reat: 0.60 (09/30/2020) C hol: 150 (09/30/2020) HDL: 65 (09/30/2020) Her updated medication list for this problem includes: Cardizem Cd 360 Mg Capsule,extended Release 24hr (Diltiazem hcl) ..... Take 1 capsule by mouth once a day Losartan-hydrochlorothiazide 50-12.5 Mg Tablet (Losartan-hydrochlorothiazide) ..... Take 1/2 tablet by mouth every morning as directed Mehran Wilsonstephany Electrophysiology: E KG shows SR today. P PM shows 0.0% AT/AF burden. H er updated medication list for this problem includes: Flecainide 100 Mg Tablet (Flecainide) ..... Take 1 tablet by mouth twice a day Mehran Mazariegosmelvina Electrophysiology: T he patient is using CPAP on a regular basis. The patient has been benefiting from therapy and should continue use. Mehran Howell Electrophysiology Alka sweeney NP Electrophysiology:on Eliquis for AC. H er updated medication list for this problem includes: Flecainide 100 Mg Tablet (Flecainide) ..... 1 tablet twice a day Alka Ochoa NP Electrophysiology:wi ll check stress test in one year to rule out ischemic disease. D ecrease losartan/HCTZ to 1/2 tablet daily as orthostatic. Alka Ochoa NP Electrophysiology:Th e patient is using CPAP on a regular basis. The patient has been benefiting from therapy and should continue use. Alka Ochoa NP Electrophysiology:Al most 20# weight gain in the last 1 year discussed diet and exercise, importance of weight reduction Loreta Mullins ENEDINA Electrophysiology:no events on device interrogation today EKG today SR Loreta Mullins ENEDINA Electrophysiology:0% AT/AF burden sheri Ortiz F 60% on echo 09/2020 Loreta Mullins ENEDINA Electrophysiology:s/ p DC PPM Biotronik D evice interrogation 0%AT/AF burden 8 4% RA pacing 7 5.0 ohms, no reports or episodes Loreta Mullins ENEDINA Electrophysiology: T he patient is using CPAP on a regular basis. The patient has been benefiting from therapy and should continue use. Loreta Mullins ENEDINA Telehealth: T he patient is using CPAP on a regular basis. The patient has been benefiting from therapy and should continue use. 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 I CM is within normal limits. B attery: OK Her updated medication list for this problem includes: Flecainide Acetate 100 Mg Oral Tablet (Flecainide acetate) ..... One tablet twice a day, dose was increase, aware patient on diltiazem Cardizem Cd 360 Mg Oral Capsule Extended Release 24 Hour (Diltiazem hcl coated beads) ..... One daily at night [facility] Telehealth: w ell controlled H er updated medication list for this problem includes: Flecainide Acetate 100 Mg Oral Tablet (Flecainide acetate) ..... One tablet twice a day, dose was increase, aware patient on diltiazem Orders: C OMPREHENSIVE METABOLIC PANEL, W/EGFR (97505) L IPID PANEL (7600) T SH, free T4, total T3 (7444) C BC (H/H, RBC, INDICES, WBC, PLT) (1759) M AGNESIUM (622) C omplete Echo (CPT-04405) [facility] Telehealth - 20+:The patient currently has no symptoms of coronavirus. Orders: F VC - 04214 (05929) F RC - 21317 (40328) D LCO - 11690 (97376) [facility] Telehealth - 20+: T he patient is using CPAP on a regular basis. The patient has been benefiting from therapy and should continue use. [facility] Telehealth - 20+: P rior BP: 149/76 (02/11/2020) Labs Reviewed: C reat: 0.72 (12/21/2019) C hol: 134 (12/21/2019) HDL: 60 (12/21/2019) LDL: 58 MG/DL (CALC) (12/21/2019) T (12/21/2019) Her updated medication list for this problem includes: Spironolactone 50 Mg Oral Tablet (Spironolactone) ..... One tab. daily Cardizem Cd 360 Mg Oral Capsule Extended Release 24 Hour (Diltiazem hcl coated beads) ..... One daily at night Losartan Potassium-hctz 50-12.5 Mg Oral Tablet (Losartan potassium-hctz) ..... One tab daily in the morning [facility] Telehealth - 20+: w ell controlled H er updated medication list for this problem includes: Flecainide Acetate 100 Mg Oral Tablet (Flecainide acetate) ..... One tablet twice a day, dose was increase, aware patient on diltiazem Orders: C omplete Echo (CPT-13847) [facility] Telehealth - 20+: r esolved K ey Clinical Findings A T/AF [place]: 0.0% % Pacing: RA - 83% RV - 0% T ransthoracic Impedance: 75.0 ohms today c ompared to baseline of 70.0 ohms Miller Supervisor Summary: N o episodes reported for this session. I CM trend is within normal limits. B attery: OK N ext remote: 07/13/2020. [facility] TeleHealth completed : R ecent positive test for COVID-19, plan to continue checking incision site by video call [facility] TeleHealth completed : O ctober 2019 S ite appears to be healing well on video February 22, 2020 s mall area noticed to be slightly red ( picture taken) a mar cleaned with betadine and Aqualcel AG surgical dressing applied . ..................................................... .............Arnie Sacnlon RN February 22, 2020 4:12 PM February 11, 2020 W ound is healing well. Pt continues on antibiotics as directed. Pt will return twice next week for wound check Hospital Consult 02/04/2020: T he patient is known to have sick sinus syndrome with severe episodes of bradycardia when she tries to c onvert from atrial fibrillation to sinus rhythm. In the past, she had an inability to perform activities of daily l iving due to increased episodes of acute bradycardia. She would be very symptomatic when she goes in a trial fibrillation with rapid ventricular response too. Options of treatment were discussed. The patient a greed to permanent pacemaker implantation. The patient underwent dual-chamber pacemaker i mplantation on December 20, 2019, that was done at [facility] in [place], [place]. The patient w as seen in followup on December 31, 2019, and then January 07, 2020. She was doing well up until a c ouple of days ago. She noticed some redness in the corner of her pacemaker insertion site and a piece o f Vicryl suture came out. She had some clear drainage that stopped. She did not see any hardware e xposure. She called in today and came to be seen in the office and was seen and examined by me Dr. Jayleen francois in person. [facility] Electrophysiology fo llow up completed.: H ospital Consult 02/04/2020: T he patient is known to have sick sinus syndrome with severe episodes of bradycardia when she tries to c onvert from atrial fibrillation to sinus rhythm. In the past, she had an inability to perform activities of daily l iving due to increased episodes of acute bradycardia. She would be very symptomatic when she goes in a trial fibrillation with rapid ventricular response too. Options of treatment were discussed. The patient a greed to permanent pacemaker implantation. The patient underwent dual-chamber pacemaker i mplantation on December 20, 2019, that was done at [facility] in [place], [place]. The patient w as seen in followup on December 31, 2019, and then January 07, 2020. She was doing well up until a c ouple of days ago. She noticed some redness in the corner of her pacemaker insertion site and a piece o f Vicryl suture came out. She had some clear drainage that stopped. She did not see any hardware e xposure. She called in today and came to be seen in the office and was seen and examined by me Dr. Jayleen francois in person. February 11, 2020 W ound is healing well. Pt continues on antibiotics as directed. Pt will return twice next week for wound check [facility] follow up : T he patient is using CPAP on a regular basis. The patient has been benefiting from therapy and should continue use. [facility] follow up : B P today: 124/80 P rior BP: 103/42 (12/31/2019) Labs Reviewed: C reat: 0.72 (12/21/2019) C hol: 134 (12/21/2019) HDL: 60 (12/21/2019) LDL: 58 MG/DL (CALC) (12/21/2019) T (12/21/2019) Her updated medication list for this problem includes: Cardizem Cd 360 Mg Oral Capsule Extended Release 24 Hour (Diltiazem hcl coated beads) ..... One daily at night Losartan Potassium-hctz 50-12.5 Mg Oral Tablet (Losartan potassium-hctz) ..... One tab daily in the morning [facility] follow up : s /p dc ppm implant T elesentry shows HR min 35bpm and afib 11/2019. At the time did not recommend increasing rate slowing medications until pt has pacemaker implantaiton Her updated medication list for this problem includes: Flecainide Acetate 100 Mg Oral Tablet (Flecainide acetate) ..... One tablet twice a day, dose was increase, aware patient on diltiazem Cardizem Cd 360 Mg Oral Capsule Extended Release 24 Hour (Diltiazem hcl coated beads) ..... One daily at night [facility] TeleHealth: O rders: P acemaker Dual Chamber - [facility] (*) C BC (INCLUDES DIFF/PLT) (6399) L IPID PANEL (7600) P ROTHROMBIN TIME WITH INR (8847) C OMPREHENSIVE METABOLIC PANEL W/EGFR (30012) U RINALYSIS, COMPLETE W/REFLEX TO CULTURE (3020) P ARTIAL THROMBOPLASTIN TIME, ACTIVATED (763) H igh Telemed Video (CPT-36110) [facility] TeleHealth: H er updated medication list for this problem includes: Cardizem Cd 360 Mg Oral Capsule Extended Release 24 Hour (Diltiazem hcl coated beads) ..... One daily Losartan Potassium-hctz 50-12.5 Mg Oral Tablet (Losartan potassium-hctz) ..... One tab daily in the morning P ulmonary Function Diagnosis 12/31/18: M oderately severe Restriction I ncreased Diffusion S ignificant decrease in FEV1 when compared to previous study. M inimal increase in DLCOunc when compared to previous study. [facility] TeleHealth:no recent chest pain H er updated medication list for this problem includes: Cardizem Cd 360 Mg Oral Capsule Extended Release 24 Hour (Diltiazem hcl coated beads) ..... One daily Stress test Summary from 02/10/19 1 . Normal myocardial perfusion imaging after vasodilator stress with Regadenoson. 2 . Normal left ventricular systolic function with a calculated ejection fraction of 61%. 3 . No obvious significant scintigraphic evidence of myocardial ischemia or scar. 4 . PVC's were noted throughout the study. . ..................................................... .............Rip Maynard MD February 10, 2019 [facility] TeleHealth:Telesentr y shows HR min 35bpm and afib t herefore would not recommend increasing rate slowing medications until pt has pacemaker implantaiton T he patient is recommended to have dual chamber pacemaker implanted. The risks and benefits have been discussed with the patient in this shared decision making encounter. Her updated medication list for this problem includes: Flecainide Acetate 50 Mg Oral Tablet (Flecainide acetate) ..... Take one tablet twice daily. continue diltiazem Cardizem Cd 360 Mg Oral Capsule Extended Release 24 Hour (Diltiazem hcl coated beads) ..... One daily [facility] TeleHealth:Atrial Fi brillation with intermittent Sinus Rhythm, and occasional Ventricular ectopy. T he average atrial fibrillation heart rate was 88BPM, and with a maximum heart rate of 173BPM. The minimum atrial fibrillation heart rate was 35BPM. T he average sinus rhythm heart rate was 57BPM, and with a maximum heart rate of 70BPM. T he minimum sinus rhythm heart rate was 48BPM. V entricular ectopy was documented in the form of isolated beats. R eport Date: 12/14/2019.//atk H er updated medication list for this problem includes: Flecainide Acetate 50 Mg Oral Tablet (Flecainide acetate) ..... Take one tablet twice daily. continue diltiazem Gradymaryjo [facility] Electrophysiology: I nterpretation: R hythm: Sinus Rhythm with Atrial Fibrillation conversion. S VE: 0.9%, 739 single SVEs, 4 paired SVEs, 5 bigeminal cycles, 4 trigeminal cycles, and 6 SVE r uns. V E: 0.3%, 310 single VEs, 2 paired VEs, and 1 trigeminal cycle. A FIB: 18.2% A verage heart rate: 61BPM M aximum heart rate: 67BPM M inimum heart rate: 50BPM P atient symptom diary included heart palpitations. A bnormal. A follow up with global climate change analyst is recommended. P age 1 Grad[facility] Electrophysiology: H er updated medication list for this problem includes: Flecainide Acetate 50 Mg Oral Tablet (Flecainide acetate) ..... Take one tablet twice daily. continue diltiazem Cardizem Cd 360 Mg Oral Capsule Extended Release 24 Hour (Diltiazem hcl coated beads) ..... One daily [facility] Electrophysiology:Th e patient is using CPAP on a regular basis. The patient has been benefiting from therapy and should continue use. [facility] Electrophysiology [facility] Electrophysiology: B P today: 131/80 P rior BP: 120/70 (02/26/2019) Labs Reviewed: C reat: 0.69 (03/18/2019) C hol: 141 (07/11/2018) HDL: 71 (07/11/2018) Her updated medication list for this problem includes: Cardizem Cd 180 Mg Oral Capsule Extended Release 24 Hour (Diltiazem hcl coated beads) ..... Decrease to 180mg one tablet daily at night, ok to substitute to generic Losartan Potassium-hctz 50-12.5 Mg Oral Tablet (Losartan potassium-hctz) ..... One tab daily in the morning [facility] Electrophysiology: H er updated medication list for this problem includes: Cardizem Cd 180 Mg Oral Capsule Extended Release 24 Hour (Diltiazem hcl coated beads) ..... Decrease to 180mg one tablet daily at night, ok to substitute to generic Losartan Potassium-hctz 50-12.5 Mg Oral Tablet (Losartan potassium-hctz) ..... One tab daily in the morning [facility] Electrophysiology:pt states her dizziness is gone s/p ablation procedure [facility] Electrophysiology:s/p ablation [facility] Electrophysiology fo llow up :12/28/2018 TTE normal LVF EF 65%, mild LAE. [facility] Electrophysiology fo llow up :12/31/2018 PFTs Conclusions: The diffusing capacity is high for the measured alveolar volume suggesting a chest wall limitation or reduced force generation as possible explanations for the restriction. [facility] Electrophysiology fo llow up : 0 07/2018 30 day tele showed SR with rare PVCs and rare Supraventricular ectopics. HR 45-114 BPM, avg 58 BPM. Disscussed risks, benefits, and alternatives of ablation procedure. Pt agrees to this plan. O rders: 9 9214 MOD Complex (CPT-79006) A BLATION w/ Anesthesia (*) C T Cardiac with contrast (Pre-Ablation) (CPT-40025) B ASIC METABOLIC PANEL W/EGFR (85587) C BC (INCLUDES DIFF/PLT) (6399) P ROTHROMBIN TIME WITH INR (8847) P ARTIAL THROMBOPLASTIN TIME, ACTIVATED (763) [facility] Electrophysiology: B P today: 110/80 P rior BP: 110/70 (07/31/2018) Labs Reviewed: C reat: 0.71 (07/11/2018) C hol: 141 (07/11/2018) HDL: 71 (07/11/2018) Emiliano Smith Electrophysiology:Th e patient is using CPAP on a regular basis. The patient has been benefiting from therapy and should continue use. Emiliano Smith Electrophysiology: 30 day monitor: S inus Bradycardia with rare Ventricular ectopics and rare Supraventricular ectopics. T he average heart rate was 58bpm with a maximum heart rate of 114bpm. T he minimum heart rate was 45bpm. V entricular ectopics were documented in the form of isolated beats. S upraventricular ectopics were documented in the form of isolated interpolated beats. Emiliano Smith Electrophysiology:Ugo grayson order 2 week tele to be started today, PFTs in 6 mo, and exercise nuc stress test. PFTs 12/31/2018 P F Interpretation: A lthough the FEV1 and FVC are reduced, the FEV1/FVC ratio is increased. The MVV is reduced. The FVC is reduced relative to the SVC indicating air trapping. The lung volumes are reduced. The diffusing capacity is high for the measured volume. Conclusions: The diffusing capacity is high for the measured alveolar volume suggesting a chest wall limitation or reduced force generation a s possible explanations for the restriction. P ulmonary Function Diagnosis: M oderately severe Restriction I ncreased Diffusion S ignificant decrease in FEV1 when compared to previous study. M inimal increase in DLCOunc when compared to previous study. E cho 12/28/2018 Conclusions: 1 . Normal left ventricular systolic function. Normal left ventricular size. There is borderline left v entricular hypertrophy. There is impaired LV relaxation. Normal E/E` 7.5. Left ventricular ejection f raction is estimated at 65 %. 2 . There is mild enlargement of the left atrium. Abnormal left atrial volume index, suggests elevated f illing pressures 28.6. LA volume is 66 mL. 3 . There is non-specific thickening of the mitral valve leaflets. There is trace physiologic mitral valve r egurgitation. 4 . Normal aortic root size. Mild aortic wall calcification Emiliano Smith Electrophysiology:Co mplains of worsening dizziness. Reports she was started on Meclizine PRN. Also reports she was seen by ENT and reports eval was unremarkable. W ill order: PFTs in 6 mo 2 week tele to be started today E xercise nuc stress test Emiliano Smith Electrophysiology Fo llow up : T he patient is using CPAP on a regular basis. The patient has been benefiting from therapy and should continue use. Ashok Cervantes Electrophysiology Fo llow up : B P today: 110/70 P rior BP: 110/80 (07/10/2018) Labs Reviewed: C reat: 0.71 (07/11/2018) C hol: 141 (07/11/2018) HDL: 71 (07/11/2018) Her updated medication list for this problem includes: Lasix 40 Mg Oral Tablet (Furosemide) ..... Take 1 tablet on friday, friday, and friday only Diltiazem Hcl Er Coated Beads 360 Mg Oral Tablet Extended Release 24 Hour (Diltiazem hcl coated beads) ..... One tablet at bedtime Losartan Potassium-hctz 50-12.5 Mg Oral Tablet (Losartan potassium-hctz) ..... One tab daily in the morning Ashok Cervantes Electrophysiology Fo llow up : N o AFib documented on 14-day Telesentry monitor 07/2018. R georgette on Flecainide and Magnesium. O n Eliquis for OAC. Her updated medication list for this problem includes: Flecainide Acetate 50 Mg Oral Tablet (Flecainide acetate) ..... Take one tablet twice daily. continue diltiazem Ashok Cervantes Electrophysiology Fo llow up : S tarted on Meclizine by Dr. Epperson (PCP). She wore a 14-day Telesentry monitor 07/2018, which showed sinus bradycardia, rates 45-114bpm, avg HR 58bpm. Patient may have orthostatic hypotension. Will decrease Losartan-HCTZ to 50-12.5mg one tab once daily in the morning. Ayla vasquez 14-day Telesentry in 6 months. Orders: Yaritza obile Cardiac Tele (CPT-70020) Ashok Cervantes Electrophysiology Fo llow up : W ill check CBC, PT, and PTT. Orders: C BC P ROTHROMBIN TIME WITH INR (8847) P artial Thromboplastin Time, Activated (763) Ashok Cervantes Electrophysiology Fo llow up : R emains compliant with CPAP. Ashok Electrophysiology Fo llow up : B P today: 110/80 P rior BP: 131/67 (10/10/2017) Labs Reviewed: C reat: 0.8 (08/03/2016) Her updated medication list for this problem includes: Lasix 40 Mg Oral Tablet (Furosemide) ..... Take 1 tablet on friday, friday, and friday only Diltiazem Hcl Er Coated Beads 360 Mg Oral Tablet Extended Release 24 Hour (Diltiazem hcl coated beads) ..... One tablet at bedtime Losartan Potassium-hctz 100-12.5 Mg Oral Tablet (Losartan potassium-hctz) ..... Take one tablet daily Ashok Cervantes Electrophysiology Fo llow up : W ill check 14-day Telesentry, CMP, CBC, thyroid panel, PT, and PTT. Orders: Yaritza obile Cardiac Tele (CPT-87562) C OMPREHENSIVE METABOLIC PANEL, W/EGFR (08691) C BC (H/H, RBC, INDICES, WBC, PLT) (1759) T HYROID PANEL WITH TSH, 3RD GENERATION (7444) 9 9214 MOD Complex (CPT-39979) Ashok Cervantes Electrophysiology Fo llow up : N o AFib documented on 14-day Telesentry monitor 09/2017. R emains in sinus rhythm on EKG today 07/10/18. R emains on Flecainide. O n Eliquis for OAC. Will recheck 14-day Telesentry monitor. Orders: M obile Cardiac Tele (CPT-22690) 9 9214 MOD Complex (CPT-72095) Her updated medication list for this problem includes: Flecainide Acetate 50 Mg Oral Tablet (Flecainide acetate) ..... Take one tablet twice daily. continue diltiazem Ashok Cervantes cardiology Follow up - SK: O rders: 9 9214 MOD Complex (CPT-60150) Calvin Whitney MD cardiology Follow up - SK: O rders: D O - 86376 (04959) S chedule Followup (*) Calvin Whitney MD cardiology Follow up - SK: O rders: E KG (CPT-51325) 9 9214 MOD Complex (CPT-04968) C omplete Echo (CPT-44215) Her updated medication list for this problem includes: Flecainide Acetate 50 Mg Oral Tablet (Flecainide acetate) ..... Take one tablet twice daily. continue diltiazem Calvin Whitney MD cardiology Follow up - SK: H er updated medication list for this problem includes: Diltiazem Hcl Er Coated Beads 360 Mg Oral Tablet Extended Release 24 Hour (Diltiazem hcl coated beads) ..... One tablet at bedtime Losartan Potassium-hctz 100-12.5 Mg Oral Tablet (Losartan potassium-hctz) ..... Take one tablet daily Calvin Whitney MD cardiology Follow up - SK: O rders: E KG (CPT-60966) Her updated medication list for this problem includes: Flecainide Acetate 50 Mg Oral Tablet (Flecainide acetate) ..... Take one tablet twice daily. continue diltiazem Calvin Whitney MD Electrophysiology Essence Luisana john Electrophysiology: B P today: 130/70 P rior BP: 110/80 (02/07/2017) Labs Reviewed: C reat: 0.8 (08/03/2016) Her updated medication list for this problem includes: Diltiazem Hcl Er Coated Beads 360 Mg Oral Tablet Extended Release 24 Hour (Diltiazem hcl coated beads) ..... One tablet at bedtime Losartan Potassium-hctz 100-12.5 Mg Oral Tablet (Losartan potassium-hctz) ..... Take one tablet daily Lizzeth Juni Electrophysiology:Fe els as if she is experiencing symtpoms. W ill check 2 week tele. S tart flecainide 50mg BID Lizzeth Alfredo Cardiology: O rders: 9 9215 HIGH Complex (CPT-91479) C omplete Echo (CPT-92853) S chedule Followup (*) C arotid Duplex Bilateral (CPT-50652) BP today: 110/80 P rior BP: 126/85 (08/02/2016) Labs Reviewed: C reat: 0.8 (08/03/2016) Calvin Whitney MD Cardiology: O rders: 9 9215 HIGH Complex (CPT-42424) S leep Study Titration (CPT-24518) S chedule Followup (*) Calvin Whitney MD Cardiology:in sinus Orders: E KG (CPT-04019) 9 9215 HIGH Complex (CPT-05660) S chedule Followup (*) Calvin Whitney MD Cardiology: H er updated medication list for this problem includes: Atorvastatin Calcium 40 Mg Oral Tabs (Atorvastatin calcium) ..... Once daily Calvin Whitney MD Cardiology Calvin uribe MD Cardiology Follow up faxed 08/29/16 1530:Will stop Amiodarone due to results of PFT's. Calvin Whitney MD Cardiology Follow up faxed 08/29/16 1530:Weight loss advised. Calvin Whitney MD Cardiology Follow up faxed [phone] Calvin Whitney MD Cardiology Follow up faxed [phone] Cavlin Whitney MD Cardiology Follow up faxed 08/29/16 1530:BP today: 126/85 P rior BP: 141/89 (05/03/2016) Her updated medication list for this problem includes: Diltiazem Hcl Er Coated Beads 360 Mg Oral Re95c-osm (Diltiazem hcl coated beads) ..... One tablet at bedtime Hydrochlorothiazide 12.5 Mg Caps (Hydrochlorothiazide) ..... One tab. daily Calvin Whitney MD Cardiology Follow up faxed 7 1530 Calvin Whitney MD Cardiology Follow up faxed 08/29/16 1530:The following medications were removed from the medication list: Amiodarone Hcl 200 Mg Tabs (Amiodarone hcl) ..... One tablet daily Her updated medication list for this problem includes: Diltiazem Hcl Er Coated Beads 360 Mg Oral Qn23q-[id number] (Diltiazem hcl coated beads) ..... One tablet at bedtime Magnesium Oxide 400 Mg Oral Tabs (Magnesium oxide) .... One tab twice a day Orders: E KG (CPT-25050) M obile Cardiac Tele (CPT-08885) Calvin Whitney MD Cardiology Follow up faxed 05/27/16:On Eliquis 5mg BID for Afib. Trevon Church Cardiology Follow up faxed 05/27/16:Her updated medication list for this problem includes: Atorvastatin Calcium 40 Mg Oral Tabs (Atorvastatin calcium) ..... Once daily Trevon Church Cardiology Follow up faxed 05/27/16:BP today: 141/89 P rior BP: 106/70 (04/12/2016) Her updated medication list for this problem includes: Diltiazem Hcl 60 Mg Tabs (Diltiazem hcl) ..... One tablet three times daily Hydrochlorothiazide 12.5 Mg Caps (Hydrochlorothiazide) ..... One tab. daily Trevon Church Cardiology Follow up faxed 7 Trevon Church Cardiology Follow up faxed 05/27/16:Will continue on 200mg daily. Trevon Church Cardiology Follow up faxed 05/27/16:Her updated medication list for this problem includes: Amiodarone Hcl 200 Mg Tabs (Amiodarone hcl) ..... One tablet daily Diltiazem Hcl 60 Mg Tabs (Diltiazem hcl) .... One tablet three times daily Magnesium Oxide 400 Mg Oral Tabs (Magnesium oxide) .... One tab twice a day Eliquis 5 Mg Tabs (Apixaban) .... One tablet twice daily Was scheduled for cardioversion but converted with medications. Trevon Ranjit EP:BP today: 106/70 P rior BP: 139/81 (10/13/2015) Her updated medication list for this problem includes: Diltiazem Hcl 60 Mg Tabs (Diltiazem hcl) ..... One tablet three times daily Hydrochlorothiazide 12.5 Mg Caps (Hydrochlorothiazide) ..... One tab. daily Calvin Whitney MD EP:Compliant with CPAP. Calvin Whitney MD EP:Starting 200mg of Amiodarone daily pre-cardioversion. Calvin Whitney MD EP:Her updated medic ation list for this problem includes: Amiodarone Hcl 200 Mg Tabs (Amiodarone hcl) ..... One tablet daily Diltiazem Hcl 60 Mg Tabs (Diltiazem hcl) .... One tablet three times daily Magnesium Oxide 400 Mg Oral Tabs (Magnesium oxide) .... One tab twice a day Eliquis 5 Mg Tabs (Apixaban) .... One tablet twice daily Reports a few days ago, she could immediately tell she converted to Afib as she became dizzy and fatigued and felt palpitations. She had been taking Diltiazem only once a day (60mg) per another doctor's instructions. Will increase DIltiazem back up to 60mg TID and add 200mg of Amiodarone daily and schedule cardioversion. Calvin Whitney MD EP:Will obtain a Hol ter in 6 months. If there is significant bradycardia or pauses on telesentry, will consider pacemaker. Calvin Whitney MD EP Calvin uribe MD EP:BP today: 139/81 P rior BP: 137/83 (04/14/2015) Her updated medication list for this problem includes: Diltiazem Hcl 60 Mg Oral Tabs (Diltiazem hcl) ..... Once daily Hydrochlorothiazide 12.5 Mg Caps (Hydrochlorothiazide) ..... One tab. daily Calvin Whitney MD EP: Telecentry was reviewed. no atrial fibrillation. Continue present medications Rhythm: Sinus rhythm with rare ventricular ectopics T he average heart rate was 81BPM with a maximum heart rate of 123BPM. T he minimum heart rate was 54BPM. V entricular ectopy was in the form of isolated beats. R eport date: 10/17/15 //Jayleen Possibility of Flecainide or TIkosyn if there is significant Afib on her monitor Calvin Whitney MD EP:Will obtain a Hol ter in 6 months. If there is significant bradycardia or pauses on telesentry, will consider pacemaker. Calvin Whitney MD EP:Awaiting telesent ry results. Possibility of Flecainide or TIkosyn if there is significant Afib on her monitor Calvin Whitney MD EP Faxed 04/26/15:Her updated medication list for this problem includes: Diltiazem Hcl 30 Mg Tabs (Diltiazem hcl) ..... One tab twice daily Hydrochlorothiazide 12.5 Mg Caps (Hydrochlorothiazide) ..... One tab. daily BP today: 137/83 P rior BP: 149/94 (03/24/2015) Calvin Whitney MD EP Faxed 04/26/15:off amiodarone now T he following medications were removed from the medication list: Amiodarone Hcl 200 Mg Tabs (Amiodarone hcl) ..... One tab. daily Calvin Whitney MD EP Faxed 04/26/15:managed by juan Whitney MD EP Faxed 03/24/15 14 49:Will stop Amiodarone after current bottle runs out. Calvin Whitney MD EP Faxed 03/24/15 14 49:BP today: 149/94 Her updated medication list for this problem includes: Diltiazem Hcl 60 Mg Tabs (Diltiazem hcl) ..... Twice daily Hydrochlorothiazide 12.5 Mg Caps (Hydrochlorothiazide) ..... One tab. daily Calvin Whitney MD EP Faxed 03/24/15 14 49:S/P NYASIA/cardioversion by SK on 03/17/2015 at [facility] Calvin Whitney MD Date Name Complete Echo Carotid Duplex Bilat eral Aorta Duplex Ultraso und Carotid Duplex Bilat eral Complete Echo Stress Regadenoson Aorta Duplex Ultraso und Complete Echo MAGNESIUM CBC (H/H, RBC, INDIC ES, WBC, PLT) TSH, free T4, total T3 LIPID PANEL COMPREHENSIVE METABO LIC PANEL, W/EGFR Complete Echo Aorta Duplex Ultraso und DLCO - 58130 FRC - 48136 FVC - 77252 PARTIAL THROMBOPLAST IN TIME, ACTIVATED URINALYSIS, COMPLETE W/REFLEX TO CULTURE COMPREHENSIVE METABO LIC PANEL W/EGFR PROTHROMBIN TIME WIT H INR LIPID PANEL CBC (INCLUDES DIFF/P LT) Pacemaker Dual Chamb er - SLHV LIPID PANEL THYROID PANEL WITH T SH, 3RD GENERATION COMPREHENSIVE METABO LIC PANEL, W/EGFR Mobile Cardiac Tele Holter Monitor 24 Hr PARTIAL THROMBOPLAST IN TIME, ACTIVATED PROTHROMBIN TIME WIT H INR CBC (INCLUDES DIFF/P LT) BASIC METABOLIC PANE L W/EGFR CT Cardiac with cont rast (Pre-Ablation) ABLATION w/ Anesthes ia Stress Exercise Card iolite DLCO - 27211 FRC - 75942 FVC - 80685 Mobile Cardiac Tele Mobile Cardiac Tele Partial Thromboplast in Time, Activated PROTHROMBIN TIME WIT H INR THYROID PANEL WITH T SH, 3RD GENERATION LIPID PANEL CBC (H/H, RBC, INDIC ES, WBC, PLT) COMPREHENSIVE METABO LIC PANEL, W/EGFR Mobile Cardiac Tele DLCO - 52043 FRC - 16823 FVC - 24115 Complete Echo Mobile Cardiac Tele Complete Echo Carotid Duplex Bilat eral Complete Echo Sleep Study Titratio n DLCO - 80234 FRC - 65753 FVC - 52184 Mobile Cardiac Tele TSH, 3RD GENERATION W/REFLEX TO FT4 COMPREHENSIVE METABO LIC PANEL W/EGFR DLCO - 60395 FRC - 64296 FVC - 43847 MAGNESIUM BASIC METABOLIC PANE L W/EGFR PROTHROMBIN TIME WIT H INR Cardioversion - GC Holter Monitor 24 Hr Complete Echo Mobile Cardiac Tele Mobile Cardiac Tele DLCO - 50255 FRC - 95018 FVC - 79071 Portal MD Time: >20m in/7days Portal MD Time: >20m in/7days Portal MD Time: >20m in/7days HISTORY OF PROCEDURES Procedure Date Procedure Name Provider Procedure Notes S tatus Complex e/m visit add on Calvin Whitney MD completed EKG Calvin uribe MD completed Schedule Followup Calvin abraham MD 1 year completed EKG Calvin uribe MD completed EKG Calvin uribe MD completed EKG Calvin uribe MD completed Schedule Followup Calvin abraham MD 2 months w sk completed Schedule Followup Calvin abraham MD [facility] 02/28, 03/03 completed EKG Calvin uribe MD completed Schedule Followup Calvin abraham MD 3 weeks sk completed Mobile Cardiac Telem etry - Tech Calvin Whitney MD completed Mobile Cardiac Telem etry - Prof Calvin Whitney MD completed EKG Calvin uribe MD completed EKG Calvin uribe MD completed EKG Calvin uribe MD completed Regadenoson, 4 units Calvin richardson MD completed Cardiolite, 2 units ulius Abelardo elizondo MD completed SPECT Images Calvin uribe MD completed Stress EKG Calvin uribe MD completed Mobile Cardiac Telem etry - Tech Calvin Whitney MD completed Mobile Cardiac Telem etry - Prof Calvin Whitney MD completed Schedule Followup Calvin abraham MD in one month completed EKG Calvin uribe MD completed FVC / MVV - 04293 Calvin abraham MD completed BLOOD COUNT HEMOGLOBIN Calvin francois MD completed FRC - 31387 Calvin uribe MD completed SpO2 w/o 6min walk/titration Calvin Whitney MD completed DLCO - 33879 Calvin uribe MD completed Schedule Followup Calvin abraham MD in 6 mo completed Event Monitor Calvin uribe MD completed EKG Calvin uribe MD completed Schedule Followup Calvin abraham MD in 1 year completed EKG Calvin uribe MD completed Event Monitor Calvin uribe MD completed EKG Calvin uribe MD completed Event Monitor Calvin uribe MD completed Schedule Followup Calvin abraham MD in one year completed EKG Calvin uribe MD completed SNOMED-CT: 320391283657021 Current Medications Documented Calvin Whitney MD completed EKG Calvin uribe MD completed SNOMED-CT: 720330446487054 Current Medications Documented Calvin Whitney MD completed BLOOD COUNT HEMOGLOBIN Calvin francois MD completed FVC - 76553 Calvin uribe MD completed FRC - 75854 Calvin uribe MD completed DLCO - 93043 Calvin uribe MD completed EKG Calvin uribe MD completed SNOMED-CT: 720559090514621 Current Medications Documented Calvin Whitney MD completed BLOOD COUNT HEMOGLOBIN Calvin francois MD completed FVC - 72551 Calvin uribe MD completed FRC - 04432 Calvin uribe MD completed DLCO - 30004 Calvin uribe MD completed EKG Clavin uribe MD completed SNOMED-CT: 999816028784201 Current Medications Documented ulius Chelo BIRD completed Holter, 24 or 48 Calvin rodriguez MD completed Schedule Followup Calvin abraham MD in 6 months completed EKG Calvin uribe MD completed SNOMED-CT: 222749965763801 Current Medications Documented Calvin Whitney MD completed Mobile Cardiac Telem etry - Tech Calvin Whitney MD completed Mobile Cardiac Telem etry - Prof Calvin Whitney MD completed Schedule Followup Calvin abraham MD 6 months completed EKG Calvin uribe MD completed SNOMED-CT: 666089725437256 Current Medications Documented Calvin Whitney MD completed Stress EKG Anoop Mayes MD completed Regadenoson, 4 units Saulius Ran vavesna BIRD completed Cardiolite, 2 units Saulius Kalv aitmichael BIRD completed SPECT Images Tomas Benedict MD compl eted Event Monitor Laurelgeronimo Pierre complete d BLOOD COUNT HEMOGLOBIN Calvin francois MD completed FVC - 38019 Calvin uribe MD completed FRC - 61570 Calvin uribe MD completed DLCO - 25642 aClvin uribe MD completed Schedule Followup Calvin abraham MD in 1 month completed SNOMED-CT: 151537454 Smoking Cessation Counseling Calvin Whitney MD completed SNOMED-CT: 59359534 Physical Exam, Performed: Pulse Exam of Foot Calvin Whitney MD completed EKG Calvin uribe MD completed SNOMED-CT: 675900130631060 Current Medications Documented Calvin Whitney MD completed
--- OUTSIDE RECORDS SUMMARY | 2024-06-29 13:37 | XMS_ITS | Clinical Summary ---
Author Organization [facility] [employer] Address [address] [place] [address] Care Team Providers Care Base Brander Name Role Phone Gibran Epperson MD Primary Care Provider [phone] Source Comments [facility] [employer]non-owned Affiliates and Associated Physician Practices is amultiple site organization consisting of ambulatory clinics and hospital sitesin [place], [place], [place] and [place]. This disclosure is being madepursuant to the Care Everywhere program and may not contain all information available regarding this patient. Last updated 18.[facility] [employer] Allergies Active Allergy Reactions Criticality Noted Date Comments Alendronic Acid Vomiting 09/24/2023 Meperidine Dizziness 02/26/2019 Rash Medium 09/24/2023 Belladonna Alk-Phenobarbital Rash Medium 019 Morphine Headache,Unknown High 03/24/2015 Codeine Dizziness 02/26/2019 Id-Eycyso-Ufzmpfvr-Scopolamine Unknown 03/09 Prednisone Rash Medium 02/26/2019 Spironolactone [...] (Vitamin B-Complex 100) INJ B Complex 100 076-8-860-2-2 mg/mL solution Active Cyanocobalamin (B-12 Compliance Injection) 1000 MCG/ML vitamin F56-tdfrqfv B1 1,000 mcg-100 mg/mL injection solution Take [...] MOUTH EVERY DAY prn Active pancrelipase (Creon) 61912-484820 units capsule take up to 8 capsules [...] LURIA FLUZONE TRIVALENT; 6MO+) (IIV3) 02/03/2020 Covid Ubalo primary monoval ent 12+ yr 0.3mL Purple cap 08/14/2020,07/06/2020 INFLUENZA O1G0-23, HISTORIC VACCINE 01/30/2020 INFLUENZA VACCINE 02/17/2018,03/25/2017 INFLUENZA [...] 09/24/2023 11:00 AM CDT Plan of Treatment Health Maintenance Due Date Last Done Comments BONE DENSITY TESTING 1955 COLOGUARD (AGES 45-75) - COLON CA SCREENING 1955 COLON MONITORING 1953 COLONOSCOPY - COLON CA SCREENING 1953 CT COLONOGRAPHY - COLON CA SCREENING 1955 Colorectal Cancer Screening 1955 FIT - COLON CA SCREENING 1953 FLEX SIG - COLON CA SCREENING 1955 MAMMOGRAM 1955 MEDICARE AWV ? 12 MONTHS 1953 HEPATITIS C SCREENING 09/27/1971 DTAP/TDAP/TD VACCINES (1 - Tdap) 1972 Respiratory Syncytial Virus (RSV) Vaccine Pt: or over 60 yrs (1 - Risk 60-74 years 1-dose series) 2013 PNEUMOCOCCAL VACCINE 50+ (2 of 2 - PPSV23) 03/25/2016 03/25/2015 ZOSTER VACCINE (3 of 3) 09/27/2018 08/03/19 19, 08/02/2018, 02/17/2018, Additional history exists COVID-19 VACCINE (3 - season) 2024 08/14/2020, 07/06/2020 INFLUENZA VACCINE (#1) 2024 0, 01/30/2020, 02/26/2019, Additional history exists DEPRESSION SCREENING 05/26/2024 SCREENING FOR DIABETES 09/16/2026 4, 09/16/2023, 09/16/2023, Additional history exists HEPATITIS B VACCINE Aged Out No longe r eligible based on patient's age to complete this topic HIB VACCINE Aged Out No longer eligi ble based on patient's age to complete this topic HPV VACCINE Aged Out No longer eligi ble based on patient's age to complete this topic MENINGOCOCCAL (Group B) VACCINE Aged Out No longer eligible based on patient's age to complete this topic MENINGOCOCCAL VACCINE Aged Out No harjit tri eligible based on patient's age to complete this topic Procedures Procedure Name Priority Date/Time Associated Diagnosis Comments BASIC METABOLIC PANEL (CALCIUM TOTAL) AM Draw 09/17/2023 1:16 AM CDT Hyperparathyroidism (HCC) from Last 3 Months or Most Recently Relevant to Health Maintenance Results * (ABNORMAL) BASIC METABOLIC PANEL (CALCIUM TOTAL) (09/17/2023 1:16 AM CDT) BUN 17 7 - 26 mg/dL 09/17/2023 2:44 AM [facility] Creatinine 0.72 0.56 - 0.96 mg/dL 09/17/2023 2:44 AM [facility] Sodium 142 136 - 145 mmol/L 09/17/2023 2:44 AM [facility] Potassium 3.9 3.5 - 4.5 mmol/L 09/17/2023 2:44 AM [facility] Chloride 109(H) 98 - 107 mmol/L 09/17/2023 2:44 AM [facility] CO2 26 22 - 29 mmol/L 09/17/2023 2:44 AM [facility] Glucose 82 70 - 115 mg/dL 09/17/2023 2:44 AM [facility] Calcium 8.1(L) 8.4 - 10.2 mg/dL 09/17/2023 2:44 AM [facility] Anion Gap 7 6 - 16 09/17/2023 2:44 AM [facility] BUN/Creatinine Ratio 24(H) 7 - 23 09/17/2023 2:44 AM [facility] Osmolality Calculated 295 275 - 295 mOsm/kg 09/17/2023 2:44 AM [facility] eGFR by CKD-EPI 90 >=90 mL/min/1.7 3 m2 09/17/2023 2:44 AM [facility] Blood BLOOD SPECIMEN / Unknown Lab Venipuncture / Unknown 09/17/2023 1:16 AM CDT 09/17/2023 1:46 AM T Bhavesh Gastelum MD LAB - CHEMISTRY PREMA LI [facility] Organization Address City/State/ZIP Co de Phone Number [facility] [address] [place] [address], [facility] [phone] from Last 3 Months or Most Recently Relevant to Health Maintenance Advance Directives * Full Code (Latest Code Status on File) Date Activated Date Inactivated Comments 09/16/2023 4:52 PM 09/17/2023 1:58 PM Care Teams Base Brander Relationship Specialty Start Date End Date Gibran Epperson MD [address] [place] [address] PCP - General Internal Medicine 08/20/23
== END 2024-06-29 13:26 | disposition home or self-care (01) ==
PROVIDERS: PCP Internal Medicine; Visit Provider Internal Medicine
DX: R90.82 White matter disease, unspecified (principal)
CPT/HCPCS: 70450

== ENCOUNTER 2024-09-08 13:04 | Outpatient (CLI) | payer MEDICARE, OTHER, SELFPAY ==
--- NOTE | ~2024-09-08 | US_ITS ---
EXAMINATION: US thyroid DATE: 09/08/2024 13:52 INDICATION: Goiter TECHNIQUE: Multiple ultrasound images of the thyroid were obtained. COMPARISON: None. FINDINGS: The right thyroid lobe measures 4.1 x 1.5 x 1.6 cm. Within the upper pole of the right lobe of the thyroid gland is a 4.3 x 3.2 x 3.4 mm nodule: Composition - spongiform Echogenicity - hypoechoic Shape - wider than tall Margin - smooth Echogenic foci - none. = TR2 not suspicious. The left thyroid lobe measures 3.5 x 1.6 x 1.6 cm. The isthmus measures 0.3cm in anterior to posterior dimension. There is normal echotexture and echogenicity throughout the thyroid gland. No discrete nodules identi fied. Normal vascular flow is present. IMPRESSION: Unremarkable sonographic evaluation of the thyroid gland, as detailed above Reviewed, dictated and finalized at location A.
--- NOTE | ~2024-09-08 | CT_ITS ---
Non-contrast CT scan of the Abdomen and Pelvis Clinical indication: Osteoporosis Technique: 2.5 mm axial scans were obtained through the abdomen and pelvis without intravenous or or al contrast. Dose reduction technique was used on this scan by utilizing automated exposure control a nd iterative reconstruction technique. The dose-length product (DLP) was 1681.00 mGy-cm. COMPARISON: 12/29/2023 Findings: Images through the lung bases reveal no abnormalities. There is no evidence of renal or ureteral calculi. The kidneys and the ureters are nondilated. Probab le parapelvic right renal cysts. The liver, spleen, pancreas, gallbladder, and right adrenal gland appear normal. Stable left adrenal adenoma. There are atherosclerotic calcifications of the aorta. . There is no evidence of bowel obstruction. Evidence of prior bariatric surgery noted. Small fat-conta ining umbilical hernia present. Small fat-containing ventral hernia present left of midline inferior to the umbilicus. Images through the pelvis were performed. There is no evidence of ascites or lymphadenopathy. Urinary bladder unremarkable. No pelvic mass seen. Impression: Fat-containing ventral hernias, stable from prior exam, as above. Right parapelvic renal cysts. Reviewed, dictated and finalized at [facility]. Impression: Fat-containing ventral hernias, stable from prior exam, as above. Right parapelvic renal cysts.
--- OUTSIDE RECORDS SUMMARY | 2024-09-08 14:09 | XMS_ITS | Clinical Summary ---
Author Organization [facility] Address [address] [place] [address] Phone Care Team Providers Care Entry Clerk Name Role Phone Unavailable Primary Care Provider Unavailabl e Medications denosumab (Prolia) 60 mg/mL Syringe Inject 1 syringe (60 mg) under the skin every 6 months 1 mL 1 04/04/2022 3:59 PM [employer] MANAGER 2 Active denosumab (Prolia) 60 mg/mL Syringe Inject 1 mL (60 mg) subcutaneously every 6 months 1 mL 1 09/26/2022 3:56 PM CDT 3 Active Encounters Date Type Department Care Team Description 08/11/2024 External Device Data [facility] Provider, Abstract 07/31/2024 External Device Data [facility] Provider, Abstract 07/30/2024 External Device Data [facility] Provider, Abstract 07/27/2024 External Device Data [facility] Provider, Abstract 07/13/2024 External Device Data [facility] Provider, Abstract 06/17/2024 External Device Data [facility] Provider, [...] Colonography Q 5 years 1998 PNEUMOCOCCAL VACCINE 50+ YEARS (1 of 1 - PCV) 10/02/19 [...]
--- OUTSIDE RECORDS SUMMARY | 2024-09-08 14:09 | XMS_ITS | Continuity of Care Document ---
Author Organization [facility] Address [address] [place] [address] Phone Care Team Providers Care Language Therapist Name Role Phone Eliseo Barnes Unavailable Unavailable Procedures Procedure Date Office/outpatient Visit, Est Office/outpatient Visit, Est Office/outpatient Visit, Est Office/outpatient Visit, Est Eye Exam Established Pt Advance Directives Directive Yes / No Effective Date File Name No Information Encounters Encounter Description Practice Location Reason(s) For Visit Diagnoses Date Provider Providers Copied on Encounter Office/outpat ient Visit, [facility] [place] [id number] [place] [address] [address], [place], [place], [id number], [place] tel:[phone] [facility] No Information 0-200 9 Krishnasamy Eliseo. [facility] [address], [facility] [place]. tel:[phone] Office/outpat ient Visit, [facility] [place], [address] [place] [address] [address], [place], [place], [id number], [place] tel:[phone] [facility] No Information 9-200 9 Krishnasamy Eliseo. [address] [facility] [address], [place], [facility] [place]. tel:[phone] Office/outpat ient Visit, [facility] [place], [address] [place] [address] [address], [place], [place], [id number], [place] tel:[phone] [facility] No Information Sep-2 2-200 9 Krishnasamy Eliseo. [address], [facility] [place], . tel:[phone] Office/outpat ient Visit, [facility], [address], [place], [place], [id number], [place] tel:[phone] [facility] No Information Sep-1 5-200 9 Krishnasamy Eliseo. [address], [facility] [place]. tel:[phone] [facility], [address], [place], [place], [id number], [place] tel:[phone] [facility] No Information Sep-0 8-200 9 Krishnasamy Eliseo. [facility] [address], [facility] [place]. tel:[phone] Family History Family Member Type Diagnosis Age [...]
--- OUTSIDE RECORDS SUMMARY | 2024-09-08 14:09 | XMS_ITS | Continuity of Care Document ---
Author Name [facility] Organization [facility] Care Team Providers Care Cannery Tender Engineer Name Role Phone [facility] Unavailable Unavailable Problems Combined list of problems from Department of [facility] and [facility] facilities. It does not include entries that were removed or entered in error. Problem Status Onset Date Problem Type Date of Resolution Comments Source Diagnosis: ICD-10-CM Z74.1 Need for assistance with personal care Active Diagnosis [facility] Diagnosis: ICD-10-CM Z63.6 Dependent relative needing care at home Active Diagnosis [facility] Immunizations Combined list of available immunizations from the Department of [facility] and [facility] facilities. Immunization Series Date Given Administered By Site Reaction Lot Number CVX Code Drug Vehicle Dynamics Engineer Status Comments Source COVID-19 (bMenu), MRNA, LNP-S, PF, 30 MCG/0.3 ML DOSE, CEICLIA-SUCROSE (AGES 12+ YEARS) 4 2021 217 complet ed PFR; [id number]; 2 [facility] Encounters Combined list of: 1) Encounters from Department of [facility] facilities going backup to the last 18 months, not all [place] inpatient encounters are included; 2) Encounters from the Department [facility] facilities going backup to 280 months. Location Location Details Encounter Type Encounter Number Reason For Visit Attending Provider ADM Date DC Date Status Disposition Source [facility] Outpatient Encounter [id number] 03/12 [facility] CASE MANAGEMENT [id number] Diagnos is: ICD-10- CM Z63.6 Depende nt relativ e needing care at home SABA XAVIER 03/24 [facility] Outpatient Encounter [id number] 07/21 [facility] CASE MANAGEMENT [id number] Diagnos is: ICD-10- CM Z74.1 Need for assista nce with persona l care PINA RUELAS KEITH 07/28 [facility] Outpatient Encounter [id number] 12/02 [facility] PROGRAM INTAKE ASSESSMENT [id number] Diagnos is: ICD-10- CM Z74.1 Need for assista nce with persona l care PINA RUELAS KEITH 12/03 [facility] Outpatient Encounter [id number] 02/23 [facility] PROGRAM INTAKE ASSESSMENT [id number] Diagnos is: ICD-10- CM Z74.1 Need for assista nce with persona l care PINA RUELAS KEITH 03/03 [facility] Outpatient Encounter [id number] 07[facility] IN[facility]KE [facility] [id number] Diagnos is: ICD-10- CM Z74.1 Need for assista nce with persona l care PINA RUELAS KEITH 07/28 [facility]
--- OUTSIDE RECORDS SUMMARY | 2024-09-08 14:10 | XMS_ITS | Referral Summary ---
Author Organization [facility] Address [address] [place] [address] Care Team Providers Care Pricer Name Role Phone Gibran Epperson MD Primary Care Provider Calvin Whitney MD Unavailable Allergies Active Allergy Reactions Criticality Noted Date Comments Codeine Dizziness Low 02/26/2019 Meperidine Dizziness Low 02/26/2019 Morphine Unknown 03/09/2019 Xihxvmcux-Mgrvus-Vpkdzenz-Scop Unknown 03/09 Prednisone Rash Medium 02/26/2019 Medications calcium carbonate/vitam in D3 (CALTRATE 600 PLUS D ORAL) Caltrate 600 plus D 2 a day Active diltiazem (TIAZAC) 360 mg 24 hr capsule daily Active cyanocobalamin, vitamin B-12, 1,000 mcg/mL kit vitamin C11-acomltl B1 1,000 mcg-100 mg/mL injection solution Take [...] apnea 03/09/2019 Non-smoker 03/09/2019 Permanent atrial fibrillation 03/09/2019 Dizziness 03/09/2019 Morbid obesity with BMI of 40.0-44.9, adult 02/23 Immunizations Immunization Administration Dates Next Due Influenza, Trivalent, High [...] on file Legal Sex Female 9:29 AM [employer] Gender Identity Not on file Sexual Orientation Not on file Last Filed Vital Signs Vital Sign Reading Time Taken Comments Blood Pressure 128/74 02/07/2020 9:55 AM CDT Pulse 72 02/07/2020 9:55 AM CDT Temperature 36.6 C (97.9 F) 05/03/2019 10:29 AM [employer] Respiratory Rate 20 07/26/2019 9:18 AM [employer] Oxygen Saturation 92% 02/07/2020 9:55 AM CDT Inhaled Oxygen Concentration - - Weight 129.3 kg (285 lb) 07/26/2019 9:18 AM [employer] Height 172.7 cm (5' 8 ) 07/26/2019 9:18 AM [employer] Body Mass Index 43.33 07/26/2019 9:18 AM [employer] Plan of Treatment Not on file Insurance MEDICARE [facility] [place] [address] MEDICARE [facility] [place] [address] Care Teams Pricer Relationship Specialty Start Date End Date Gibran Epperson MD PCP - General Internal Medicine 02/02/19 [place] [id number] [address] Consulting Physician Cardiology 04/07/19
--- OUTSIDE RECORDS SUMMARY | 2024-09-08 14:10 | XMS_ITS | CONTINUITY OF CARE DOCUMENT ---
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 Susanna Stoner Atrial fibrillation active Calvin uribe MD Hypertension active Calvin Whitney MD Previous long-term use of amiodarone active Calvin Whitney MD Abnormal electrocardiogram completed 03/29 - Calvin Whitney MD Anxiety disorder generalized active Calvin Whitney MD Bradycardia sinus active Calvin Whitney MD Dyslipidemia active Calvin Whitney MD Sleep apnea, obstructive - o n CPAP active Calvin Whitney MD Obesity active Calvin Whitney MD Abnormal pulmonary function tests active Calvin Whitney MD Epistaxis active Ashok Cervantes Shortness of breath active Emiliano Smith Chest pain active Emiliano Smith PVC's active Gradymaryjo Whelan Sick sinus syndrome active Grady Whelan Carotid bruit, bilateral active Mehran Wilsonconstantin enfelder Cellulitis at pacemaker incision site active Leonardo Del Valle Current use of NOAC active Calvin uribe MD ENCOUNTERS Date Type Provider Location Encounter Diag nosis 9 - 9 In-person encounter Office Visit Sauli Kalvaitis [facility] 1 - 1 In-person encounter Office Visit Saulius Tongvaitis [facility] 7 - 7 In-person encounter Office Visit Saulius Tongvaitis [facility] 1 - 1 In-person encounter Office Visit Calvin Whitney MD [facility] Carotid bruit, bilateral 1 - 5 In-person encounter Office Visit Saulius Kalvaitis [facility] 2 - 2 In-person encounter Office Visit Saulius Ranvaitis [facility] 6 - 6 In-person encounter Office Visit Saulius Tongvaitis [facility] 2 - 2 In-person encounter Office Visit Saulius Kalvaitis [facility] 2 - 2 In-person encounter Office Visit Saulius Kalvaitis [facility] 8 - 8 In-person encounter Office Visit ulius Chelo BIRD [facility] Cellulitis at pacemaker incision site 4 - 8 In-person encounter Office Visit Saulius Kalvaitis [facility] 7 - 0 In-person encounter Office Visit Saulius Ranvavesna BIRD [facility] 4 - 5 In-person encounter Office Visit Calvin Whitney MD [facility] Sick sinus syndrome 4 - 4 In-person encounter Office Visit Calvin Whitney MD [facility] 2 - 2 In-person encounter Office Visit Calvin Whitney MD [facility] 4 - 7 In-person encounter Office Visit Calvin Whitney MD [facility] PVC's 6 - 6 In-person encounter Office Visit Calvin Whitney MD [facility] Shortness of breathChest pain 8 - 8 In-person encounter Office Visit Calvin Whitney MD [facility] 5 - 5 In-person encounter Office Visit Calvin Whitney MD [facility] Epistaxis 8 - 9 In-person encounter Office Visit Calvin Whitney MD [facility] 3 - 8 In-person encounter Office Visit Calvin Whitney MD [facility] 5 - 5 In-person encounter Office Visit Calvin Whitney MD [facility] 0 - 6 In-person encounter Office Visit Calvin Whitney MD [facility] Previous long-term use of amiodaroneSleep apnea, obstructive - on CPAPCurrent use of NOACObesityAbnormal pulmonary function tests 9 - 9 In-person encounter Office Visit Calvin Whitney MD [facility] Current use of NOAC 8 - 1 In-person encounter Office Visit Calvin Whitney MD [facility] Atrial fibrillationPrevious long-term use of amiodaroneAbnormal electrocardiogramDyslipidemiaSleep apnea, obstructive - on CPAP 0 - 5 In-person encounter Office Visit Calvin Whitney MD [facility] Previous long-term use of amiodaroneBradycardia sinus 0 - 3 In-person encounter Office Visit Calvin Whitney MD [facility] Anxiety disorder generalized 0 - 0 In-person encounter Office Visit Calvin Whitney MD [facility] Atrial fibrillationHypertension VITAL SIGNS Date Observation Value Provider Body Mass Index (Ratio) 43.03 kg/m2 Guillermo as John blood pressure, diastolic 66 mm[Hg] Ja rret blood pressure, systolic 118 mm[Hg] Jar ret pulse rate 72 /min Located Within [facility] y blood pressure, cuff size large Ja rret weight E&M 283 [lb_av] Located [facility] y oxygen saturation, oximetry 96 % Mario respiratory rate E&M 16 /min Mario height E&M 68 [in_i] Loc[facility] y Body Mass Index (Ratio) 40.14 kg/m2 Guillermo zamudio Verner blood pressure, diastolic 73 mm[Hg] Li nkLogic blood pressure, systolic 106 mm[Hg] Mita kLogic pulse rate 73 /min [facility] blood pressure, cuff size regular Fa [facility] blood pressure, diastolic 73 mm[Hg] [facility] blood pressure, systolic 106 mm[Hg] Cuco [place] oxygen saturation, oximetry 94 % [facility] respiratory rate E&M 16 /min Verónica Davila iller weight E&M 264 [lb_av] [facility] height E&M 68 [in_i] [facility] Body Mass Index (Ratio) 40.59 kg/m2 Gustavo Marte blood pressure, cuff size large Ke rri [...] Leslye Gruenenfe lder Body Mass Index (Ratio) 41.66 kg/m2 Ramesh e Gruenenfelder blood pressure, diastolic 80 mm[Hg] Li nkLogic blood pressure, systolic 46 mm[Hg] Mita kLogic blood pressure, cuff size regular Ke rri Gruenenfelder blood pressure, diastolic 80 mm[Hg] Ke rri Gruenenfelder blood pressure, systolic 46 mm[Hg] Ker ri Gruenenfelder oxygen saturation, oximetry 96 % Leslye Gruenenfelder respiratory rate E&M 12 /min Leslye G ruenenfelder pulse rate 72 /min Leslye Grjmnenfe lder weight E&M 274 [lb_av] Leslye Gruenenfe lder height E&M 68 [in_i] Leslye Gruenenfe lder Body Mass Index (Ratio) 43.03 kg/m2 Gustavo Gomezmedzai blood pressure, cuff size large Ke rri Gruenenfelder blood pressure, diastolic 80 mm[Hg] Ke rri Gruenenfelder blood pressure, systolic 110 mm[Hg] Ker ri Gruenenfelder oxygen saturation, oximetry 94 % Leslye Barberfrannyrosibel respiratory rate E&M 16 /min Leslye Paul latoshamichellemarkel pulse rate 80 /min Leslye Ferrell lder weight E&M 283 [lb_av] Leslye Ferrell lder height E&M 68 [in_i] Leslye Barbere lder blood pressure, diastolic 80 mm[Hg] Rosalie nkLogic blood pressure, systolic 124 mm[Hg] Mita kLogic Body Mass Index (Ratio) 45.06 kg/m2 Taew on blood pressure, diastolic 80 mm[Hg] Issa Joya blood pressure, systolic 124 mm[Hg] Katina Andersenmaryjo Joya oxygen saturation, oximetry 94 % Esdras Joya respiratory rate E&M 16 /min Arthur Joya pulse rate 86 /min Esdras Long anneruddy weight E&M 296.4 [lb_av] Esdras mathuron height E&M 68 [in_i] Esdras cruz pulse rate 70 /min Trinhon Eligio blood pressure, diastolic 65 mm[Hg] Ta florianon Eligio blood pressure, systolic 130 mm[Hg] Tae [...] [lb_av] Nerissa rodriguez height E&M 68 [in_i] Neirssa rodriguez Body Mass Index (Ratio) 43.79 kg/m2 [place] Eligio blood pressure, diastolic 80 mm[Hg] Cy jaiden Masters blood pressure, systolic 124 mm[Hg] Delmy martha Masters blood pressure, cuff size regular Cy jaiden Masters respiratory rate E&M 16 /min Nerissamartha Masters pulse rate 66 /min Nerissa rodriguez oxygen saturation, oximetry 95 % Nerissa Masters weight E&M 288 [lb_av] Nerissa rodriguez height E&M 68 [in_i] Nerissa rodriguez Body Mass Index (Ratio) 44.24 kg/m2 [place] Eligio respiratory rate E&M 18 /min Tonsha Cardoso pulse rate 110 /min Tonsha Cardoso oxygen saturation, oximetry 96 % Tonsha Cardoso blood pressure, diastolic 42 mm[Hg] To nsha Cardoso blood pressure, systolic 103 mm[Hg] Ton [facility] Cardoso weight E&M 291 [lb_av] Tonsha Cardoso height E&M 68 [in_i] Tonsha Cardoso Body Mass Index (Ratio) 43.79 kg/m2 Ellen sibley Tip blood pressure, cuff size regular Kr isty [place] blood pressure, diastolic 80 mm[Hg] Kr isty Maurilio blood pressure, systolic 130 mm[Hg] Kri sty [place] respiratory rate E&M 18 /min Jessica Maurilio pulse rate 56 /min Jessica [place] oxygen saturation, oximetry 96 % Jessica Maurilio weight E&M 288 [lb_av] Jessica Maurilio height E&M 68 [in_i] Jessica Maurilio Body Mass Index (Ratio) 43.27 kg/m2 Jord en Tip blood pressure, diastolic 80 mm[Hg] Issa Joya blood pressure, systolic 131 mm[Hg] Katina Joya oxygen saturation, oximetry 97 % Esdras Joya respiratory rate E&M 20 /min Arthur Joya pulse rate 67 /min Esdras Long nson weight E&M 284.6 [lb_av] Esdras Banuelos enson height E&M 68 [in_i] Esdras Long nson Body Mass Index (Ratio) 43.33 kg/m2 Jord maryjo Tip blood pressure, cuff size regular Cy jaiden Masters blood pressure, diastolic 70 mm[Hg] Cy ntamie Masters blood pressure, systolic 120 mm[Hg] Delmy martha Masters oxygen saturation, oximetry 95 % Nerissa Masters respiratory rate E&M 18 /min Nerissa Masters pulse rate 63 /min Nerissamartha Cormiermarlyn l weight E&M 285 [lb_av] Nerissa Campbel [...] Marie uribe weight E&M 281 [lb_av] Marie Aleman s height E&M 68 [in_i] Marie Aleman s Body Mass Index (Ratio) 41.05 kg/m2 Rogerio Cervantes blood pressure, cuff size regular Ke rri [...] Body Mass Index (Ratio) 41.05 kg/m2 Rogerio Helen blood pressure, cuff size large Ke [...] Gruenenfelder oxygen saturation, oximetry 97 % Leslye Gruenenfelder respiratory rate E&M 20 /min Leslye G ruenenfelder pulse rate 67 /min Leslye Ferrell er weight E&M 265 [lb_av] Leslye Ferrell er height E&M 68 [in_i] Leslye Ferrell [facility] Body Mass Index (Ratio) 40.14 kg/m2 Victorino Hannonerson blood pressure, diastolic 70 mm[Hg] Ki genevieve Montague blood pressure, systolic 130 mm[Hg] Rosa andujar [place] oxygen saturation, oximetry 94 % [facility] respiratory rate E&M 16 /min [facility] pulse rate 59 /min [facility] weight E&M 264 [lb_av] ShreyaMary [facility] height E&M 68 [in_i] [facility] Body Mass Index (Ratio) 40.90 kg/m2 [...] Tip Church blood pressure, diastolic 85 mm[Hg] Ke rri Lynda blood pressure, systolic 126 mm[Hg] Alyson Howell blood pressure, cuff size large Ke rri Lynda oxygen saturation, oximetry 95 % Leslye Howell respiratory rate E&M 16 /min Leslye Paul latoshaelizabethkatina pulse rate 58 /min Leslye Ferrell [facility] height E&M 68 [in_i] Leslye Ferrell [facility] Body Mass Index (Ratio) 41.50 kg/m2 Tip [place] blood pressure, resting No David Whitney MD blood pressure, cuff size regular Ke lorie Barberkatina blood pressure, diastolic 89 mm[Hg] Ke rri Elisabethkatina blood pressure, systolic 141 mm[Hg] Alyson Wilsonjmbladekatina oxygen saturation, oximetry 96 % Leslye Barberkatina respiratory rate E&M 16 /min Leslye Paul elisabethchelsikatina pulse rate 64 /min Leslye Ferrell [facility] weight E&M 273 [lb_av] Leslye Ferrell [facility] height E&M 68 [in_i] Leslye Ferrell [facility] Body Mass Index (Ratio) 41.14 kg/m2 Tip Church blood pressure, diastolic 70 mm[Hg] Issa Luciuszahra BanuelosJoya blood pressure, systolic 106 mm[Hg] Katina Joya oxygen saturation, oximetry 92 % Esdras Joya respiratory rate E&M 18 /min Arthur Joya pulse rate 102 /min Esdras Ethan anthony weight E&M 270.6 [lb_av] Esdras mora height E&M 68 [in_i] Esdras Steve anneon blood pressure, diastolic 81 mm[Hg] Me carr Merrick blood pressure, systolic 139 mm[Hg] Amber Sin pulse rate 58 /min Maria Antonia Sin oxygen saturation, oximetry 97 % Maria Antonia Sin respiratory rate E&M 16 /min Maria Antonia Sin Body Mass Index (Ratio) 41.05 kg/m2 Lakisha Sin weight E&M 270 [lb_av] Maria Antonia Sin blood pressure, diastolic 83 mm[Hg] Ke rri Budchelsikatina blood pressure, systolic 137 mm[Hg] Alyson ri Lynda pulse rate 62 /min Leslye Ghassan lder oxygen saturation, oximetry 96 % Leslye Lynda respiratory rate E&M 16 /min Leslye Paul [place] Body Mass Index (Ratio) 40.59 kg/m2 Snowden corrina Lynda weight E&M 267 [lb_av] Leslye Elisabethangel lder blood pressure, diastolic 94 mm[Hg] Issa Kanzahra Joya blood pressure, systolic 149 mm[Hg] Katina [...] LinkLogic 0-149 cholesterol, serum 150 mg/dL LinkLogic [id number] 5311/05 /08 basophil count, absolute 0.0 x10E3/uL LinkLogic [...] Not Estab. platelet count 315 X10E3/UL LinkLogic [phone]/05 /08 red blood cell distribution width 14.3 [...] aminotransferase (SGPT), serum 17 1/L LinkLogic 0-32 2021/05 /08 aspartate aminotransferase (SGOT), serum 18 1/L LinkLogic [...] LinkLogic 3.5-5.2 sodium, serum 143 mmol/L LinkLogic 500-300 9215/05 /08 urea nitrogen/creatinine ratio, serum 22 LinkLogic [...] Normal Absolute Neutrophil count 5624 cells/mcL LinkLogic [id number] Normal mean platelet volume 9.0 fL LinkLogic [...] units of CFunits/mL) SEE NOTE LinkLogic Abnormal [facility] [address] [place] [phone] Ash De Oliveira D.O., MPH prothrombin time (patient) 10.3 s LinkLogic 9.0-11.5 Normal [facility] [address] [phone] Ash De Oliveira D.O., MPH international normalized ratio (INR) 1.0 LinkLogic Normal [facility] [address] [facility] [address] Ash De Oliveira D.O., MPH basophils as percent of blood leukocytes 0.5 % LinkLogic Normal [facility] [address] [facility] [address] Ash De Oliveira D.O., MPH eosinophils as percent of blood leukocytes 1.6 % LinkLogic Normal [facility] [address] [facility] [address] Ash De Oliveira D.O., MPH monocyte count, blood 7.4 % LinkLogic Normal [facility] [address] [address] [facility] [address] Ash De Oliveira D.O., MPH lymphocyte count, blood 16.5 % LinkLogic Normal [facility] [address] [facility] [address] Ash De Oliveira D.O., MPH neutrophils as percent of blood leukocytes 74 % LinkLogic Normal [facility] [address] [facility] [address] Ash De Oliveira D.O., MPH basophils, absolute, manual 38 cells/mcL LinkLogic 0-200 Normal [facility] [address] [facility] [address] Ash De Oliveira D.O., MPH eosinophils, absolute, manual 122 cells/mcL LinkLogic 15-500 Normal [facility] [address] [facility] [address] Ash De Oliveira D.O., MPH monocytes, absolute, manual 562 cells/mcL LinkLogic 200-950 Normal [facility] [address] [facility] [address] Ash De Oliveira D.O., MPH lymphocytes, absolute 1254 CELLS/UL LinkLogic 850-3900 Normal [facility] [address] [facility] [address] Ash De Oliveira D.O., MPH Absolute Neutrophil count 5624 cells/mcL LinkLogic 4795-5934 Normal [facility] [address] [facility] [address] Ash De Oliveira D.O., MPH mean platelet volume 9.0 fL LinkLogic 7.5-12.5 Normal [facility] [address] [facility] [address] Ash De Oliveira D.O., MPH platelet count 323 THOUSAND/UL LinkLogic 140-400 Normal [facility] [address] [place] [phone] Ash De Oliveira D.O., MPH red blood cell distribution width 13.5 % LinkLogic 11.0-15.0 Normal [facility] [address] [address] [phone] Ash De Oliveira D.O., MPH mean corpuscular hemoglobin concentration, RBC 32.2 G/DL LinkLogic 32.0-36.0 Normal [facility] [address] [phone] Ash De Oliveira D.O., MPH mean corpuscular hemoglobin, RBC 28.4 pg LinkLogic 27.0-33.0 Normal [facility] [address] [facility] [address] Ash De Oliveira D.O., MPH mean corpuscular volume, RBC 88.2 fL LinkLogic 80.0-100.0 Normal [facility] [address] [facility] [address] Ash De Oliveira D.O., MPH hematocrit, blood 41.9 % LinkLogic 35.0-45.0 Normal [facility] t Diagnostic [facility] [phone] Ash De Oliveira D.O., MPH hemoglobin electrophoresis, blood 13.5 LinkLogic 11.7-15.5 Normal [facility] [address] [facility] [phone] Ash De Oliveira D.O., MPH erythrocyte (RBC) count 4.75 MILLION/UL LinkLogic 3.80-5.10 Normal [facility] [address] [place] [phone] Ash De Oliveira D.O., MPH leukocyte (white blood cells) count, blood 7.6 THOUSAND/UL LinkLogic 3.8-10.8 Normal [facility] [address] [address] [place] [address] Ash De Oliveira D.O., MPH hyaline casts, urine NONE SEEN LinkLogic NONE SEEN Normal [facility] [address] [place] [address] Ash De Oliveira D.O., MPH bacteria, urine microscopy MODERATE LinkLogic NONE SEEN Abnormal [facility] [address] [place] [address] Ash De Oliveira D.O., MPH epithelial cells, urine 0-5 LinkLogic < OR = 5 [facility] [address] Ash De Oliveira D.O., MPH RBC urine by microscopy 10-20 LinkLogic < OR = 2 Abnormal [facility] Ash De Oliveira D.O., MPH WBC urine on microscopy > OR = 60 /HPF LinkLogic < OR = 5 Abnormal [facility] [place] [address] Ash De Oliveira D.O., MPH protein, urine, semiquantitative (dipstick) NEGATIVE LinkLogic NEGATIVE Normal [facility] Diagnostic s[address] Ash De Oliveira D.O., MPH blood in urine (hemoglobin) by dipstick NEGATIVE LinkLogic NEGATIVE Normal [facility] [address] Ash De Oliveira D.O., MPH ketones, urine, by test strip NEGATIVE LinkLogic NEGATIVE Normal [facility] [address] [place], [place] [address] Ash De Oliveira D.O., MPH bilirubin, urine NEGATIVE LinkLogic NEGATIVE Normal [facility] [address] [place], [place] [address] Ash De Oliveira D.O., MPH glucose, urine, semiquantitative NEGATIVE LinkLogic NEGATIVE Normal [place] [facility] [address] [address] [place] [phone] Ash De Oliveira D.O., MPH pH, urine, semiquantitative 6.0 LinkLogic 5.0-8.0 Normal [place] [facility] [address] [address] [place] [address] Ash De Oliveira D.O., MPH specific gravity, urine 1.021 LinkLogic 1.001-1.035 Normal [place] [facility] [address] [address] [place] [address] Ash De Oliveira D.O., MPH appearance, urine CLOUDY LinkLogic CLEAR Abnormal [place] [facility] [address] [address] [place] [address] Ash De Oliveira D.O., MPH urine color YELLOW LinkLogic YELLOW Normal [facility] [address] [address] [facility] [address] Ash De Oliveira D.O., MPH PTT patient 30 s LinkLogic 22-34 Normal [facility] [address] [facility] [place] [phone] Ash De Oliveira D.O., MPH alanine aminotransferase (SGPT), serum 17 1/L LinkLogic 6-29 Normal [place] [facility] [address] [address] [facility] [phone] Ash De Oliveira D.O., MPH aspartate aminotransferase (SGOT), serum 19 1/L LinkLogic 10-35 Normal [place] [facility] [address] [address] [place] [address] Ash De Oliveira D.O., MPH alkaline phosphatase, serum 130 1/L LinkLogic 37-153 Normal [place] [facility] [address] [facility] [phone] Ash De Oliveira D.O., MPH bilirubin, serum, total 0.4 mg/dL LinkLogic 0.2-1.2 Normal [facility] [address] [address] [facility] [address] Ash De Oliveira D.O., MPH albumin/globulin ratio, serum 1.4 (calc) LinkLogic 1.0-2.5 Normal [facility] [address] [place] [address] Ash De Oliveira D.O., MPH globulins, serum, total 2.7 G/DL (CALC) LinkLogic 1.9-3.7 Normal [facility] [address] Sarah [facility] [address] Ash De Oliveira D.O., MPH albumin, serum 3.7 g/dL LinkLogic 3.6-5.1 Normal [facility] [address] [address] Ash De Oliveira D.O., MPH protein, total, serum 6.4 g/dL LinkLogic 6.1-8.1 Normal [facility] [address] [facility] [address] Ash De Oliveira D.O., MPH calcium, serum 9.3 mg/dL LinkLogic 8.6-10.4 Normal [facility] [address] [facility] [address] Ash De Oliveira D.O., MPH carbon dioxide, venous blood 31 mmol/L LinkLogic 20-32 Normal [facility] [address] [address] [facility] Ash De Oliveira D.O., MPH chloride, serum 102 mmol/L LinkLogic 98-110 Normal [facility] [address] [address] [facility] [phone] Ash De Oliveira D.O., MPH potassium, serum 4.0 mmol/L LinkLogic 3.5-5.3 Normal [facility] [address] [address] [place] [phone] Ash De Oliveira D.O., MPH sodium, serum 141 mmol/L LinkLogic 135-146 Normal [facility] [address] [place] [phone] Ash De Oliveira D.O., MPH urea nitrogen/creatinine ratio, serum NOT APPLICABLE (calc) LinkLogic 6-22 [place] [facility] [address] [place] [address] Ash De Oliveira D.O., MPH Estimated Glomerular Filtration Rate (calc) 101 mL/min/{1.73_ m2} LinkLogic > OR = 60 Normal [facility] [address] [place] [address] Ash De Oliveira D.O., MPH creatinine, serum 0.72 mg/dL LinkLogic 0.50-0.99 Normal [facility] t Diagnostic [facility] [address] [address] [place] [phone] Ash De Oliveira D.O., MPH urea nitrogen, blood 23 mg/dL LinkLogic 7-25 Normal [facility] [address] [address] [place] [address] Ash De Oliveira D.O., MPH blood glucose, random 95 mg/dL LinkLogic 65-139 Normal [facility] [address] [address] [place] [address] Ash De Oliveira D.O., MPH cholesterol, non-HDL, total 74 MG/DL (CALC) LinkLogic <130 Normal [facility] [address] [address] [place] [address] Ash De Oliveira D.O., MPH cholesterol/HDL ratio, serum, percent 2.2 (calc) LinkLogic <5.0 Normal [facility] [address] [place] [phone] Ash De Oliveira D.O., MPH LDL cholesterol, serum 58 MG/DL (CALC) LinkLogic Normal [facility] [address] [place] [address] Ash De Oliveira D.O., MPH triglyceride, serum, fasting 80 mg/dL LinkLogic <150 Normal [facility] [address] [place] [address] Ash De Oliveira D.O., MPH HDL cholesterol, serum 60 mg/dL LinkLogic > OR = 50 Normal [facility] [address] [place] [address] Ash De Oliveira D.O., MPH cholesterol, serum 134 mg/dL LinkLogic <200 Normal [place] [facility] [address] [place] [address] Ash De Oliveira D.O., MPH basophil count, [...] Not Estab. platelet count 285 X10E3/UL LinkLogic 611-860 0683/10 /24 red blood cell distribution width 14.8 [...] LinkLogic 24-33 prothrombin time (patient) 10.8 s LinkLogic 9.1-12.0 international normalized ratio (INR) 1.0 LinkLogic 0.8-1.2 calcium, serum 9.2 mg/dL LinkLogic 8.7-10.3 carbon dioxide, venous blood 25 mmol/L LinkLogic 20-29 chloride, serum 103 mmol/L LinkLogic 96-106 potassium, serum 4.2 mmol/L LinkLogic 3.5-5.2 sodium, serum 144 mmol/L LinkLogic 501-355 4267/10 /24 urea nitrogen/creatinine ratio, serum 28 LinkLogic 12-28 eGFR if 106 mL/min/{1.73_ m2} LinkLogic >59 eGFR if not 92 mL/min/{1.73_ m2} LinkLogic >59 creatinine, serum 0.69 mg/dL LinkLogic 0.57-1.00 urea nitrogen, blood 19 mg/dL LinkLogic 8-27 blood glucose, random 80 mg/dL LinkLogic 65-99 activated partial thromboplastin time (aPTT) 29 s LinkLogic 24-33 prothrombin time (patient) 10.7 s LinkLogic [...] LinkLogic 0-149 cholesterol, serum 141 mg/dL LinkLogic 889-887 9302/02 /16 platelet count 298 X10E3/UL LinkLogic 912-095 4947/02 /16 red blood cell distribution width 15.4 [...] Status Instructions Dates Provider Indications Com ments meclizine 12.5 mg tablet active Take one tablet three times daily as needed for dizziness Gustavo Marte diltiazem HCl (Cardizem CD) 360 mg capsule,extended release 24hr active TAKE 1 CAPSULE BY MOUTH EVERY DAY Leslye Howell Cardizem CD 360 mg capsule,extended release 24hr active Take 1 capsule by mouth once a day Maria T Armani Eliquis 5 mg tablet active Take 1 [...] hours as needed for pain - Esdras Joya CLINDAMYCIN HCL 300 MG ORAL CAPSULE completed Take one capsule 3 times daily for 10 days - Esdras Joya CEPHALEXIN 250 MG ORAL CAPSULE completed one tablet PO tid for 10 days - Esdras Joya B Complex 100 [id number] mg/mL solution active 1 once a month Esdras Joya LASIX 40 MG ORAL TABLET completed Take 1 tablet on Friday, Friday, and Friday only - Grady Whelan flecainide 100 mg tablet completed 1 tablet twice a day - Kira Boland CALTRATE 600+D TABLET active 1 tablet once a day Kira Boland VITAMIN D3 60064 UNIT ORAL TABLET active 1 tablet once a week Kira Boland Daily Multivitamin 200-100-500 mcg capsule active Take 1 once a day Leslye Howell Cardizem CD 360 mg capsule,extended release 24hr completed 1 every night - Calvin Whitney MD AMIODARONE HCL 200 MG ORAL TABLET completed ONE TABLET DAILY - [facility] MELATONIN TABLET completed at bed time - [...] required Mehran Howell smoking status Never smoker Leslye Delilahjvzahra adams social history reviewed E&M revi ewed - no changes required Loreta Mullins NP smoking status Never smoker Esdras Sprague social [...] Gruenenfe lder smoking status Never smoker Leslye Stewart bryan social history reviewed E&M revi ewed - no changes required Ashok Cervantes social history E&M S moking History: Aicha panchal has never smoked. Ashok Cervantes alcohol use no Leslye Gruenenfe lder smoking status Never smoker Leslye Stewart bryan social history reviewed E&M revi ewed - no changes required Calvin Whitney MD alcohol use no Leslye Gruenenfe ld smoking status Never smoker Leslye Stewart bryan social history reviewed E&M revi ewed - no changes required Lizzeth Alfredo social history E&M S moking History: Aicha panchal has never smoked. Lizzeth Alfredo number of grandchildren Calvin Whitney MD Shreya Montague alcohol use no Shreya Montague smoking status Never smoker Shreya davila social history E&M S moking History: P ansley has never smoked. Calvin Whitney MD social [...] adams social history E&M Smoking Histo ry: P ansley has never smoked. Calvin Whitney MD social [...] MD social history E&M Smoking Histo ry: P ansley has never smoked. Calvin Whitney MD social [...] Payer name Policy type / Coverage type [place] [employer] party ID [place] [employer] Medicare [id number] LORY HENLEY [id number] ADVANCE DIRECTIVES Name Date DISCUSSED - NO DECISION MADE TREATMENT PLAN Date Name Performer [id number],C,s ee HPI A dvised her to ask specifics about her kidney stones, and how to prevent further stones and hospitalizations S he is seeing Dr Gordon, Endocrine Gustavo Marte [id number],C,s he continues to bleed since her renal procedures, will keep her off of Eliquis, discussed potential risks being off of this, will attempt resuming after she follows up with Urologist Gustavo Marte [id number],C,Pt denies ang harpreet Gustavo Marte [id number],C,w ill obtain AAA to rule out aneurysm Gustavo Marte [id number],S, 1 Carotid C onclusions: 1 . Normal carotid duplex examination. 2 . Vertebral flow is antegrade bilaterally. Mehran Howell [id number],S, s /p DC PPM Biotronik D evice interrogation 0% AT/AF burden 7 5.0% RA pacing 8 4.0 ohms today c ompared to baseline of 82.0 ohms B attery status 75%. Lead trends appear s table. HF trends normal. No new events. A ppropriate device function. Patient is o n OAC. [facility] [id number],S, N o palpitations H as PPM H er updated medication list for this problem includes: Cardizem Cd 360 Mg Capsule,extended Release 24hr (Diltiazem hcl) ..... Take 1 capsule by mouth once a day Flecainide 100 Mg Tablet (Flecainide) ..... Take 1 tablet by mouth twice a day [facility] [id number],S, A dvised patient to lose 10 pounds. Mehran [facility] [id number],C, H er updated medication list for this problem includes: Atorvastatin 40 Mg Tablet (Atorvastatin) ..... Take 1 tablet by mouth once a day [facility] [id number],S, B P today: 46/80 P rior BP: 110/80 (11/23/2021) Labs Reviewed: C reat: 0.60 (09/30/2020) C hol: 150 (09/30/2020) HDL: 65 (09/30/2020) Her updated medication list for this problem includes: Cardizem Cd 360 Mg Capsule,extended Release 24hr (Diltiazem hcl) ..... Take 1 capsule by mouth once a day Losartan-hydrochlorothiazide 50-12.5 Mg Tablet (Losartan-hydrochlorothiazide) ..... Take 1/2 tablet by mouth every morning as directed [facility]el [facility] [id number],S, E KG shows SR today. P PM shows 0.0% AT/AF burden. H er updated medication list for this problem includes: Flecainide 100 Mg Tablet (Flecainide) ..... Take 1 tablet by mouth twice a day [facility] [id number],S, T he patient is using CPAP on a regular basis. The patient has been benefiting from therapy and should continue use. Mehran Barberproctor hospitaler [id number],S, Alka woods ENEDINA [id number],S,o n Eliquis for AC. H er updated medication list for this problem includes: Flecainide 100 Mg Tablet (Flecainide) ..... 1 tablet twice a day Alka Ochoa ENEDINA [id number],B,w ill check stress test in one year to rule out ischemic disease. D ecrease losartan/HCTZ to 1/2 tablet daily as orthostatic. Alka Ochoa ENEDINA [id number],S,T he patient is using CPAP on a regular basis. The patient has been benefiting from therapy and should continue use. Alka Ochoa ENEDINA [id number],W,A lmost 20# weight gain in the last 1 year discussed diet and exercise, importance of weight reduction Loreta Mullins ENEDINA [id number],B,n o events on device interrogation today EKG today SR Loreta Mullins ENEDINA [id number],S,0 % AT/AF burden alexandr E F 60% on echo 09/2020 Loreta Mullins ENEDINA [id number],S,s /p DC PPM Biotronik D evice interrogation 0%AT/AF burden 8 4% RA pacing 7 5.0 ohms, no reports or episodes Loreta Mullins ENEDINA [id number],S, T he patient is using CPAP on a regular basis. The patient has been benefiting from therapy and should continue use. Loreta Wheelerboyd MCCONNELL Telehealth:Likely ve rtigo related as she has improvement in her sxs with meclizine, advised her to take it TID as needed Gustavo Marte Telehealth:no AF see n on remote device check Her updated medication list for this problem includes: Flecainide 100 Mg Tablet (Flecainide) ..... Take 1 tablet by mouth twice a day Gustavo Hugo Telehealth:Denies CP or SOB. Her updated medication list for this problem includes: Diltiazem Hcl (cardizem Cd) 360 Mg Capsule,extended Release 24hr (Diltiazem hcl (cardizem cd)) ..... Take 1 capsule by mouth every day Cardizem Cd 360 Mg Capsule,extended Release 24hr (Diltiazem hcl) ..... Take 1 capsule by mouth once a day [facility]: T he patient is using CPAP on a regular basis. The patient has been benefiting from therapy and should continue use. [facility] Telehealth: H er updated medication list for this problem includes: Diltiazem Hcl (cardizem Cd) 360 Mg Capsule,extended Release 24hr (Diltiazem hcl (cardizem cd)) ..... Take 1 capsule by mouth every day Cardizem Cd 360 Mg Capsule,extended Release 24hr (Diltiazem hcl) ..... Take 1 capsule by mouth once a day Losartan-hydrochlorothiazide 50-12.5 Mg Tablet (Losartan-hydrochlorothiazide) ..... Take 1/2 tablet by mouth every morning as directed [facility]: O rders: P cristóbal 11-20 (CPT-74632) Calvin Whitney MD Telehealth [facility] Telehealth: H [...] tablet by mouth twice a day Ted Lopez Electrophysiology:CO NCLUSIONS: 1 . Mild plaque with less than 50% stenosis of the internal carotid arteries bilaterally. 2 . Vertebral flow is antegrade bilaterally. Electronically Signed By: Calvin Purcell 2 19:02:49 CDT [facility] Electrophysiology:Th is visit has been a part [...] tablet by mouth every morning as directed [facility] Electrophysiology:recurrent Guillermo as [facility] Electrophysiology:Th e patient is taking OAC for CVA prophylaxis H er updated medication list for this problem includes: Flecainide 100 Mg Tablet (Flecainide) ..... Take 1 tablet by mouth twice a day [facility] Electrophysiology [facility] Electrophysiology [facility] Electrophysiology: H er updated medication list [...] 67 (09/30/2020) T (09/30/2020) Ted Lopez Electrophysiology:se chiang HPI A dvised her to ask specifics about her kidney stones, and how to prevent further stones and hospitalizations S he is seeing Dr Gordon, Endocrine Gustavo Marte Electrophysiology:vanesa chiang continues to bleed since her renal procedures, [...] tablet by mouth twice a day Mehran Howell Electrophysiology: A dvised patient to lose 10 pounds. Mehran Howell Electrophysiology: H er updated medication list for this problem includes: Atorvastatin 40 Mg Tablet (Atorvastatin) ..... Take 1 tablet by mouth once a day Mehran Lynda Electrophysiology: B P today: 46/80 P rior [...] by mouth every morning as directed Mehran Howell Electrophysiology: E KG shows SR today. P PM shows 0.0% AT/AF burden. H er updated medication list for this problem includes: Flecainide 100 Mg Tablet (Flecainide) ..... Take 1 tablet by mouth twice a day Mehran Howell Electrophysiology: T he patient is using CPAP [...] exercise, importance of weight reduction Loreta Mullins NP Electrophysiology:no events on device interrogation today EKG today SR Loreta Mullins NP Electrophysiology:0% AT/AF burden eliquis E F 60% on echo 09/2020 Loreta Mullins NP Electrophysiology:s/ p DC PPM Biotronik D evice interrogation 0%AT/AF burden 8 4% RA pacing 7 5.0 ohms, no reports or episodes Loreta Mullins [employer] Electrophysiology: T he patient is using CPAP on a regular basis. The patient has been benefiting from therapy and should continue use. Loreta Mullins [employer] Telehealth: T he patient is using CPAP on a regular basis. The patient has been benefiting from therapy and should continue use. [facility] Telehealth:s/p PPM K ey Clinical Findings A T/AF [place]: 0.0% % Pacing: RA - 80% RV [...] coated beads) ..... One daily at night [facility] Telehealth: w ell controlled H er updated medication list for this problem includes: Flecainide Acetate 100 Mg Oral Tablet (Flecainide acetate) ..... One tablet twice a day, dose was increase, aware patient on diltiazem Orders: C OMPREHENSIVE METABOLIC PANEL, W/EGFR (02602) L IPID PANEL (7600) T SH, free T4, total T3 (7444) C BC (H/H, RBC, INDICES, WBC, PLT) (1759) M AGNESIUM (622) C omplete Echo (CPT-03280) Leonardo Eligio Telehealth - 20+:The patient currently has no symptoms of coronavirus. Orders: F VC - 85457 (36197) F RC - 50614 (46194) D LCO - 20131 (58266) marcella Eligio Telehealth - 20+: T he patient is using CPAP on a regular basis. The patient has been benefiting from therapy and should continue use. [facility] - 20+: Aicha rior BP: 149/76 (02/11/2020) Labs Reviewed: C [...] Leonardo Del Valle Telehealth - 20+: w bennie controlled H er updated medication list for this problem includes: Flecainide Acetate 100 Mg Oral Tablet (Flecainide acetate) ..... One tablet twice a day, dose was increase, aware patient on diltiazem Orders: C omplete Echo (CPT-06930) Leonardo Del Valle Telehealth - 20+: r gentry K ey Clinical Findings A T/AF [place]: 0.0% % Pacing: RA - 83% RV - 0% T ransthoracic Impedance: 75.0 ohms today c ompared to baseline of 70.0 ohms Supervisor Wet Pour Summary: N o episodes reported for this [...] AG surgical dressing applied . ..................................................... .............Arnie Scanlon RN February 22, 2020 4:12 PM February [...] December 20, 2019, that was done at [place], [place]. The patient w as seen in [...] francois in person. Leonardo Del Valle Electrophysiology [facility] up completed.: H ospital Consult 02/04/2020: T [...] December 20, 2019, that was done at [place], [place]. The patient w as seen in [...] return twice next week for wound check [facility] follow up : T he patient is using CPAP on a regular basis. The patient has been benefiting from therapy and should continue use. [facility] follow up : B P today: [...] ..... One tab daily in the morning [facility] follow up : s /p dc [...] coated beads) ..... One daily at night [facility] TeleHealth: O rders: P acemaker Dual Chamber - [facility] (*) C BC (INCLUDES DIFF/PLT) (6399) L IPID PANEL (7600) P ROTHROMBIN TIME WITH INR (8847) C OMPREHENSIVE METABOLIC PANEL W/EGFR (80664) U RINALYSIS, COMPLETE W/REFLEX TO CULTURE (8613) P ARTIAL THROMBOPLASTIN TIME, ACTIVATED (763) H [facility] Telemed Video (CPT-32493) Grady Whelan TeleHealth: H er updated medication [...] Take one tablet twice daily. continue diltiazem [facility] Electrophysiology: I nterpretation: R hythm: Sinus Rhythm [...] palpitations. A bnormal. A follow up with [facility] is recommended. P age 1 [facility] Electrophysiology: H er updated medication list for this problem includes: Flecainide Acetate 50 Mg Oral Tablet (Flecainide acetate) ..... Take one tablet twice daily. continue diltiazem Cardizem Cd 360 Mg Oral Capsule Extended Release 24 Hour (Diltiazem hcl coated beads) ..... One daily [facility] Electrophysiology:Th e patient is using CPAP on a regular basis. The patient has been benefiting from therapy and should continue use. [facility] Electrophysiology [facility] Electrophysiology: B P today: 131/80 P rior [...] ..... One tab daily in the morning [facility] Electrophysiology: H er updated medication list for this problem includes: Cardizem Cd 180 Mg Oral Capsule Extended Release 24 Hour (Diltiazem hcl coated beads) ..... Decrease to 180mg one tablet daily at night, ok to substitute to generic Losartan Potassium-hctz 50-12.5 Mg Oral Tablet (Losartan potassium-hctz) ..... One tab daily in the morning [facility] Electrophysiology:pt states her dizziness is gone s/p ablation procedure [facility] Electrophysiology:s/p ablation J [facility] Electrophysiology fo llow up :12/28/2018 TTE normal LVF EF 65%, mild LAE. [facility] Electrophysiology fo llow up :12/31/2018 PFTs Conclusions: The diffusing capacity is high for the measured alveolar volume suggesting a chest wall limitation or reduced force generation as possible explanations for the restriction. [facility] Electrophysiology fo llow up : 0 07/2018 30 day tele showed SR with rare PVCs and rare Supraventricular ectopics. HR 45-114 BPM, avg 58 BPM. Disscussed risks, benefits, and alternatives of ablation procedure. Pt agrees to this plan. O rders: 9 9214 MOD Complex (CPT-72949) A BLATION w/ Anesthesia (*) C T Cardiac with contrast (Pre-Ablation) (CPT-58166) B ASIC METABOLIC PANEL W/EGFR (78920) C BC (INCLUDES DIFF/PLT) (1371) P ROTHROMBIN TIME WITH INR (8847) P ARTIAL THROMBOPLASTIN TIME, ACTIVATED (763) Grady Tip Electrophysiology: B P today: 110/80 P rior BP: 110/70 (07/31/2018) Labs Reviewed: C reat: 0.71 (07/11/2018) C hol: 141 (07/11/2018) HDL: 71 (07/11/2018) Emiliano Benitezyaniv Electrophysiology:Th e patient is using CPAP on a regular basis. The patient has been benefiting from therapy and should continue use. Emiliano Luis Electrophysiology: 30 day monitor: S inus Bradycardia with rare Ventricular ectopics and rare Supraventricular ectopics. T he average heart rate was 58bpm with a maximum heart rate of 114bpm. T he minimum heart rate was 45bpm. V entricular ectopics were documented in the form of isolated beats. S upraventricular ectopics were documented in the form of isolated interpolated beats. Emiliano Luis Electrophysiology:Wi renuka order 2 week tele to be started [...] root size. Mild aortic wall calcification Emiliano Luis Electrophysiology:Co mplains of worsening dizziness. Reports she [...] one tab once daily in the morning. C chrisitna 14-day Telesentry in 6 months. Orders: Yaritza obile Cardiac Tele (CPT-47314) Ashok Cervantes Electrophysiology Fo llow up : W ill check CBC, PT, and PTT. Orders: C BC P ROTHROMBIN TIME WITH INR (8847) P artial Thromboplastin Time, Activated (763) Ashok Cervantes Electrophysiology Fo llow up : R emains compliant with CPAP. Ashok Cervantes Electrophysiology Fo llow up : [...] CBC, thyroid panel, PT, and PTT. Orders: M obile Cardiac Tele (CPT-91148) C OMPREHENSIVE METABOLIC PANEL, W/EGFR (97505) C BC (H/H, RBC, INDICES, WBC, PLT) (1759) T HYROID PANEL WITH TSH, 3RD GENERATION (7444) 9 9214 MOD Complex (CPT-24399) Ashok Cervantes Electrophysiology Fo llow up : N o AFib documented on 14-day Telesentry monitor 09/2017. R emains in sinus rhythm on EKG today 07/10/18. R emains on Flecainide. O n Eliquis for OAC. Will recheck 14-day Telesentry monitor. Orders: M obile Cardiac Tele (CPT-37508) 9 9214 MOD Complex (CPT-12260) Her updated medication list for this problem includes: Flecainide Acetate 50 Mg Oral Tablet (Flecainide acetate) ..... Take one tablet twice daily. continue diltiazem Ashok Cervantes cardiology Follow up - SK: O rders: 9 9214 MOD Complex (CPT-33077) Calvin Whitney MD cardiology Follow up - SK: O rders: D O - 07690 (44106) S chedule Followup (*) Calvin Whitney MD cardiology Follow up - SK: O rders: Angel KG (CPT-29020) 9 9214 MOD Complex (CPT-08562) C omplete Echo (CPT-57812) Her updated medication list for this problem [...] cardiology Follow up - SK: O rders: Angel KG (CPT-22740) Her updated medication list for this problem [...] Cardiology: O rders: 9 9215 HIGH Complex (CPT-32714) C omplete Echo (CPT-03271) S chedule Followup (*) C arotid Duplex Bilateral (CPT-23937) BP today: 110/80 P rior BP: 126/85 (08/02/2016) Labs Reviewed: C reat: 0.8 (08/03/2016) Calvin Whitney MD Cardiology: O rders: 9 9215 HIGH Complex (CPT-01404) S leep Study Titration (CPT-83929) S chedule Followup (*) Calvin Whitney MD Cardiology:in sinus Orders: E KG (CPT-85941) 9 9215 HIGH Complex (CPT-88797) S chedule Followup (*) Calvin Whitney MD [...] MD Cardiology Follow up faxed [phone] Calvni Whitney MD Cardiology Follow up faxed 08/29/16 1530:BP today: 126/85 P rior BP: 141/89 (05/03/2016) Her updated medication list for this problem includes: Diltiazem Hcl Er Coated Beads 360 Mg Oral [id number] (Diltiazem hcl coated beads) ..... One tablet [...] Hcl Er Coated Beads 360 Mg Oral [id number] (Diltiazem hcl coated beads) ..... One tablet at bedtime Magnesium Oxide 400 Mg Oral Tabs (Magnesium oxide) .... One tab twice a day Orders: E KG (CPT-79075) M obile Cardiac Tele (CPT-27516) Calvin Whitney MD Cardiology Follow up faxed 05/27/16:On Eliquis 5mg BID for Afib. Trevon Ranjit Cardiology Follow up faxed 05/27/16:Her updated medication list for this problem includes: Atorvastatin Calcium 40 Mg Oral Tabs (Atorvastatin calcium) ..... Once daily [facility] Cardiology Follow up faxed 05/27/16:BP today: 141/89 P rior BP: 106/70 (04/12/2016) Her updated medication list for this problem includes: Diltiazem Hcl 60 Mg Tabs (Diltiazem hcl) ..... One tablet three times daily Hydrochlorothiazide 12.5 Mg Caps (Hydrochlorothiazide) ..... One tab. daily Trevon Ranjit Cardiology Follow up faxed 7 [facility] Cardiology Follow up faxed 05/27/16:Will continue on 200mg daily. [facility] Cardiology Follow up faxed 05/27/16:Her updated medication [...] for cardioversion but converted with medications. Trevon Church EP:BP today: 106/70 P rior BP: 139/81 [...] of isolated beats. R eport date: 10/17/15 //PLACIDO Possibility of Flecainide or TIkosyn if there [...] Calvin Whitney MD EP Faxed 04/26/15:managed by prim cheri Whitney MD EP Faxed 03/24/15 14 49:Will [...] by SK on 03/17/2015 at [facility] Calvin Whitney MD Date Name Complete Echo Carotid Duplex Bilat eral Aorta Duplex Ultraso und Carotid Duplex Bilat eral Complete Echo Stress Regadenoson Aorta Duplex Ultraso und Complete Echo MAGNESIUM CBC (H/H, RBC, INDIC ES, WBC, PLT) TSH, free T4, total T3 LIPID PANEL COMPREHENSIVE METABO LIC PANEL, W/EGFR Complete Echo Aorta Duplex Ultraso und DLCO - 84895 FRC - 22091 FVC - 63593 PARTIAL THROMBOPLAST IN TIME, ACTIVATED URINALYSIS, COMPLETE [...] ia Stress Exercise Card iolite DLCO - 36133 FRC - 89423 FVC - 54516 Mobile Cardiac Tele Mobile Cardiac Tele Partial Thromboplast in Time, Activated PROTHROMBIN TIME WIT H INR THYROID PANEL WITH T SH, 3RD GENERATION LIPID PANEL CBC (H/H, RBC, INDIC ES, WBC, PLT) COMPREHENSIVE METABO LIC PANEL, W/EGFR Mobile Cardiac Tele DLCO - 24299 FRC - 11635 FVC - 28485 Complete Echo Mobile Cardiac Tele Complete Echo Carotid Duplex Bilat eral Complete Echo Sleep Study Titratio n DLCO - 50240 FRC - 41747 FVC - 10320 Mobile Cardiac Tele TSH, 3RD GENERATION W/REFLEX TO FT4 COMPREHENSIVE METABO LIC PANEL W/EGFR DLCO - 22654 FRC - 09485 FVC - 41366 MAGNESIUM BASIC METABOLIC PANE L W/EGFR PROTHROMBIN TIME WIT H INR Cardioversion - GC Holter Monitor 24 Hr Complete Echo Mobile Cardiac Tele Mobile Cardiac Tele DLCO - 68228 FRC - 39469 FVC - 90099 Faizan BIRD Time: >20m in/7days Faizan BIRD Time: >20m in/7days Faizan BIRD Time: >20m in/7days HISTORY OF PROCEDURES Procedure [...] - Prof Calvin Whitney MD completed EKG ulius Edith uribe MD completed EKG ulius Edith uribe MD completed EKG ulius Edith uribe MD completed Regadenoson, 4 units ulius Ran richardson MD completed Cardiolite, 2 units ulius Ranv mikhail BIRD completed SPECT Images Calvin uribe MD completed Stress EKG Calvin uribe MD completed Mobile Cardiac Telem etry - Tech Calvin Whitney MD completed Mobile Cardiac Telem etry - Prof Calvin Whitney MD completed Schedule Followup Calvin abraham MD in one month completed EKG Calvin uribe MD completed FVC / MVV - 52183 Calvin abraham MD completed BLOOD COUNT HEMOGLOBIN Calvin francois MD completed FRC - 15117 Calvin uribe MD completed SpO2 w/o 6min walk/titration Calvin Whitney MD completed DLCO - 03614 Calvin uribe MD completed Schedule Followup Calvin abraham MD in 6 mo completed Event Monitor Calvin uribe MD completed EKG Calvin uribe MD completed Schedule Followup Calvin abraham MD in 1 year completed EKG Calvin uirbe MD completed Event Monitor Calvin uribe MD completed EKG Calvin uribe MD completed Event Monitor Calvin uribe MD completed Schedule Followup Calvin abraham MD in one year completed EKG Calvin uribe MD completed SNOMED-CT: 368829740962442 Current Medications Documented ulius Chelo BIRD completed EKG Calvin uribe MD completed SNOMED-CT: 643316677097678 Current Medications Documented ulius Chelo BIRD completed BLOOD COUNT HEMOGLOBIN Calvin francois MD completed FVC - 29683 Calvin uribe MD completed FRC - 82755 Calvin uribe MD completed DLCO - 19587 Calvin uribe MD completed EKG Calvin uribe MD completed SNOMED-CT: 144315094118099 Current Medications Documented ulius Chelo BIRD completed BLOOD COUNT HEMOGLOBIN Calvin francois MD completed FVC - 76999 Calvin uribe MD completed FRC - 93134 Calvin uribe MD completed DLCO - 66432 Calvin uribe MD completed EKG Calvin uribe MD completed SNOMED-CT: 453020543389482 Current Medications Documented ulius Chelo BIRD completed Holter, 24 or 48 Calvin rodriguez MD completed Schedule Followup Calvin abraham MD in 6 months completed EKG Calvin uribe MD completed SNOMED-CT: 630394809208556 Current Medications Documented ulius Chelo BIRD completed Mobile Cardiac Telem etry - Tech Calvin Whitney MD completed Mobile Cardiac Telem etry - Prof Calvin Whitney MD completed Schedule Followup Calvin abraham MD 6 months completed EKG Calvin uribe MD completed SNOMED-CT: 917226994660755 Current Medications Documented Calvni Whitney MD completed Stress EKG Anoop Mayes MD completed Regadenoson, 4 units Calvin richardson MD completed Cardiolite, 2 units Justinus Abelardo elizondo MD completed SPECT Images Tomas Benedict MD compl eted Event Monitor Laurel Ignacio complete d BLOOD COUNT HEMOGLOBIN Calvin francois MD completed FVC - 67335 Cavlin uribe MD completed FRC - 18162 Calvin uribe MD completed DLCO - 29310 Calvin uribe MD completed Schedule Followup Calvin abraham MD in 1 month completed SNOMED-CT: 818713246 Smoking Cessation Counseling Calvin Whitney MD completed SNOMED-CT: 22172353 Physical Exam, Performed: Pulse Exam of Foot Calvin Whitney MD completed EKG Calvin uribe MD completed SNOMED-CT: 438328517613391 Current Medications Documented Calvin Whitney MD completed
--- OUTSIDE RECORDS SUMMARY | 2024-09-08 14:10 | XMS_ITS | Encounter Summary ---
Author Name [facility] [place] Organization [facility] [place] Address [address] [place] [id number] Insurance Providers: All historical and current Section Date Range: From patient's date of to the date document was created. This section includes the names of all active insurance providers for the patient. Insurance Provider Type of Coverage Plan Name Start of Policy Coverage End of Policy Coverage Group Number Member ID Insurance Provider's Telephone Number Policy Boggs's Name Patient's Relationship to Policy Boggs MEDICARE (WNR) MEDICARE (M) PART A September 23, 2018 PART A [id number] DEJA DORMAN PATIENT MEDICARE (WNR) MEDICARE (M) PART B September 23, 2018 PART B [id number] DEJA DORMAN PATIENT Selected Encounter This section includes the information on record at MD for the Encounter. Date/Time Encounter Type Encounter Description Reason Provider Source Dec 04, 2023 04:00 PM PROGRAM INTAKE ASSESSMENT CAREGIVER SUPPORT PROGRAM ICD-10-CM Z74.1 Need for assistance with personal care MITZY RUELAS Encounter Template Text not used by MD Assessments - Encounter Diagnoses This section includes the primary and secondary diagnoses documented for the Encounter. Date/Time Primary/Secondary Diagnosis Diagnosis Name Provider Source Dec 04, 2023 04:48 PM PRIMARY Need for assistance with personal care MITZY RUELAS [facility] Encounter Notes: All associated encounter notes This section contains the clinical notes associated to the Encounter. Date/Time Encounter Note(s) Provider Source Dec 04, 2023 04:36 PM CAREGIVER CERTIFIC ATE: LOCAL TITLE: CSP PCAFC WELLNESS CONTACT CAREGIVER STANDARD TITLE: CAREGIVER CERTIFICATE DATE OF NOTE: DEC 04, 2023@16:36 ENTRY DATE: DEC 04, 2023@16:36:31 AUTHOR: MITZY RUELAS EXP COSIGNER: URGENCY: STATUS: COMPLETED [facility] WELLNESS CONTACT - Caregiver This Family Caregiver is enrolled in the VA's Program of Comprehensive Assistance for Family Caregivers (PCAFC). While enrolled in the PCAFC, wellness contacts are required and must review the Lincoln's well-being, adequacy of personal care services being provided by the Family Caregiver(s), and the well-being of the Family Caregiver(s). This wellness contact will occur at a minimum of once every 120 days, and at least one visit must occur in the eligible Lincoln's home on an annual basis. Date of Visit: ___12/04/2023 Length of Visit: ___25 minutes Full Name (last, first): __MICHELLE DORMAN __ Full SSN: __[id number] Date of : __September Method of contact: _X_ Telehealth / VA Video Connect Caregiver contact details: Best contact number for backup/emergency communication with caregiver (required): Phone number: __[phone] __ _X_ Home address: __ [address] [place] [address] _X_ Others present for visit with caregiver's consent: Name: ___Royr Dorman Caregiver confirms location is private and safe for visit. _X_ Yes Visit conducted by clinical video telehealth: _X_Yes __No Caregiver verbal consent obtained. _X_Yes __No Location/emergency number confirmed. _X_Yes __No CAREGIVER INFORMATION The caregiver is a: __X Primary Family Caregiver Caregiver is providing care to: Name: Xin Dorman Does the caregiver live with the Lincoln? _X_ Yes __ No Have there been any changes to the caregiver's address, telephone number or e-mail address? __ Yes Updates: ___ _X_ No Is caregiver's contact information in electronic health record and the Caregiver Support Program IT system current? _X_ Yes __ No Updates: ___ CAREGIVER ASSESSMENT How has your physical/mental/emotional health been lately? Have there been any changes (falls, ER visits, hospitalizations)? Details: CG's response, Fine. Denies having concerns with physical/mental/emotional health. CG reports that she had to have her parathyroid removed in August and now is prescribed calcium supplements and has to have her blood drawn to take calcium levels every 2 weeks. Reports that she was admitted overnight. CG reports that she has recovered from procedure. Denies ER visits and falls. What current challenges or stressors do you have, if any? CG's response, The only challenges is Mickeys () declining alot his parkinsons. Reports that doctor said that he has gone to the next stage of Parkinson's. CG reports that veterans cognitive is also declining, CG states that has good days in bad days. How are you coping with these issues? (discuss coping skills and support systems as appropriate, consider referral to mental health) Details: CG reports that she talks to veterans sister everyday and thats a big help. CG also reports that her sister visits alot, reports that her sister lives around the corner.CG report that every other Friday she meets with her brother and sister for lunch. Declines MH referral Do you feel comfortable and safe in your . environment?, _X Yes __ No Details: What additional supports do you need to care for the Lincoln, if any? (discuss respite services as appropriate) Details: CG denies additional supports needed at this time. CG confirms thats she will contact [facility] and/or primary care in the future possibly for ELECTRIC CUTTER OPERATOR services or respite. How can the Caregiver Support Program support you? What goals/needs can we assist you with? CG's response, not right now. Details: CG actively paticipated in [facility] appt while sitting on sofa. CG alert and oriented. CG calm and pleasant and responding to all questions appropriately. CG appeared well groomed wearing a red tshirt and with short curled hair. CG appeared knowledable of veterans medical conditions and treatment. CG reports that she had parathyroid removed in August and has fully recovered from procedure. Cg denies additional supports needed at this time but reports as parkinsons worsens she will seek respite or business services analyst services. Cg reports that she has ways of coping with stressors and good support. Reorts that their daughter lives with them and that she is a big help. Reoports that they have a new dog that they got in august. Denies having any additional concerns, issues or requests. SUMMARY OF VISIT/ACTION TAKEN /es/ MITZY RUELAS RN BSN REGISTERED NURSE Signed: 12/04/2023 16:48 MITZY RUELAS [facility]
--- OUTSIDE RECORDS SUMMARY | 2024-09-08 14:10 | XMS_ITS | Encounter Summary ---
Author Name [facility] [place] Address [address] [place] [id number] Insurance Providers: All historical and current Section [...] PART A September 23, 2018 PART A [id number] DEJA DORMAN PATIENT MEDICARE (WNR) MEDICARE (M) PART B September 23, 2018 PART B [id number] DEJA DORMAN PATIENT Selected Encounter This section includes the information on record at [place] for the Encounter. Date/Time Encounter Type Encounter Description Reason Provider Source Mar 03, 2024 05:31 PM PROGRAM INTAKE ASSESSMENT HOME TREATMENT SERVICES ICD-10-CM Z74.1 Need for assistance with personal care MITZY RUELAS Encounter Template Text not used by [place] Assessments - Encounter Diagnoses This section includes the primary and secondary diagnoses documented for the Encounter. Date/Time Primary/Secondary Diagnosis Diagnosis Name Provider Source Mar 03, 2024 05:41 PM PRIMARY Need for assistance with personal care MITZY RUELAS [facility] Plan of Treatment: Future Appointments (+ 6 months) and Future Tests (+/- 45 days) The Plan of Treatment section includes future care activities for the patient from all [place] treatmentfacilities. This section includes future appointments and future orders which are active, pending or scheduled. Future Appointments This section includes appointments that were scheduled to occur 6 months from the date of the Encounter, up to a maximum of 20 appointments. The data comes from all [place] treatment facilities. Appointment Date/Time Appointment Type Appointme nt Facility Name Jul 28, 2024 09:00 AM AMBULATORY - MEDICINE [facility] Encounter Notes: All associated encounter notes This section contains the clinical notes associated to the Encounter. Date/Time Encounter Note(s) Provider Source Mar 03, 2024 05:31 PM CAREGIVER CERTIFIC ATE: LOCAL TITLE: CSP PCA[facility] WELLNESS CONTACT CAREGIVER STANDARD TITLE: CAREGIVER CERTIFICATE DATE OF NOTE: MAR 03, 2024@17:31 ENTRY DATE: MAR 03, 2024@17:31:34 AUTHOR: MITZY RUELASIGNER: URGENCY: STATUS: COMPLETED This Family Caregiver is enrolled in the [place] Program of Comprehensive Assistance for Family Caregivers (PCAFC). While enrolled in the PCAFC, wellness contacts are required and must review the Veterans well- being, adequacy of personal care services being provided by the Family Caregiver(s), and the well-being of the Family Caregiver(s). This wellness contact will occur at a minimum of once every 120 days, and at least one visit must occur in the eligible Veterans home on an annual basis. Date of Visit: MAR 03, 2024 Length of Visit: Full Name (last, first): MICHELLE DORMAN Age: 68 Full SSN: [id number] Date of : September _X_ In-Home Caregiver location during visit: __ Home address: [address] [place] [address] Caregiver confirms location is private and safe for visit. Yes Visit conducted by clinical video telehealth: No Individuals providing input include: (include all that apply) _X_Primary Family Caregiver CAREGIVER INFORMATION The caregiver is a: Primary Family Caregiver Caregiver is providing care to: Name: Rory Dorman Does the caregiver live with the ? Yes Have there been any changes to the caregivers address: No changes [address] [place] [address] telephone number: Is caregivers contact information in electronic health record and the Caregiver Support Program IT system current? Yes CAREGIVER ASSESSMENT How has your physical/mental/emotional health been lately? CG'S response, Oh I've been fine other than when I fell. CG reports that 3 weeks ago she tripped over area [facility] and fell. Reports that she did not go to ER instead had an appt with pcp and pcp ordered imaging. Cg reports thats he has fractures of T11 and T12, reports no surgery is warranted, reports fractures to heal on their own. CG reports that since fall their daughter Arianna is assisting with lifting when needed. Reports having minimal back pain but denies taking medications for pain relief. Have there been any changes (falls, ER visits, hospitalizations)? CG denies any visits to E.D. or admissions to the hospital. What current challenges or stressors do you have, if any? Details: CG's response, I don't have any. How are you coping with these issues? (discuss coping skills and support systems as appropriate, consider referral to mental health) When asked about coping with challenges and/or stressors, CG states, I just go with the flow, each day is a different thing and I just go with the flow. Cg rpeorts that her daughter Arianna and her sister in law are great support. Declines MH Do you feel comfortable and safe in your home environment? Yes What additional supports do you need to care for the , if any? (discuss respite services as appropriate) Details: CG denies additional supports needed at this time. How can the Caregiver Support Program support you? What goals/needs can we assist you with? Details: CG states, none right now but I;m glad its all outthere. SUMMARY OF VISIT/ACTION TAKEN CG actively participated in the Wellness Contact conducted in the home. She was A&Ox4, able to stay on topic and used appropriate language skills during the conversation. CG was friendly, well-groomed and dressed appropriate for the weather, with hair short and curled, wearing a green tshirt, tie dye pants and flip flops.CG denies any additional needs at this time and reports feeling safe in her home. /juan jose/ MITZY RUELAS POULTRY HANGER REGISTERED NURSE Signed: 03/03/2024 17:41 MITZY RUELAS [facility]
--- OUTSIDE RECORDS SUMMARY | 2024-09-08 14:10 | XMS_ITS | Clinical Summary ---
Author Organization [facility] Address [address] [place] [address] Care Team Providers Care Senior Php Web Developer Name Role Phone Gibran Epperson MD Primary Care Provider [phone] Source Comments [facility],non-owned Affiliates and Associated Physician Practices is amultiple site organization consisting of ambulatory clinics and hospital sitesin [place], [place], [place] and [place]. This disclosure is being madepursuant to the Care Everywhere program and may not contain all information available regarding this patient. Last updated 18.[facility] Allergies Active Allergy Reactions Criticality Noted Date Comments Alendronic Acid Vomiting 09/24/2023 Meperidine Dizziness 02/26/2019 Rash Medium 09/24/2023 Belladonna Alk-Phenobarbital Rash Medium 019 Morphine Headache,Unknown High 03/24/2015 Codeine Dizziness 02/26/2019 Di-Htbjai-Dgnkuboa-Scopolamine Unknown 03/09 Prednisone Rash Medium 02/26/2019 Spironolactone Urticaria,Vomiting High 09/08/2020 Medications * Be aware that medications may not be up to date on this document. Alwaysverify current medications with the patient. albuterol HFA (Proventil; Ventolin; Proair) 108 (90 Base) MCG/ACT inhaler Inhale 2 puffs every 4 hours by inhalation route as needed. 023 Active alendronate (Fosamax) 70 MG tablet alendronate 70 mg tablet Active atorvastatin (Lipitor) 40 MG tablet Take 1 (one) tablet by mouth once daily Active B Complex Vitamins (Vitamin B-Complex 100) INJ B Complex 100 645-4-246-2-2 mg/mL solution Active Cyanocobalamin (B-12 Compliance Injection) 1000 MCG/ML vitamin N08-qdxriyi B1 1,000 mcg-100 mg/mL injection solution Take by injection route. 023 Active denosumab (Prolia) 60 MG/ML SC injection inject 60 mg every 6 months 022 Active dilTIAZem coated beads 24hr (Cardizem CD) 360 MG capsule Active escitalopram (Lexapro) 20 MG tablet Take 1 tablet every day by oral route. 023 Active flecainide (Tambocor) 100 MG tablet Take [...] by mouth every 8 hours as needed Active omeprazole (PriLOSEC) 40 MG capsule TAKE 1 CAPSULE BY MOUTH EVERY DAY prn Active pancrelipase (Creon) 61414-207869 units capsule take up to 8 capsules daily with meals Active acetaminophen (Tylenol) 325 MG tablet Take 2 (two) tablets by mouth every 6 hours as needed Maximum allowable Acetaminophen amount = 4 Grams (4000 mg) / 24 hours. Active Eliquis 5 MG tablet Take 1 (one) tablet by mouth 2 times daily Active oxyCODONE, immediate release, (Roxicodone) 5 MG tabletIndications:Hype rparathyroidism, unspecified (HCC) TAKE ONE TABLET BY MOUTH EVERY 6 HOURS NEEDED 12 tablet Active Additional Information Patient not taking.Reported on 09/24/2023 docusate sodium (Colace) 100 MG capsule TAKE ONE CAPSULE BY MOUTH ONCE DAILY NEEDED FOR CONSTIPATION (WHEN TAKING OXYCODONE) 30 capsule 024 2024 Active Active Problems Problem Noted Date Diagnosed Date Hyperparathyroidism 09/16/2023 Immunizations Immunization Administration Dates Next Due INFLUENZA VACCINE, TRIV. (AF LURIA, FLUZONE TRIVALENT; 6MO+) (IIV3) 02/03/2020 Covid Hard 8 Games primary monoval ent 12+ yr 0.3mL Purple cap 08/14/2020,07/06/2020 INFLUENZA [id number], HISTORIC VACCINE 01/30/2020 INFLUENZA VACCINE 02/17/2018,03/25/2017 INFLUENZA [...] more drinks on one occasion? Never 09/16/2023 Comments Unknown Sex and Gender Information Value Date Recorded Sex Assigned at Not on file Legal Sex Female 2:20 PM CDT Gender Identity Not on file Sexual Orientation Not on file Last Filed Vital Signs Vital Sign Reading Time Taken Comments Blood Pressure 112/75 09/24/2023 11:00 AM CDT Pulse 81 09/24/2023 11:00 AM CDT Temperature 36.9 C (98.4 F) 09/17/2023 7:34 AM CDT Respiratory Rate 18 09/17/2023 7:34 AM CDT [...] CA SCREENING 1955 MAMMOGRAM 1955 MEDICARE AWV 12 MONTHS 1953 HEPATITIS C SCREENING 09/27/1971 DTAP/TDAP/TD VACCINES (1 - Tdap) 1972 Respiratory Syncytial Virus (RSV) Vaccine Pt: or over 60 yrs (1 - Risk 60-74 years 1-dose series) 2013 PNEUMOCOCCAL VACCINE 50+ (2 of 2 - PPSV23) 03/25/2016 03/25/2015 ZOSTER VACCINE (3 of 3) 09/27/2018 08/03/19 19, 08/02/2018, 02/17/2018, Additional history exists COVID-19 VACCINE (3 - season) 2024 08/14/2020, 07/06/2020 DEPRESSION SCREENING 05/26/2024 INFLUENZA VACCINE (Season Ended) 2025 02/03/2020, 01/30/2020, 02/26/2019, Additional history exists SCREENING FOR DIABETES 09/16/2026 , 09/16/2023, 09/16/2023, Additional history exists HEPATITIS B VACCINE Aged Out No longe r eligible based on patient's age to complete this topic HIB VACCINE Aged Out No longer eligi ble based on patient's age to complete this topic HPV VACCINE Aged Out No longer eligi ble based on patient's age to complete this topic MENINGOCOCCAL (Group B) VACCINE SHARED DECISION-MAKING Aged Out No longer eligible based on patient's age to complete this topic MENINGOCOCCAL GROUPS A/C/Y/W VACCINE Aged Out No longer eligible based on patient's age to complete this topic Procedures Procedure Name Priority Date/Time Associated Diagnosis Comments BASIC METABOLIC PANEL (CALCIUM TOTAL) AM Draw 09/17/2023 1:16 AM CDT Hyperparathyroidism from Last 3 Months or Most Recently Relevant to Health Maintenance Results * (ABNORMAL) BASIC METABOLIC PANEL (CALCIUM TOTAL) (09/17/2023 1:16 AM CDT) BUN 17 7 - 26 mg/dL 09/17/2023 2:44 AM [facility] Creatinine 0.72 0.56 - 0.96 mg/dL 09/17/2023 2:44 AM [facility] Sodium 142 136 - 145 mmol/L 09/17/2023 2:44 AM [facility] Potassium 3.9 3.5 - 4.5 mmol/L 09/17/2023 2:44 AM [facility] Chloride 109(H) 98 - 107 mmol/L 09/17/2023 2:44 AM [facility] CO2 26 22 - 29 mmol/L 09/17/2023 2:44 AM [facility] Glucose 82 70 - 115 mg/dL 09/17/2023 2:44 AM [facility] Calcium 8.1(L) 8.4 - 10.2 mg/dL 09/17/2023 2:44 AM [facility] Anion Gap 7 6 - 16 09/17/2023 2:44 AM [facility] BUN/Creatinine Ratio 24(H) 7 - 23 09/17/2023 2:44 AM [facility] Osmolality Calculated 295 275 - 295 mOsm/kg 09/17/2023 2:44 AM [facility] eGFR by CKD-EPI 90 >=90 mL/min/1.7 3 m2 09/17/2023 2:44 AM [facility] Blood BLOOD SPECIMEN / Unknown Lab Venipuncture / Unknown 09/17/2023 1:16 AM CDT 09/17/2023 1:46 AM [facility] us Bhavesh Gastelum MD LAB - CHEMISTRY ORDERABLES Final Result [facility] [address] [place] [address], [place] [phone] from Last 3 Months or Most Recently Relevant to Health Maintenance Insurance [employer] MEDICARE [facility] SELF PAY NO INSURANCE Member Subscriber Plan / Payer (Ef fective for All Dates) Name:Lakia Michelle Alessandro Member ID:Not on file Relation to Subscriber:Not on file Name:LAKIA,MICHELLE L Subscriber ID:Not on file (Home) Address: [address] [place], [place] [id number] Payer ID:Not on file Group ID:Not on file Type:Self Pay Address: [place], [place] MEDICARE MEDICARE [facility] * Guarantor: MICHELLE DORMAN Account Type Relation to Patient Date of Phone Billing Address Personal/Family Spouse Advance Directives * Full Code (Latest Code Status on File) Date Activated Date Inactivated Comments 09/16/2023 4:52 PM 09/17/2023 1:58 PM Care Teams Senior Php Web Developer Relationship Specialty Start Date End Date Gibran Epperson MD [address] [place] [address] PCP - General Internal Medicine 08/20/23
--- OUTSIDE RECORDS SUMMARY | 2024-09-08 14:10 | XMS_ITS | Clinical Summary ---
Author Organization [facility] Address [address] [place] [address] Care Team Providers Care Supervisor Production Name Role Phone Gibran Epperson MD Primary Care Provider Calvin Whitney MD Unavailable Allergies Active Allergy Reactions Criticality Noted Date Comments Codeine Dizziness Low 02/26/2019 Meperidine Dizziness Low 02/26/2019 Morphine Unknown 03/09/2019 Pfyziseqd-Fhhhpa-Xqdkictk-Scop Unknown 03/09 Prednisone Rash Medium 02/26/2019 Medications calcium carbonate/vitam in D3 (CALTRATE 600 PLUS D ORAL) Caltrate 600 plus D 2 a day Active diltiazem (TIAZAC) 360 mg 24 hr capsule daily Active cyanocobalamin, vitamin B-12, 1,000 mcg/mL kit vitamin J56-nmzraib B1 1,000 mcg-100 mg/mL injection solution Take [...] on file Legal Sex Female 9:29 AM GAS PUMP ATTENDANT Gender Identity Not on file Sexual Orientation Not on file Obstetrics History Last Filed Vital Signs Vital Sign Reading Time Taken Comments Blood Pressure 128/74 02/07/2020 9:55 AM CDT Pulse 72 02/07/2020 9:55 AM CDT Temperature 36.6 C (97.9 F) 05/03/2019 10:29 AM GAS PUMP ATTENDANT Respiratory Rate 20 07/26/2019 9:18 AM GAS PUMP ATTENDANT Oxygen Saturation 92% 02/07/2020 9:55 AM CDT Inhaled Oxygen Concentration - - Weight 129.3 kg (285 lb) 07/26/2019 9:18 AM GAS PUMP ATTENDANT Height 172.7 cm (5' 8 ) 07/26/2019 9:18 AM GAS PUMP ATTENDANT Body Mass Index 43.33 07/26/2019 9:18 AM GAS PUMP ATTENDANT Plan of Treatment Health Maintenance Due Date Last Done Comments Breast Cancer Screening-Mammogram 1955 Colon Cancer Screening-Colonoscopy 1955 Depression Screening 1955 Fall Risk Assessment 1955 Hepatitis C Screening 1955 Osteoporosis Screening-Bone Density Scan 1955 DTaP/Tdap/Td Vaccine (1 - Tdap) 1964 Hepatitis B Screening 10/02/1971 Pneumococcal vaccine 65+ (2 of 2 - PPSV23) 05/20/2015 03/25/2015 Zoster Vaccine (3 of 3) 09/27/2018 08/03/19 19, 08/02/2018, 02/17/2018, Additional history exists Well Visit 65+ 2018 Influenza Vaccine (Season Ended) 2025 02/03/2020, 01/30/2020, 02/26/2019, Additional history exists Insurance MEDICARE [facility] [address] MEDICARE [facility] Care Teams Supervisor Production Relationship Specialty Start Date End Date Gibran Epperson MD PCP - General Internal Medicine 02/02/19 [place] [id number] [address] Consulting Physician Cardiology 04/07/19
--- OUTSIDE RECORDS SUMMARY | 2024-09-08 14:10 | XMS_ITS | Encounter Summary ---
Author Name [facility] Organization [facility] Address [address] [place] [id number] Insurance Providers: All historical and current Section [...] PART A September 23, 2018 PART A [id number] DEJA MEZA PATIENT MEDICARE (WNR) MEDICARE (M) PART B September 23, 2018 PART B [id number] DEJA MEZA PATIENT Selected Encounter This section includes the information on record at [facility] for the Encounter. Date/Time Encounter Type Encounter Description Reason Provider Source Jul 28, 2024 09:00 AM PROGRAM INTAKE ASSESSMENT CAREGIVER SUPPORT PROGRAM ICD-10-CM Z74.1 Need for assistance with personal care MITZY RUELAS Encounter Template Text not used by [place] Assessments - Encounter Diagnoses This section includes the primary and secondary diagnoses documented for the Encounter. Date/Time Primary/Secondary Diagnosis Diagnosis Name Provider Source Jul 28, 2024 10:01 AM PRIMARY Need for assistance with personal care MITZY RUELAS [facility] Encounter Notes: All associated encounter notes This section contains the clinical notes associated to the Encounter. Date/Time Encounter Note(s) Provider Source Jul 28, 2024 09:25 AM CAREGIVER CERTIFIC ATE: LOCAL TITLE: [facility] WELLNESS CONTACT CAREGIVER STANDARD TITLE: CAREGIVER CERTIFICATE DATE OF NOTE: JUL 28, 2024@09:25 ENTRY DATE: JUL 28, 2024@09:25:55 AUTHOR: MITZY RUELAS EXP COSIGNER: URGENCY: STATUS: COMPLETED Caregiver Support Program [facility] Wellness Contact Caregiver This Family Caregiver is enrolled in [facility]'s Program of Comprehensive Assistance for Family Caregivers ([facility]). While enrolled in [facility], wellness contacts review the Misenheimer's well-being, adequacy of personal care services being provided by the Family Caregiver(s), and the well-being of the Family Caregiver(s). Wellness contacts occur at a minimum of once every 120 days, and at least one visit must occur in the eligible 's home on an annual basis. Date of visit: Jul Length of visit: 60 minutes The Caregiver was identified using the following wetzel identifiers: Full Name: MICHELLE MEZA Date of : [birth year] Full Address: [address] [place] [address] Phone #: Email address: Patient Email - NONE FOUND Is the above contact information in the electronic health record and the Caregiver Support Program IT system, correct? Yes Reason for contact: Routine (120-day contact) Method of contact: Video Telehealth Contact number for backup/emergency communication: Caregiver location during visit: Home [address] [place] [address] Caregiver confirms location is safe and private for visit. Telehealth Disclosure: Visit conducted by synchronous telehealth. Caregiver verbal consent obtained. Location/emergency number confirmed. Environment surveyed and all participants identified. Virtual conference room locked. CAREGIVER INFORMATION The caregiver is a: Primary Family Caregiver Caregiver is providing care to: Name: EDNA MEZA The caregiver lives with the . CAREGIVER ASSESSMENT How has your physical/mental/emotional health been lately? Details: CG's response, Oh I'm fine, am I nervous about this surgery, yes. CG reports that provider has advised that if does not have jaw surgery he will . CG denies having any concerns new or worsening with physical, mental and emotional health. CG declines setup with [facility] mental health at this time. Have you experienced any changes (falls, ER visits, hospitalizations) and/or any concerns? No What is most important to you about your health and overall well-being? Details: CG';s response, Just staying strong and sturdy and being able to take care of him everyday. What goals or needs can we assist you with? Details: CG's response, Right now we just need to get through this surgery, that's the next goal. Are there training topics or resources that you would like to learn more about? Details: Cg response, no, not at this time. Do you have any legal or financial planning concerns? No Do you feel comfortable and safe in your home environment? Yes Do you have a personalized respite plan? No - Discussed the importance of respite Details: discussed and cg verbalizes understanding SCREENING TOOLS Zarit Bourbon Interview Zarit Bourbon Interview (Caregiver burden scale), copyright 1990 by Vimal Rodriguez and Aby Rodriguez, with permission to use. ZBI Screening score (range 0-16): Score is 0, which reflects low caregiver burden (scores of less than 8). 1. Do you feel that because of the time you spend with your relative that you do not have enough time for yourself? Never 2. Do you feel stressed between caring for your relative and trying to meet other responsibilities (work/family)? Never 3. Do you feel strained when you are around your relative? Never 4. Do you feel uncertain about what to do about your relative? Never [facility] Staff provided information on the following resources and support: - Homemaker and Home Health Aide Services (HHHA) - Respite - Virtual Psychotherapy Program for Caregivers (VPPC) SUMMARY AND PLAN OF SUPPORT: CG actively participated in [facility] appt while sitting on sofa. CG alert and oriented. CG appeared calm and pleasant and responded to all questions appropriatelty. CG appeared well groomed with hair cut, eyeglasses on top of head and wearing a black tshirt. CG denies having any new and/or worsening concerns with her mental, physical and emotional health. CG appeared knowledgable of veterans medical conditions and related treatment plans. Cg declines [facility] mh at this time. No further issues, concerns, or requests. /juan jose/ MITZY RUELAS RN BSN REGISTERED NURSE Signed: 07/28/2024 10:02 MITZY RUELAS [facility]
--- OUTSIDE RECORDS SUMMARY | 2024-09-08 14:10 | XMS_ITS | Data Portability ---
Author Organization 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 Plan of Treatment Reminders Order Date Submit Date Provider Last Modified By Organization Details Last Modified Time Details Appointments Any 2024 01:45P Yaritza Epperson MD Not available Not available Not available Medicare Wellness 2024 11:30A Yaritza Epperson MD Not available Not available Not available Lab lipid panel, serum [address] (Lab), [address] [place], [address], 01/27/2024 09:17:57 amylase, serum or plasma [address] (Lab), [address] [place], [address], 01/27/2024 09:17:57 lipase, serum or plasma [address] (Lab), [address] [place], [address], 01/27/2024 09:17:57 CMP, serum or plasma [address] (Lab), [address] [place], [address], 01/27/2024 09:17:57 vitamin B12, serum [address] (Lab), [address] [place], [address], 01/27/2024 09:17:57 CBC w/ auto diff 2022 023 [email or web address] [facility] (Lab), [address] [place], [address], 04/09/2023 17:44:[address] referral - Please call patient to schedule. 2024 025 [email or web address] 2 [facility] [address] [place] [address], [place], [address], 08/16/2024 12:25:53 Procedures None recorded. Surgeries None recorded. Imaging CT, head + brain, w/o contrast - Please call patient to schedule. 2024 025 [facility] (Imaging), [address], [address], 06/29/2024 18:25:12 XR, ribs, unilatera l 2023 024 [facility] (One Call Scheduling), [address] [place], [address], 02/03/2024 16:02:44 XR, thoracic spine [address] (One Call Scheduling), [address] [place], [address], 02/17/2024 07:57:10 MAMMO, screening , digital, bilateral 2023 024 [email or web address] [facility] (One Call Scheduling), [address] [place], [address], 01/19/2024 10:35:00 MAMMO, screening , digital, bilateral 2023 024 [email or web address] [facility] (One Call Scheduling), [address] [place], [address], 09/17/2023 08:42:46 bone density 2023 024 [email or web address] [facility] (One Call Scheduling), [address] [place], [address], 09/19/2023 09:20:18 Medication Orders meclizine 25 mg tablet 2024 025 [facility] [address], [place], [address], 06/09/2024 20:20:33 albuterol sulfate HFA 90 mcg/actua tion aerosol inhaler 2024 025 [facility] [address], [place], [address], 06/09/2024 20:20:33 albuterol sulfate HFA 90 mcg/actua tion aerosol inhaler 2023 024 [place] [facility] [address], [place], [address], 12/18/2023 18:08:04 escitalop shala 20 mg tablet 2023 024 [place] [facility] [address], [place], [address], 12/18/2023 18:08:03 Patient TargetsNo targets recorded. Patient Instructions Encounter Date Encounter Id Patient Instructions Last Modified By Organization Details Last Modified Time 12/18/2023 [id number] dementia rating scale-2* Not available 12/18/2023 17:34:02 depression screening* Not available 12/18/2023 17:34:02 alcohol misuse* Not available 12/18/2023 17:34:02 multi-dimensiona l health assessment questionnaire* Not available 12/18/2023 17:34:02 advance directiv es: care instructions Not available 12/18/2023 17:34:02 advance care planning: care instructions Not available 12/18/2023 17:34:02 [place] Advance Directives Not available 12/18/2023 17:34:02 Personalized [...] necessary Dementia Risk: Low Depression Screening: Negative [email or web address] Not available 12/18/2023 15:41:48 06/09/2024 [id number] Personalized [facility] Plan and Screening Recommendations Advance Directives [...] x10'3 /uL 4.2-10 .8 high Not Available [facility] (Lab) [address] [place], [address], 04/09/2023 19:42:07 04/09/20 23 04/09/2023 CBC/C OMPLE TE BLD COUNT W/DIF F red blood cells 4.34 x10'6 /uL 3.80-5 .20 Not Available [facility] (Lab) [address] [place], [address], 04/09/2023 19:42:07 04/09/20 23 04/09/2023 CBC/C OMPLE TE BLD COUNT W/DIF F hemoglobin 11.7 g/dL 12.0-1 5.6 low Not Available [facility] (Lab) [address] [place], [address], 04/09/2023 19:42:07 04/09/20 23 04/09/2023 CBC/C OMPLE TE BLD COUNT W/DIF F hematocrit 38.0 % 35.7-4 5.7 Not Available [facility] (Lab) [address] [place], [address], 04/09/2023 19:42:07 04/09/20 23 04/09/2023 CBC/C OMPLE TE BLD COUNT W/DIF F mean red cell volume 87.6 fL 82.0-9 9.0 Not Available [facility] (Lab) [address] [place], [address], 04/09/2023 19:42:07 04/09/20 23 04/09/2023 CBC/C OMPLE TE BLD COUNT W/DIF F mean red cell hemoglobin 27.0 pg 27.0-3 3.0 Not Available [facility] (Lab) [address] [place], [address], 04/09/2023 19:42:07 04/09/20 23 04/09/2023 CBC/C OMPLE TE BLD COUNT W/DIF F mean RBC HGB concentratio n 30.8 g/dL 31.0-3 6.0 low Not Available [facility] (Lab) [address] [place], [address], 04/09/2023 19:42:07 04/09/20 23 04/09/2023 CBC/C OMPLE TE BLD COUNT W/DIF F red cell distribution width 15.8 % 11.8-1 5.5 high Not Available [facility] (Lab) [address] [place], [address], 04/09/2023 19:42:07 04/09/20 23 04/09/2023 CBC/C OMPLE TE BLD COUNT W/DIF F platelets 460 x10'3 /uL 150-40 0 high Not Available [facility] (Lab) [address] [place], [address], 04/09/2023 19:42:07 04/09/20 23 04/09/2023 CBC/C OMPLE TE BLD COUNT W/DIF F mean platelet volume 9.0 fL 9.0-12 .4 Not Available [facility] (Lab) [address] [place], [address], 04/09/2023 19:42:07 04/09/20 23 04/09/2023 CBC/C OMPLE TE BLD COUNT W/DIF F neutrophils 73.7 % 39.0-7 2.0 high Not Available [facility] (Lab) [address] [place], [address], 04/09/2023 19:42:07 04/09/20 23 04/09/2023 CBC/C OMPLE TE BLD COUNT W/DIF F lymphocytes 12.3 % 16.0-4 7.0 low Not Available [facility] (Lab) [address] [place], [address], 04/09/2023 19:42:07 04/09/20 23 04/09/2023 CBC/C OMPLE TE BLD COUNT W/DIF F monocytes 8.6 % 5.0-12 .0 Not Available [facility] (Lab) [address] [place], [address], 04/09/2023 19:42:07 04/09/20 23 04/09/2023 CBC/C OMPLE TE BLD COUNT W/DIF F eosinophils 4.2 % 1.0-7. 0 Not Available [facility] (Lab) [address] [place], [address], 04/09/2023 19:42:07 04/09/20 23 04/09/2023 CBC/C OMPLE TE BLD COUNT W/DIF F basophils 0.7 % 0.0-2. 0 Not Available [facility] (Lab) [address] [place], [address], 04/09/2023 19:42:07 04/09/20 23 04/09/2023 CBC/C OMPLE TE BLD COUNT W/DIF F immature granulocytes 0.5 % 0.00-0 .50 Not Available [facility] (Lab) [address] [place], [address], 04/09/2023 19:42:07 04/09/20 23 04/09/2023 CBC/C OMPLE TE BLD COUNT W/DIF F neutrophils, absolute count 9.81 x10'3 /uL 1.5-8. 0 high Not Available [facility] (Lab) [address] [place], [address], 04/09/2023 19:42:07 04/09/20 23 04/09/2023 CBC/C OMPLE TE BLD COUNT W/DIF F lymphocytes, absolute count 1.64 x10'3 /uL 1.07-3 .43 Not Available [facility] (Lab) [address] [place], [address], 04/09/2023 19:42:07 04/09/20 23 04/09/2023 CBC/C OMPLE TE BLD COUNT W/DIF F monocytes, absolute count 1.14 x10'3 /uL 0.29-0 .99 high Not Available [facility] (Lab) [address] [place], [address], 04/09/2023 19:42:07 04/09/20 23 04/09/2023 CBC/C OMPLE TE BLD COUNT W/DIF F eosinophils, absolute count 0.56 x10'3 /uL 0.02-0 .53 high Not Available [facility] (Lab) [address] [place], [address], 04/09/2023 19:42:07 04/09/20 23 04/09/2023 CBC/C OMPLE TE BLD COUNT W/DIF F basophils, absolute count 0.09 x10'3 /uL 0.01-0 .08 high Not Available [facility] (Lab) [address] [place], [address], 04/09/2023 19:42:07 04/09/20 23 04/09/2023 CBC/C OMPLE TE BLD COUNT W/DIF F immature granulocytes ,absolute 0.07 x10'3 /uL 0.00-0 .05 high Not Available [facility] (Lab) [address] [place], [address], 04/09/2023 19:42:07 04/09/20 23 04/09/2023 CBC/C OMPLE TE BLD COUNT W/DIF F nucleated red blood cells 0.0 % -0 Not Available [facility] (Lab) [address] [place], [address], 04/09/2023 19:42:07 04/09/20 23 04/09/2023 CBC/C OMPLE TE BLD COUNT W/DIF F NRBC# 0.00 x10'3 /uL Not Available [facility] (Lab) [address] [place], [address], 04/09/2023 19:42:07 02/03/20 24 02/03/2024 COMPR EHENS ANJELICA METAB OLIC PANEL sodium 140 mmol/ L 137-14 5 Not Available [facility] (Lab) [address] [place], [address], 02/03/2024 21:04:51 02/03/20 24 02/03/2024 COMPR EHENS ANJELICA METAB OLIC PANEL potassium 4.1 mmol/ L 3.5-5. 1 Not Available [facility] (Lab) [address] [place], [address], 02/03/2024 21:04:51 02/03/20 24 02/03/2024 COMPR EHENS ANJELICA METAB OLIC PANEL chloride 104 mmol/ L 98-107 Not Available [facility] (Lab) [address] [place], [address], 02/03/2024 21:04:51 02/03/20 24 02/03/2024 COMPR EHENS ANJELICA METAB OLIC PANEL carbon dioxide 31 mmol/ L 22-30 high Not Available [facility] (Lab) [address] [place], [address], 02/03/2024 21:04:51 02/03/20 24 02/03/2024 COMPR EHENS ANJELICA METAB OLIC PANEL anion gap 9.1 mmol/ L 14-22 low Not Available [facility] (Lab) [address] [place], [address], 02/03/2024 21:04:51 02/03/20 24 02/03/2024 COMPR EHENS ANJELICA METAB OLIC PANEL glucose 103 mg/dL 70-99 high Not Available [facility] (Lab) [address] [place], [address], 02/03/2024 21:04:51 02/03/20 24 02/03/2024 COMPR EHENS ANJELICA METAB OLIC PANEL BUN 17 mg/dL 8-19 Not Available [facility] (Lab) [address] [place], [address], 02/03/2024 21:04:51 02/03/20 24 02/03/2024 COMPR EHENS ANJELICA METAB OLIC PANEL creatinine 0.70 mg/dL 0.66-1 .25 Not Available [facility] (Lab) [address] [place], [address], 02/03/2024 21:04:51 02/03/20 24 02/03/2024 COMPR EHENS ANJELICA METAB OLIC PANEL GFR >60 Refer ence Range : [place] ge GFR Healt hy Adult : >60 [...] or ethni c subgr oups, such as pr nics. Outsi de the valid ated magalys eters , estim ated GFR is less accur ate, requi ring clini jalen judgm ent on a case- by-ca se [...] calcu lator is avail able on the [facility] websi te: https ://eva w.basilia cariasy.o rg/pr ofess ional s/kdo qi/gf r_cal culat or Not Available [facility] (Lab) [address] [place], [address], 02/03/2024 21:04:51 02/03/20 24 02/03/2024 COMPR EHENS ANJELICA METAB OLIC PANEL alkaline phosphatase 133 U/L 38-126 high Not Available [facility] (Lab) [address] [place], [address], 02/03/2024 21:04:51 02/03/20 24 02/03/2024 COMPR EHENS ANJELICA METAB OLIC PANEL alanine aminotransfe rase 37 U/L 0-35 high Not Available [facility] (Lab) [address] [place], [address], 02/03/2024 21:04:51 02/03/20 24 02/03/2024 COMPR EHENS ANJELICA METAB OLIC PANEL aspartate aminotransfe rase 43 U/L 15-37 high Not Available [facility] (Lab) [address] [place], [address], 02/03/2024 21:04:51 02/03/20 24 02/03/2024 COMPR EHENS ANJELICA METAB OLIC PANEL bilirubin, total 0.40 mg/dL 0.20-1 .30 Not Available [facility] (Lab) [address] [place], [address], 02/03/2024 21:04:51 02/03/20 24 02/03/2024 COMPR EHENS ANJELIAC METAB OLIC PANEL calcium 8.6 mg/dL 8.4-10 .2 Not Available [facility] (Lab) [address] [place], [address], 02/03/2024 21:04:51 02/03/20 24 02/03/2024 COMPR EHENS ANJELICA METAB OLIC PANEL total protein 6.0 g/dL 6.3-8. 2 low Not Available [facility] (Lab) [address] [place], [address], 02/03/2024 21:04:51 02/03/20 24 02/03/2024 COMPR EHENS ANJELICA METAB OLIC PANEL albumin 3.5 g/dL 3.0-4. 4 Not Available [facility] (Lab) [address] [place], [address], 02/03/2024 21:04:51 02/03/20 24 02/03/2024 COMPR EHENS ANJELICA METAB OLIC PANEL globulin 2.5 g/dL 2.6-4. 2 low Not Available [facility] (Lab) [address] [place], [address], 02/03/2024 21:04:51 02/03/20 24 02/03/2024 COMPR EHENS ANJELICA METAB OLIC PANEL A/G ratio 1.4 ratio 1.0-2. 0 Not Available [facility] (Lab) [address] [place], [address], 02/03/2024 21:04:51 02/03/20 24 02/03/2024 LIPID PANEL cholesterol 146 mg/dL 140-19 9 NIH NEO NSUS RECOM MENDA TION FOR JOSE M STERO L: ADULT CHILD LOW RISK: <200 <170 BORDE RLINE : <200- 239 ----- HIGH RISK: >240 >200 Not Available [facility] (Lab) [address] [place], [address], 02/03/2024 21:04:56 02/03/2002/03/2024 LIPID PANEL triglyceride s 114 mg/dL 0-150 NIH NEO NSUS REPOR T RECOM MENDA TION FOR TRIGL YCERI JUAN M: ADULT CHILD LOW RISK: <150 ----- BODER LINE: 150-1 99 ----- HIGH RISK: >200 ----- Not Available [facility] (Lab) [address] [place], [address], 02/03/2024 21:04:56 02/03/2002/03/2024 LIPID PANEL HDL cholesterol 68 mg/dL 40- Not Available [facility] (Lab) [address] [place], [address], 02/03/2024 21:04:56 02/03/20 24 02/03/2024 LIPID PANEL [...] WILL NOT BE REPOR KASIA. Not Available [facility] (Lab) [address] [place], [address], 02/03/2024 21:04:56 02/03/20 24 02/03/2024 AMYLA SE SERUM amylase 46 U/L 30-110 Not Available [facility] (Lab) [address] [place], [address], 02/03/2024 21:05:56 02/03/20 24 02/03/2024 LIPAS E SERUM lipase 81 U/L 23-300 Not Available [facility] (Lab) [address] [place], [address], 02/03/2024 21:06:47 02/03/2002/03/2024 VITAM IN B12 ([place] MARIAH ) vb12 >1000 pg/mL 239-93 1 high Not Available [facility] (Lab) [address] [place], [address], 02/03/2024 22:52:45 03/26/20 23 03/25/2023 CT, abdom en + pelvi s, w/o contr ast No observ ation record ed. [facility] (One Call Scheduling) [address] [place], [address], 08/20/2023 14:58:55 03/27/20 23 03/26/2023 XR, ray um No observ ation record ed. [email or web address] [facility] [address], [place], [address], 03/27/2023 09:41:21 09/08/19 24 09/08/2023 DEXA, axial skele ton [facility] [address], [place] [address] Patien t Name: MICHELLE DORMAN Access ion #: [id number] Sex: F : 1955 6 Dictat [...] fractu re: severe osteop orosis Page 1 [facility] [address] [place] [address] Patien t Name: MICHELLE DORMAN Access ion #: [id number] Sex: F : 1955 6 Dictat ed By: Adryan Keys Attend ing Physic héctor: ALINA CALLAWAY Physic héctor: ATD EPPERSON ER Exam Date: 2023 12:53 PM [...] 2023 16:38: 00 PM Page 2 [email or web address] [facility] ([facility]) [address] [place], [address], 09/18/2023 10:12:52 12/19/19 24 11/20/2023 PFT, compl ete No observ ation record ed. [facility] Not Available 2023 17:56:44 12/31/19 24 12/30/2023 intro ducti on of urete ral mele ter or stent throu gh renal pelvi s (proc ) No observ ation record ed. [facility] Not Available 2023 18:41:47 02/03/20 24 02/03/2024 XR, thora cic spine [facility] [address] [place] [phone] Patien t Name: MICHELLE DORMAN Access ion #: [id number] Sex: F : 1955 4 Dictat ed By: Yina Tarango Attend ing Physic héctor: TAD EPPERSON ER Orderi ng Physic héctor: TAD EPPERSON ER Exam Date: 2023 13:26 PM Exam Name: XR T SPINE 3V Admitt ing Diagno sis(es ): ACCESS ION #: [facility]-7 [id number] INDICA TION: back pain/f all COMPAR [...] 2023 15:00: 31 PM Page 1 [email or web address] [facility] (Imaging) [address] [facility], [place], [address], 02/17/2024 07:57:10 02/03/20 24 02/03/2024 XR, ribs, unila teral [facility] [address], [place] [address] Patien t Name: MICHELLE DORMAN Access ion #: [id number] Sex: F : 1955 4 Dictat ed By: Yina Tarango Attend ing Physic héctor: TAD EPPERSON ER Orderi ng Physic héctor: TAD EPPERSON ER Exam Date: 2023 13:03 PM Exam Name: XR RIBS RT WO CHEST Admitt ing Diagno sis(es ): ACCESS ION #: GR-7 [id number] EXAMIN ATION: XR RIBS RT WO CHEST INDICA TION: chest wall pain/f all COMPAR JEROD: None TECHNI QUE: 4 views of the right ribs histor y FINDIN GS/IMP RESSIO N: No displa domenic right rib fractu re. Electr onical ly Signed by: Yina Tarango at 2023 15:01: 28 PM Page 1 [email or web address] [facility] (Imaging) [address] [place], [address], 02/06/2024 12:37:53 03/10/20 24 03/10/2024 scree eulogio bedollaas t miryam, bilat [facility] [address] [place] [address] [phone] Shannan t Name: MICHELLE DORMAN Access ion #: [id number] Sex: F : 1955 2 Locati [...] entire ly fatty. Page 1 of 2 [facility] Shannan herndon Name: MICHELLE DORMAN Access ion #: [id number] Sex: F : 1955 2 Exam [...] ly [facility] er. A negati ve mammog viviane [...] AM (CT) Page 2 of 2 [email or web address] [facility] (Imaging) [address] [place], [address], 03/10/2024 15:22:00 06/29/19 25 06/29/2024 CT, head + brain , w/o contr ast No observ ation record ed. [facility] (Imaging) [address], [place], [address], 07/07/2024 17:02:20 Result Notes None recorded. Problems Name Problem SNOMED Code Status Onset Date Resolution Date Notes Provider Name and Address Organization Details Recorded Time Obstructi ve sleep apnea syndrome 63051857 Active 2022 Not Available [facility] 3 10:52:24 Osteoporo sis 03087490 Active 2022 Not Available [facility] 3 10:52:24 Pancreati c insuffici ency 99111689 Active 2022 Not Available [facility] 3 10:52:24 Recurrent urinary tract infection 715065418 Active 2022 Not Available [facility] 3 10:52:24 Acute urinary tract infection 046484320 Active 2022 Not Available [facility] 3 10:52:24 Kidney stone 26479435 Active 2022 Jacquelyn Cadena MA null, [place] [facility] 3 11:14:31 Dizziness 664850017 Active 2022 Claudia Hall LPN null, [place] [facility] 3 12:03:02 Blood in urine 16020364 Active 2022 Gibran Epperson MD [address], [place], [address] , [facility] 3 15:09:48 Anemia 655381951 Active 2022 Gibran Epperson MD [address], [address], [place], [address] , [place] [facility] 3 15:09:54 Acute pharyngit is 823582924 Active 2022 Gibran Epperson MD [address], [address], [place], [address] , [facility] - [facility] 3 15:11:25 Blood glucose outside reference range 867584499 Active 2022 Claudia Hall LPN null, [place] - [facility] MEDICAL [facility] 3 15:02:28 Candidias is of mouth 76941954 Active 2022 Claudia Hall LPN null, [facility] 3 14:15:17 Acute sinusitis 18680352 Active 2023 Claudia Hall LPN null, [facility] 4 12:42:08 Hyperpara thyroidis m 31868925 Active 2023 Gibran Epperson MD [address], [address], [place], [address] , [facility] 4 15:07:45 Corneal dystrophy 9161111 Active 2023 Claudia Hall LPN null, [facility] 4 10:46:36 Adrenal adenoma 226747704 Active 2023 Gibran Epperson MD [address], [address], [place], [address] , [facility] 4 14:44:04 Backache 804451792 Active 2023 Gibran Epperson MD [address], [address], [place], [address] , [facility] 4 08:55:17 Chest wall pain 237752398 Active 2023 Gibran Epperson MD [address], [address], [place], [address] , [facility] 4 08:55:41 Postmenop ausal osteoporo sis 431046231 Active 2021 Not Available [facility] 3 10:52:24 Cobalamin deficienc y 014530067 Active 2021 Not Available [facility] 3 10:52:24 Asthma 703172990 Active 2021 Not Available [facility] 3 10:52:24 Steatosis of liver 957266606 Active 2022 Not Available [facility] 3 10:52:24 Gastroeso phageal reflux disease 796899121 Active 2021 Not Available [facility] 3 10:52:24 Screening mammograp hy Completed 202111/30/2021 Not Available [facility] 3 04:34:53 Adult health examinati on Active 2021 Not Available [facility] 3 10:52:24 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 24975130319 9100 Active 2022 Not Available [facility] 3 10:52:24 Subconjun ctival hemorrhag e of left eye 12870322408 9107 Active 2022 Not Available [facility] 3 10:52:24 Vitamin D deficienc y 28288059 Active 2016 Not Available [facility] 3 10:52:24 Depressiv e disorder 78695956 Active 2021 Not Available [facility] 3 10:52:24 Pancreati c insuffici ency 65236265 Completed 202104/24/2022 ARCHANA Brandon, [place] - [facility] 3 10:16:04 Osteoarth ritis 039225295 Active Not Available [facility] 3 10:52:24 Loose stool 412508382 Completed 202104/24/2022 Not Available [facility] 3 04:34:54 Vertigo 755892694 Active 2022 Not Available [facility] 3 10:52:24 Vertigo 647691490 Completed 202111/30/2021 Not Available [facility] 3 04:34:54 Obesity 053312268 Active Not Available [facility] 3 10:52:24 Acute urinary tract infection 868638487 Completed 202105/22/2022 Loreta David CMA null, [facility] [employer] 3 13:35:35 Exocrine pancreati c insuffici ency 46622589 Active 2021 Not Available [facility] 3 10:52:24 Anxiety 37884236 Active Not Available [facility] 3 10:52:24 Atrial fibrillat ion 16686429 Active Not Available [facility] 3 10:52:24 Hyperlipi demia 87561784 Active Not Available [facility] 3 10:52:24 Essential hypertens ion 41139011 Active Not Available [facility] 3 10:52:24 Vitamin B12 deficienc y (non anemic) 02488046 Active 2021 Not Available [facility] 3 10:52:24 Prediabet es 254330649 Active 2021 Not Available [facility] 3 10:52:24 Sleep apnea 29937743 Active Not Available [facility] 3 10:52:24 Overactiv e urinary bladder 097183986 Active 2022 Not Available [facility] 3 10:52:24 Notes:Medical History: Anxie ty/Depression [...] with IOL 2020 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 Procedures Surgical History Date Name Laterality Status Provider Name and Address Organization Details Recorded Time 12/18/19 Medicare Wellness CPT Code, subsequent completed Fouzia Roach RN [facility] [employer] [facility] 12/18/2023 14:48:28 12/18/19 Advanced Care Planning completed [facility] 12/18/2023 15:35:14 10/31/19 23 Medicare Wellness CPT Code, subsequent completed Alicja Stoner RN [facility] 10/30/2022 10:28:37 10/31/19 23 Advanced Care Planning completed [facility] 10/30/2022 10:29:08 08/25/19 22 Date of Last Mammogram completed Alicja Stoner RN [facility] 10/30/2022 10:36:48 08/25/19 22 Most Recent Bone Density completed Alicja Stoner RN [facility] 10/30/2022 10:37:04 07/31/19 22 Cataract Surgery [facility] 05/2022 04:31:04 05/06/20 16 Date of Last Colonoscopy completed Not [facility] 07/24/2022 04:31:02 section completed [facility]/2022 04:31:04 Hernia repair w/mesh completed [facility] 07/24/2022 04:31:04 Pacemaker completed Not Available [facility] 07/24/2022 04:31:04 reduction mammoplasty completed Not Available [facility] 07/24/2022 04:31:04 Gastric Bypass completed Not [facility] 07/24/2022 04:31:04 [facility] 04:31:04 cardiac pacemaker procedure completed Not Available [facility] 07/24/2022 04:31:04 Imaging Results Imaging Date Name Status LastModified by Organization Details LastModified Time 03/25/2023 CT, abdomen + pelvis, w/o contrast [facility] [address] [place], [address], 08/20/2023 14:58:55 03/26/2023 XR, sternum completed [address], [place], [address], 03/27/2023 09:41:21 09/08/2023 DEXA, axial skeleton completed [email or web address] (Imaging) [address] [place], [address], 09/18/2023 10:12:52 11/20/2023 PFT, complete completed [facility] Information not available 12/19/2023 17:56:44 12/30/2023 introduction of ureteral catheter or stent through renal pelvis (proc) completed [facility] Information not available 12/31/2023 18:41:47 02/03/2024 XR, thoracic spine completed [email or web address] [facility] (Imaging) [address] [place], [address], 02/17/2024 07:57:10 02/03/2024 XR, ribs, unilateral completed [email or web address] [facility] (Imaging) [address] [place], [address], 02/06/2024 12:37:53 03/10/2024 screening breast miryam, bilat completed [email or web address] [place] [address] (Imaging) [address] [place], [address], 03/10/2024 15:22:00 06/29/2024 CT, head + brain, w/o contrast completed [address] (Imaging) [address] [place] [address] [address], [address], 07/07/2024 17:02:20 Procedure Notes None recorded. Medical Equipment None Reported. Allergies Allergen ID Allergen Name Allergen Category Reaction Reaction Severity Criticality Documentation Date Start Date Code Code System Note Provider Name and Address Organization Details Recorded Time 6584 spironola ctone medicatio n vomiting Not available Not available 07/24/2022 9997 RxNorm Not Available [facility] 3 04:39:57 6585 prednison e medicatio n rash Not available Not available 07/24/2022 8640 RxNorm Not Available [facility] 3 04:39:57 6586 morphine medicatio n headache severe Not available 07/24/2022 7052 RxNorm Not Available [facility] 3 04:39:57 6587 medicatio n rash Not available Not available 07/24/2022 64800 1 RxNorm Not Available [facility] 3 04:39:57 6588 Demerol medicatio n vomiting Not available Not available 07/24/2022 61567 1 RxNorm Not Available [facility] 3 04:39:57 6589 codeine medicatio n headache severe Not available 07/24/2022 2670 RxNorm Not Available [facility] 3 04:39:57 6590 alendrona te sodium medicatio n vomiting Not available Not available 07/24/2022 84112 2 RxNorm Not Available [facility] 3 04:39:57 Medications Name Sig Start Date [...] Not Available Not Available Not Available vitamin R70-emjud in B1 1,000 mcg-100 mg/mL injection solution [...] 1 capsule every day by oral route. 2024 active LOV/ NOV 10/13/24 ok to rf Not Available Not Available [...] mariah (vit B-12) 1,000 mcg/mL injection solution Inject 1 mL every 2 weeks by subcutan eous route in the morning for 84 days. 2024 active Not Available Not Available Not Avai lable flecainid e 100 mg tablet TAKE 1 TABLET BY MOUTH TWICE A DAY active Not Available Not Available No t Available Levaquin 500 mg tablet Take 1 tablet every 24 hours by oral route. 08/19 completed Not Available Not Available Not Available ergocalci ferol (vitamin D2) 1,250 mcg (50,000 unit) capsule TK ONE C PO ONCE A WEEK active Not Available Not Available No t [...] PREV REC'D PREVNAR 13 ON 03/25/15 AT [facility] S active Not Available Not Available No t Available escitalop shala 20 mg tablet Take 1 tablet every day by oral route. 2024 active BRENDAN 06/09/24 NOV 10/13/24 ok to rf Not Available Not Available [...] Available Not Available Not Available Fluarix Quad 5482-9731 (PF) 60 mcg (15 mcg x 4)/0.5 mL IM syringe TO BE ADMINIST ERED BY [facility] FOR IMMUNIZA TION active Not Available Not Available No t Available Flucelvax Quad 6833-1547 (PF) 60 mcg (15 mcg x 4)/0.5 mL IM syringe TO BE ADMINIST ERED BY PHARMACI ST FOR IMMUNIZA TION 05/16 completed Not Available Not Available Not Available Shingrix (PF) 50 mcg/0.5 mL intramusc ular suspensio n, kit TO BE ADMINIST ERED BY [facility] FOR IMMUNIZA TION 12/02 completed Not Available Not Available Not Available Bydureon BCise 2 mg/0.85 mL subcutane ous auto-inje ctor Inject 2 mg every week by subcutan eous route at dinner for 84 days. 2022 active Not Available Not Available Not Avai lable Fluzone Quad (P F) 60 mcg(15 mcgx4)/0. 5 mL intramusc ular syringe TO BE ADMINIST ERED BY PHARMACZ[facility] FOR IMMUNIZA TION 03/12 completed Not Available [...] Updated DateTime 4 172.72 cm 41.1 kg/m2 668112. 94 g 97.4 [degF] 72 /min 16 /min 96 % 96 % 112 mm[Hg] 74 mm[Hg] Guerita Sinha MA [facility] [employer] [facility] 4 14:43:32 Date Recorded Body height Body mass index (BMI) Body weight Body temperature Heart rate Oxygen saturation Oxygen saturation in Arterial blood by Pulse oximetry Systolic blood pressure Diastolic blood pressure Provider Name and Address Organization Details Last Updated DateTime 4 172.72 cm 43.2 kg/m2 753034. 23 g 97.8 [degF] 78 /min 98 % 98 % 118 mm[Hg] 74 mm[Hg] Acacia Blum [facility] [employer] [facility] 4 14:14:08 Date Recorded Pain severity - 0-10 verbal numeric rating [Score] - Reported Provider Name and Address Organization Details Last Updated DateTime 12/18/2023 1 Fouzia Roach RN [facility] 12/18/2023 15:32:36 Date Recorded Body height Body mass index (BMI) Body weight Body temperature Heart rate Oxygen saturation Oxygen saturation in Arterial blood by Pulse oximetry Systolic blood pressure Diastolic blood pressure Provider Name and Address Organization Details Last Updated DateTime 4 172.72 cm 42.3 kg/m2 454555. 68 g 97 [degF] 64 /min 96 % 96 % 130 mm[Hg] 76 mm[Hg] Arianna lombardo Aruna [facility] [employer] [facility] 4 08:35:32 Date Recorded Body height Body mass index (BMI) Body weight Body temperature Heart rate Oxygen saturation Oxygen saturation in Arterial blood by Pulse oximetry Systolic blood pressure Diastolic blood pressure Provider Name and Address Organization Details Last Updated DateTime 5 172.72 cm 44.4 kg/m2 668222. 97 g 97.6 [degF] 67 /min 95 % 95 % 130 mm[Hg] 66 mm[Hg] KIMBERLY Singh [facility] [employer] [facility] 5 14:18:14 Social History Question Answer Notes LastModified by Organization Details LastModified Time Tobacco Smoking Status Never Smoker Arianna Gonsalves, KIMBERLY [place], [place] - [facility] 03/12/2023 11:05:44 Do You Have An Advance Directive? No Papers Given 12/18/2023 [email or web address] Information not available 12/18/2023 What Is Your Level Of Alcohol Consumption? None [id number] [id number] Information not available 07/24/2022 Are You Blind Or Do You Have Difficulty Seeing? No Cataracts Removed Information not available 03/12/2023 Is Blood Transfusion Acceptable In An Emergency? Yes [email or web address] Information not available 12/18/2023 What Is Your Level Of Caffeine Consumption? Occasional [email or web address] [id number] Information not available 07/24/2022 How Much Tobacco Do You Chew? None MIGRATION.0301 [id number] Information not available 07/24/2022 In The 14 [...] available 03/12/2023 Are You Currently Employed? No [email or web address] Information not available 12/18/2023 Are You Deaf Or Do You Have Serious Difficulty Hearing? No Information not available 03/12/2023 What Type Of Diet Are You Following? REGULAR [id number] [id number] Information not available 07/24/2022 Which Illicit Or Recreational Drugs Have You Used? None Information not available 03/12/2023 Do You Or Have You Ever Used E-cigarettes Or Vape? Never Used Electronic Cigarettes Information not available 03/12/2023 What Is The Highest Grade Or Level Of School You Have Completed Or The Highest Degree You Have Received? [id number] [email or web address] Information not available 12/18/2023 Do You Have An Electrostatic Air Filter? Yes Information not available 03/12/2023 What Is Your Occupation? Retired Information not available 03/12/2023 How Many Days Of Moderate To Strenuous Exercise, Like A Brisk Walk, Did You Do In The Last 7 Days? 0 [email or web address] Information not available 12/18/2023 Have There Been Any Changes To Your Family Or Social Situation? No [email or web address] Information not available 12/18/2023 What Is The Fluoride Status Of Your Home? Fluoridated Information not available 03/12/2023 Are There Any Guns Present In Your Home? No [email or web address] Information not available 12/18/2023 Do You Have A Humidifier? Yes Information not available 03/12/2023 Do You Use Insect Repellent Routinely? No [email or web address] Information not available 12/18/2023 Where Do You Live? [place] Information not available 03/12/2023 Presence Of Domestic Violence No [email or web address] Information not available 10/30/2022 Guns Present In The Home? Yes [email or web address] Information not available 12/18/2023 Are You Able To Care For Yourself? Yes [email or web address] Information not available 10/30/2022 Are You Blind Or Do Yo Have Difficulty Seeing? No [email or web address] Information not available 10/30/2022 Are You Deaf Or Do You Have Serious Difficulty Hearing? No Information not available 10/30/2022 General Stress Level? Moderate Caregiver To Disabled [email or web address] Information not available 10/30/2022 Live Alone Of With Others? With Others [email or web address] Information not available 10/30/2022 Do You Have A Medical Power Of County Superintendent Of Schools? No [email or web address] Information not available 12/18/2023 Do You Have Moisture Problems In Your Home? No Information not available 03/12/2023 What Was The Date Of Your Most Recent Tobacco Screening? 12/18/2023 [email or web address] Information not available 12/18/2023 How Many Children Do You Have? 1 [email or web address] Information not available 12/18/2023 Do You Have Any Pets? Yes Information not available 03/12/2023 What Is Your Relationship Status? MIGRATION.0307 [id number] Information not available 07/24/2022 Do You Use Your Seat Belt Or Car Seat Routinely? Yes Information not available 03/12/2023 Are You Sexually Active? No [email or web address] Information not available 12/18/2023 Do You Have Smoke And Carbon Monoxide Detectors In Your Home? Yes Information not available 03/12/2023 Are You Passively Exposed To Smoke? No Information not available 03/12/2023 Do You Or Have You Ever Used Smokeless Tobacco? Never Used Smokeless Tobacco MIGRATION.0301 [id number] Information not available 07/24/2022 Are There Any Smokers In Your House? No [email or web address] Information not available 12/18/2023 What Types Of Sporting Activities Do You Participate In? None [email or web address] Information not available 12/18/2023 Do You Feel Stressed (tense, Restless, Nervous, Or Anxious, Or Unable To Sleep At Night)? [id number] Information not available 03/12/2023 Do You Use Any Illicit Or Recreational Drugs? No [email or web address] Information not available 12/18/2023 Do You Use Sunscreen Routinely? No [email or web address] Information not available 12/18/2023 Has Tobacco Cessation Counseling Been Provided? No [email or web address] Information not available 12/18/2023 Have You Recently Traveled Abroad? No Information not available 03/12/2023 Do You Have Any Dietary Restrictions? No [email or web address] Information not available 12/18/2023 Do You Or Have You Ever Used Any Other Forms Of Tobacco Or Nicotine? No [email or web address] Information not available 12/18/2023 Sex: Female Functional [...] 03/12/2023 What is your exercise level? None [id number] Information not available 07/24/2022 Mental Status Question Answer Note LastModified by Organization D etails LastModified Time Do you have difficulty concentrating, remembering or making decisions? No Information no t available 03/12/2023 Family History Relationship Description Onset Age of this Age Resolved Age Notes LastModified by Organization Details LastModified Time Father Diabetes mellitus MIGRATION.308 [id number] Not available 07/24/2022 04:31:08 Father Hypertensive disorder MIGRATION.855 [id number] Not available 07/24/2022 04:31:08 Father Myocardial infarction MIGRATION.663 [id number] Not available 07/24/2022 04:31:08 Mother Diabetes mellitus MIGRATION.633 [id number] Not available 07/24/2022 04:31:08 Mother Hypertensive disorder MIGRATION.724 [id number] Not available 07/24/2022 04:31:08 Mother Myocardial infarction MIGRATION.248 [id number] Not available 07/24/2022 04:31:08 Brother Diabetes mellitus MIGRATION.960 [id number] Not available 07/24/2022 04:31:08 Brother Hypertensive disorder MIGRATION.401 [id number] Not available 07/24/2022 04:31:08 Brother Kidney disease MIGRATION.385 [id number] Not available 07/24/2022 04:31:08 Sister Diabetes mellitus MIGRATION.910 [id number] Not available 07/24/2022 04:31:08 Sister Hypertensive disorder MIGRATION.383 [id number] Not available 07/24/2022 04:31:08 Medical History Condition [...] (COVID-19) vaccine, UNSPECIFIED 1 completed Not Available [facility] 12/18/2022 10:52:25 SARS-COV-2 (COVID-19) vaccine, UNSPECIFIED 1 completed Not Available [facility] 12/18/2022 10:52:25 Influenza, split virus, trivalent, preservative 0 completed Not Available [facility] 12/18/2022 10:52:25 zoster, unspecified formulation 9 completed Not Available [facility] 12/18/2022 10:52:25 zoster, unspecified formulation 8 completed Not Available [facility] 12/18/2022 10:52:25 influenza, unspecified formulation 7 completed Not Available [facility] 12/18/2022 10:52:25 Influenza, high-dose, quadrivalent, PF 0 completed Not Available [facility] 12/18/2022 10:52:25 influenza, unspecified formulation 8 completed Not Available [facility] 12/18/2022 10:52:25 Past Encounters Encounter ID Performer Location Encounter Start Date Encounter Closed Date Diagnosis/Indication Diagnosis SNOMED-CT Code Diagnosis ICD10 Code Diagnosis Note [id number] [facility] [place] [address] [place] [address] 09/29/2020 00:00:00 09/29/2020 16:10:07 [id number] [facility] [address] [address] 11/08/2020 00:00:00 11/09/2020 09:24:34 137125 _ATHENA_M IGRATION_ DEFAULT_1 _1 , 03/29/2021 00:00:00 03/29/2021 12:07:02 [id number] [facility] [address] [address] 07/04/2021 00:00:00 07/04/2021 17:02:16 [id number] _ATHENA_M IGRATION_ DEFAULT_1 _1 , 10/18/2021 00:00:00 10/18/2021 10:04:28 [id number] [facility] [address] [address] 12/05/2021 00:00:00 12/05/2021 16:24:56 [id number] [facility] [place] [address] [facility] [place] [address] 03/28/2022 00:00:00 03/28/2022 13:34:13 [id number] [facility] [place] [address] [place] [address] 04/22/2022 00:00:00 04/22/2022 13:49:14 [id number] [facility] [place] [address] [address] 05/07/2022 00:00:00 05/07/2022 11:28:08 [id number] [facility] [address] [facility] [place] [place] [address] 06/05/2022 00:00:00 06/05/2022 16:04:01 [id number] Gibran Epperson MD [facility] [address] [place] [address] 08/12/2022 14:42:00 08/12/2022 15:04:05 Acute bronchitis 34443232 J20.9 alb inhaler qid, otc discussed [id number] Fredo Garcia MD [facility] [address] [address] 10/02/2022 10:56:59 10/03/2022 08:32:31 Obstructive sleep apnea syndrome 08104574 G47.33 [id number] Kaur Quinones MD [facility] [place] [address] [place] [address] 10/22/2022 09:15:53 10/22/2022 09:38:25 Postmenopausal osteoporosis 750369938 M81.0 Patient tolerated injection without site reaction or pain. She will come back in 6 months for repeat injection. Has a follow up in [id number] Gibran Epperson MD [facility] [address] [place] [address] 10/30/2022 10:03:11 10/30/2022 10:53:14 Essential hypertension 10183542 I10 under control Hyperlipidemia 14506494 E78.5 under control Osteoarthritis 067033244 M19.90 otc Depressive disorder 3548 9007 F32.9 under control with meds Atrial fibrillation 4943 6004 I48.91 in sinus Obesity 679960966 E66.9 advised to lose Sleep apnea 35058290 G47 .30 cpap compliant Vitamin D deficiency 347 35713 E55.9 otc Cobalamin deficiency 190 340014 E53.8 shots help Prediabetes 981551461 R7 3.03 seeing endo, watching diet Adult heal th examination 537331069 Z00.00 Colonoscop y- 04/2016Mam mo-08/2021 Dexa- 2979H60 -9449S56-2 021FLU-202 2COVID-04/15,07/25 07/16, and booster x3 Gastroesop hageal reflux disease 658766981 K21.9 better Steatosis of liver 65677 1007 K76.0 lose weight and watch fat intake Vertigo 231804877 R42 meds help Osteoporosis 56906942 M8 1.0 on prolia Pancreatic insufficiency 11114146 K86.89 on meds Screening mammography 24 489172 Z12.31 Screening for disorder 250424707 Z13.9 Asthma 213350258 J45.90 9 [id number] Luigi Wong NP [facility] [address] [address] 12/09/2022 09:03:56 12/09/2022 10:11:17 Recurrent urinary tract infection 591568750 N39.0 She is on her last day [...] e follow-up. History of calculus of kidney 014242890 Z87.[address]/KUB. [id number] Anup Oliva MD [facility] [address] [place] [address] 01/02/2023 11:07:58 01/02/2023 11:58:49 Kidney stone 03785022 N20.0 Discussed perc vs eswl with stent. She is aware she will probably need procedure to remove fragments after a eswl and will probably will need at least 2 shocks. Procedure risks and alternativ es discussed. [id number] Gibran Epperson MD [facility] Internal Med [facility] [address] [facility] [place] [address] 03/12/2023 11:05:36 03/12/2023 11:53:01 Essential hypertension 81564960 I10 under control Hyperlipidemia 83790279 E78.5 under control Osteoarthritis 119032083 M19.90 otc Depressive disorder 3548 9007 F32.9 under control with meds Atrial fibrillation 4943 6004 I48.91 in sinus Obesity 849648716 E66.9 advised to lose and watch diet Sleep apnea 84956576 G47 .30 cpap compliant Vitamin D deficiency 347 14161 E55.9 otc Cobalamin deficiency 190 215723 E53.8 shots help , gets every 2 weeks Prediabetes 815977161 R7 3.03 seeing endo, watching diet Adult heal th examination 297985459 Z00.00 Colonoscop y- 04/2016Mam mo-10/2022 Dexa- 5289Q99 -8299V16-1 021FLU-RSV- 03/07/23CO VID-, 1, and booster x3, 03/07/23 Gastroesop hageal reflux disease 527428851 K21.9 better Steatosis of liver 1007 K76.0 better Vertigo 324135979 R42 meds help , meclizine Osteoporosis 40452994 M8 1.0 on prolia shots Pancreatic insufficiency 47209789 K86.89 on meds Asthma 969183493 J45.90 9 under control [id number] Gibran Epperson MD [facility] Internal Med [facility] [address] [facility] [place] [address] 04/09/2023 14:47:28 04/09/2023 15:19:12 Kidney stone 36578703 N20.0 s/p stent Blood in urine 88142105 R31.9 due to kidney stones Anemia 071535418 D64.9 due to hematuria Acute pharyngitis 909808 003 J02.9 viral, otc [id number] Gibran Epperson MD [facility] Internal [address] [place] [address] 08/20/2023 14:15:07 08/20/2023 15:08:48 Essential hypertension 37971494 I10 under control Hyperlipidemia 07060979 E78.5 under control Osteoarthritis 020346586 M19.90 otc Depressive disorder 3548 9007 F32.9 under control with meds Atrial fibrillation 4943 6004 I48.91 in sinus Obesity 676832160 E66.9 advised to lose and watch diet Sleep apnea 38639855 G47 .30 cpap compliant Vitamin D deficiency 347 71126 E55.9 otc Cobalamin deficiency 190 580202 E53.8 shots help , gets every 2 weeks Prediabetes 682761233 R7 3.03 seeing endo, watching diet Gastroesop hageal reflux disease 589685681 K21.9 better Steatosis of liver 14591 1007 K76.0 better Vertigo 243986982 R42 meds help , meclizine Osteoporosis 87146392 M8 1.0 on prolia shots Pancreatic insufficiency 74607575 K86.89 on meds Asthma 331036808 J45.90 9 under control Adult heal th examination 006759949 Z00.00 Colonoscop y- 04/2016Mam mo-10/2022 Dexa- 8008L46 -3152E37-5 021FLU-RSV- 03/07/23CO VID-,2 1, and booster x3, 03/07/23 Hyperparathyroidism 6699 9008 E21.3 Screening mammography 24 009015 Z12.31 Postmenopausal state 764 53422 Z78.0 [id number] Gibran Epperson MD [facility] Internal Med [address] [place] [address] 12/18/2023 14:02:42 12/18/2023 15:11:44 Essential hypertension 79435385 I10 under control Hyperlipidemia 27976181 E78.5 under control Osteoarthritis 819348101 M19.90 otc Depressive disorder 3548 9007 F32.9 under control with meds Atrial fibrillation 4943 6004 I48.91 in sinus Obesity 334956320 E66.9 advised to lose and watch diet Sleep apnea 20343877 G47 .30 cpap compliant Vitamin D deficiency 347 51548 E55.9 otc Cobalamin deficiency 190 777791 E53.8 shots help , gets every 2 weeks Prediabetes 644043031 R7 3.03 seeing endo, watching diet Gastroesop hageal reflux disease 874927755 K21.9 better Steatosis of liver 42482 1007 K76.0 better Vertigo 007928475 R42 meds help , meclizine Osteoporosis 69736250 M8 1.0 on prolia shots Pancreatic insufficiency 13267986 K86.89 on meds Asthma 902842464 J45.90 9 under control Adult heal th examination 997065437 Z00.00 Colonoscop y- 04/2016, not dueMammo-0 exa - 6972Y02 -0257Q58-6 021FLU-RSV- 03/07/23CO VID-, 1, and booster x3, 03/07/23 Hyperparathyroidism 6699 9008 E21.3 seeing endo Screening mammography 24 856452 Z12.31 Adrenal adenoma 96152122 8 D35.00 benign Screening for disorder 417485637 Z13.9 [id number] Gibarn Epperson MD [facility] Internal Med [address] [place] [address] 02/03/2024 08:25:23 02/03/2024 09:17:01 Backache 515000963 M54.9 otc Chest wall pain 28010379 6 R07.89 otc [id number] Gibran Epperson MD [facility] Internal Med [address] [place] [address] 06/09/2024 14:02:08 06/09/2024 15:06:12 Essential hypertension 63603766 I10 under control Hyperlipidemia 60693132 E78.5 under control Osteoarthritis 692591678 M19.90 otc Depressive disorder 3548 9007 F32.9 under control with meds Atrial fibrillation 4943 6004 I48.91 in sinus Obesity 451741395 E66.9 advised to lose and watch diet Sleep apnea 71561223 G47 .30 cpap compliant Vitamin D deficiency 347 47868 E55.9 otc Cobalamin deficiency 190 928969 E53.8 shots help , gets every 2 weeks Prediabetes 590711352 R7 3.03 seeing endo, watching diet Gastroesop hageal reflux disease 919977363 K21.9 better Steatosis of liver 00851 1007 K76.0 better Vertigo 194071915 R42 getting worse, falling Osteoporosis 99767077 M8 1.0 on prolia shots Pancreatic insufficiency 90207402 K86.89 on meds Asthma 852449555 J45.90 9 under control Adult heal th examination 089440407 Z00.00 Colonoscop y- 04/2016, not dueMammo-1 exa- 4175W70 -[id number] 021FLU-202 4RSV- 03/07/23CO VID-, 1, and booster x3, 03/07/23, 2023 Hyperparathyroidism 6699 9008 E21.3 seeing endo Adrenal adenoma 47040893 8 D35.00 benign Health Concerns Section Related Observation LastModified by Organization Detai ls LastModified Time None Recorded Concern Status LastModified by Organization Details LastModified Time None Recorded Advance Directives Directive N: papers given 12/18/2023 Payers Encounter Date Sequence Insurance Name Policy Number Policy Boggs Covered Member ID Boggs Member ID Guarantor Name 04/09/2023 1 [place] Michelle Dorman [id number] Michelle Dorman 04/09/2023 2 () Michelle Salazarrea [id number] Michelle Dorman 08/20/2023 1 [place] Salazarrea [id number] Michelle Dorman 08/20/2023 2 () Michelle Salazarrea [id number] Michelle Dorman 12/18/2023 1 [place] Michelle Salazarrea [id number] Michelle Salazarrea 12/18/2023 2 () Michelle Salazarrea [id number] Michelle Salazarrea 02/03/2024 1 [place] Michelle Salazarrea [id number] Michelle Slaazarrea 02/03/2024 2 () Michelle Salazarrea [id number] Michelle Salazarrea 06/09/2024 1 [place] Michelle Salazarrea [id number] Michelle Salazarrea 06/09/2024 2 () Michelle Salazarrea [id number] Michelle Salazarrea Notes Date Note Type Note Provider Name [...] no fever, no cough Gibran Epperson MD [address] [place] [address], [place] [address], [place], [address], [facility] [employer] 04/09/2023 15:11:53 08/20/2023 text/html Here today for h er routine follow up. Pt feels as if she has oral Thrush from recent abxA FIB- s/o cardioversion, DR Kelly, no palpitationsMeds- Apixaban 5 mg BIDS/p ablation 04/06/19.Sick sinus syndrome-s/p pace maker 12/12, Dizziness has improved ,Last echo- 01/02/2023Meds- Flecainide 100 mg BID, Diltiazem 360 mg dailyHTN- under controlMEDS- Losartan /HCTZ 50/12.5Prediabetes - was getting hypoglycemia and did improve [...] for prolia shots , now Dr Heidi Yoonathyroidmichael m- seeing dr at [facility], needs surgery Gibran Epperson MD [address] [facility] [facility] [address], [place], [address], [facility] [employer] 08/20/2023 15:09:03 12/18/2023 text/html Here today for 4 mo F/U, compliant Jamarcus FIB- s/o cardioversion, DR Kelly, no palpitationsMeds- Apixaban 5 mg BIDS/p ablation 04/06/19.Sick sinus syndrome-s/p pace maker 12/12, Dizziness has improved ,Last echo- 01/02/2023Meds- Flecainide 100 mg BID, Diltiazem 360 mg dailyHTN- under controlMEDS- Losartan /HCTZ /.5Prediabetes - has taken bydureon and not any [...] Quinones for prolia shots , now Dr Gordon Hyperparathyroidis m- seeing dr at [facility], s/p surgery Gibran Epperson MD [address], [place], [address], [employer] 12/18/2023 17:34:07 02/03/2024 text/html Pt is here [...] her back.No LOC Gibran Epperson MD [address], [place], [address], [employer] 02/03/2024 09:20:38 06/09/2024 text/html Here today for [...] Quinones for prolia shots , now Dr Gordon Hypoglycemia- seeing endo, using Jennifer, to see endo at [facility] Hyperparathyroidis m- seeing dr at [facility], s/p surgery Gibran Epperson MD [address] [facility], [facility] [address], [place], [address], [place] [facility] [employer] 06/09/2024 15:02:44 OBGyn Episode No OBEpisode recorded.
== END 2024-09-08 13:05 | disposition home or self-care (01) ==
PROVIDERS: Visit Provider Internal Medicine
DX: M81.0 Age-related osteoporosis without current pathological fracture (principal); K43.9 Ventral hernia without obstruction or gangrene; N28.1 Cyst of kidney, acquired; E78.5 Hyperlipidemia, unspecified; I10 Essential (primary) hypertension; E21.0 Primary hyperparathyroidism; E66.9 Obesity, unspecified
CPT/HCPCS: 74176; 76536

== ENCOUNTER 2024-10-13 07:40 | Outpatient (CLI) | payer MEDICARE, OTHER, SELFPAY ==
[2024-10-13 08:17] LABS: Hematocrit 43.7 % (37.0-47.0); Hemoglobin 13.7 g/dL (12.0-15.0); Mean Corpuscular HGB Conc 31.4 g/dl (32-36); Mean Corpuscular Hemoglobin 28.8 pg (26-34); Mean Platelet Volume 8.7 fl (7.4-10.4); Platelet Count Result 248 k/mm3 (150-375); Red Blood Count 4.75 M/mm3 (4.2-5.4); Red Cell Distribution Width 13.7 % (11.5-14.5)
[2024-10-13 08:33] LABS: LDL Cholesterol Direct 56 mg/dL
[2024-10-13 08:34] LABS: Alanine Aminotransferase 34 U/L (6-35); Albumin Level 3.7 g/dL (3.5-5.1); Alkaline Phosphatase 106 U/L (38-126); Anion Gap 3 mmol/L (4-12); Aspartate Amino Transferase 43 U/L (14-36); Bilirubin,Total 0.4 mg/dL (0.2-1.3); Blood Urea Nitrogen 19 mg/dL (7-17); Calcium 8.5 mg/dL (8.4-10.2); Carbon Dioxide 32 mmol/L (22-30); Chloride 104 mmol/L (98-107); Cholesterol 155 mg/dL (0-200); Estimated Glomerular Filt Rate > 60; Glucose 98 mg/dL (65-110); HDL Direct 66 mg/dL; Potassium 3.9 mmol/L (3.4-5.0); Sodium 139 mmol/L (137-145); Triglycerides 108 mg/dL (<150)
[2024-10-13 08:44] LABS: Parathyroid Intact 86.7 pg/mL (14.5-75.2)
[2024-10-13 08:51] LABS: Free T4 Free Thyroxine 0.95 ng/dL (0.78-2.19); Vitamin D 25 Hydroxy 30.3 ng/mL
[2024-10-13 10:27] LABS: Creatinine Urine 103.5 mg/dL
[2024-10-13 10:33] LABS: MALB Creatinine Ratio 6.2 mg/g (0-30); Microalbumin Urine Random 6.4 mg/L (0-16.7)
== END 2024-10-13 07:41 | disposition home or self-care (01) ==
PROVIDERS: PCP Internal Medicine; Referring Provider Internal Medicine; Visit Provider Internal Medicine
DX: E16.1 Other hypoglycemia (principal); E78.5 Hyperlipidemia, unspecified; I10 Essential (primary) hypertension; R73.03 Prediabetes; E21.3 Hyperparathyroidism, unspecified; G47.33 Obstructive sleep apnea (adult) (pediatric); J98.01 Acute bronchospasm; M81.0 Age-related osteoporosis without current pathological fracture; E21.0 Primary hyperparathyroidism; E66.9 Obesity, unspecified
CPT/HCPCS: 36415; 80053; 80061; 82043; 82306; 82330; 83970; 84439; 84443; 85027

== ENCOUNTER 2025-01-26 08:03 | Outpatient (CLI) | payer MEDICARE, OTHER, SELFPAY ==
--- OUTSIDE RECORDS SUMMARY | 2009-03-14 09:00 | XMS_ITS | Continuity of Care Document ---
Author Organization [facility] Address [address] [facility] [address] [place] [address] Phone Care Team Providers Care Marketing And Promotions Manager Name Role Phone Eliseo Barnes Unavailable Unavailable Procedures Procedure Date Office/outpatient Visit, Est Office/outpatient Visit, Est Office/outpatient Visit, Est Office/outpatient Visit, Est Eye Exam Established Pt Advance Directives Directive Yes / No Effective Date File Name No Information Encounters Encounter Description Practice Location Reason(s) For Visit Diagnoses Date Provider Providers Copied on Encounter Office/outpat ient [place], [facility] [id number] [place] [address] [address], [place], [place], [id number], [place] tel:[phone] [facility] No Information 0-200 9 Krishnasamy Eliseo. Formerly [facility] [address], [facility], [place]. tel:[phone] Office/outpat ient Visit, [facility], [address] [place] [address] [address], [place], [place], [id number], [place] tel:[phone] SEC [facility] No Information 9-200 9 Krishnasamy Eliseo. [address] [facility] [address], [place], [place], [facility] [place], [place]. tel:[phone] Office/outpat ient Visit, [facility], [address] [place] [address] [address], [place], [place], [id number], [place] tel:[phone] [facility] No Information Sep-2 2-200 9 Krishnasamy Eliseo. [address], [facility] [place], . tel:[phone] Office/outpat ient Visit, [facility], [address], [place], [place], [id number], [place] tel:[phone] [facility] No Information Sep-1 5-200 9 Krishnasamy Eliseo. [address], [facility] [place], [place]. tel:[phone] [facility], [address], [place], [place], [id number], [place] tel:[phone] SEC [facility] No Information Sep-0 8-200 9 Krishnasamy Eliseo. [facility] [address], [facility] [place], [place]. tel:[phone] Family History Family Member Type Diagnosis Age At Onset No Information Payers Payer name Insurance type Covered constitution party ID Authoriza tion(s) No Information Social History [...]
--- OUTSIDE RECORDS SUMMARY | 2024-11-23 09:07 | XMS_ITS | Continuity of Care Document ---
Author Name [facility] Organization [facility] Care Team Providers Care Case Specialist Name Role Phone [facility] Unavailable Unavailable Problems Combined list of problems from [facility] and [facility] facilities. It does not include entries that were removed or entered in error. Problem Status Onset Date Problem Type Date of Resolution Comments Source Diagnosis: ICD-10-CM Z63.6 Dependent relative needing care at home Active Diagnosis [facility] Diagnosis: ICD-10-CM Z74.1 Need for assistance with personal care Active Diagnosis [facility] Immunizations Combined list of available immunizations from the Department of [facility] and [facility] facilities. Immunization Series Date Given Administered By Site Reaction Lot Number CVX Code Drug Lieutenant Colonel Status Comments Source COVID-19 (Samfind), MRNA, LNP-S, PF, 30 MCG/0.3 ML DOSE, CECILIA-SUCROSE (AGES 12+ YEARS) 4 2021 217 complet ed PFR; [id number]; 2 [facility] Encounters Combined list of: 1) Encounters from [facility] facilities going backup to the last 18 months, not all [place] inpatient encounters are included; 2) Encounters from the Department of [facility] facilities going backup to 280 months. Location Location Details Encounter Type Encounter Number Reason For Visit Attending Provider ADM Date DC Date Status Disposition Source [facility] Outpatient Encounter [id number] 07/21 [facility] CASE MANAGEMENT [id number] Diagnos is: ICD-10- CM Z74.1 Need for assista nce with PINA Argueta 07/28 [facility] Out[facility] Encounter [id number] 12/02 [facility] PROGRAM INTAKE ASSESSMENT [id number] Diagnos is: ICD-10- CM Z74.1 Need for assista nce with persona l PINA Phan KEITH 12/03 [facility] Outpatient Encounter [id number] 02/23 [facility] PROGRAM INTAKE ASSESSMENT [id number] Diagnos is: ICD-10- CM Z74.1 Need for assista nce with persona l ainsley RUELASPINA KEITH 03/03 [facility] Outpatient Encounter [id number] 07/22 [facility] PROGRAM INTAKE ASSESSMENT [id number] Diagnos is: ICD-10- CM Z74.1 Need for assista nce with persona PINA Payne KEITH 07/28 [facility] PH1 ASSMT&MGMT NQHP 11-20 [id number] Diagnos is: ICD-10- CM Z63.6 Depende nt relativ e needing care at home SAGE PACHECO A A 11/23 [facility] Outpatient Encounter [id number] SAGE PACHECO A A 11/23 [facility]
--- OUTSIDE RECORDS SUMMARY | 2025-01-26 08:09 | XMS_ITS | Clinical Summary ---
Author Organization [facility] Address [address] [place] [address] Phone Care Team Providers Care Drone Pilot Name Role Phone Unavailable Primary Care Provider Unavailabl e Medications denosumab (Prolia) 60 mg/mL Syringe Inject 1 syringe (60 mg) under the skin every 6 months 1 mL 1 04/04/2022 3:59 PM BAND TOP MAKER 2 Active denosumab (Prolia) 60 mg/mL Syringe Inject 1 mL (60 mg) subcutaneously every 6 months 1 mL 1 09/26/2022 3:56 PM CDT 3 Active Encounters Date Type Department Care Team Description 12/08/2024 External Device Data [facility] Provider, Abstract 12/07/2024 External Device Data [facility] Provider, Abstract 11/16/2024 External Device Data [facility] Provider, Abstract 11/09/2024 External Device Data [facility] Provider, Abstract [...] 10/02/2003 OSTEOPOROSIS SCREENING 2018 INFLUENZA VACCINE (#1) 2024 RSV VACCINE (60+ or ) (1 - 1-dose 75+ series) 2028 Insurance RX [employer] Member Subscriber Plan / Payer (Ef fective for All Dates) Name:Dorie Dorman Relation to Subscriber:Self Name:Dorie Dorman Payer ID:Not on file Group ID:Not on file Type:RX Commercial Address: [address]
--- OUTSIDE RECORDS SUMMARY | 2025-01-26 08:10 | XMS_ITS | Clinical Summary ---
Author Organization [facility] Address [address] [place] [address] Care Team Providers Care Lockstitch Cup Setter Name Role Phone Gibran Epperson MD Primary Care Provider [phone] Source Comments [facility],non-owned Affiliates and Associated Physician Practices is amultiple site organization consisting of ambulatory clinics and hospital sitesin [place], [place], [place] and [place]. This disclosure is being madepursuant to the Care Everywhere program and may not contain all information available regarding this patient. Last updated 18.[facility] Allergies Active Allergy Reactions Criticality Noted Date Comments Alendronic Acid Vomiting 09/24/2023 Meperidine Dizziness 02/26/2019 Rash Medium 09/24/2023 Belladonna Alk-Phenobarbital Rash Medium 019 Morphine Headache,Unknown High 03/24/2015 Codeine Dizziness 02/26/2019 Ln-Waogji-Cnipgxbk-Scopolamine Unknown 03/09 Prednisone Rash Medium 02/26/2019 Spironolactone [...] (Vitamin B-Complex 100) INJ B Complex 100 509-2-290-2-2 mg/mL solution Active Cyanocobalamin (B-12 Compliance Injection) 1000 MCG/ML vitamin V45-jovzqfs B1 1,000 mcg-100 mg/mL injection solution Take [...] MOUTH EVERY DAY prn Active pancrelipase (Creon) 00285-640268 units capsule take up to 8 capsules [...] FOR CONSTIPATION (WHEN TAKING OXYCODONE) 30 capsule Active Active Problems Problem Noted Date Diagnosed Date Hyperparathyroidism 09/16/2023 Immunizations Immunization Administration Dates Next Due INFLUENZA VACCINE, TRIV. (AF BRYAN FLUZONE TRIVALENT; 6MO+) (IIV3) 02/03/2020 Covid [employer] primary monoval ent 12+ yr 0.3mL Purple cap 08/14/2020,07/06/2020 INFLUENZA S8L3-33, HISTORIC VACCINE 01/30/2020 INFLUENZA VACCINE 02/17/2018,03/25/2017 INFLUENZA [...] 11:00 AM CDT Height 172.7 cm (5' 8) 09/24/2023 11:00 AM CDT Body Mass Index [...] PNEUMOCOCCAL VACCINE 50+ (2 of 2 - PCV20 or PCV21) 03/25/2016 03/25/2015 ZOSTER VACCINE (3 of 3) 09/27/2018 08/03/19 19, 08/02/2018, 02/17/2018, Additional history exists COVID-19 VACCINE (3 - 2023- season) 2024 08/14/2020, 07/06/2020 DEPRESSION SCREENING 05/26/2024 INFLUENZA VACCINE (#1) 2025 0, 01/30/2020, 02/26/2019, Additional history exists SCREENING FOR DIABETES 09/16/2026 4, 09/16/2023, 09/16/2023, [...] 7 - 26 mg/dL 09/17/2023 2:44 AM [facility] Creatinine 0.72 0.56 - 0.96 mg/dL 09/17/2023 2:44 AM [facility] Sodium 142 136 - 145 mmol/L 09/17/2023 2:44 AM [facility] Potassium 3.9 3.5 - 4.5 mmol/L 09/17/2023 2:44 AM [facility] Chloride 109(H) 98 - 107 mmol/L 09/17/2023 2:44 AM [facility] CO2 26 22 - 29 mmol/L 09/17/2023 2:44 AM [facility] Glucose 82 70 - 115 mg/dL 09/17/2023 2:44 AM [facility] Calcium 8.1(L) 8.4 - 10.2 mg/dL 09/17/2023 2:44 AM [facility] Anion Gap 7 6 - 16 09/17/2023 2:44 AM [facility] BUN/Creatinine Ratio 24(H) 7 - 23 09/17/2023 2:44 AM [facility] Osmolality Calculated 295 275 - 295 mOsm/kg 09/17/2023 2:44 AM [facility] eGFR by CKD-EPI 90 >=90 mL/min/1.7 3 m2 09/17/2023 2:44 AM [facility] Blood BLOOD SPECIMEN / Unknown Lab Venipuncture / Unknown 09/17/2023 1:16 AM CDT 09/17/2023 1:46 AM [facility] us Bhavesh Gastelum MD LAB - CHEMISTRY ORDERABLES Final Result [facility] [address] [place] [address], [place] [phone] from Last 3 Months or Most Recently Relevant to Health Maintenance Insurance [employer] MEDICARE [facility] SELF PAY NO INSURANCE Member Subscriber Plan / Payer (Ef fective for All Dates) Name:Michelle Dorman Alessandro Member ID:Not on file Relation to Subscriber:Not on file Name:LAKIAMICHELLE Alessandro Subscriber ID:Not on file (Home) Address: [address] [place], [place] [id number] Payer ID:Not on file Group ID:Not on file Type:Self Pay Address: [place], [place] MEDICARE MEDICARE [facility] * Guarantor: MICHELLE DORMAN Account Type Relation to Patient Date of Phone Billing Address Personal/Family Spouse Advance Directives * Full Code (Latest Code Status on File) Date Activated Date Inactivated Comments 09/16/2023 4:52 PM 09/17/2023 1:58 PM Care Teams Lockstitch Cup Setter Relationship Specialty Start Date End Date Gibran Epperson MD [address] [place] [address] PCP - General Internal Medicine 08/20/23
--- OUTSIDE RECORDS SUMMARY | 2025-01-26 08:10 | XMS_ITS | Clinical Summary ---
Author Organization [facility] Address [address] [place] [address] Care Team Providers Care Financial Administration Officer Name Role Phone Gibran Epperson MD Primary Care Provider Calvin Whitney MD Unavailable [phone] Allergies Active Allergy Reactions Criticality Noted Date Comments Codeine Dizziness Low 02/26/2019 Meperidine Dizziness Low 02/26/2019 Morphine Unknown 03/09/2019 Qrxqurnws-Vptvdu-Zrjslncc-Scop Unknown 03/09 Prednisone Rash Medium 02/26/2019 Medications calcium carbonate/vitam in D3 (CALTRATE 600 PLUS D ORAL) Caltrate 600 plus D 2 a day Active diltiazem (TIAZAC) 360 mg 24 hr capsule daily Active cyanocobalamin, vitamin B-12, 1,000 mcg/mL kit vitamin H53-blvjkoa B1 1,000 mcg-100 mg/mL injection solution Take [...] on file Legal Sex Female 9:29 AM TELEMEDICINE PHYSICIAN Gender Identity Not on file Sexual Orientation Not on file Obstetrics History Last Filed Vital Signs Vital Sign Reading Time Taken Comments Blood Pressure 128/74 02/07/2020 9:55 AM CDT Pulse 72 02/07/2020 9:55 AM CDT Temperature 36.6 C (97.9 F) 05/03/2019 10:29 AM TELEMEDICINE PHYSICIAN Respiratory Rate 20 07/26/2019 9:18 AM TELEMEDICINE PHYSICIAN Oxygen Saturation 92% 02/07/2020 9:55 AM CDT Inhaled Oxygen Concentration - - Weight 129.3 kg (285 lb) 07/26/2019 9:18 AM TELEMEDICINE PHYSICIAN Height 172.7 cm (5' 8) 07/26/2019 9:18 AM TELEMEDICINE PHYSICIAN Body Mass Index 43.33 07/26/2019 9:18 AM TELEMEDICINE PHYSICIAN Plan of Treatment Health Maintenance Due Date Last Done Comments Breast Cancer Screening-Mammogram 1955 Colon Cancer Screening-Colonoscopy 1955 Depression Screening 1955 Fall Risk Assessment 1955 Hepatitis C Screening 1955 Osteoporosis Screening-Bone Density Scan 1955 DTaP/Tdap/Td Vaccine (1 - Tdap) 1964 Hepatitis B Screening 10/02/1971 Pneumococcal vaccine 65+ (2 of 2 - PPSV23, PCV20, or PCV21) 05/20/2015 03/25/2015 Zoster Vaccine (3 of 3) 09/27/2018 08/03/19 19, 08/02/2018, 02/17/2018, Additional history exists Well Visit 65+ 2018 Covid-19 Vaccine (4 - 2023-2 5 season) 2024 09/06/2021, 08/14/2020, 07/06/2020 Influenza Vaccine (#1) 2025 0, 01/30/2020, 02/26/2019, Additional history [place] [address] [facility] MEDICARE [facility] MEDICARE [facility] [place] [address] Care Teams Financial Administration Officer Relationship Specialty Start Date End Date Gibran Epperson MD PCP - General Internal Medicine 02/02/19 [place] [address] [address] Consulting Physician Cardiology 04/07/19
[2025-01-26 09:11] LABS: Alanine Aminotransferase 62 U/L (6-35); Albumin Level 3.7 g/dL (3.5-5.1); Alkaline Phosphatase 107 U/L (38-126); Anion Gap 7 mmol/L (4-12); Aspartate Amino Transferase 62 U/L (14-36); Bilirubin,Total 0.5 mg/dL (0.2-1.3); Blood Urea Nitrogen 17 mg/dL (7-17); Calcium 8.7 mg/dL (8.4-10.2); Carbon Dioxide 28 mmol/L (22-30); Chloride 103 mmol/L (98-107); Estimated Glomerular Filt Rate > 60; Glucose 94 mg/dL (65-110); Magnesium 2.3 mg/dL (1.6-2.3); Potassium 3.8 mmol/L (3.4-5.0); Sodium 138 mmol/L (137-145); Total Protein 6.8 g/dL (6.3-8.2)
[2025-01-26 14:34] LABS: Hematocrit 44.3 % (37.0-47.0); Hemoglobin 13.5 g/dL (12.0-15.0); Immature Granulocyte Percent A 0.3 % (0-0.5); Lymphocytes Absolute Auto 1.38 K/mm3 (0.9-3.2); Mean Corpuscular HGB Conc 30.5 g/dl (32-36); Mean Corpuscular Hemoglobin 28.6 pg (26-34); Mean Corpuscular Volume 93.9 fl (80-100); Nucleated Red Blood Cells Absolute Auto 0.000 K/mm3 (0.0-0.012); Nucleated Red Blood Cells Perc 0.0 % (0.0-0.2); Platelet Count Result 250 k/mm3 (150-375); Red Blood Count 4.72 M/mm3 (4.2-5.4); White Blood Count 7.0 K/mm3 (4.5-10.0)
== END 2025-01-26 08:04 | disposition home or self-care (01) ==
PROVIDERS: PCP Internal Medicine; Referring Provider Internal Medicine; Visit Provider Internal Medicine Cardiovascular Disease
DX: Z95.0 Presence of cardiac pacemaker (principal)
CPT/HCPCS: 36415; 80053; 83735; 85025

== ENCOUNTER 2025-03-09 11:32 | Outpatient (CLI) | payer MEDICARE, OTHER, SELFPAY ==
--- NOTE | ~2025-03-09 | XR_ITS ---
EXAMINATION: XR abdomen/kub 1V, 03/09/2025 11:46 CDT HISTORY: STAGHORN KIDNEY STONES, LEFT SIDE, FOLLOW UP COMPARISON: No comparisons available. Technique: 3 view. Findings: Bowel gas pattern unremarkable. No obstruction. Fecal content limits evaluation, no renal calculi are identified No acute osseous abnormality. Impression: 1. No acute abnormality. Reviewed, dictated and finalized at location P. Impression: 1. No acute abnormality.
== END 2025-03-09 11:33 | disposition home or self-care (01) ==
PROVIDERS: PCP Internal Medicine; Visit Provider Urology
DX: N20.0 Calculus of kidney (principal)
CPT/HCPCS: 74018

== ENCOUNTER 2025-03-30 09:07 | Emergency (ER) | payer MEDICARE, OTHER, SELFPAY ==
--- OUTSIDE RECORDS SUMMARY | 2009-03-14 08:00 | XMS_ITS | Continuity of Care Document ---
Author Organization Merged with [facility] Address [address] [place] [address] Phone Care Team Providers Care Energy Administrator Name Role Phone Eliseo Barnes Unavailable Unavailable Procedures Procedure Date Office/outpatient Visit, Est Office/outpatient Visit, Est Office/outpatient Visit, Est Office/outpatient Visit, Est Eye Exam Established Pt Advance Directives Directive Yes / No Effective Date File Name No Information Encounters Encounter Description Practice Location Reason(s) For Visit Diagnoses Date Provider Providers Copied on Encounter Office/outpat ient Visit, [facility], [id number] [place] [address] [address], [place], [place], [id number], [place] tel:[phone] SEC [facility] No Information 0-200 9 Krishnasamy Eliseo. [facility] [address], [facility], [place]. tel:[phone] Office/outpat ient Visit, [facility], [address] [place] [address] [address], [place], [place], [id number], [place] tel:[phone] SEC [facility] No Information 9-200 9 Krishnasamy Eliseo. [address] [facility], [place], [place], [facility], [place]. tel:[phone] Office/outpat ient Visit, [facility], [address] [place] [address] [address], [place], [place], [id number], [place] tel:[phone] SEC [facility] No Information Sep-2 2-200 9 Krishnasamy Eliseo. [address], [facility], . tel:[phone] Office/outpat ient Visit, Est [facility], [address], [place], [place], [id number], [place] tel:[phone] [facility] No Information Sep-1 5-200 9 Krishnasamy Eliseo. [address], [facility], [place]. tel:[phone] [facility], [address], [place], [place], [id number], [place] tel:[phone] SEC [facility] No Information Sep-0 8-200 9 Krishnasamy Eliseo. [facility] [address], [facility], [place]. tel:[phone] Family History Family Member Type Diagnosis Age At Onset No Information Payers Payer name Insurance type Covered libertarian ID Authoriza tion(s) No Information Social History Type Description Quantity Date Captured Comments Sex Female Smoking Status No Information Chief Complaint And Reason For Visit No Information Reason For Referral Reason For Referral No Information History Of Present Illness Encounter Date Complaint History Of Prese nt Illness No Information Functional Status Date Functional Assessmen t No Information Instructions Date Instruction Additional Infor mation No Information Assessments Type Assessment Date No Information Patient Care Teams Name Effective Dates (start - stop) Status Members No Information
--- NOTE | ~2025-03-30 | XR_ITS ---
XR_CERV2-3V_CR 03/30/2025 16:13 Indication: Status post fall. Neck pain. Procedure: 3 views cervical spine Comparison: 03/30/2025 Findings: Vertebral body heights are maintained. No fracture, subluxation or dislocation. Lung apices are normal. No evidence for listhesis. No prevertebral soft tissue abnormality. Odontoid process is normal. Lateral masses normally aligned. C7 and T1 are not adequately visualized on lateral view. Impression: 1: No acute abnormality of the cervical spine. Limited visualization of the cervical thoracic junction on lateral view. Reviewed, dictated and finalized at location O. ING CONSULTANT Impression: 1: No acute abnormality of the cervical spine. Limited visualization of the cervical thoracic junction on lateral view.
--- NOTE | ~2025-03-30 | CT_ITS ---
CT brain without IV contrast HISTORY: Injury. Patient on anticoagulation COMPARISON: None. TECHNIQUE: Multiplanar images were obtained of the head without intravenous contrast. FINDINGS: There is periventricular lucency, consistent with ischemic small vessel disease. ICH: No acute intracranial hemorrhage, mass effect or midline shift. No extra- axial fluid collections. Mass(es): There is no mass or mass effect seen. CVA: No evidence of acute infarct is seen. There is a punctate old lacunar infarct in the right lentiform nucleus. CSF Spaces: There is no evidence of hydrocephalus. The CSF spaces are Skull: The calvarium is intact. Sinuses/MastoidsVisualized paranasal sinuses and mastoid air cells are clear. Orbits: There is been bilateral cataract removal. IMPRESSION: No acute findings. No significant abnormality is seen. All CT scans at this facility are performed using low dose modulation techniques as appropriate to perform exam including the following: automated exposure control; use of iterative reconstruction technique; adjustment of the mA and/or kV according to patient size (this includes techniques or standardized protocols for targeted exams where dose is matched to indication/reason for exam). Reviewed, dictated and finalized at location A. APIST RADIATION IMPRESSION: No acute findings. No significant abnormality is seen. All CT scans at this facility are performed using low dose modulation techniqu es as appropriate to perform exam including the following: automated exposure c ontrol; use of iterative reconstruction technique; adjustment of the mA and/or kV according to patient size (this includes techniques or standardized protocol s for targeted exams where dose is matched to indication/reason for exam).
--- NOTE | ~2025-03-30 | XR_ITS ---
EXAMINATION: XR shoulder LT min 2V, 03/30/2025 9:30 SOIL SURVEYOR HISTORY: fall COMPARISON: No comparisons available. Findings: No acute fracture or malalignment. No significant degenerative changes. Soft tissues unremarkable. Impression: No acute fracture or malalignment. Reviewed, dictated and finalized at location P. SURVEYOR Impression: No acute fracture or malalignment.
--- NOTE | ~2025-03-30 | XR_ITS ---
XR_CERV2-3V_CR 03/30/2025 15:46 Indication: Neck pain after fall Procedure: 3 views cervical spine Comparison: No prior studies for comparison. Findings: Limited lateral view of the cervical spine. C7 and T1 are not adequately visualized. No acute fracture or traumatic malalignment in the visualized spine. There is mild multilevel uncinate hypertrophy. Odontoid process is normal. Lateral masses normally aligned. Lung apices are unremarkable. Impression: 1: Mild cervical spondylosis. Reviewed, dictated and finalized at location O. EAR REACTOR TECHNICIAN Impression: 1: Mild cervical spondylosis.
--- NOTE | ~2025-03-30 | CT_ITS ---
EXAMINATION: CT thoracic lumbar wo con, 03/30/2025 14:55 PROCESS PLANNER HISTORY: fall COMPARISON: No comparisons available. Technique: Axial images were obtained of the spine per protocol. One or more of the following dose reduction techniques were used: automated exposure control, adjustment of the mA and/or kV according to patient size, use of iterative reconstruction technique. Unless otherwise stated, incidental findings do not require dedicated follow up imaging Findings: Moderate loss of vertebral height throughout. Severe loss of disc at L5-S1 with moderate to severe canal and foraminal stenosis. Moderate loss of disc height throughout the visualized thoracic spine. Soft tissues demonstrate probable large right peripelvic renal cyst measuring 3 x 3 cm. Impression: No acute fracture. Degenerative changes detailed above. Outpatient MRI is suggested to further evaluate Reviewed, dictated and finalized at location P. ESS PLANNER Impression: No acute fracture. Degenerative changes detailed above. Outpatient MRI is sugge sted to further evaluate
--- NOTE | ~2025-03-30 | CT_ITS ---
EXAMINATION: CT cervical spine wo con COMPARISON: None HISTORY: fall TECHNIQUE: Axial images were obtained through the spine without IV contrast. Coronal, sagittal reconstruction images were obtained from the axial views. CT scan performed using dose optimization techniques including the following automated exposure control; adjustment of mA and/or kV; use of iterative reconstruction technique. Automatic exposure control was used to reduce radiation dose. Permanent radiation dose record is archived to PACS. FINDINGS: Grade 1 anterolisthesis of C6 on C7, no fracture is identified. Moderate loss of disc height at C4-5 C5-6 and C6-7 with moderate to severe canal and foraminal stenosis. Soft tissues unremarkable. Impression: No acute abnormality. Reviewed, dictated and finalized at location P. IVING INSTRUCTOR Impression: No acute abnormality.
[2025-03-30 09:08] VITALS: BP 139/92; PULSE 68; RESP 14; TEMP 36.3; O2SAT 97
--- OUTSIDE RECORDS SUMMARY | 2025-03-30 09:38 | XMS_ITS | Clinical Summary ---
Author Organization [facility] Address [address] [place] [address] Care Team Providers Care Road Patcher Name Role Phone Gibran Epperson MD Primary Care Provider Calvin Whitney MD Unavailable [phone] Allergies Active Allergy Reactions Criticality Noted Date Comments Codeine Dizziness Low 02/26/2019 Meperidine Dizziness Low 02/26/2019 Morphine Unknown 03/09/2019 Xerlhnslb-Oawfva-Byhcelhe-Scop Unknown 03/09 Prednisone Rash Medium 02/26/2019 Medications calcium carbonate/vitam in D3 (CALTRATE 600 PLUS D ORAL) Caltrate 600 plus D 2 a day Active diltiazem (TIAZAC) 360 mg 24 hr capsule daily Active cyanocobalamin, vitamin B-12, 1,000 mcg/mL kit vitamin H60-kyzkhdk B1 1,000 mcg-100 mg/mL injection solution Take [...] on file Legal Sex Female 9:29 AM SHEET SORTER Gender Identity Not on file Sexual Orientation Not on file Last Filed Vital Signs Vital Sign Reading Time Taken Comments Blood Pressure 128/74 02/07/2020 9:55 AM CDT Pulse 72 02/07/2020 9:55 AM CDT Temperature 36.6 C (97.9 F) 05/03/2019 10:29 AM SHEET SORTER Respiratory Rate 20 07/26/2019 9:18 AM SHEET SORTER Oxygen Saturation 92% 02/07/2020 9:55 AM CDT Inhaled Oxygen Concentration - - Weight 129.3 kg (285 lb) 07/26/2019 9:18 AM SHEET SORTER Height 172.7 cm (5' 8) 07/26/2019 9:18 AM SHEET SORTER Body Mass Index 43.33 07/26/2019 9:18 AM SHEET SORTER Plan of Treatment Health Maintenance Due Date [...] Visit 65+ 2018 Covid-19 Vaccine (4 - 2024-2 6 season) 2025 09/06/2021, 08/14/2020, 07/06/2020 Influenza Vaccine (#1) 2025 0, 01/30/2020, 02/26/2019, Additional history exists Insurance MEDICARE [facility] MEDICARE [facility] MEDIC[place] [address] Patcher Relationship Specialty Start Date End Date Gibran Epperson MD PCP - General Internal Medicine 02/02/19 [place] [address] [place] [address] [address] Consulting Physician Cardiology 04/07/19
--- OUTSIDE RECORDS SUMMARY | 2025-03-30 09:38 | XMS_ITS | Clinical Summary ---
Author Organization [facility] Address [address] [place] [address] Care Team Providers Care Division Order Analyst Name Role Phone iGbran Epperson MD Primary Care Provider [phone] Source Comments [facility],non-owned Affiliates and Associated Physician Practices is amultiple site organization consisting of ambulatory clinics and hospital sitesin [place], [place], [place] and [place]. This disclosure is being madepursuant to the Care Everywhere program and may not contain all information available regarding this patient. Last updated 18.[facility] Allergies Active Allergy Reactions Criticality Noted Date Comments Alendronic Acid Vomiting 09/24/2023 Meperidine Dizziness 02/26/2019 Rash Medium 09/24/2023 Belladonna Alk-Phenobarbital Rash Medium 019 Morphine Headache,Unknown High 03/24/2015 Codeine Dizziness 02/26/2019 Aa-Bknahb-Cccfgxrg-Scopolamine Unknown 03/09 Prednisone Rash Medium 02/26/2019 Spironolactone [...] (Vitamin B-Complex 100) INJ B Complex 100 544-6-162-2-2 mg/mL solution Active Cyanocobalamin (B-12 Compliance Injection) 1000 MCG/ML vitamin T94-xvjazgt B1 1,000 mcg-100 mg/mL injection solution Take [...] MOUTH EVERY DAY prn Active pancrelipase (Creon) 35726-420384 units capsule take up to 8 capsules [...] BRYAN FLUZONE TRIVALENT; 6MO+) (IIV3) 02/03/2020 Covid [employer] primary monoval ent 12+ yr 0.3mL Purple cap 08/14/2020,07/06/2020 INFLUENZA Y6N2-85, HISTORIC VACCINE 01/30/2020 INFLUENZA VACCINE 02/17/2018,03/25/2017 INFLUENZA [...] 08/03/19 19, 08/02/2018, 02/17/2018, Additional history exists DEPRESSION SCREENING 05/26/2024 COVID-19 VACCINE (3 - 2024- season) 2025 08/14/2020, 07/06/2020 INFLUENZA VACCINE (#1) 2025 0, 01/30/2020, 02/26/2019, [...] 7 - 26 mg/dL 09/17/2023 2:44 AM [facility] Creatinine 0.72 0.56 - 0.96 mg/dL 09/17/2023 2:44 AM [facility] Sodium 142 136 - 145 mmol/L 09/17/2023 2:44 AM [facility] Potassium 3.9 3.5 - 4.5 mmol/L 09/17/2023 2:44 AM [facility] Chloride 109(H) 98 - 107 mmol/L 09/17/2023 2:44 AM [facility] CO2 26 22 - 29 mmol/L 09/17/2023 2:44 AM [facility] Glucose 82 70 - 115 mg/dL 09/17/2023 2:44 AM [facility] Calcium 8.1(L) 8.4 - 10.2 mg/dL 09/17/2023 2:44 AM [facility] Anion Gap 7 6 - 16 09/17/2023 2:44 AM [facility] BUN/Creatinine Ratio 24(H) 7 - 23 09/17/2023 2:44 AM [facility] Osmolality Calculated 295 275 - 295 mOsm/kg 09/17/2023 2:44 AM [facility] eGFR by CKD-EPI 90 >=90 mL/min/1.7 3 m2 09/17/2023 2:44 AM [facility] Blood BLOOD SPECIMEN / Unknown Lab Venipuncture / Unknown 09/17/2023 1:16 AM CDT 09/17/2023 1:46 AM [facility] us Bhavesh Gastelum MD LAB - CHEMISTRY ORDERABLES Final Result [facility] [address] [place] [address], [place] [phone] from Last 3 Months or Most Recently Relevant to Health Maintenance Insurance [employer] MEDICARE [facility] SELF PAY NO INSURANCE Member Subscriber Plan / Payer (Ef fective for All Dates) Name:Michelle Dorman Alessandro Member ID:Not on file Relation to Subscriber:Not on file Name:LAKIAMICHELLE Alessandro Subscriber ID:Not on file (Home) Address: [address] [place], [place] [id number] Payer ID:Not on file Group ID:Not on file Type:Self Pay Address: [place], [place] MEDICARE MEDICARE [facility] * Guarantor: MICHELLE DORMAN Account Type Relation to Patient Date of Phone Billing Address Personal/Family Spouse Advance Directives * Full Code (Latest Code Status on File) Date Activated Date Inactivated Comments 09/16/2023 4:52 PM 09/17/2023 1:58 PM Care Teams Division Order Analyst Relationship Specialty Start Date End Date Gibran Epperson MD [address] [place] [address] PCP - General Internal Medicine 08/20/23
--- OUTSIDE RECORDS SUMMARY | 2025-03-30 09:38 | XMS_ITS | Clinical Summary ---
Author Organization [facility] Address [address] [place] [id number] Phone Care Team Providers Care Cream Dipper Name Role Phone Unavailable Primary Care Provider Unavailabl e Medications denosumab (Prolia) 60 mg/mL Syringe Inject 1 syringe (60 mg) under the skin every 6 months 1 mL 1 04/04/2022 3:59 PM MACHINE HOSE CUTTER 2 Active denosumab (Prolia) 60 mg/mL Syringe Inject 1 mL (60 mg) subcutaneously every 6 months 1 mL 1 09/26/2022 3:56 PM CDT 3 Active Encounters Date Type Department Care Team Description 02/15/2025 External Device Data [facility] ABSTRACTION Provider, Abstract 02/08/2025 External Device Data [facility] ABSTRACTION Provider, Abstract [...] (1 - 1-dose 75+ series) 2028 Insurance Member Subscriber Plan / Payer (Ef fective for All Dates) Name:Dorie Dorman Relation to Subscriber:Self Name:Dorie Dorman Payer ID:Not on file Group ID:Not on file Type:RX Commercial Address: [place]
[2025-03-30 12:52] VITALS: BP 141/80; PULSE 71; RESP 17; O2SAT 100
[2025-03-30] MEDS: LIDOCAINE, EPINEPHRINE, TETRACAINE VISCOUS SOLN 3 ML (13:40)
[2025-03-30 14:28] VITALS: BP 138/72; PULSE 68; RESP 15; O2SAT 100
[2025-03-30] MEDS: ONDANSETRON HCL ODT 4 MG TABLET PO (14:41)
[2025-03-30] MEDS: CYCLOBENZAPRINE HCL 5 MG TABLET PO (14:41)
[2025-03-30] MEDS: MECLIZINE HCL 25 MG TABLET PO (14:41)
--- NOTE | 2025-03-30 14:42 | ED.GENADULT ---
HPI - General Adult General Chief complaint: Fall Stated complaint: fall Time Seen by Provider: 03/30/25 11:18 History of Present Illness HPI narrative: 69-year-old female presenting after a fall. She tripped while walking up a ramp and hit her head. Patient has right sided periorbital ecchymosis and conjunctiva injection. She also has bruising to the base of her nose. There is a 4.5 cm laceration to the crown of her head. She endorses focal pain to her neck more on the left side. She denies numbness/tingling, dizziness, cp/sob, weakness, saddle anesthesia, bowel/bladder incontinence. Patient endorses she is on blood thinners for afib, has a pacemaker, and her payroll specialist is Dr. Sams. Related Data Home Medications ?Medication ?Instructions ?Recorded ?Confirmed ?Last Taken ?Type apixaban 5 mg tablet 5 mg PO BID 11/29/22 10/27/24 Unknown History atorvastatin 40 mg tablet 40 mg PO DAILY 11/29/22 10/27/24 Unknown History cetirizine 10 mg tablet (Zyrtec) 10 mg PO DAILY PRN Allergy Symptoms 11/29/22 10/27/24 Unknown History diltiazem HCl 360 mg 360 mg PO DAILY 11/29/22 10/27/24 Unknown History capsule,extended release 24 hr escitalopram oxalate 20 mg tablet 20 mg PO DAILY 11/29/22 10/27/24 Unknown History flecainide 100 mg tablet 100 mg PO Q12H 11/29/22 10/27/24 Unknown History losartan 50 mg-hydrochlorothiazide 1 tablet PO DAILY 11/29/22 10/27/24 Unknown History 12.5 mg tablet magnesium oxide 400 mg PO BID 11/29/22 10/27/24 Unknown History multivitamin-ferrous 1 tablet PO DAILY 11/29/22 10/27/24 Unknown History fumarate-folic acid 18 mg-400 mcg tablet (Centrum) calcium 600 mg (as carbonate)-vit 3 tablet PO DAILY 01/28/23 10/27/24 Unknown History D3 10 mcg (400 unit)-minerals tablet potassium chloride 10 mEq 10 meq PO BID 08/05/24 10/27/24 Unknown History tablet,extended release (Klor-Con) vibegron 75 mg tablet 75 mg PO DAILY 08/05/24 10/27/24 Unknown History Allergies Allergy/AdvReac Type Severity Reaction Status Date / Time Barbiturates Allergy Intermediate RASH Verified 03/30/25 11:35 hydrocodone Allergy Intermediate HEADACHE Verified 03/30/25 11:35 morphine Allergy Intermediate Nausea Verified 03/30/25 11:35 prednisone Allergy Intermediate Rash Verified 03/30/25 11:35 atropine Allergy Unknown Unknown Verified 03/30/25 11:35 codeine Allergy Unknown Headache Verified 03/30/25 11:35 hyoscyamine Allergy Unknown Unknown Verified 03/30/25 11:35 meperidine Allergy Unknown Unknown Verified 03/30/25 11:35 phenobarbital Allergy Unknown Unknown Verified 03/30/25 11:35 ANTICHOLINERGICS,OTHER Allergy Mild UNKNOWN Uncoded 02/04/25 11:20 BELLADONNA ALK/PHENOBARBITAL Allergy Unknown RASH Uncoded 02/04/25 11:20 (Generic Allergy) NKFA Allergy Unknown Unknown Uncoded 02/04/25 11:20 Review of Systems Review of Systems: All systems reviewed & are unremarkable except as noted in HPI and below PMFSH Past Medical History Medical History GERD (gastroesophageal reflux disease) Pacemaker History of cardiac pacemaker Osteoporosis Anxiety HTN (hypertension) Afib Asthma BMI greater than 40 Right knee DJD Left knee DJD Surgical History Surgical History H/O lithotripsy History of gastric bypass History of hernia repair History of bilateral breast reduction surgery History of hysterectomy for indication other than cancer Family History Family History Mother Family history of premature coronary heart disease, Onset Age: 54 Hypertension Family history of elevated blood lipids Family history of diabetes mellitus in first degree relative Patient's mother is Father Hypertension Family history of elevated blood lipids Family history of diabetes mellitus in first degree relative Family history of coronary artery disease, Onset Age: 51 Patient's father is Other Diabetes mellitus Family history of arthritis Family history of kidney stones Family history of mental disorder Social History Social History Social History: Currently lives with her and daughter. 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 Surrogate decision maker: Arianna Sronce, daughter. Full Code. Caffeine- soda Alcohol intake: never Substance use: never Substance use type: does not use Do You Feel Safe in your Home?: Yes Lack of Transportation: No Lack of Food: Never True Current Housing: I Have Housing Concerned About Future Housing: No Difficulty Paying Gas/Electric Bills: No Difficulty Paying for Meds: No Currently Unemployed: No Education: High School Diploma/GED Difficulty w/ Childcare or Family Care: No Living arrangements: alone Occupation/Education: retired Gender identity (if verbalized by the patient): Female Spiritual care concerns: No Exam Narrative: GENERAL: Well appearing, well-nourished, non-toxic, in no acute distress. HEAD: Normocephalic, atraumatic. EYES: PERRL/EOMI. No nystagmus. Right-sided periorbital ecchymosis and diffuse conjunctival injection. Mild superior superficial right-sided abrasion without active bleeding. NOSE: Normal, no drainage EARS:TMS clear, with good light reflex. No erythema or bulging. THROAT: Pharynx clear, no exudate. MMs moist. NECK: Supple. No adenopathy, no masses. Focal tenderness at base of the neck worse on the left side. RESPIRATORY: Airway patent, respirations nonlabored. Clear to auscultation bilaterally, no rales, rhonchi, wheezing. CARDIOVASCULAR: Regular rate and rhythm without murmurs, rubs, or gallops. Peripheral pulses 2+ and equal bilaterally. ABDOMINAL: Soft, nontender, nondistended, no hepatosplenomegaly. Normoactive BS. MUSCULOSKELETAL: Moves all extremities. Strength/ROM intact without gross deformities or TTP. No edema. No calf tenderness. Mild superficial abrasion to right forearm without active bleeding. SKIN: Warm, dry, normal color. No rashes. NEURO: A&O X3. Speech clear. Follows commands. CN II-XII intact. Sensation grossly intact. Steady gait. No ataxic movements. Strength 5/5 in upper and lower extremities bilaterally. Iyft-ib-hzsx and meghhq-xm-nhwz testing intact bilaterally. No pronator drift. PSYCHIATRIC: Appropriate mood and affect. Normal interaction. Course Vital Signs Vital signs: Vital Signs Temperature 97.4 F L 03/30/25 09:08 Pulse Rate 68 03/30/25 09:08 Respiratory Rate 14 03/30/25 09:08 Blood Pressure 139/92 H 03/30/25 09:08 Pulse Oximetry 97 03/30/25 09:08 Oxygen Delivery Room Air 03/30/25 09:08 Temperature 97.4 F L 03/30/25 09:08 Pulse Rate 73 03/30/25 17:51 Respiratory Rate 15 03/30/25 17:51 Blood Pressure 129/83 03/30/25 17:51 Pulse Oximetry 99 03/30/25 17:51 Oxygen Delivery Room Air 03/30/25 09:08 Procedures Laceration 4.5 cm straight lac to crown of head closed with four judson: Date: 03/30/25 Site: scalp Size (cm): 4.5 Description: linear Depth: simple, single layer Pre-repair: irrigated ====== Skin Level ====== Skin layer closed with: judson ====== Subcutaneous Layer ====== ====== Muscle Layer ====== ====== Tendon Layer ====== Medical Decision Making MDM Narrative Medical decision making narrative: 69-year-old female presenting after a fall. She tripped while walking up a ramp and hit her head. Patient has right sided periorbital ecchymosis and conjunctiva injection. She also has bruising to the base of her nose. There is a 4.5 cm laceration to the crown of her head. She endorses focal pain to her neck more on the left side. She denies numbness/tingling, dizziness, cp/sob, weakness, saddle anesthesia, bowel/bladder incontinence. Patient endorses she is on blood thinners for afib, has a pacemaker, and her payroll specialist is Dr. Sams. Upon initial assessment patient is in a C-collar. Initial neuro assessment revealed strength 5/5 in upper and lower extremities bilaterally, atsg-dp-isvv and pcrral-dg-yoxc testing intact bilaterally, and no pronator drift. Patient had appropriate pupillary responses and no pain with extraocular eye movements. Patient was able to ambulate to the bathroom without any problems. Patient endorsed a significant history of vertigo and developed slight dizziness after walking to the bathroom which she reports is normal for her at baseline. Topical lidocaine was placed over the head lac and then four judson were place. Patient did not want any pain control initially then afterwards stated that with the dizziness and mild nausea from walking to the restroom and generalized soreness she would like some medicine. Administered meclizine, zofran, and flexeril. Patient reported that this improved all of her symptoms. Shoulder XR demonstrated no acute fracture or malalignment and no significant degenerative changes. CT brain demonstrated no acute intracranial abnormalities. Initial CT cervical spine results included Grade 1 anterolisthesis of C6 on C7, with no fracture identified; moderate loss of disc height at C4-5 C5-6 and C6-7 with moderate to severe canal and foraminal stenosis; and soft tissues unremarkable. A later addendum stated that there is a mildly displaced fracture of the left posterior elements of C7 which extends across the pars interarticularis involving portions of both the superior and inferior articular processes with 3 mm AP separation of the fracture plane which likely contributes to the mild anterolisthesis of C6 on C7. I spoke to Dr. Lara with spine surgery who recommended admission with an inpatient MRI. MRI contraindicated at this facility due to pacemaker. Reached out to [facility] for transfer and was advised that this patient needed to be transferred to a trauma facility due to the mechanism of her injury. Then spoke to neurosurgeon on-call at [facility] who requested additional imaging to evaluate the remainder of her spine as well as a standing cervical spine XR. Thoracic and lumbar spine CT demonstrated no acute fracture and some degenerative changes as well as a suggestion for outpatient MRI for further evaluation. First cervical spine XR was not done standing up so had to repeat. Finally the standing cervical spine XR demonstrated mild cervical spondylosis. All imaging results were shared with the consulting surgeon, who endorsed that given the current findings and an intact neurologic exam the patient may follow-up as an outpatient in their orthopedic clinic with Dr. Chris Callejas. Repeat neuro exam demonstrated 5/5 strength in upper and lower extremities bilaterally, tiix-bk-eihf and uevkzs-zw-pjdw testing intact bilaterally, and no pronator drift. Patient had appropriate pupillary responses and no pain with extraocular eye movements. Intact sensation throughout. Patient was informed of all imaging results and was comfortable with the decision to be discharged and follow-up outpatient. Patient was advised to rest and was given PRN Flexeril. She was also advised to follow-up closely with her PCP as well to monitor recovery and ensure proper healing of all other injuries. C-collar was removed and patient d/c home. Called patient the next day and she reported she was doing well. Discussed case with colleagues who recommended that the patient be discharged with a cervical collar. Patient was advised to return to obtain a C-collar to wear until follow-up. Patient's daughter returned to hospital to obtain collar. Medical Records Medical records reviewed: Yes I reviewed the external patient's medical records. Vital Signs Vital Signs: Vital Signs Temperature 97.4 F L 03/30/25 09:08 Pulse Rate 68 03/30/25 09:08 Respiratory Rate 14 03/30/25 09:08 Blood Pressure 139/92 H 03/30/25 09:08 Pulse Oximetry 97 03/30/25 09:08 Oxygen Delivery Room Air 03/30/25 09:08 Temperature 97.4 F L 03/30/25 09:08 Pulse Rate 73 03/30/25 17:51 Respiratory Rate 15 03/30/25 17:51 Blood Pressure 129/83 03/30/25 17:51 Pulse Oximetry 99 03/30/25 17:51 Oxygen Delivery Room Air 03/30/25 09:08 Lab Data Lab results reviewed: Yes I reviewed the patient's lab results. Imaging Data Attestation: I personally reviewed and interpreted this imaging study as follows: Radiologist's impression: ITS Impressions Head CT 03/30/25 09:27 IMPRESSION: No acute findings. No significant abnormality is seen. All CT scans at this facility are performed using low dose modulation techniques as appropriate to perform exam including the following: automated exposure control; use of iterative reconstruction technique; adjustment of the mA and/or kV according to patient size (this includes techniques or standardized protocols for targeted exams where dose is matched to indication/reason for exam). Cervical Spine CT 03/30/25 09:30 Impression: No acute abnormality. Shoulder X-Ray 03/30/25 09:37 Impression: No acute fracture or malalignment. ADDENDUM: 03/30/25 1310 ADDENDUM: There is a mildly displaced fracture of the left posterior elements of C7 which extends across the pars interarticularis involving portions of both the superior and inferior articular processes with 3 mm AP separation of the fracture plane which likely contributes to the mild anterolisthesis of C6 on C7. Thoracic/Lumbar Spine CT 03/30/25 15:09 Impression: No acute fracture. Degenerative changes detailed above. Outpatient MRI is suggested to further evaluate Cervical Spine X-Ray 03/30/25 15:52 Impression: 1: Mild cervical spondylosis. Cervical Spine X-Ray 03/30/25 16:30 Impression: 1: No acute abnormality of the cervical spine. Limited visualization of the cervical thoracic junction on lateral view. Discharge Plan Discharge Clinical Impression: C7 cervical fracture Patient Disposition: Home Condition: Stable Additional Instructions: Return to the emergency department if you experience symptoms including but not limited to fever, chest pain, shortness of breath, abdominal pain with nausea and vomiting, weakness, numbness/tingling, bowel/bladder incontinence or any other symptoms that are concerning to you. Take muscle relaxers as needed and prescribed. Recommend taking these at night as they may cause sedation. Do not drive, operate heavy machinery, drink alcohol while on muscle relaxers as this may cause further sedation. Very close follow up with Dr. Chris Callejas with Orthopedic and Spinal Surgery at [facility]. Call his office at [phone]. Patient Language: Italian Prescriptions: New cyclobenzaprine 5 mg tablet 5 mg PO TID PRN (Reason: muscle spasm) Qty: 20 0RF No Action Centrum 18-400 mg-mcg tablet 1 tablet PO DAILY escitalopram oxalate 20 mg tablet 20 mg PO DAILY diltiazem HCl 360 mg capsule,extended release 24hr 360 mg PO DAILY apixaban 5 mg tablet 5 mg PO BID atorvastatin 40 mg tablet 40 mg PO DAILY losartan-hydrochlorothiazide 50-12.5 mg tablet 1 tablet PO DAILY magnesium oxide 400 mg magnesium capsule 400 mg PO BID flecainide 100 mg tablet 100 mg PO Q12H cetirizine [Zyrtec] 10 mg tablet 10 mg PO DAILY PRN (Reason: Allergy Symptoms) calcium carbonate-vit D3-min 600 mg calcium- 400 unit tablet 3 tablet PO DAILY budesonide-formoterol [Symbicort] 160-4.5 mcg/actuation HFA aerosol inhaler 2 puff inhalation Q12H Qty: 10.2 5RF Rx Instructions: Rinse mouth and spit after each use Prolia 60 mg/mL syringe 60 mg subcut [id number] Qty: 1 0RF vibegron 75 mg tablet 75 mg PO DAILY potassium chloride [Klor-Con 10] 10 mEq tablet extended release 10 meq PO BID omeprazole 40 mg capsule,delayed release(DR/EC) 40 mg PO DAILY 90 Days Qty: 90 3RF Creon 36,000-114,000- 180,000 unit capsule,delayed release(DR/EC) 8 cap PO DAILY 90 Days Qty: 720 3RF Rx Instructions: take 2 capsules with meals three times a day and one capsule by mouth with snacks twice a day. mecobalamin (vitamin B12) 10,000 mcg recon soln 1,000 mcg IM .2 weeks Qty: 1 0RF Rx Instructions: 1 ml every 2 weeks Zepbound 7.5 mg/0.5 mL pen injector 7.5 mg subcut WEEKLY Qty: 2 2RF (DME) FreeStyle Jennifer 3 Plus Sensor Device See Rx Instructions .Route Qty: 6 0RF Rx Instructions: change every 15 days Trelegy Ellipta 100-62.5-25 mcg blister with device 1 inh inhalation DAILY Qty: 180 1RF Rx Instructions: Rinse mouth and spit after each use Follow-up/Referrals: Zeenat,Gibran Kim MD [Primary Care Provider, Unknown]
[2025-03-30 16:28] VITALS: BP 140/87; PULSE 70; RESP 15; O2SAT 100
[2025-03-30 17:51] VITALS: BP 129/83; PULSE 73; RESP 15; O2SAT 99
--- OUTSIDE RECORDS SUMMARY | 2025-03-31 11:37 | XMS_ITS | Clinical Summary ---
Author Organization [facility] Address [address] [place] [address] Care Team Providers Care Motor And Chassis Inspector Name Role Phone Gibran Epperson MD Primary Care Provider [phone] Calvin Whitney MD Unavailable [phone] Allergies Active Allergy Reactions Criticality Noted Date Comments Codeine Dizziness Low 02/26/2019 Meperidine Dizziness Low 02/26/2019 Morphine Unknown 03/09/2019 Oqrtijtta-Tyefhn-Mcoeprwn-Scop Unknown 03/09 Prednisone Rash Medium 02/26/2019 Medications calcium carbonate/vitam in D3 (CALTRATE 600 PLUS D ORAL) Caltrate 600 plus D 2 a day Active diltiazem (TIAZAC) 360 mg 24 hr capsule daily Active cyanocobalamin, vitamin B-12, 1,000 mcg/mL kit vitamin P11-wruzzsa B1 1,000 mcg-100 mg/mL injection solution Take [...] on file Legal Sex Female 9:29 AM [employer]OSS COUNTRY CO[employer] Gender Identity Not on file Sexual Orientation Not on file Last Filed Vital Signs Vital Sign Reading Time Taken Comments Blood Pressure 128/74 02/07/2020 9:55 AM CDT Pulse 72 02/07/2020 9:55 AM CDT Temperature 36.6 C (97.9 F) 05/03/2019 10:29 AM [employer] Respiratory Rate 20 07/26/2019 9:18 AM [employer] Oxygen Saturation 92% 02/07/2020 9:55 AM CDT Inhaled Oxygen Concentration - - Weight 129.3 kg (285 lb) 07/26/2019 9:18 AM [employer] Height 172.7 cm (5' 8) 07/26/2019 9:18 AM [employer] Body Mass Index 43.33 07/26/2019 9:18 AM [employer] Plan of Treatment Health Maintenance Due Date [...] 01/30/2020, 02/26/2019, Additional history exists Insurance MEDICARE [facility] MEDICARE [facility] MEDICARE [facility] [place] [address] Care Teams Motor And Chassis Inspector Relationship Specialty Start Date End Date Gibran Epperson MD PCP - General Internal Medicine 02/02/19 [place] [address] [place] [address] [address] Consulting Physician Cardiology 04/07/19
--- OUTSIDE RECORDS SUMMARY | 2025-03-31 11:37 | XMS_ITS | Clinical Summary ---
Author Organization [facility] Address [address] [place] [address] Care Team Providers Care Supervisor Beehive Kiln Name Role Phone Gibran Epperson MD Primary Care Provider [phone] Source Comments [facility],non-owned Affiliates and Associated Physician Practices is amultiple site organization consisting of ambulatory clinics and hospital sitesin [place], [place] and [place]. This disclosure is being madepursuant to the Care Everywhere program and may not contain all information available regarding this patient. Last updated 18.[facility] Allergies Active Allergy Reactions Criticality Noted Date Comments Alendronic Acid Vomiting 09/24/2023 Meperidine Dizziness 02/26/2019 Rash Medium 09/24/2023 Belladonna Alk-Phenobarbital Rash Medium 019 Morphine Headache,Unknown High 03/24/2015 Codeine Dizziness 02/26/2019 Xo-Svmdop-Lokrmukr-Scopolamine Unknown 03/09 Prednisone Rash Medium 02/26/2019 Spironolactone [...] (Vitamin B-Complex 100) INJ B Complex 100 210-2-776-2-2 mg/mL solution Active Cyanocobalamin (B-12 Compliance Injection) 1000 MCG/ML vitamin V80-jedntsh B1 1,000 mcg-100 mg/mL injection solution Take [...] MOUTH EVERY DAY prn Active pancrelipase (Creon) 94327-602945 units capsule take up to 8 capsules [...] BRYAN FLUZONE TRIVALENT; 6MO+) (IIV3) 02/03/2020 Covid StandDesk primary monoval ent 12+ yr 0.3mL Purple cap 08/14/2020,07/06/2020 INFLUENZA A7V2-46, HISTORIC VACCINE 01/30/2020 INFLUENZA VACCINE 02/17/2018,03/25/2017 INFLUENZA [...] 09/24/2023 11:00 AM CDT Plan of Treatment Upcoming Encounters Date Type Department Care Team (Late st Contact Info) Description 04/28/2025 8:45 AM [facility] Office Visit [facility] [address] [place] [address] Chris Callejas MD [address] [place] [address] Health Maintenance Due Date Last Done Comments [...] 7 - 26 mg/dL 09/17/2023 2:44 AM [facility] Creatinine 0.72 0.56 - 0.96 mg/dL 09/17/2023 2:44 AM [facility] Sodium 142 136 - 145 mmol/L 09/17/2023 2:44 AM [facility] Potassium 3.9 3.5 - 4.5 mmol/L 09/17/2023 2:44 AM [facility] Chloride 109(H) 98 - 107 mmol/L 09/17/2023 2:44 AM [facility] CO2 26 22 - 29 mmol/L 09/17/2023 2:44 AM [facility] Glucose 82 70 - 115 mg/dL 09/17/2023 2:44 AM [facility] Calcium 8.1(L) 8.4 - 10.2 mg/dL 09/17/2023 2:44 AM [facility] Anion Gap 7 6 - 16 09/17/2023 2:44 AM [facility] BUN/Creatinine Ratio 24(H) 7 - 23 09/17/2023 2:44 AM [facility] Osmolality Calculated 295 275 - 295 mOsm/kg 09/17/2023 2:44 AM [facility] eGFR by CKD-EPI 90 >=90 mL/min/1.7 3 m2 09/17/2023 2:44 AM [facility] Blood BLOOD SPECIMEN / Unknown Lab Venipuncture / Unknown 09/17/2023 1:16 AM CDT 09/17/2023 1:46 AM CDT hBavesh Gastelum MD LAB - CHEMISTRY ORDERABLES Final Result [facility] [address] [place] [address], [place] [phone] from Last 3 Months or Most Recently Relevant to Health Maintenance Insurance [employer] MEDICARE [facility] SELF PAY NO INSURANCE Member Subscriber Plan / Payer (Ef fective for All Dates) Name:Lakia, Michelle L Member ID:Not on file Relation to Subscriber:Not on file Name:MICHELLE DORMAN Subscriber ID:Not on file (Home) Address: [address] [place] [address] Payer ID:Not on file Group ID:Not on file Type:Self Pay Address: [place], [place] MEDICARE MEDICARE [facility] * Guarantor: MICHELLE DORMAN Account Type Relation to Patient Date of Phone Billing Address Personal/Family Spouse Advance Directives * Full Code (Latest Code Status on File) Date Activated Date Inactivated Comments 09/16/2023 4:52 PM 09/17/2023 1:58 PM Care Teams Supervisor Beehive Kiln Relationship Specialty Start Date End Date Gibran Epperson MD [id number] [address] PCP - General Internal Medicine 08/20/23
--- OUTSIDE RECORDS SUMMARY | 2025-03-31 11:37 | XMS_ITS | Clinical Summary ---
Author Organization [facility] Address [address] [facility] [place] [address] Phone Care Team Providers Care Instrument Person Name Role Phone Unavailable Primary Care Provider Unavailabl e Medications denosumab (Prolia) 60 mg/mL Syringe Inject 1 syringe (60 mg) under the skin every 6 months 1 mL 1 04/04/2022 3:59 PM CARE DIRECTOR 2 Active denosumab (Prolia) 60 mg/mL Syringe [...]
--- OUTSIDE RECORDS SUMMARY | 2025-03-31 11:38 | XMS_ITS | Data Portability ---
Author Organization [place] - [facility] [employer], Main Office Address [address] [place] [address] Care Team Providers Care Sergeant At Arms Name Role Phone WARREN EPPERSONINDER Primary Care Provider Assessment No assessment recorded. Plan of Treatment Reminders Order Date Submit Date Provider Last Modified By Organization Details Last Modified Time Details Appointments Any 30 2024 01:00P ENEDELIA Bajwa Not available Not available Not available Lab lipid panel, serum [address] (Lab), [address] [place], [address], 01/27/2024 09:17:57 amylase, serum or plasma [address] (Lab), [address] [place], [address], 01/27/2024 09:17:57 lipase, serum or plasma [address] (Lab), [address] [place], [address], 01/27/2024 09:17:57 CMP, serum or plasma [address] (Lab), [address] [place], [address], 01/27/2024 09:17:57 vitamin B12, serum 2023 024 [email or web address] (Lab), [address] [place], [address], 01/27/2024 09:17:[address] referral - Please call patient to schedule. 2024 025 [email or web address] 2 [facility], [address] [place] [address] [address] [address], [place], [address], 08/16/2024 12:25:53 Procedures None recorded. Surgeries None recorded. Imaging CT, head + brain, w/o contrast - Please call patient to schedule. 2024 025 [facility] (Imaging), [address] [place] [address], [address], 06/29/2024 18:25:12 XR, ribs, unilatera l 2023 024 [facility] (One Call Scheduling), [address] [place], [address], 02/03/2024 16:02:44 XR, thoracic spine [address] (One Call Scheduling), [address] [place], [address], 02/17/2024 07:57:10 MAMMO, screening , digital, bilateral 2023 024 [facility] (One Call Scheduling), [address] [place], [address], 01/19/2024 10:35:00 MAMMO, screening , digital, bilateral 2023 024 [email or web address] 5 [facility] (One Call Scheduling), [address] [place], [address], 09/17/2023 08:42:46 bone density 2023 024 [email or web address] [facility] (One Call Scheduling), [address] [facility], [place], [address], 09/19/2023 09:20:18 Medication Orders meclizine 25 mg tablet 2024 025 [facility] [address], [place], [address], 12/21/2024 20:17:41 meclizine 25 mg tablet 2024 025 [facility] [address], [place], [address], 06/09/2024 20:20:33 albuterol sulfate HFA 90 mcg/actua tion aerosol inhaler 2024 025 [facility] [address], [place], [address], 06/09/2024 20:20:33 albuterol sulfate HFA 90 mcg/actua tion aerosol inhaler 2023 024 [place] [facility] [address], [place], [address], 12/18/2023 18:08:04 escitalop shala 20 mg tablet 2023 024 [place] [facility] [address], [place], [address], 12/18/2023 18:08:03 Patient TargetsNo targets recorded. Patient Instructions Encounter Date Encounter Id Patient Instructions Last Modified By Organization Details Last Modified Time 12/18/2023 [id number] dementia rating scale-2* Not available 12/18/2023 17:34:02 depression screening* Not available 12/18/2023 17:34:02 alcohol misuse* Not available 12/18/2023 17:34:02 multi-dimensiona l health assessment questionnaire* Not available 12/18/2023 17:34:02 advance directiv es: care instructions Not available 12/18/2023 17:34:02 advance care planning: care instructions Not available 12/18/2023 17:34:02 [place] Advance Directives Not available 12/18/2023 17:34:02 Personalized a lt Plan and Screening Recommendations Advance Directives [...] Non Smoker Alcohol Misuse Screening: Negative Weight: Overweight try to lose 15% of your body weight Physical activity: Need more exercise/physical activity minimum of 10-20 minutes of activity that causes mild breathlessness/day Nutrition: Average Refer to attached handout Heart-Healthy Diet: After Your Visit Fall Risk (screened today): Low Refer to attached handout Preventing Falls: After your Visit Vaccines Pneumococcal: No further needed Influenza: Your next one in the fall of this year Chronic Disease Risks Stroke: Intermediate Risk Active diagnosis, Continue current treatment plan Heart Attack: Intermediate Risk Active diagnosis, Continue current treatment plan Clogging of the Arteries: Intermediate Risk Active diagnosis, Continue current treatment plan Diabetes: Low [...] necessary Dementia Risk: Low Depression Screening: Negative [email or web address] Not available 12/18/2023 15:41:48 06/09/2024 [id number] Personalized a lth Plan and Screening Recommendations Advance Directives - [...] Non Smoker Alcohol Misuse Screening: Negative Weight: Overweight try to lose 15% of your body weight Physical activity: Need more exercise/physical activity minimum of 10-20 minutes of activity that causes mild breathlessness/day Nutrition: Average Refer to attached handout Heart-Healthy Diet: After Your Visit Fall Risk (screened today): Low Refer to attached handout Preventing Falls: After your Visit Vaccines Pneumococcal: No further needed Influenza: Your next one in the fall of this year Chronic Disease Risks Stroke: Intermediate Risk Active diagnosis, Continue current treatment plan Heart Attack: Intermediate Risk Active diagnosis, Continue current treatment plan Clogging of the Arteries: Intermediate Risk Active diagnosis, Continue current treatment plan Diabetes: Low [...] Negative [email or web address] Not available 06/09/2024 14:14:15 12/21/2024 [id number] Discussed medication compliance and routine follow up. Discussed healthy diet and routine exercise. Reviewed vaccine records and made recommendations as needed. Encouraged annual eye and dental exams, as well as twice yearly dental cleanings. Will check screening labs as listed below. Not available 12/21/2024 15:54:07 Discussed grief and assistance. Discussed medication compliance and routine follow ups. Labs ordered from cardiology [email or web address] Not available 12/21/2024 15:55:01 Reason for Referral Neurologist Referral for Jamel tigo Please call patient to schedule. Referring Physician: Gibran Epperson, Internal Medicine, Encounter Date: 06/09/2024 Results Created Date Observation Date Name Description Value Unit Range Abnormal Flag Note LastModifiedBy Organization Detail LastModifiedTime 02/03/20 24 02/03/2024 COMPR EHENS ANJELICA METAB OLIC PANEL sodium 140 mmol/ L 137-14 5 Not Available [facility] (Lab) [address] [place], [address], 02/03/2024 21:04:51 02/03/20 24 02/03/2024 COMPR EHENS ANJELICA METAB OLIC PANEL potassium 4.1 mmol/ L 3.5-5. 1 Not Available [facility] (Lab) [address] [place], [address], 02/03/2024 21:04:51 02/03/20 24 02/03/2024 COMPR EHENS ANJELICA METAB OLIC PANEL chloride 104 mmol/ L 98-107 Not Available [facility] (Lab) [address] [place], [address], 02/03/2024 21:04:51 02/03/20 24 02/03/2024 COMPR EHENS ANJELICA METAB OLIC PANEL carbon dioxide 31 mmol/ L 22-30 high Not Available [facility] (Lab) [address] [place], [address], 02/03/2024 21:04:51 02/03/20 24 02/03/2024 COMPR EHENS ANJELICA METAB OLIC PANEL anion gap 9.1 mmol/ L 14-22 low Not Available [facility] (Lab) [address] [place], [address], 02/03/2024 21:04:51 02/03/20 24 02/03/2024 COMPR EHENS ANJELICA METAB OLIC PANEL glucose 103 mg/dL 70-99 high Not Available [facility] (Lab) [address] [place], [address], 02/03/2024 21:04:51 02/03/20 24 02/03/2024 COMPR EHENS ANJELICA METAB OLIC PANEL BUN 17 mg/dL 8-19 Not Available [facility] (Lab) [address] [place], [address], 02/03/2024 21:04:51 02/03/20 24 02/03/2024 COMPR EHENS ANJELICA METAB OLIC PANEL creatinine 0.70 mg/dL 0.66-1 .25 Not Available [facility] (Lab) [address] [place], [address], 02/03/2024 21:04:51 02/03/2002/03/2024 COMPR EHENS ANJELICA METAB OLIC PANEL GFR >60 Refer ence Range : [place] ge GFR Healt hy Adult : >60 [...] or ethni c subgr oups, such as Hismd nics. Outsi de the valid ated magalys [...] calcu lator is avail able on the [facility] websi te: https ://eva vaughn.sheri gilliland/pr ofess ional s/kdo qi/gf r_cal culat or Not Available [facility] (Lab) [address] [place], [address], 02/03/2024 21:04:51 02/03/2002/03/2024 COMPR EHENS ANJELICA METAB OLIC PANEL alkaline phosphatase 133 U/L 38-126 high Not Available [facility] (Lab) [address] [place], [address], 02/03/2024 21:04:51 02/03/20 24 02/03/2024 COMPR EHENS ANJELICA METAB OLIC PANEL alanine aminotransfe rase 37 U/L 0-35 high Not Available [facility] (Lab) [address] [place], [address], 02/03/2024 21:04:51 02/03/20 24 02/03/2024 COMPR EHENS ANJELICA METAB OLIC PANEL aspartate aminotransfe rase 43 U/L 15-37 high Not Available [facility] (Lab) [address] [place], [address], 02/03/2024 21:04:51 02/03/20 24 02/03/2024 COMPR EHENS ANJELICA METAB OLIC PANEL bilirubin, total 0.40 mg/dL 0.20-1 .30 Not Available [facility] (Lab) [address] [place], [address], 02/03/2024 21:04:51 02/03/20 24 02/03/2024 COMPR EHENS ANJELICA METAB OLIC PANEL calcium 8.6 mg/dL 8.4-10 .2 Not Available [facility] (Lab) [address] [place], [address], 02/03/2024 21:04:51 02/03/20 24 02/03/2024 COMPR EHENS ANJELICA METAB OLIC PANEL total protein 6.0 g/dL 6.3-8. 2 low Not Available [facility] (Lab) [address] [place], [address], 02/03/2024 21:04:51 02/03/20 24 02/03/2024 COMPR EHENS ANJELICA METAB OLIC PANEL albumin 3.5 g/dL 3.0-4. 4 Not Available [facility] (Lab) [address] [place], [address], 02/03/2024 21:04:51 02/03/20 24 02/03/2024 COMPR EHENS ANJELICA METAB OLIC PANEL globulin 2.5 g/dL 2.6-4. 2 low Not Available [facility] (Lab) [address] [place], [address], 02/03/2024 21:04:51 02/03/20 24 02/03/2024 COMPR EHENS ANJELICA METAB OLIC PANEL A/G ratio 1.4 ratio 1.0-2. 0 Not Available [facility] (Lab) [address] [place], [address], 02/03/2024 21:04:51 02/03/2002/03/2024 LIPID PANEL cholesterol 146 mg/dL 140-19 9 NIH NEO NSUS RECOM MENDA TION FOR JOSE M STERO L: ADULT CHILD LOW RISK: <200 <170 BORDE RLINE : <200- 239 ----- HIGH RISK: >240 >200 Not Available [facility] (Lab) [address] [place], [address], 02/03/2024 21:04:56 02/03/2002/03/2024 LIPID PANEL triglyceride s 114 mg/dL 0-150 NIH NEO NSUS REPOR T RECOM MENDA TION FOR TRIGL YCERI JUAN M: ADULT CHILD LOW RISK: <150 ----- BODER LINE: 150-1 99 ----- HIGH RISK: >200 ----- Not Available [facility] (Lab) [address] [place], [address], 02/03/2024 21:04:56 02/03/20 24 02/03/2024 LIPID PANEL HDL cholesterol 68 mg/dL 40- Not Available [facility] (Lab) [address] [place], [address], 02/03/2024 21:04:56 02/03/20 24 02/03/2024 LIPID PANEL [...] WILL NOT BE REPOR KASIA. Not Available [facility] (Lab) [address] [place], [address], 02/03/2024 21:04:56 02/03/20 24 02/03/2024 AMYLA SE SERUM amylase 46 U/L 30-110 Not Available [facility] (Lab) [address] [place], [address], 02/03/2024 21:05:56 02/03/20 24 02/03/2024 LIPAS E SERUM lipase 81 U/L 23-300 Not Available [facility] (Lab) [address] [place], [address], 02/03/2024 21:06:47 02/03/20 24 02/03/2024 VITAM IN B12 ([place] MARIAH ) vb12 >1000 pg/mL 239-93 1 high Not Available [facility] (Lab) [address] [place], [address], 02/03/2024 22:52:45 09/08/19 24 09/08/2023 DEXA, axial skele ton [facility] [address] [place] [address] [phone] Patien t Name: MICHELLE DORMAN ion #: [id number] Sex: F : 1955 6 Dictat [...] ent. T-scor e: compar jerod by franco tay deviat ion (SD) to a young adult popula tion, matche d for sex and ethnic ity (used for postme nopaus al women and men >50 years) and classi fied by WHO criter ia. -1.0: normal <-1.0 to >-2.5: osteop enia -2.5: osteop orosis -2.5 plus fragil ity fractu re: severe osteop orosis Page 1 [facility] [address] [address] Patien t Name: MICHELLE DORMAN Access ion #: [id number] Sex: F : 1955 6 Dictat ed By: Adryan Keys Attend ing Physic héctor: [facility] Physic héctor: TAD EPPERSON Exam Date: 2023 12:53 PM Exam Name: [...] 2023 16:38: 00 PM Page 2 [email or web address] [facility] (Imaging) [address] [place], [address], 09/18/2023 10:12:52 12/19/19 24 11/20/2023 PFT, compl ete No observ ation record ed. BARCODE Not Available 2023 17:56:44 12/31/19 24 12/30/2023 intro ducti on of urete ral mele ter or stent throu gh renal pelvi s (proc ) No observ ation record ed. BARCODE Not Available 2023 18:41:47 02/03/20 24 02/03/2024 XR, thora cic spine [facility] [address] [facility] [place] [address] Patien t Name: MICHELLE DORMAN Access ion #: [id number] Sex: F : 1955 4 Dictat ed By: Yina Tarango Attend ing Physic héctor: TAD EPPERSON Orderi ng Physic héctor: TAD EPPERSON ER Exam Date: 2023 13:26 PM Exam Name: XR T SPINE 3V Admitt ing Diagno sis(es ): ACCESS ION #: [id number] INDICA TION: back pain/f all COMPAR [...] 2023 15:00: 31 PM Page 1 [email or web address] [facility] (Imaging) [address] [place], [address], 02/17/2024 07:57:10 02/03/20 24 02/03/2024 XR, ribs, unila teral [facility] [address] [place] [address] Patimaryjo t Name: MICHELLE DORMAN Access ion #: [id number] Sex: F : 1955 4 Dictat ed By: Yina Tarango Attend ing Physic héctor: TAD EPPERSON ER Orderi ng Physic héctor: TAD EPPERSON ER Exam Date: 2023 13:03 PM Exam Name: XR RIBS RT WO CHEST Admitt ing Diagno sis(es ): ACCESS ION #: [id number] EXAMIN ATION: XR RIBS RT WO CHEST INDICA TION: chest wall pain/f all COMPAR JEROD: None TECHNI QUE: 4 views of the right ribs histor y FINDIN GS/IMP RESSIO N: No displa domenic right rib fractu re. Electr onical ly Signed by: Yina Tarango at 2023 15:01: 28 PM Page 1 [email or web address] [facility] (Imaging) [address] [place], [address], 02/06/2024 12:37:53 03/10/20 24 03/10/2024 scree eulogio breas t miryam, bilat [facility] [address] [place] [address] Patien t Name: MICHELLE DORMAN L Access ion #: [id number] Sex: F : 1955 2 Locati on: RAD Attend ing Physic héctor: TAD EPPERSON ER Orderi ng Physic héctor: TAD EPPERSON ER Exam Date: 2023 10:29 AM Exam Name: MG LAN[place] BREAST MIRYAM BILAT Admitt ing Diagno sis(es ): MAMMOG VIVIANE REPORT - FINAL EXAM: MG LAN[place] BREAST MIRYAM BILAT HISTOR Y: screen ing mammog shala 68-yea r-old female with no curren t breast compla ints. The patimaryjo t has a histor y of bilate [...] entire ly fatty. Page 1 of 2 [facility]HEL[facility] DOR[facility] Access ion #: [id number] Sex: F : 1955 2 Exam Date: 2023 10:29 AM Exam Name: MG LANCA[place] BREAST MIRYAM BILAT Admitt ing Diagno sis(es [...] be report ed prompt ly to the [facility]. A negati ve mammog viviane report should not discou rage follow -up or biopsy of a clinic ally signif icant findin g and/or abnorm ality. Dense breast tissue may obscur e small neopla sms. This farheen herndon has been entere d into a mammog viviane remind er system with a target date for her next mammog shala. Create d and electr onical ly signed by: Ayo chiang MD Signed Date: 2023 10:57 AM (CT) Dictat ed by: Ayo chiang MD DD: 2023 10:57 AM (CT) DT: 2023 10:57 AM (CT) Page 2 of 2 [email or web address] [facility] (Imaging) [address] [place], [address], 03/10/2024 15:22:00 06/29/19 25 06/29/2024 CT, head + brain , w/o contr ast No observ ation record ed. [email or web address] [place] [address] (Imaging) [address] [place] [address] [address], [address], 07/07/2024 17:02:20 Result Notes Documentation Provider Name and Address Organization Details Recorded Time Dexa, Axial Skeleton : [facility] [address] [place] [address] Patient Name: MICHELLE DORMAN Sex: F : 1955 Dictated By: Adryan Keys Attending Physician: GIBRAN EPPERSON Ordering Physician: GIBRAN EPPERSON Exam Date: 09/08/2023 12:53 PM Exam Name: XR DEXA-HIPS PELVIS SPINE Admitting Diagnosis(es): INDICATION: Postmenopausal DEXA SCAN: BONE DENSITY REPORT: AP SPINE (L1-L4) : T Score: -1.8 LEFT HIP TOTAL : T Score: -1.1 RT HIP TOTAL : T Score: -0.3 TOTAL BILAT HIP AVG: T Score: -0.7 10 YEAR FRACTURE RISK* Not reported IMPRESSION: osteopenia lumbar spine and left total hip --- *FRAX version 3.08. Fracture probability calculated for an untreated patient. Fracture probability may be lower if the patient has received treatment. T-score: comparison by standard deviation (SD) to a young adult population, matched for sex and ethnicity (used for postmenopausal women and men >50 years) and classified by WHO criteria. -1.0: normal <-1.0 to >-2.5: osteopenia -2.5: osteoporosis -2.5 plus fragility fracture: severe osteoporosis Page [address] [address] Patient Name: MICHELLE DORMAN Sex: F : 1955 Dictated By: Adryan Keys Attending Physician: ALINA HASSAN Ordering Physician: GIBRAN EPPERSON Exam Date: 09/08/2023 12:53 PM Exam Name: XR DEXA-HIPS PELVIS SPINE Admitting Diagnosis(es): Z-score: compared by SD to an age, sex, and ethnicity population (used for premenopausal women, men <50 years, and children instead of T-score WHO criteria 4) <-2.0: below expected range/low bone density for age, and a cause should be sought Page 2 [facility] 09/18/2023 10:12:52 Xr, Thoracic Spine : [address] [address] Patient Name: BARRON DORMANHA Sex: F : 1955 Dictated By: Yina Tarango Attending Physician: GIBRAN EPPERSON Ordering Physician: GIBRAN EPPERSON Exam Date: 02/03/2024 13:26 PM Exam Name: XR T SPINE 3V Admitting Diagnosis(es): ACCESSION #: [id number] INDICATION: back pain/fall COMPARISON: None TECHNIQUE: 4 views of the thoracic spine were obtained. FINDINGS/IMPRESSION: The thoracic vertebral alignment is normal. Moderate multilevel degenerative disc disease of the thoracic spine. Mild age indeterminate, favored to be chronic, vertebral compression fractures of the T11 and T12 vertebral bodies with less than 10% loss of vertebral body height. The imaged thorax and abdomen are grossly unremarkable. Page 1 Aminta almazan [employer] 02/17/2024 07:57:10 Xr, Ribs, Unilateral : [place] [id number] Patient Name: MICHELLE DORMAN Sex: F : 1955 Dictated By: Yina Tarango Attending Physician: GIBRAN EPPERSON Ordering Physician: GIBRAN EPPERSON Exam Date: 02/03/2024 13:03 PM Exam Name: XR RIBS RT WO CHEST Admitting Diagnosis(es): ACCESSION #: [id number] EXAMINATION: XR RIBS RT WO CHEST INDICATION: chest wall pain/fall COMPARISON: None TECHNIQUE: 4 views of the right ribs history FINDINGS/IMPRESSION: No displaced right rib fracture. 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 3 10:52:24 Obesity 716265660 Active Not Available [facility] 10:52:24 Anxiety 24014849 Active DEJA Painter [employer] [facility] 5 12:01:22 Atrial fibrillat ion 16477089 Active Not Available [facility] 3 10:52:24 Hyperlipi demia 13333969 Active Not Available [facility] 3 10:52:24 Essential hypertens ion 52472955 Active Not Available [facility] 3 10:52:24 Sleep apnea 68079760 Active Not Available [facility] 3 10:52:24 Vitamin D deficienc y 32813857 Active 2016 Not Available [facility] 3 10:52:24 Cobalamin deficienc y 498262672 Active 2021 Not Available [facility] 3 10:52:24 Screening mammograp hy Completed 202111/30/2021 Not Available [facility] 3 04:34:53 Adult health examinati on Active 2021 Not Available [facility] 3 10:52:24 Prediabet es 104825880 Active 2021 Not Available [facility] 3 10:52:24 Vertigo 696751589 Completed 202111/30/2021 ENEDELIA Mercer [address] [place] [address], [address] , [facility] [employer] [facility] 5 12:01:05 Asthma 279784846 Active 2021 Not Available [facility] 3 10:52:24 Depressiv e disorder 84226898 Active 2021 Not Available [facility] 3 10:52:24 Pancreati c insuffici ency 73979163 Completed 202104/24/2022 ARCHA[place], [place] [employer] [facility] [employer] [facility] 3 10:16:04 Gastroeso phageal reflux disease 446497113 Active 2021 Not Available [facility] 3 10:52:24 Postmenop ausal osteoporo sis 529508995 Active 2021 Not Available [facility] 3 10:52:24 Loose stool 066993803 Completed 202104/24/2022 Not [address] [facility] 3 04:34:54 Exocrine pancreati c insuffici ency 43781870 Active 2021 Not Available [facility] 3 10:52:24 Vitamin B12 deficienc y (non anemic) 31597855 Active 2021 Not Available [facility] 3 10:52:24 Acute urinary tract infection 274009285 Completed 202105/22/2022 ARCHANA [place], [facility] 3 13:35:35 Steatotic liver disease 886802333 Active 2022 Not Available [facility] 3 10:52:24 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 31579228953 9100 Active 2022 Not Available [facility] 3 10:52:24 Subconjun ctival hemorrhag e of left eye 83045750944 9107 Active 2022 Not Available [facility] 3 10:52:24 Vertigo 720855795 Active 2022 ENEDELIA Mercer [address] [place] [address], [address] , [facility] 5 12:01:04 Overactiv e urinary bladder 403376995 Active 2022 Not Available [facility] 3 10:52:24 Obstructi ve sleep apnea syndrome 17602937 Active 2022 Not Available [facility] 3 10:52:24 Osteoporo sis 24121253 Active 2022 Not Available [facility] 3 10:52:24 Pancreati c insuffici ency 20741939 Active 2022 Not Available [facility] 3 10:52:24 Recurrent urinary tract infection 582174867 Active 2022 Not Available [facility] 3 10:52:24 Acute urinary tract infection 688016595 Active 2022 Not Available [facility] 3 10:52:24 Kidney stone 31470409 Active 2022 Jacquelyn Cadena MA null, [place] [facility] 3 11:14:31 Dizziness 372014492 Active 2022 Claudia Hall LPN null, [place] [facility] 3 12:03:02 Blood in urine 15121835 Active 2022 Gibran Epperson MD [address], [address], [place], [address] , [place] [facility] 3 15:09:48 Anemia 469881388 Active 2022 Gibran Epperson MD [address], [address], [place], [address] , [place] [facility] 3 15:09:54 Acute pharyngit is 828052009 Active 2022 Gibran Epperson MD [address], [address], [place], [address] , [place] [facility] 3 15:11:25 Blood glucose outside reference range 959587058 Active 2022 Claudia Hall LPN null, [place] [facility] 3 15:02:28 Candidias is of mouth 28060395 Active 2022 Claudia Hall LPN null, [place] [facility] 3 14:15:17 Acute sinusitis 76497278 Active 2023 Claudia Hall LPN null, [place] [facility] 4 12:42:08 Hyperpara thyroidis m 97307819 Active 2023 Gibran Epperson MD [address], [place], [address] , [place] [facility] [facility] 4 15:07:45 Corneal dystrophy 8530591 Active 2023 Claudia Hall LPN null, [place] - [facility] 4 10:46:36 Adrenal adenoma 772298140 Active 2023 Gibran Epperson MD [address] [facility], [address] [address], [place], [address] , [facility] [employer] [facility] 4 14:44:04 Backache 676799390 Active 2023 Gibran Epperson MD [address] [facility], [address] [place] [address], [place], [address] , [facility] [employer] [facility] 4 08:55:17 Chest wall pain 707670720 Active 2023 Gibran Epperson MD [address] [facility], [address] [place] [address], [place], [address] , [facility] [employer] [facility] 4 08:55:41 Dysuria 52270056 Active 2024 ENEDELIA Mercer [address] [facility], [address] [address], [place], [address] , [facility] [employer] [facility] 5 16:18:57 Notes:Medical History: Anxie ty/Depression Rhinitis with postnasal [...] extraction with IOL 2020 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 Procedures Surgical History Date Name Laterality Status Provider Name and Address Organization Details Recorded Time 12/18/19 Medicare Wellness CPT Code, subsequent completed Fouzia Roach RN [place] [facility] [employer] [facility] 12/18/2023 14:48:28 12/18/19 Advanced Care Planning completed Fouzia Roach RN [place] [facility] [employer] [facility] 12/18/2023 15:35:14 10/31/19 23 Medicare Wellness CPT Code, subsequent completed Alicja Stoner RN [facility] 10/30/2022 10:28:37 10/31/19 23 Advanced Care Planning completed Alicja Stoner RN [facility] 10/30/2022 10:29:08 08/25/19 22 Date of Last Mammogram completed Alicja Stoner RN [facility] 10/30/2022 10:36:48 08/25/19 22 Most Recent Bone Density completed Alicja Stoner RN [facility] 10/30/2022 10:37:04 07/31/19 22 Cataract Surgery completed Not Available [facility] 05/2022 04:31:04 05/06/20 16 Date of Last Colonoscopy completed Not Available [facility] 07/24/2022 04:31:02 section completed Not Available [facility] 07/24/2022 04:31:04 Hernia repair w/mesh completed Not Available [facility] 07/24/2022 04:31:04 Pacemaker completed Not Available [facility] 0 07/24/2022 04:31:04 reduction mammoplasty completed Not Available [facility] 07/24/2022 04:31:04 Gastric Bypass completed Not Available [facility] 07/24/2022 04:31:04 Hyste[facility] 07/[facility] 04:31:04 cardiac pacemaker procedure completed Not Available [facility] 07/24/2022 04:31:04 Imaging Results None recorded. Procedure Notes None recorded. Medical Equipment None Reported. Allergies Allergen ID Allergen Name Allergen Category Reaction Reaction Severity Criticality Documentation Date Start Date Code Code System Note Provider Name and Address Organization Details Recorded Time 6584 spironola ctone medicatio n vomiting Not available Not available 07/24/2022 9997 RxNorm Not Available [facility] 04:39:57 6585 prednison e medicatio n rash Not available Not available 07/24/2022 8640 RxNorm Not Available [facility] 04:39:57 6586 morphine medicatio n headache severe Not available 07/24/2022 7052 RxNorm Not Available [facility] 04:39:57 6587 medicatio n rash Not available Not available 07/24/2022 06215 1 RxNorm Not Available [facility] 3 04:39:57 6588 Demerol medicatio n vomiting Not available Not available 07/24/2022 69237 1 RxNorm Not Available [facility] 3 04:39:57 6589 codeine medicatio n headache severe Not available 07/24/2022 2670 RxNorm Not Available [facility] 3 04:39:57 6590 alendrona te sodium medicatio n vomiting Not available Not available 07/24/2022 38564 2 RxNorm Not Available [facility] 3 04:39:57 Medications Name Sig Start Date [...] 1 TABLET DAILY FOR 4 DAYS DIRECTED 10/28 completed Not Available Not Available Not Available diltiazem CD 180 mg capsule,e xtended [...] Not Available Not Available Not Available vitamin S16-qaxgb in B1 1,000 mcg-100 mg/mL injection solution [...] every day by oral route. 2024 active LOV NOV 10/13/24 ok to rf Not Available [...] Not Available Not Available No t Available lorazepam 0.5 mg tablet TAKE 1 TABLET BY MOUTH TWICE A DAY NEEDED active Not Available Not Available No t [...] PREV REC'D PREVNAR 13 ON 03/25/15 AT [facility] active Not Available Not Available No t Available escitalop shala 20 mg tablet TAKE 1 TABLET BY MOUTH EVERY DAY 2024 active Not Available Not Available Not Avai lable Lexapro 10 mg tablet Take 1 tablet every day by oral route for 90 days. 03/12 completed Not Available Not Available Not Available nitrofura ntoin monohydra te/macroc rystals 100 mg capsule TAKE 1 CAPSULE BY MOUTH EVERY 12 HOURS FOR 5 DAYS 12/21 completed Not Available Not Available Not Available [...] Available Not Available Not Available Fluarix Quad 2727-8417 (PF) 60 mcg (15 mcg x 4)/0.5 mL IM syringe TO BE ADMINIST ERED BY PHARMACI [employer] FOR IMMUNIZA TION active Not Available Not Available No t Available Flucelvax Quad (PF) 60 mcg (15 mcg x 4)/0.5 mL IM syringe TO BE ADMINIST ERED BY PHARMACI [employer] FOR IMMUNIZA TION 05/16 completed Not Available Not Available Not Available Shingrix (PF) 50 mcg/0.5 mL intramusc ular suspensio n, kit TO BE ADMINIST ERED BY PHARMACI [employer] FOR IMMUNIZA TION 12/02 completed Not Available Not Available Not Available Bydureon BCise 2 mg/0.85 mL subcutane ous auto-inje ctor Inject 2 mg every week by subcutan eous route at dinner for 84 days. 2022 active Not Available Not Available Not Avai lable Fluzone Quad (P F) 60 mcg(15 mcgx4)/0. 5 mL intramusc ular syringe TO BE ADMINIST ERED BY PHARMACI [employer] FOR IMMUNIZA TION 03/12 completed Not Available Not Available Not Available Fluzone High-Dose Quad (PF) 240 mcg/0.7 mL IM syringe PHARMACY ADMINIST ERED 05/30 completed Not Available Not Available Not Available Gemtesa 75 mg tablet TAKE 1 TABLET BY MOUTH EVERY DAY active Not Available Not Available No t Available Wegovy 2.4 mg/0.75 mL subcutane ous pen injector Inject by subcutan eous route. active Not Available Not Available No t Available FreeStyle Jennifer 3 Sensor device CHANGE EVERY 14 DAYS active Not Available Not Available No t Available Vitals Date Recorded Body height Body mass index (BMI) Body weight Body temperature Heart rate Oxygen saturation Oxygen saturation in Arterial blood by Pulse oximetry Systolic And Diastolic Provider Name and Address Organization Details Last Updated DateTime 5 172.72 cm 44.4 kg/m2 847133. 97 g 97.6 [degF] 67 /min 95 % 95 % 130/66 mm[Hg] KIMBERLY Singh [facility] [employer] [facility] 5 14:18:14 Date Recorded Body height Body mass index (BMI) Body weight Body temperature Heart rate Respiratory rate Oxygen saturation Oxygen saturation in Arterial blood by Pulse oximetry Systolic And Diastolic Provider Name and Address Organization Details Last Updated DateTime 4 172.72 cm 41.1 kg/m2 831329. 94 g 97.4 [degF] 72 /min 16 /min 96 % 96 % 112/74 mm[Hg] Guerita Sinha MA [facility] [employer] [facility] 4 14:43:32 Date Recorded Pain severity - 0-10 verbal numeric rating [Score] - Reported Provider Name and Address Organization Details Last Updated DateTime 12/18/2023 1 Fouzia Roach RN [facility] [employer] [facility] 12/18/2023 15:32:36 Date Recorded Body height Body mass index (BMI) Body weight Body temperature Heart rate Oxygen saturation Oxygen saturation in Arterial blood by Pulse oximetry Systolic And Diastolic Provider Name and Address Organization Details Last Updated DateTime 4 172.72 cm 43.2 kg/m2 133443. 23 g 97.8 [degF] 78 /min 98 % 98 % 118/74 mm[Hg] Acacia Blum [facility] [employer] [facility] 4 14:14:08 Date Recorded Body height Body mass index (BMI) Body weight Body temperature Heart rate Oxygen saturation Oxygen saturation in Arterial blood by Pulse oximetry Systolic And Diastolic Provider Name and Address Organization Details Last Updated DateTime 5 172.72 cm 42.9 kg/m2 269874. 05 g 97.6 [degF] 73 /min 93 % 93 % 118/80 mm[Hg] Aby oquendo [facility] [employer] [facility] 5 15:09:19 Date Recorded Body height Body mass index (BMI) Body weight Body temperature Heart rate Oxygen saturation Oxygen saturation in Arterial blood by Pulse oximetry Systolic And Diastolic Provider Name and Address Organization Details Last Updated DateTime 4 172.72 cm 42.3 kg/m2 254531. 68 g 97 [degF] 64 /min 96 % 96 % 130/76 mm[Hg] Arianna lombardo KIMBERLY [facility] [employer] 4 08:35:32 Social History Question Answer Notes LastModified by Organization Details LastModified Time Tobacco Smoking Status Never Smoker KIMBERLY Woods [facility] [employer] 03/12/2023 11:05:44 Do You Have An Advance Directive? No Papers Given 12/18/2023 [email or web address] Information not available 12/18/2023 Are You Blind Or Do You Have Difficulty Seeing? No Cataracts Removed Information not available 03/12/2023 Is Blood Transfusion Acceptable In An Emergency? Yes [email or web address] Information not available 12/18/2023 What Is Your Level Of Caffeine Consumption? Occasional [email or web address] [id number] Information not available 07/24/2022 How Much Tobacco Do You Chew? None [id number] Information not available 07/24/2022 In The 14 Days Before Symptom Onset, Have You Had Close Contact With A Laboratory-confi rmed COVID-19 While That Case Was Ill? No Information not available 03/12/2023 In The 14 Days Before Symptom Onset, Have You Had Close Contact With A Person Who Is Under Investigation For COVID-19 While That Person Was Ill? No Information not available 03/12/2023 Are You Deaf Or Do You Have Serious Difficulty Hearing? No Information not available 03/12/2023 What Type Of Diet Are You Following? REGULAR [id number] Information not available 07/24/2022 Which Illicit Or Recreational Drugs Have You Used? None Information not available 03/12/2023 What Is The Highest Grade Or Level Of School You Have Completed Or The Highest Degree You Have Received? [id number] [email or web address] Information not available 12/18/2023 Do You Have An Electrostatic Air Filter? Yes Information not available 03/12/2023 How Many Days Of Moderate To Strenuous Exercise, Like A Brisk Walk, Did You Do In The Last 7 Days? 0 [email or web address] Information not available 12/18/2023 Have There Been Any Changes To Your Family Or Social Situation? No [email or web address] Information not available 12/18/2023 What Is The Fluoride Status Of Your Home? Fluoridated Information not available 03/12/2023 Are There Any Guns Present In Your Home? No [email or web address] Information not available 12/18/2023 Do You Have A Humidifier? Yes Information not available 03/12/2023 Do You Use Insect Repellent Routinely? No [email or web address] Information not available 12/18/2023 Where Do You Live? [email or web address] Information not available 03/12/2023 Presence Of Domestic Violence No [email or web address] Information not available 10/30/2022 Guns Present In The Home? Yes [email or web address] Information not available 12/18/2023 Are You Able To Care For Yourself? Yes [email or web address] Information not available 10/30/2022 Are You Blind Or Do Yo Have Difficulty Seeing? No Information not available 10/30/2022 Are You Deaf Or Do You Have Serious Difficulty Hearing? No [email or web address] Information not available 10/30/2022 General Stress Level? Moderate Caregiver To Disabled [email or web address] Information not available 10/30/2022 Live Alone Of With Others? With Others [email or web address] Information not available 10/30/2022 Do You Have A Medical Power Of Deputy Assessor? No [email or web address] Information not available 12/18/2023 Do You Have Moisture Problems In Your Home? No Information not available 03/12/2023 What Was The Date Of Your Most Recent Tobacco Screening? 12/18/2023 [email or web address] Information not available 12/18/2023 How Many Children Do You Have? 1 [email or web address] Information not available 12/18/2023 Do You Have Any Pets? Yes Information not available 03/12/2023 What Is Your Relationship Status? [id number] Information not available 07/24/2022 Do You Use Your Seat Belt Or Car Seat Routinely? Yes Information not available 03/12/2023 Are You Sexually Active? No [email or web address] Information not available 12/18/2023 Do You Have Smoke And Carbon Monoxide Detectors In Your Home? Yes Information not available 03/12/2023 Are You Passively Exposed To Smoke? No Information not available 03/12/2023 Are There Any Smokers In Your House? No [email or web address] Information not available 12/18/2023 What Types Of Sporting Activities Do You Participate In? None [email or web address] Information not available 12/18/2023 Do You Use Sunscreen Routinely? No [email or web address] Information not available 12/18/2023 Has Tobacco Cessation Counseling Been Provided? No [email or web address] Information not available 12/18/2023 Have You Recently Traveled Abroad? No Information not available 03/12/2023 Do You Have Difficulty Walking Or Climbing Stairs? No Information not available 03/12/2023 Do You Have Any Dietary Restrictions? No [email or web address] Information not available 12/18/2023 Sex: Female Functional Status Question Answer Note LastModified by Organizat ion Details LastModified Time Do you or have you ever used smokeless tobacco? Never used smokeless tobacco [id number] Information not available 07/24/2022 Are you currently employed? No [email or web address] Information not available 12/18/2023 Do you have transportation difficulties? No Information not available 03/12/2023 Are you able to care for yourself independently? Yes Information not available 03/12/2023 Do you have difficulty dressing, bathing, grooming, or toileting? No Information not available 03/12/2023 Do you or have you ever used e-cigarettes or vape? Never used electronic cigarettes Information not available 03/12/2023 What is your exercise level? None [id number] Information not available 07/24/2022 Do you use any illicit or recreational drugs? No [email or web address] Information not available 12/18/2023 Do you or have you ever used any other forms of tobacco or nicotine? No [email or web address] Information not available 12/18/2023 What is your level of alcohol consumption? None [id number] Information not available 07/24/2022 Are you able to walk independently without assistance or assistive devices? [email or web address] Information not available 03/12/2023 Do you have difficulty doing errands alone? No Information not available 03/12/2023 What is your occupation? retired Information not available 03/12/2023 Mental Status Question Answer Note LastModified by Organizat ion Details LastModified Time Do you feel stressed (tense, restless, nervous, or anxious, or unable to sleep at night)? [id number] Information not available 03/12/2023 Do you have difficulty concentrating, remembering or making decisions? No Information no t available 03/12/2023 Family History Relationship Description Onset Age of this Age Resolved Age Notes LastModified by Organization Details LastModified Time Father Diabetes mellitus [id number].520 [id number] Not available 07/24/2022 04:31:08 Father Hypertensive disorder MIGRATION.590 [id number] Not available 07/24/2022 04:31:08 Father Myocardial infarction MIGRATION.564 [id number] Not available 07/24/2022 04:31:08 Mother Diabetes mellitus MIGRATION.404 [id number] Not available 07/24/2022 04:31:08 Mother Hypertensive disorder MIGRATION.330 [id number] Not available 07/24/2022 04:31:08 Mother Myocardial infarction [email or web address].003 [id number] Not available 07/24/2022 04:31:08 Brother Diabetes mellitus MIGRATION.677 [id number] Not available 07/24/2022 04:31:08 Brother Hypertensive disorder MIGRATION.842 [id number] Not available 07/24/2022 04:31:08 Brother Kidney disease MIGRATION.602 [id number] Not available 07/24/2022 04:31:08 Sister Diabetes mellitus [id number].412 [id number] Not available 07/24/2022 04:31:08 Sister Hypertensive disorder [id number].459 [id number] Not available 07/24/2022 04:31:08 Medical History Condition [...] e and Address Organization Details Recorded Time zoster live 5 completed Not Available [facility] 12/21/2024 14:58:24 Pneumococcal conjugate PCV 13 5 completed Not Available [facility] 12/21/2024 14:58:24 Influenza, high-dose, trivalent, PF 9 completed Not Available [facility] 12/21/2024 14:58:24 Influenza, adjuvanted, quadrivalent, PF 1 completed Not Available [facility] 12/21/2024 14:58:24 COVID-19, mRNA, LNP-S, PF, 100 mcg/0.5mL dose or 50 mcg/0.25mL dose 1 completed Not Available [facility] 12/21/2024 14:58:24 COVID-19, mRNA, LNP-S, PF, 30 mcg/0.3 mL dose, rudolph-sucrose 2 completed Not Available [facility] 12/21/2024 14:58:24 COVID-19, mRNA, LNP-S, bivalent, PF, 50 mcg/0.5 mL or 25mcg/0.25 mL dose 2 completed Not Available [facility] 12/21/2024 14:58:24 Influenza, high-dose, quadrivalent, PF 2 completed Not Available [facility] 12/21/2024 14:58:24 RSV, bivalent, protein subunit RSVpreF, diluent reconstituted, 0.5 mL, PF 3 completed Not Available [facility] 12/21/2024 14:58:24 COVID-19, mRNA, LNP-S, PF, 50 mcg/0.5 mL 3 completed Not Available [facility] 12/21/2024 14:58:24 Influenza, high-dose, quadrivalent, PF 3 completed Not Available [employer] 12/21/2024 14:58:24 Influenza, adjuvanted, trivalent, PF 4 completed Not Available [facility] 12/21/2024 14:58:24 COVID-19, mRNA, LNP-S, PF, rudolph-sucrose, 30 mcg/0.3 mL 4 completed Not Available [facility] 12/21/2024 14:58:24 SARS-COV-2 (COVID-19) vaccine, UNSPECIFIED 1 completed Not Available [facility] 12/18/2022 10:52:25 SARS-COV-2 (COVID-19) vaccine, UNSPECIFIED 1 completed Not Available [facility] 12/18/2022 10:52:25 Influenza, split virus, trivalent, preservative 0 completed Not Available [facility] 12/18/2022 10:52:25 zoster, unspecified formulation 9 completed Not Available [facility] 12/18/2022 10:52:25 zoster, unspecified formulation 8 completed Not Available [facility] 12/18/2022 10:52:25 influenza, unspecified formulation 7 completed Not Available [facility] 12/18/2022 10:52:25 Influenza, high-dose, quadrivalent, PF 0 completed Not Available [facility] 12/18/2022 10:52:25 influenza, unspecified formulation 8 completed Not Available [facility] 12/18/2022 10:52:25 Past Encounters Encounter ID Performer Location Encounter Start Date Encounter Closed Date Diagnosis/Indication Diagnosis SNOMED-CT Code Diagnosis ICD10 Code Diagnosis IMO Codes Diagnosis Note [id number] Kaur Quinones MD [facility] [place] [address] [place] [address] 09/29/2020 00:00:00 09/29/2020 16:10:07 [id number] Gibran Epperson MD [facility] [address] [facility] [place] [address] 11/08/2020 00:00:00 11/09/2020 09:24:34 [id number] MD MICHELLE Currie IGRATION_ DEFAULT_1 _1 , 03/29/2021 00:00:00 03/29/2021 12:07:02 [id number] Gibran Epperson MD [facility] [address] [facility] [place] [address] 07/04/2021 00:00:00 07/04/2021 17:02:16 [id number] MD MICHELLE Currie IGRATION_ DEFAULT_1 _1 , 10/18/2021 00:00:00 10/18/2021 10:04:28 [id number] Gibran Epperson MD [facility] [address] [address] 12/05/2021 00:00:00 12/05/2021 16:24:56 [id number] [facility] [place] [address] [place] [address] 03/28/2022 00:00:00 03/28/2022 13:34:13 [id number] Kaur Quinones MD [facility] [place] [address] [place] [address] 04/22/2022 00:00:00 04/22/2022 13:49:14 [id number] Fredo Garcia MD [facility] Pulmonolo gy [address] [address] 05/07/2022 00:00:00 05/07/2022 11:28:08 [id number] Gibran Epperson MD [facility] [address] [address] 06/05/2022 00:00:00 06/05/2022 16:04:01 [id number] Gibran Epperson MD [facility] [address] [place] [address] 08/12/2022 14:42:00 08/12/2022 15:04:05 Acute bronchitis 17152683 J20.9 alb inhaler qid, otc discussed [id number] Fredo Garcia MD [facility] Pulmonolo gy [place] [address] [facility] [address] [place] [address] 10/02/2022 10:56:59 10/03/2022 08:32:31 Obstructive sleep apnea syndrome 99207743 G47.33 [id number] Kaur Quinones MD [facility] [place] [address] [place] [address] 10/22/2022 09:15:53 10/22/2022 09:38:25 Postmenopausal osteoporosis 906192596 M81.0 Patient tolerated injection without site reaction or pain. She will come back in 6 months for repeat injection. Has a follow up in [id number] Gibran Epperson MD [facility] Internal Med [address] [facility] [place] [address] 10/30/2022 10:03:11 10/30/2022 10:53:14 Essential hypertension 60763354 I10 under control Hyperlipidemia 83220004 E78.5 under control Osteoarthritis 961527362 M19.90 otc Depressive disorder 3548 9007 F32.9 under control with meds Atrial fibrillation 4943 6004 I48.91 in sinus Obesity 066911390 E66.9 advised to lose Sleep apnea 87315799 G47 .30 cpap compliant Vitamin D deficiency 347 80188 E55.9 otc Cobalamin deficiency 190 769536 E53.8 shots help Prediabetes 662359847 R7 3.03 seeing endo, watching diet Adult [facility] th examination 417119778 Z00.00 Colonoscop y- 04/2016Mam mo-08/2021 Dexa- [id number] 2COVID-04/15,032 07/16, and booster x3 Gastroesop hageal reflux disease 854097270 K21.9 better Steatotic liver disease 939004653 K76.0 lose weight and watch fat intake Vertigo 789788099 R42 meds help Osteoporosis 85650976 M8 1.0 on prolia Pancreatic insufficiency 84787067 K86.89 on meds Screening mammography 24 988528 Z12.31 Screening for disorder 591209280 Z13.9 Asthma 699464353 J45.90 9 [id number] Luigi Wong NP [facility] Urology [address] [address] 12/09/2022 09:03:56 12/09/2022 10:11:17 Recurrent urinary tract infection 088708232 N39.0 She is on her last day [...] e follow-up. History of calculus of kidney 145095706 Z87.[address]/KUB. [id number] Anup Oliva MD [facility] Urology [address] [address] 01/02/2023 11:07:58 01/02/2023 11:58:49 Kidney stone 24944948 N20.0 Discussed perc vs eswl with stent. She is aware she will probably need procedure to remove fragments after a eswl and will probably will need at least 2 shocks. Procedure risks and alternativ es discussed. [id number] Gibran Epperson MD [facility] Internal Med [address] [place] [address] 03/12/2023 11:05:36 03/12/2023 11:53:01 Essential hypertension 25973152 I10 under control Hyperlipidemia 80554926 E78.5 under control Osteoarthritis 760121101 M19.90 otc Depressive disorder 3548 9007 F32.9 under control with meds Atrial fibrillation 4943 6004 I48.91 in sinus Obesity 719283520 E66.9 advised to lose and watch diet Sleep apnea 94969120 G47 .30 cpap compliant Vitamin D deficiency 347 80734 E55.9 otc Cobalamin deficiency 190 202909 E53.8 shots help , gets every 2 weeks Prediabetes 975906560 R7 3.03 seeing endo, watching diet Adult heal th examination 363739455 Z00.00 Colonoscop y- 04/2016Mam mo-10/2022 Dexa- [id number]- 03/07/23CO VID-, 1, and booster x3, 03/07/23 Gastroesop hageal reflux disease 539353635 K21.9 better Steatotic liver disease 907383069 K76.0 better Vertigo 027113560 R42 meds help , meclizine Osteoporosis 84081409 M8 1.0 on prolia shots Pancreatic insufficiency 86111709 K86.89 on meds Asthma 290534531 J45.90 9 under control [id number] Gibran Epperson MD [facility] Internal [facility] [address] [place] [address] 04/09/2023 14:47:28 04/09/2023 15:19:12 Kidney stone 98454804 N20.0 s/p stent Blood in urine 71727933 R31.9 due to kidney stones Anemia 668187332 D64.9 due to hematuria Acute pharyngitis 250487 003 J02.9 viral, otc [id number] Gibran Epperson MD [facility] Internal [facility] [address] [place] [address] 08/20/2023 14:15:07 08/20/2023 15:08:48 Essential hypertension 45287158 I10 under control Hyperlipidemia 35196658 E78.5 under control Osteoarthritis 636793388 M19.90 otc Depressive disorder 3548 9007 F32.9 under control with meds Atrial fibrillation 4943 6004 I48.91 in sinus Obesity 138096274 E66.9 advised to lose and watch diet Sleep apnea 70881261 G47 .30 cpap compliant Vitamin D deficiency 347 94778 E55.9 otc Cobalamin deficiency 190 270584 E53.8 shots help , gets every 2 weeks Prediabetes 628139777 R7 3.03 seeing endo, watching diet Gastroesop hageal reflux disease 659187837 K21.9 better Steatotic liver disease 725730345 K76.0 better Vertigo 206751139 R42 meds help , meclizine Osteoporosis 58712379 M8 1.0 on prolia shots Pancreatic insufficiency 39289086 K86.89 on meds Asthma 692870083 J45.90 9 under control Adult [facility] examination 416412296 Z00.00 Colonoscop y- 04/2016Mam mo-10/2022 Dexa- -2 021FLU-RSV- 03/07/23CO VID-, 1, and booster x3, 03/07/23 Hyperparathyroidism 6699 9008 E21.3 Screening mammography 24 823483 Z12.31 Postmenopausal state 764 56268 Z78.0 [id number] Gibran Epperson MD [facility] [address] [place] [address] 12/18/2023 14:02:42 12/18/2023 15:11:44 Essential hypertension 18417917 I10 under control Hyperlipidemia 74585801 E78.5 under control Osteoarthritis 456438487 M19.90 otc Depressive disorder 3548 9007 F32.9 under control with meds Atrial fibrillation 4943 6004 I48.91 in sinus Obesity 356665444 E66.9 advised to lose and watch diet Sleep apnea 63206370 G47 .30 cpap compliant Vitamin D deficiency 347 67891 E55.9 otc Cobalamin deficiency 190 725215 E53.8 shots help , gets every 2 weeks Prediabetes 838216791 R7 3.03 seeing endo, watching diet Gastroesop hageal reflux disease 754826988 K21.9 better Steatotic liver disease 438528551 K76.0 better Vertigo 597830615 R42 meds help , meclizine Osteoporosis 30268838 M8 1.0 on prolia shots Pancreatic insufficiency 21817448 K86.89 on meds Asthma 204381748 J45.90 9 under control Adult [facility] examination 270111830 Z00.00 Colonoscop y- 04/2016, not dueMammo-0 exa - -2 021FLU-RSV- 03/07/23CO VID-, 1, and booster x3, 03/07/23 Hyperparathyroidism 6699 9008 E21.3 seeing endo Screening mammography 24 779043 Z12.31 Adrenal adenoma 51991989 8 D35.00 benign Screening for disorder 502520940 Z13.9 [id number] Gibran Epperson MD [facility] Internal [facility] [address] [place] [address] 02/03/2024 08:25:23 02/03/2024 09:17:01 Backache 676215635 M54.9 otc Chest wall pain 61297182 6 R07.89 otc [id number] Gibran Epperson MD [facility] Internal [facility] [address] [place] [address] 06/09/2024 14:02:08 06/09/2024 15:06:12 Essential hypertension 58876823 I10 under control Hyperlipidemia 24265238 E78.5 under control Osteoarthritis 565465620 M19.90 otc Depressive disorder 3548 9007 F32.9 under control with meds Atrial fibrillation 4943 6004 I48.91 in sinus Obesity 169677264 E66.9 advised to lose and watch diet Sleep apnea 25603498 G47 .30 cpap compliant Vitamin D deficiency 347 54356 E55.9 otc Cobalamin deficiency 190 892333 E53.8 shots help , gets every 2 weeks Prediabetes 477554475 R7 3.03 seeing endo, watching diet Gastroesop hageal reflux disease 946154946 K21.9 better Steatotic liver disease 949994128 K76.0 better Vertigo 577814055 R42 getting worse, falling Osteoporosis 26554755 M8 1.0 on prolia shots Pancreatic insufficiency 07852856 K86.89 on meds Asthma 692170228 J45.90 9 under control Adult heal th examination 177651793 Z00.00 Colonoscop y- 04/2016, not dueMammo-1 exa- 0529D85 -1277H56-0 021FLU-202 4RSV- 03/07/23CO VID-, 1, and booster x3, 03/07/232023 Hyperparathyroidism 6699 9008 E21.3 seeing endo Adrenal adenoma 98101589 8 D35.00 benign [id number] Gibran Epperson MD [facility] [address] [place] [address] 12/21/2024 14:56:43 12/21/2024 15:38:53 Vertigo 947947054 R42 Anxiety 05293296 F41.9 04470 under control- has moments due to passing Depressive disorder 3548 9007 F32.9 patient reports its under control at this time Essential hypertension 68091283 I10 under contorl, on meds Hyperlipidemia 14169222 E78.5 watching diet, advised to loose more weight Obesity 340328074 E66.9 Wegovy was started/ also improving diet Hyperparathyroidism 6699 9008 E21.3 Sees endocrinol ogy Obstructiv e sleep apnea syndrome 89113817 G47.33 Uses sleep machine nightly, sees sleep medicine Health Concerns Section Related Observation LastModified by Organization Detai ls LastModified Time None Recorded Concern Status LastModified by Organization Details LastModified Time None Recorded Advance Directives Directive N: papers given 12/18/2023 Payers Insurance Date Sequence Insurance Name Policy Number Policy Boggs Covered Member ID Boggs Member ID Guarantor Name 12/17/2024 1 [place] Michelle Dorman [id number] Michelle Dorman 12/17/2024 2 () Michelle Dorman [id number] Michelle Dorman Notes Date Note Type Note Provider Name and Address Organization Details Recorded Time 08/20/2023 text/html Here today for her routine follow up. Pt feels as if she has oral Thrush from recent abxA FIB- s/o cardioversion, DR Kelly, no palpitationsMeds- Apixaban 5 mg BIDS/p ablation 04/06/19.Sick sinus syndrome-s/p pace maker 12/12, Dizziness has improved ,Last echo- 01/02/2023Meds- Flecainide 100 mg BID, Diltiazem 360 mg dailyHTN- under controlMEDS- Losartan /HCTZ 50/12.5Prediabetes- was getting hypoglycemia and did improve while taking Bydureon, but stopped due to not covered by insuranceHyperlipidem ia- on meds, watching diet, labs good in 10/15Meds- Atorvastatin 40 mg dailyAnxiety and depression- under control, on meds, mood is stable, sleeping betterMeds- Escitalopram 20 mg dailyAsthma- occ takes inhaler when season changes,Meds- Albuterol inhaler as neededObesity- had bariatric surgery in the past, 2012 ,Vit D def-on otcB12 def- seen endo, on shots, feeling better, labs were done by dr renee.Osteoarthritis- exercises regularly, not on medsSleep apnea - on cpap, compliantDizziness/ vertigo- symptoms better when takes meclizineHad breast reduction surgery 03/21/2018Pancreatic insufficiency- on creon h/o fatty liver-Osteoporosis- could not tolerate alendronate due to vomiting, was seeing dr Quinones for prolia shots , now Dr Gordon Hyperparathyroidism- seeing dr at [facility], needs surgery Gibran Epperson MD [address] [facility] [address], [address], [place], [address], [place] [facility] 08/20/2023 15:09:03 12/18/2023 text/html Here today for 4mo F/U, compliant Jamarcus FIB- s/o cardioversion, DR Kelly, no palpitationsMeds- Apixaban 5 mg BIDS/p ablation 04/06/19.Sick sinus syndrome-s/p pace maker 12/12, Dizziness has improved ,Last echo- 01/02/2023Meds- Flecainide 100 mg BID, Diltiazem 360 mg dailyHTN- under controlMEDS- Losartan /HCTZ 50/12.5Prediabetes- has taken bydureon and not any more 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, has Jennifer, being managed by endo, on AcarboseHyperlipidemi a- on meds, watching diet,Meds- Atorvastatin 40 mg dailyAnxiety and depression- under control, on meds, mood is stable, sleeping betterMeds- Escitalopram 20 mg dailyAsthma- recent PFT, started on Breztri bid, also Albuterol inhaler as neededObesity- had bariatric surgery in the past, 2013 ,Vit D def-on otcB12 def- seen endo, on shots, feeling better,Osteoarthritis - exercises regularly, not on medsSleep apnea - on cpap, compliantDizziness/ vertigo- symptoms better when takes meclizineHad breast reduction surgery 03/21/2018Pancreatic insufficiency- on creon h/o fatty liver- improvedOsteoporosis- could not tolerate alendronate due to vomiting, was seeing dr Quinones for prolia shots , now Dr Gordon Hyperparathyroidism- seeing dr at [facility], s/p surgery Gibran Epperson MD [address], [address], [place], [address], [employer] 12/18/2023 17:34:07 02/03/2024 text/html ROS as noted in the HPI Pt is here today for a fall.She [...] her back.No LOC Gibran Epperson MD [address], [address], [place], [address], [employer] 02/03/2024 09:20:38 06/09/2024 text/html Here today for 4mo F/U, compliant on C/o dizziness ALL THE [...] 360 mg dailyHTN- under controlMEDS- Losartan /HCTZ 50/12.5Prediabetes- has taken bydureon and not any more 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, has Jennifer, being managed by endo, on AcarboseHyperlipidemi a- on meds, watching diet,Meds- Atorvastatin 40 mg dailyAnxiety and depression- under control, on meds, mood is stable, sleeping betterMeds- Escitalopram 20 mg dailyAsthma- recent PFT,on Breztri bid, also Albuterol inhaler as neededObesity- had bariatric surgery in the past, 2012 ,Vit D def-on otcB12 def- seen endo, on shots, feeling better,Osteoarthritis - exercises regularly, not on medsSleep apnea - on cpap, compliantDizziness/ vertigo- symptoms better when takes meclizineHad breast reduction surgery 03/21/2018Pancreatic insufficiency- on creon h/o fatty liver- improvedOsteoporosis- could not tolerate alendronate due to vomiting, was seeing dr Quinones for prolia shots , now Dr Gordon Hypoglycemia- seeing endo, using Jennifer, to see endo at [place] Hyperparathyroidism- seeing dr at [facility], s/p surgery Gibran Epperson MD [address] [facility], [facility], [place], [address], [facility] [employer] [facility] [employer] 06/09/2024 15:02:44 12/21/2024 text/html Patient is a 69 year old female that presents to the office for annual wellness. 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 She has last 10lbs already. She also states her had a month prior so she has been struggling but overall is taking it one day at a time. She denies any additional concerns today. She denies chest pain, shortness of breath, headaches, blurred vision, N/V/Abdominal pain, or fatigue. Refills- meclizine only, cardiology fills all othersgrief therapy or therpy- will check into [employer]- started on Wegovy-tolgeraing well, lost 10lbs labs- getting them done tomorrow from cardiology- will send to our officemammogram-utd, due octobercolonoscopy- awareWWE- awareDEXA-utd, gets proliaFlu-aware- this gbbeIwrhe-aklMtch-agv reShingles-utdPneumo- utd KRISTIAN Mercer-Ayla [address] [facility], [facility], [place], [address], [place] [facility] [place] [employer] [facility] 12/21/2024 15:57:01 OBGyn Episode No OBEpisode recorded.
== END 2025-03-30 17:52 | disposition home or self-care (01) ==
PROVIDERS: PCP Internal Medicine
DX: S01.01XA Laceration without foreign body of scalp, initial encounter (principal); S12.690A Other displaced fracture of seventh cervical vertebra, initial encounter for closed fracture; I48.91 Unspecified atrial fibrillation; I10 Essential (primary) hypertension; J45.909 Unspecified asthma, uncomplicated; K21.9 Gastro-esophageal reflux disease without esophagitis; M81.0 Age-related osteoporosis without current pathological fracture; M17.0 Bilateral primary osteoarthritis of knee; F41.9 Anxiety disorder, unspecified; Z98.84 Bariatric surgery status; Z95.0 Presence of cardiac pacemaker; Z90.710 Acquired absence of both cervix and uterus; Z79.01 Long term (current) use of anticoagulants; Z79.899 Other long term (current) drug therapy; Z79.620 Long term (current) use of immunosuppressive biologic; M47.812 Spondylosis without myelopathy or radiculopathy, cervical region; W01.0XXA Fall on same level from slipping, tripping and stumbling without subsequent striking against object, initial encounter
CPT/HCPCS: 12002; 70450; 72040; 72125; 72128; 72131; 73030; 99284; A9270; L0140